=== PATIENT | female | born 1945 | race Caucasian/White ===

== ENCOUNTER 2021-07-07 12:24 | Observation (INO) | payer MEDICARE, OTHER, SELFPAY ==
[2021-07-07] VITALS (10 sets, daily range): BP systolic 107–149; BP diastolic 53–94; PULSE 64–91; RESP 16–22; TEMP 36.6–36.8; O2SAT 86–100; BMI 32.7
--- NOTE | 2021-07-07 12:47 | ED.GIBLEED ---
HPI - GI Bleed General Chief complaint: GI Bleed Stated complaint: gi bleed Time Seen by Provider: 07/07/21 12:36 Source: patient and old records reviewed Mode of arrival: EMS Limitations: no limitations History of Present Illness HPI Narrative: Patient is a 75-year-old female who presents to the ED via EMS with report of low hemoglobin. Per patient's records, patient was seen at [facility] on 06/18 due to 2 day history of weakness and diagnosed with left MCA CVA. She was started on aspirin, Plavix, and a statin at that time. On 06/21 her hemoglobin was 6.8 and she received 1 unit of packed red blood cells. Plavix was held at that time and later resumed. She was discharged to [facility] on 06/23 for PT OT and speech therapy. On 07/04, her hemoglobin was over 7. She did not receive any further blood transfusions and was started on a PPI. On 07/05, patient was noted to be heme occult positive. Aspirin Plavix were held yesterday due to hemoglobin remaining low. CBC at 0330 this morning at the rehab facility showed hemoglobin of 6.9 and she was referred here for further evaluation. Patient denies any melena or bright red rectal bleeding. She also denies any fatigue, abdominal pain, nausea, vomiting, urinary symptoms, fever, chills. Patient has some issues with confusion since CVA and is receiving speech therapy for dysarthria and expressive aphasia. A&O x2 currently in the ED bed. Related Data Allergies Allergy/AdvReac Type Severity Reaction Status Date / Time Bleach (Sodium Hypochlorite) Allergy Other Verified 06/23/21 14:53 cephalexin [From Keflex] Allergy Rash Verified 06/23/21 14:52 Review of Systems Review of Systems: CONSTITUTIONAL: Denies fatigue, fever, chills, or sweats. CARDIOVASCULAR: Denies chest pain or edema. RESPIRATORY: Denies cough or dyspnea. GASTROINTESTINAL: Reports occult rectal bleeding. Denies abdominal pain, nausea, vomiting, melena, bright red rectal bleeding, or diarrhea. GENITOURINARY: Denies dysuria or hematuria. MUSCULOSKELETAL: Denies back pain, joint pain, or myalgia. NEUROLOGIC: Denies headache, numbness All systems reviewed & are unremarkable except as noted in HPI and below PMFSH Past Medical History Medical History Anemia Cognitive deficits Coronary artery disease CVA (cerebral vascular accident) Diabetes mellitus GERD (gastroesophageal reflux disease) H/O renal cell cancer Hyperlipidemia Hypertension Obesity Peripheral vascular disease Right hemiplegia Surgical History Surgical History H/O aortic valve replacement Family History Family History Sibling Hypertension Other Family history of heart attack Social History Social History Social History: 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 Spoke with son who will be hiring caregivers to return patient to her home. Second hand tobacco smoke exposure: Yes Exam Narrative: GENERAL: Well appearing, well-nourished, non-toxic, in no acute distress. HEAD: Normocephalic, atraumatic. EYES: EOMI, conjunctivae clear bilaterally. THROAT: Pharynx clear, no exudate. MMs moist. NECK: Supple. No adenopathy, no masses. RESPIRATORY: Airway patent, respirations nonlabored. Clear to auscultation bilaterally, no rales, rhonchi, wheezing. CARDIOVASCULAR: Regular rate and rhythm without murmurs, rubs, or gallops. Peripheral pulses 2+ and equal bilaterally. ABDOMINAL: Soft, nontender, nondistended, no hepatosplenomegaly. Normoactive BS. RECTAL: Normal tone. Nonthrombosed external hemorrhoids noted. Stool without gross blood. Hemoccult positive. MUSCULOSKELETAL: Moves all extremities. Strength/ROM intact per current baseline without gross deformities or TTP. Decreased strength in RUE secondary to recent CVA. No e
[2021-07-07 13:06] LABS: Basophils Absolute Auto 0.1 K/mm3 (0.0-0.1); Basophils Percent Auto 1.2 % (0.2-1.2); Eosinophils Absolute Auto 0.3 K/mm3 (0-0.3); Eosinophils Percent Auto 2.6 % (0-4.4); Hematocrit 27.1 % (37.0-47.0); Hemoglobin 7.9 g/dL (12.0-15.0); Immature Granulocyte Absolute 0.03 K/mm3 (0.00-0.031); Immature Granulocyte Percent A 0.3 % (0-0.5); Lymphocytes Absolute Auto 2.15 K/mm3 (0.9-3.2); Lymphocytes Percent Auto 21.8 % (18.3-44.2); Mean Corpuscular HGB Conc 29.2 g/dl (32-36); Mean Corpuscular Hemoglobin 25.3 pg (26-34); Mean Corpuscular Volume 86.9 fl (80-100); Mean Platelet Volume 9.2 fl (7.4-10.4); Monocytes Absolute Auto 0.6 K/mm3 (0.1-0.6); Monocytes Percent Auto 6.5 % (2.6-8.5); Neutrophils Absolute Auto 6.6 K/mm3 (1.3-6.7); Neutrophils Percent Auto 67.6 % (45.5-73.1); Platelet Count Result 515 k/mm3 (150-375); Red Blood Count 3.12 M/mm3 (4.2-5.4); Red Cell Distribution Width 22.5 % (11.5-14.5); White Blood Count 9.8 K/mm3 (4.5-10.0)
[2021-07-07 13:14] LABS: INR 1.1; Prothrombin Time 13.7 Seconds (11.1-14.7)
[2021-07-07 13:15] LABS: Alanine Aminotransferase 16 U/L (4-35); Albumin Level 3.6 g/dL (3.5-5.1); Alkaline Phosphatase 78 U/L (38-126); Anion Gap 7 mmol/L (8-16); Aspartate Amino Transferase 19 U/L (14-36); Bilirubin,Total 0.5 mg/dL (0.2-1.3); Blood Urea Nitrogen 21 mg/dL (7-17); Calcium 8.6 mg/dL (8.4-10.2); Carbon Dioxide 21 mmol/L (22-30); Chloride 111 mmol/L (98-107); Estimated CRCL calculation 53 ml/min; Estimated Glomerular Filt Rate > 60; Glucose 111 mg/dL (65-110); Potassium 4.3 mmol/L (3.4-5.0); Sodium 139 mmol/L (137-145)
[2021-07-07 13:25] LABS: Hypochromasia 2+ (NORMAL)
[2021-07-07 13:26] LABS: Anisocytosis 2+ (NORMAL); Poikilocytosis 2+ (NORMAL)
[2021-07-07 13:27] LABS: Acanthocytes 1+ (NORMAL); Ovalocytes 1+ (NORMAL)
[2021-07-07] MEDS: SODIUM CHLORIDE 0.9% IV 250 ML 30 ML IV CONT (13:30)
[2021-07-07 14:10] LABS: Partial Thromboplastin Time 25.3 SECONDS (22.3-36.8)
--- NOTE | 2021-07-07 14:11 | PC.NURSE ---
Dr Dennis at bedside to aubrey pt
--- NOTE | 2021-07-07 14:20 | WPDGICN ---
Assessment and Plan Assessment and plan (1) Anemia: Code(s): D64.9 - Anemia, unspecified Status: Acute Assessment and Plan: She has not beenanemic before to her knowledge. Her last colonoscopy was in [place], several years ago. (2) Blood in stool: Code(s): K92.1 - Melena Status: Acute Assessment and Plan: hemoccult was positive, but she has not seen blood in her stool or had black stools. Colonoscopy will be done in AM. (3) CVA (cerebral vascular accident): Code(s): I63.9 - Cerebral infarction, unspecified Status: Acute Assessment and Plan: She had CVA last month, and had [facility] [place], from where she came today. GI Consult Note Consult date/time: 07/07/21 14:20 HPI: Mary Lou Aguero is a 75 year old female comes in the emergency room transferred from the rehabilitation center because blood was drawn this morning revealing her hemoglobin was 6.9. There has been no active bleeding. Apparently she has had a low hemoglobin for the past few weeks. She was hospitalized with a stroke in mid May at [facility]. There she was given a blood transfusion for a hemoglobin of 6.8. A few days ago hemoglobin was 6.6 then 7.5 then 6.6 again on July 05. No blood was given. Today hemoglobin is 6.9 and she was transferred to the emergency room. The emergency room physicians were given the information that GI is aware our Gastroenterology Department here has no knowledge of her until this fall call but apparently [facility] may have been notified. The patient herself tells me that she had a colonoscopy by Dr. Slade a couple of years ago and was normal. But she does not at believe that she has ever been anemic in the past, she has no knowledge of gastrointestinal bleeding now. A stool Hemoccult however was found to be positive. She denies abdominal pain nausea vomiting. She states that for some reason day. Feeding her after yesterday morning at the rehab unit Review of Systems Review of Systems: All systems reviewed & are unremarkable except as noted in HPI and below PMFSH Past Medical History Medical History Anemia Cognitive deficits Coronary artery disease CVA (cerebral vascular accident) Diabetes mellitus GERD (gastroesophageal reflux disease) H/O renal cell cancer Hyperlipidemia Hypertension Obesity Peripheral vascular disease Right hemiplegia Surgical History Surgical History H/O aortic valve replacement Family History Family History Sibling Hypertension Other Family history of heart attack Social History Social History Social History: 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 Spoke with son who will be hiring caregivers to return patient to her home. Smoking status: Never smoker Second hand tobacco smoke exposure: Yes Alcohol intake: former Substance use: never Spiritual care concerns: No Meds Home Medications and Allergies Home Medications Medication Instructions Recorded Confirmed Type aspirin [Adult Aspirin EC Low 81 mg PO DAILY 07/07/21 07/07/21 History Strength] atorvastatin [Lipitor] 40 mg PO HS 07/07/21 07/07/21 History buspirone 10 mg PO BID 07/07/21 07/07/21 History clopidogrel 75 mg PO DAILY 07/07/21 07/07/21 History docusate sodium 100 mg PO BID 07/07/21 07/07/21 History famotidine 20 mg PO BID 07/07/21 07/07/21 History furosemide 20 mg PO DAILY 07/07/21 07/07/21 History gabapentin 300 mg PO DAILY 07/07/21 07/07/21 History insulin glargine 8 unit SUBCUT QAM 07/07/21 07/07/21 History melatonin 6 mg PO HS PRN 07/07/21 07/07/21 History methimazole 5 mg PO DAILY 07/07/21 07/07/21 History metoprolol tartrate 25 mg PO DAILY 07/07/2107/07
[2021-07-07 14:29] LABS: Lipase 207 U/L (23-300)
[2021-07-07 14:29] LABS: Add Urine Microscopic? NO; Appearance Urine Clear (Clear); Bilirubin Urine Negative (Negative); Blood Urine Negative (Negative); Color Urine Yellow (Yellow); Glucose Urine UA Negative (Negative); Ketones Urine Negative (Negative); Leukocyte Esterase Ur Negative LEU/UL (Negative); Nitrate Urine Negative (Negative); Protein Urine Negative (Negative); Specific Grav Ur 1.018 (1.001-1.035); Urobilinogen Urine Negative mg/dL (<2.0)
[2021-07-07 15:30] LABS: Hematocrit 25.5 % (37.0-47.0); Hemoglobin 7.4 g/dL (12.0-15.0)
--- NOTE | 2021-07-07 18:00 | ADMGEN ---
This patient, Mary Lou Aguero, was admitted to Medical Room 347-. Patient/family oriented to hospital policies and general routines including ID bracelet, bed and alarms, visiting hours, pain management, procedures, bathroom and other care routines, personal items, smoking policy, room service/diet, and visiting hours. Information on how to activate the Rapid Response Team has been discussed. Patient/Family are encouraged to report perceived risks to care and to ask questions if they do not understand what they are told or what they should do.
[2021-07-07] MEDS: BISACODYL 5 MG TABLET EC 10 MG PO ×2 (18:37→22:53)
[2021-07-07 18:49] LABS: Hematocrit 27.2 % (37.0-47.0); Hemoglobin 8.1 g/dL (12.0-15.0)
[2021-07-07] MEDS: polyethylene glycoL 3350 238 GM BOTTLE PO (18:59)
--- NOTE | 2021-07-07 19:26 | PM.IMHP ---
H&P: HPI History of Present Illness Date/Time: Patient was placed observation status for expected length of stay less than 23 hours for management, will plan to re-evaluate tomorrow for improvement. 07/07/21 19:26 Chief Complaint: Abnormal laboratories Narrative: Ms. Aguero is a 75-year-old female who presented to the emergency room after being sent by rehab facility for a low hemoglobin and hematocrit. Per the rehab records patient's hemoglobin and hematocrit have been trending down and she did receive 1 unit of packed red blood cells on 07/05/2021. And then patient had her hemoglobin hematocrit rechecked this morning and her hemoglobin was at 6.9. Patient was sent to the emergency room laboratories were redrawn. Patient states that she has been at rehab after having a stroke at [facility]. Patient states that her only deficit is right upper extremity weakness. Patient states that she does have a ?bad knee? to the right lower extremity that will give out on her, but she does not have any weakness to this right lower extremity. Patient states that she has bowel movements approximately 3 times weekly and she has not noticed any dark tarry stools or bright red blood. Upon evaluation emergency room patient's hemoglobin and hematocrit have actually gone up from a when she was at the rehab facility. Patient denies any chest pain, shortness a breath, lightheadedness, dizziness, syncopal, or near syncopal episodes. Patient has a known history of a left MCA CVA that was diagnosed at [facility] on 06/18/2021. Patient was placed on aspirin, Plavix, and statin at that time. Patient was sent to rehab on 06/23/2021. Patient does have a known history of coronary artery disease status post stent placement, bovine aortic valve replacement, anemia, CVA, renal cell carcinoma, hypertension, and diabetes mellitus. Review of Systems Review of Systems: A 12 point review of systems was completed patient all pertinent positive and negative per HPI the remainder are unremarkable. [facility] Past Medical History Medical History (Updated 07/07/21 @ 19:38 by Joi Tran APRN) Anemia Cognitive deficits Coronary artery disease CVA (cerebral vascular accident) Diabetes mellitus GERD (gastroesophageal reflux disease) H/O renal cell cancer Hyperlipidemia Hypertension Hyperthyroidism Obesity Peripheral vascular disease Right hemiplegia Surgical History Surgical History (Updated 07/07/21 @ 19:36 by Joi Tran APRN) H/O aortic valve replacement History of appendectomy History of cataract removal with insertion of prosthetic lens Right eye History of cholecystectomy History of coronary artery stent placement Family History Family History Sibling Hypertension Other Family history of heart attack Social History Social History Social History: 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 Spoke with son who will be hiring caregivers to return patient to her home. Smoking status: Never smoker Second hand tobacco smoke exposure: Yes Alcohol intake: former Substance use: never Spiritual care concerns: No Meds Home Medications and Allergies Home Medications Medication Instructions Recorded Confirmed Type aspirin [Adult Aspirin EC Low 81 mg PO DAILY 07/07/21 07/07/21 History Strength] atorvastatin [Lipitor] 40 mg PO HS 07/07/21 07/07/21 History buspirone 10 mg PO BID 07/07/21 07/07/21 History clopidogrel 75 mg PO DAILY 07/07/21 07/07/21 History docusate sodium 100 mg PO BID 07/07/21 07/07/21 History famotidine 20 mg PO BID 07/07/21 07/07/21 History furosemide 20 mg PO DAILY 07/07/21 07/07/21 History gabapentin 300 mg PO DAILY 07/07/21 07/07/21 History insulin glargine 8 unit SUBCUT QAM 07/07/21 07/07/21 History melatonin 6 mg PO HS PRN 07/07/21 07/07/21 History methimazole 5 mg PO [place]
[2021-07-07 20:13] LABS: Glucose Point of Care 181 mg/dl (65-105)
[2021-07-07] MEDS: PANTOPRAZOLE 40 MG TABLET PO (20:58)
[2021-07-07] MEDS: FAMOTIDINE 20 MG TABLET PO (20:58)
[2021-07-07] MEDS: busPIRone HCL 10 MG TABLET PO (20:58)
[2021-07-07] MEDS: ATORVASTATIN 40 MG TABLET PO (20:58)
[2021-07-07] MEDS: DOCUSATE SODIUM 100 MG CAPSULE PO (20:59)
[2021-07-07 22:48] LABS: Glucose Point of Care 159 mg/dl (65-105)
[2021-07-08] MEDS: BISACODYL 5 MG TABLET EC 10 MG PO (02:48)
[2021-07-08 06:18] LABS: Basophils Absolute Auto 0.1 K/mm3 (0.0-0.1); Eosinophils Absolute Auto 0.2 K/mm3 (0-0.3); Eosinophils Percent Auto 2.4 % (0-4.4); Hematocrit 26.1 % (37.0-47.0); Hemoglobin 7.6 g/dL (12.0-15.0); Immature Granulocyte Absolute 0.03 K/mm3 (0.00-0.031); Immature Granulocyte Percent A 0.3 % (0-0.5); Lymphocytes Absolute Auto 1.58 K/mm3 (0.9-3.2); Lymphocytes Percent Auto 16.3 % (18.3-44.2); Mean Corpuscular HGB Conc 29.1 g/dl (32-36); Mean Corpuscular Hemoglobin 25.2 pg (26-34); Mean Corpuscular Volume 86.7 fl (80-100); Mean Platelet Volume 9.2 fl (7.4-10.4); Monocytes Absolute Auto 0.8 K/mm3 (0.1-0.6); Platelet Count Result 509 k/mm3 (150-375); Red Blood Count 3.01 M/mm3 (4.2-5.4); Red Cell Distribution Width 22.3 % (11.5-14.5); White Blood Count 9.7 K/mm3 (4.5-10.0)
[2021-07-08 06:27] LABS: Anion Gap 7 mmol/L (8-16); Blood Urea Nitrogen 15 mg/dL (7-17); Calcium 8.7 mg/dL (8.4-10.2); Carbon Dioxide 21 mmol/L (22-30); Chloride 112 mmol/L (98-107); Estimated CRCL calculation 60 ml/min; Estimated Glomerular Filt Rate > 60; Glucose 112 mg/dL (65-110); Potassium 3.7 mmol/L (3.4-5.0); Sodium 140 mmol/L (137-145)
[2021-07-08 07:56] LABS: Glucose Point of Care 130 mg/dl (65-105)
[2021-07-08 08:54] VITALS: PULSE 90
[2021-07-08] MEDS: GABAPENTIN 300 MG CAPSULE PO (08:54)
[2021-07-08] MEDS: busPIRone HCL 10 MG TABLET PO ×2 (08:54→21:24)
[2021-07-08] MEDS: PANTOPRAZOLE 40 MG TABLET PO ×2 (08:54→21:24)
[2021-07-08] MEDS: METOPROLOL TARTRATE 25 MG TABLET PO (08:54)
[2021-07-08] MEDS: methiMAzole 5 MG TAB PO (08:54)
[2021-07-08] MEDS: DOCUSATE SODIUM 100 MG CAPSULE PO ×2 (08:54→21:24)
[2021-07-08] MEDS: FAMOTIDINE 20 MG TABLET PO ×2 (08:54→21:24)
[2021-07-08] MEDS: INSULIN GLARGINE (*BKC) 100 UNITS/ML 8 UNITS SUB-Q (08:55)
--- NOTE | 2021-07-08 09:03 | PCOTNOTE ---
Attempted to see for OT evaluation this AM. Patient with MD and nursing at this time. Will continue to attempt.
[2021-07-08] MEDS: ASPIRIN 81 MG ENTERIC TABLET PO (09:44)
[2021-07-08] MEDS: FUROSEMIDE 20 MG TABLET PO (09:44)
[2021-07-08 11:55] LABS: Glucose Point of Care 123 mg/dl (65-105)
[2021-07-08 12:37] VITALS: BP 132/58; PULSE 68; RESP 18; TEMP 36.4; O2SAT 100
[2021-07-08] MEDS: LACTATED RINGERS 1,000 ML 150 ML IV CONT (12:41)
[2021-07-08 12:46] LABS: Glucose Point of Care 123 mg/dl (65-105)
--- NOTE | 2021-07-08 12:56 | WPDANESEPPF ---
Anes - Initial Pre Proc Eval Procedure: Operation Date: 07/08/21 14:00 Proposed Procedures p Esophagogastroduodenoscopy & Colonoscopy - Timothy Dennis MD Date/Time: 07/08/21 12:56 Surgeon: Anish Lipscomb MD Pre Op Diagnosis: GI bleeding Patient Data Age: 75 Gender: F Height: 1.6 m Weight: 83.8 kg Last Vital Signs Temp 97.6 F 07/08/21 12:37 Pulse 68 07/08/21 12:37 Resp 18 07/08/21 12:37 BP 132/58 L 07/08/21 12:37 Pulse Ox 100 07/08/21 12:37 Allergies Allergy/AdvReac Type Severity Reaction Status Date / Time Bleach (Sodium Hypochlorite) Allergy Other Verified 07/08/21 12:34 cephalexin [From Keflex] Allergy Rash Verified 07/08/21 12:34 Home Medications Medication Instructions Recorded Confirmed Type aspirin [Adult Aspirin EC Low 81 mg PO DAILY 07/07/21 07/07/21 History Strength] atorvastatin [Lipitor] 40 mg PO HS 07/07/21 07/07/21 History buspirone 10 mg PO BID 07/07/21 07/07/21 History clopidogrel 75 mg PO DAILY 07/07/21 07/07/21 History docusate sodium 100 mg PO BID 07/07/21 07/07/21 History famotidine 20 mg PO BID 07/07/21 07/07/21 History furosemide 20 mg PO DAILY 07/07/21 07/07/21 History gabapentin 300 mg PO DAILY 07/07/21 07/07/21 History insulin glargine 8 unit SUBCUT QAM 07/07/21 07/07/21 History melatonin 6 mg PO HS PRN 07/07/21 07/07/21 History methimazole 5 mg PO DAILY 07/07/21 07/07/21 History metoprolol tartrate 25 mg PO DAILY 07/07/21 07/07/21 History pantoprazole 40 mg PO BID 07/07/21 07/07/21 History Laboratory Tests 07/07/21 07/07/21 07/07/21 12:58 12:58 12:58 WBC 9.8 K/mm3 K/mm3 (4.5-10.0) RBC 3.12 M/mm3 L M/mm3 (4.2-5.4) Hgb 7.9 g/dL L g/dL (12.0-15.0) Hct 27.1 % L % (37.0-47.0) MCV 86.9 fl fl (80-100) MCH 25.3 pg L pg (26-34) MCHC 29.2 g/dl L g/dl (32-36) RDW 22.5 % H % (11.5-14.5) Plt Count 515 k/mm3 H k/mm3 (150-375) MPV 9.2 fl fl (7.4-10.4) Immature Gran % (Auto) 0.3 % % (0-0.5) Neut % (Auto) 67.6 % % (45.5-73.1) Lymph % (Auto) 21.8 % % (18.3-44.2) [place] % (Auto) 6.5 % % (2.6-8.5) Eos % (Auto) 2.6 % % (0-4.4) Baso % (Auto) 1.2 % % (0.2-1.2) Lymph # (Auto) 2.15 K/mm3 K/mm3 (0.9-3.2) [place] # (Auto) 0.6 K/mm3 K/mm3 (0.1-0.6) Eos # (Auto) 0.3 K/mm3 K/mm3 (0-0.3) Baso # (Auto) 0.1 K/mm3 K/mm3 (0.0-0.1) Abs Immat Gran (auto) 0.03 K/mm3 K/mm3 (0.00-0.031) Absolute Neuts (auto) 6.6 K/mm3 K/mm3 (1.3-6.7) Absolute Nucleated RBC 0.0 K/mm3 K/mm3 (0.0-0.012) Nucleated RBC % 0.0 % % (0.0-0.2) Platelet Estimate Slightly increased (Adequate) Hypochromasia 2+ (NORMAL) Poikilocytosis 2+ (NORMAL) Anisocytosis 2+ (NORMAL) Ovalocytes 1+ (NORMAL) Acanthocytes (Spur) 1+ (NORMAL) PT 13.7 Seconds Seconds (11.1-14.7) INR 1.1 APTT Sodium 139 mmol/L mmol/L (137-145) Potassium 4.3 mmol/L mmol/L (3.4-5.0) Chloride 111 mmol/L H mmol/L (98-107) Carbon Dioxide 21 mmol/L L mmol/L (22-30) Anion Gap 7 mmol/L L mmol/L (8-16) BUN 21 mg/dL H mg/dL (7-17) Creatinine 0.80 mg/dL mg/dL (0.7-1.0) Estim Creat Clear Calc 53 ml/min ml/min Estimated GFR > 60 (59 - ) Glucose 111 mg/dL H mg/dL (65-110) POC Capillary Glucose Calcium 8.6 mg/dL mg/dL (8.4-10.2) Total Bilirubin 0.5 mg/dL mg/dL (0.2-1.3) AST 19 U/L U/L (14-36) ALT 16 U/L U/L (4-35) Alkaline Phosphatase 78 U/L U/L (38-126) Total Protein 7.0 g/dL g/dL (6.3-8.2) Albumin 3.6 g/dL g/dL (3.5-5.1) Lipase Urine Color
--- NOTE | 2021-07-08 13:19 | SUR.OPER ---
EGD ENDED AT 1316, COLONOSCOPY BEGAN AT 1321.
[2021-07-08 13:36] VITALS: BP 83/49; PULSE 64; RESP 16; O2SAT 100
[2021-07-08 13:46] VITALS: BP 94/57; PULSE 60; RESP 15; O2SAT 100
[2021-07-08 13:56] VITALS: BP 119/65; PULSE 56; RESP 15; O2SAT 100
--- NOTE | 2021-07-08 13:58 | PM.IMPN ---
Progress Note: A&P Assessment and Plan (1) GI (gastrointestinal bleed): Qualifiers: GI bleed type/associated pathology: unspecified gastrointestinal hemorrhage type Qualified Code(s): K92.2 - Gastrointestinal hemorrhage, unspecified Code(s): K92.2 - Gastrointestinal hemorrhage, unspecified Status: Acute Assessment and Plan: H&H dropped needing transfusion recurrent . GI has been consulted and going for EGD and colonoscopy today. Post stroke her hemoglobin dropped and Plavix was briefly placed on hold and required transfusion. Recurrently current anemic again in rehab facility needing transfusion. (2) History of ischemic cerebrovascular accident (CVA) with residual deficit: Code(s): I69.30 - Unspecified sequelae of cerebral infarction Status: Acute Assessment and Plan: recently in [place] in May 2021. MRI was nondiagnostic with motion artifact however multifocal bilateral cerebral diffusion hyperintensity suspicious for recent infarction noted. Echo with EF 60-65% with no evidence of shunt thrombus or vegetation. Silas done showed mild mitral valve regurgitation mild tricuspid regurgitation. On was on aspirin Plavix and statin. Aspirin andPlavix on hold due to GI bleed (3) Diabetes mellitus: Code(s): E11.9 - Type 2 diabetes mellitus without complications Status: Acute Assessment and Plan: blood glucose monitoring before meals and at bedtime with sliding scale insulin available (4) Hyperthyroidism: Code(s): E05.90 - Thyrotoxicosis, unspecified without thyrotoxic crisis or storm Status: Acute (5) Right hemiplegia: Code(s): G81.91 - Hemiplegia, unspecified affecting right dominant side Status: Acute (6) Peripheral vascular disease: Code(s): I73.9 - Peripheral vascular disease, unspecified Status: Acute (7) Anemia: Qualifiers: Anemia type: unspecified type Qualified Code(s): D64.9 - Anemia, unspecified Code(s): D64.9 - Anemia, unspecified Status: Acute Assessment and Plan: monitor blood counts (8) Hyperlipidemia: Code(s): E78.5 - Hyperlipidemia, unspecified Status: Acute Assessment and Plan: home medication (9) Hypertension: Code(s): I10 - Essential (primary) hypertension Status: Acute Assessment and Plan: Home medication (10) H/O aortic valve replacement: Code(s): Z95.2 - Presence of prosthetic heart valve Status: Acute Assessment and Plan: call valve (11) Coronary artery disease: Code(s): I25.10 - Atherosclerotic heart disease of [place] coronary artery without angina pectoris Status: Acute (12) H/O renal cell cancer: Code(s): Z85.528 - Personal history of other malignant neoplasm of kidney Status: Acute Assessment and Plan: status post partial nephrectomy Subjective Date/time seen: 07/08/21 13:58 Interval history: HPI:Ms. Aguero is a 75-year-old female who presented to the emergency room after being sent by rehab facility for a low hemoglobin and hematocrit. Per the rehab records patient's hemoglobin and hematocrit have been trending down and she did receive 1 unit of packed red blood cells on 07/05/2021. And then patient had her hemoglobin hematocrit rechecked this morning and her hemoglobin was at 6.9. Patient was sent to the emergency room laboratories were redrawn. Patient states that she has been at rehab after having a stroke at [facility]. Patient states that her only deficit is right upper extremity weakness. Patient states that she does have a ?bad knee? to the right lower extremity that will give out on her, but she does not have any weakness to this right lower extremity. Patient states that she has bowel movements approximately 3 times weekly and she has not noticed any dark tarry stools or bright red blood. Upon evaluation emergency room patient's h
--- NOTE | 2021-07-08 14:54 | PCOTNOTE ---
Attempted to see patient for OT evaluation this afternoon. Patient refusing any/all activity at this time due to being too tired and wanting to sleep. Educated patient on the benefits of therapy and she continued to decline. Will continue to attempt.
[2021-07-08 16:41] LABS: Glucose Point of Care 185 mg/dl (65-105)
[2021-07-08 20:22] LABS: Glucose Point of Care 132 mg/dl (65-105)
[2021-07-08] MEDS: ATORVASTATIN 40 MG TABLET PO (21:24)
[2021-07-09 07:47] VITALS: BP 127/57; PULSE 64; RESP 16; TEMP 36.6; O2SAT 99
[2021-07-09 08:10] VITALS: PULSE 64
[2021-07-09] MEDS: FAMOTIDINE 20 MG TABLET PO (08:10)
[2021-07-09] MEDS: ASPIRIN 81 MG ENTERIC TABLET PO (08:10)
[2021-07-09] MEDS: DOCUSATE SODIUM 100 MG CAPSULE PO (08:10)
[2021-07-09] MEDS: METOPROLOL TARTRATE 25 MG TABLET PO (08:10)
[2021-07-09] MEDS: PANTOPRAZOLE 40 MG TABLET PO (08:10)
[2021-07-09] MEDS: FUROSEMIDE 20 MG TABLET PO (08:10)
[2021-07-09] MEDS: GABAPENTIN 300 MG CAPSULE PO (08:10)
[2021-07-09] MEDS: busPIRone HCL 10 MG TABLET PO (08:10)
[2021-07-09] MEDS: methiMAzole 5 MG TAB PO (08:10)
[2021-07-09 08:12] LABS: Basophils Absolute Auto 0.1 K/mm3 (0.0-0.1); Eosinophils Absolute Auto 0.3 K/mm3 (0-0.3); Eosinophils Percent Auto 2.9 % (0-4.4); Hematocrit 26.3 % (37.0-47.0); Hemoglobin 7.9 g/dL (12.0-15.0); Immature Granulocyte Absolute 0.03 K/mm3 (0.00-0.031); Immature Granulocyte Percent A 0.3 % (0-0.5); Lymphocytes Absolute Auto 1.66 K/mm3 (0.9-3.2); Lymphocytes Percent Auto 18.5 % (18.3-44.2); Mean Corpuscular Hemoglobin 25.1 pg (26-34); Mean Corpuscular Volume 83.5 fl (80-100); Mean Platelet Volume 9.2 fl (7.4-10.4); Monocytes Absolute Auto 0.6 K/mm3 (0.1-0.6); Monocytes Percent Auto 6.8 % (2.6-8.5); Neutrophils Absolute Auto 6.3 K/mm3 (1.3-6.7); Neutrophils Percent Auto 70.5 % (45.5-73.1); Platelet Count Result 510 k/mm3 (150-375); Red Blood Count 3.15 M/mm3 (4.2-5.4); Red Cell Distribution Width 22.2 % (11.5-14.5)
[2021-07-09] MEDS: INSULIN GLARGINE (*BKC) 100 UNITS/ML 8 UNITS SUB-Q (08:13)
[2021-07-09 08:17] LABS: Glucose Point of Care 135 mg/dl (65-105)
[2021-07-09 08:43] LABS: Anion Gap 5 mmol/L (8-16); Blood Urea Nitrogen 15 mg/dL (7-17); Calcium 8.6 mg/dL (8.4-10.2); Carbon Dioxide 21 mmol/L (22-30); Chloride 115 mmol/L (98-107); Estimated CRCL calculation 48 ml/min; Estimated Glomerular Filt Rate > 60; Glucose 131 mg/dL (65-110); Potassium 3.5 mmol/L (3.4-5.0); Sodium 141 mmol/L (137-145)
--- NOTE | 2021-07-09 10:06 | PM.DS ---
DS: Admitting Diagnosis Discharge Date 07/09/2021 Admitting Diagnosis Anemia DS: Discharge Diagnosis Discharge Diagnosis (1) GI (gastrointestinal bleed): Qualifiers: GI bleed type/associated pathology: unspecified gastrointestinal hemorrhage type Qualified Code(s): K92.2 - Gastrointestinal hemorrhage, unspecified Code(s): K92.2 - Gastrointestinal hemorrhage, unspecified Status: Acute Assessment and Plan: H&H dropped needing transfusion recurrent . GI has been consulted and underwent EGD and colonoscopy. EGD showed nonerosive gastritis in GE junction colonoscopy revealed multiple linear ulcers in descending colon suggestive of ischemic colitis. Biopsies were taken. She was taken off of Plavix during the hospital stay and her H&H was monitored which remained stable. She did not require any transfusion during the hospital stay. She recently had her transfusion done at the rehab facility. Post stroke her hemoglobin dropped and Plavix was briefly placed on hold and required transfusion. This was at [facility] Recurrently current anemic again in rehab facility needing transfusion. Will need to hold her Plavix until these ulcers heal. Restarted Plavix will be assessed as an outpatient basis with follow-up with GI (2) History of ischemic cerebrovascular accident (CVA) with residual deficit: Code(s): I69.30 - Unspecified sequelae of cerebral infarction Status: Acute Assessment and Plan: recently in [place] in May 2021. MRI was nondiagnostic with motion artifact however multifocal bilateral cerebral diffusion hyperintensity suspicious for recent infarction noted. Echo with EF 60-65% with no evidence of shunt thrombus or vegetation. Silas done showed mild mitral valve regurgitation mild tricuspid regurgitation. On was on aspirin Plavix and statin. Plavix on hold due to GI bleed Continued on aspirin and H&H remained stable (3) Diabetes mellitus: Code(s): E11.9 - Type 2 diabetes mellitus without complications Status: Acute Assessment and Plan: blood glucose monitoring before meals and at bedtime with sliding scale insulin available (4) Hyperthyroidism: Code(s): E05.90 - Thyrotoxicosis, unspecified without thyrotoxic crisis or storm Status: Acute (5) Right hemiplegia: Code(s): G81.91 - Hemiplegia, unspecified affecting right dominant side Status: Acute Assessment and Plan: Continue rehabilitation at [facility] (6) Peripheral vascular disease: Code(s): I73.9 - Peripheral vascular disease, unspecified Status: Acute (7) Anemia: Qualifiers: Anemia type: unspecified type Qualified Code(s): D64.9 - Anemia, unspecified Code(s): D64.9 - Anemia, unspecified Status: Acute Assessment and Plan: monitor blood counts H&H remained stable during the hospital stay (8) Hyperlipidemia: Code(s): E78.5 - Hyperlipidemia, unspecified Status: Acute Assessment and Plan: home medication (9) Hypertension: Code(s): I10 - Essential (primary) hypertension Status: Acute Assessment and Plan: Home medication (10) H/O aortic valve replacement: Code(s): Z95.2 - Presence of prosthetic heart valve Status: Acute Assessment and Plan: Had a cow valve (11) Coronary artery disease: Code(s): I25.10 - Atherosclerotic heart disease of [place] coronary artery without angina pectoris Status: Acute (12) H/O renal cell cancer: Code(s): Z85.528 - Personal history of other malignant neoplasm of kidney Status: Acute Assessment and Plan: status post partial nephrectomy DS: Summary Hospital Course Hospital Course: See above Time Spent with Patient Time attestation: Total time spent providing and/or coordinating discharge services: 45 minute Exam Narrative: Constitutional: Patient is well-nourish
[2021-07-09 10:16] LABS: EDCOVIDSCREEN Negative (Negative)
== END 2021-07-09 12:44 ==
LOC: ANHED 14:33 → ANH3MED 15:29
PROVIDERS: Internal Medicine Gastroenterology; Nurse Practitioner Adult Health; Physician Assistant; Admitting Provider Internal Medicine; Emergency Provider Emergency Medicine; PCP Physician Assistant; Visit Provider Internal Medicine
PROC: 0DJ08ZZ Inspection of Upper Intestinal Tract, Via Natural or Artificial Opening Endoscopic (ICD-10-PCS; CPT 43235; principal; 2021-07-08 14:00)
DX: K92.2 Gastrointestinal hemorrhage, unspecified (principal); D50.0 Iron deficiency anemia secondary to blood loss (chronic); K51.90 Ulcerative colitis, unspecified, without complications; K63.5 Polyp of colon; K21.9 Gastro-esophageal reflux disease without esophagitis; I10 Essential (primary) hypertension; I69.951 Hemiplegia and hemiparesis following unspecified cerebrovascular disease affecting right dominant side; I25.10 Atherosclerotic heart disease of native coronary artery without angina pectoris; I08.1 Rheumatic disorders of both mitral and tricuspid valves; I73.9 Peripheral vascular disease, unspecified; E11.51 Type 2 diabetes mellitus with diabetic peripheral angiopathy without gangrene; E78.5 Hyperlipidemia, unspecified; E05.90 Thyrotoxicosis, unspecified without thyrotoxic crisis or storm; Z20.822 Contact with and (suspected) exposure to COVID-19; Z95.2 Presence of prosthetic heart valve; Z85.528 Personal history of other malignant neoplasm of kidney
CPT/HCPCS: 45380; 43235; 36415; 80048; 80053; 81003; 82948; 83690; 85014; 85018; 85025; 85610; 85730; 86850; 86900; 86901; 87426; 88305; 92507; 92523; 96360; 97110; 97116; 97161; 97166; 99285; A9270; C9803; G0378; J1815; J2001; J2704; J7050; J7120

== ENCOUNTER 2021-07-11 19:26 | Inpatient (IN) | payer MEDICARE, OTHER, SELFPAY ==
--- NOTE | ~2021-07-11 | XR_ITS ---
EXAMINATION: XR knee RT 3V DATE: 07/13/2021 13:49 INDICATION: Right knee pain. TECHNIQUE: 3 views of right knee were obtained. COMPARISON: None. FINDINGS: Bone alignment is normal. No fracture. There is severe osteoarthritis of lateral compartmen t and mild osteoarthritis of medial and patellofemoral compartments. There is a large knee joint effu moses. IMPRESSION: 1. Severe right knee osteoarthritis. 2. Large knee joint effusion. Reviewed, dictated and finalized at location [facility].
--- NOTE | ~2021-07-11 | CT_ITS ---
EXAMINATION: CT abdomen pelvis w con DATE: 07/11/2021 21:54 INDICATION: Abdominal pain, sepsis. Diarrhea, fever. History of renal cell cancer, diabetes mellitus, gastroesophageal reflux. Status post appendectomy an d cholecystectomy. TECHNIQUE: Computed tomography (CT) of the abdomen and pelvis was performed with 100 CC Omnipaque 350 intravenous contrast. Automated exposure control and iterative reconstruction technique were employe d. Exam dose: 1116.92 mGy-cm total exam DLP. COMPARISON: None. FINDINGS: There is an irregular up to 1.5 cm spiculated soft tissue mass of the middle lobe, suspicio us for lung cancer. Calcified right hilar nodes and calcified right lower lobe pulmonary granuloma, consistent with old p ulmonary granulomatous disease. There are calcified splenic granulomas as well. Status post sternotomy. Probable aortic valve replacement. No hepatic, splenic, pancreatic, adrenal space-occupying mass lesion. There are occasional small zan l cysts, more numerous on the left. Small nonobstructing lower pole left renal calculus. No ureteral calculus or hydroureteronephrosis. There is extensive abdominal aortic and iliac and femoral artery calcification. No abdominal aortic a neurysm. No intraperitoneal or retroperitoneal or pelvic mass lesion or adenopathy or ascites. There is soft tissue prominence in the anal area; recommend clinical correlation. There is diffuse th ickening of the wall of the colon and some air-fluid levels of the colon. No bowel obstruction or intraperitoneal free air. Diffuse idiopathic skeletal hyperostosis of the thoracic spine. Grade 1 anterolisthesis at L4-5 due to prominent degenerative change at the apophyseal joints. IMPRESSION: Up to 1.5 cm irregular spiculated mass density of the middle lobe, suspicious for lung c ancer Diffuse thickening of the colon wall, suggesting colitis which may be infectious or inflammatory Soft tissue prominence in the anal area; recommend clinical correlation to exclude carcinoma Status post appendectomy Status post cholecystectomy Reviewed, dictated and finalized at [facility]. Reviewed, dictated and finalized at location A. IMPRESSION: Up to 1.5 cm irregular spiculated mass density of the middle lobe, suspicious for lung cancer Diffuse thickening of the colon wall, suggesting colitis which may be infectiou s or inflammatory Soft tissue prominence in the anal area; recommend clinical correlation to excl ude carcinoma Status post appendectomy Status post cholecystectomy
--- NOTE | 2021-07-11 19:30 | ECG_ITS ---
Measurements Intervals [place] Rate: 114 P: 59 MN: 130 QRS: 44 QRSD: 102 T: 77 QT: 274 QTc: 378 Interpretive Statements SINUS TACHYCARDIA NONSPECIFIC ST & T-WAVE ABNORMALITY ABNORMAL RHYTHM ECG NO PREVIOUS ECG AVAILABLE FOR COMPARISON Electronically Signed On 07-12-2021 12:04:50 CDT by Elizabeth Guerra M.D.
[2021-07-11 19:49] VITALS: BP 149/58; PULSE 118; RESP 20; TEMP 39.2; O2SAT 100
[2021-07-11 19:54] VITALS: RESP 20
[2021-07-11 19:57] LABS: Basophils Absolute Auto 0.1 K/mm3 (0.0-0.1); Basophils Percent Auto 0.5 % (0.2-1.2); Eosinophils Percent Auto 0.3 % (0-4.4); Hematocrit 25.1 % (37.0-47.0); Hemoglobin 7.6 g/dL (12.0-15.0); Immature Granulocyte Absolute 0.09 K/mm3 (0.00-0.031); Immature Granulocyte Percent A 0.6 % (0-0.5); Lymphocytes Absolute Auto 1.17 K/mm3 (0.9-3.2); Lymphocytes Percent Auto 7.7 % (18.3-44.2); Mean Corpuscular HGB Conc 30.3 g/dl (32-36); Mean Corpuscular Hemoglobin 24.6 pg (26-34); Mean Corpuscular Volume 81.2 fl (80-100); Mean Platelet Volume 9.1 fl (7.4-10.4); Monocytes Absolute Auto 1.1 K/mm3 (0.1-0.6); Monocytes Percent Auto 7.5 % (2.6-8.5); Neutrophils Absolute Auto 12.7 K/mm3 (1.3-6.7); Neutrophils Percent Auto 83.4 % (45.5-73.1); Platelet Count Result 492 k/mm3 (150-375); Red Blood Count 3.09 M/mm3 (4.2-5.4); Red Cell Distribution Width 21.5 % (11.5-14.5); White Blood Count 15.2 K/mm3 (4.5-10.0)
[2021-07-11 19:59] LABS: Glucose Point of Care 177 mg/dl (65-105)
[2021-07-11 20:09] LABS: INR 1.1; Prothrombin Time 13.4 Seconds (11.1-14.7)
[2021-07-11 20:10] LABS: Lactic Acid Reflex 1.4 mmol/L (0.7-2.1); Magnesium 1.8 mg/dL (1.6-2.3); Partial Thromboplastin Time 30.3 SECONDS (22.3-36.8)
[2021-07-11 20:13] LABS: Alanine Aminotransferase 14 U/L (4-35); Albumin Level 3.6 g/dL (3.5-5.1); Alkaline Phosphatase 84 U/L (38-126); Anion Gap 8 mmol/L (8-16); Aspartate Amino Transferase 20 U/L (14-36); Bilirubin,Total 0.6 mg/dL (0.2-1.3); Blood Urea Nitrogen 18 mg/dL (7-17); Calcium 8.7 mg/dL (8.4-10.2); Carbon Dioxide 19 mmol/L (22-30); Chloride 110 mmol/L (98-107); Estimated CRCL calculation 42 ml/min; Estimated Glomerular Filt Rate 54; Glucose 187 mg/dL (65-110); Potassium 3.3 mmol/L (3.4-5.0); Sodium 137 mmol/L (137-145)
--- NOTE | 2021-07-11 20:22 | ED.FEVER ---
HPI - Fever General Chief Complaint: Fever <Alla Dewitt PA-C - Last Filed: 07/12/21 04:09> Stated Complaint: WEAKNESS, FEVER, ABN LABS <Alla Dewitt PA-C - Last Filed: 07/12/21 04:09> Time Seen by Provider: 07/11/21 19:58 <Alla Dewitt PA-C - Last Filed: 07/12/21 04:09> Source: patient and old records reviewed <JONATHAN Doyle Last Filed: 07/12/21 04:09> Mode of arrival: EMS <JONATHAN Doyle Last Filed: 07/12/21 04:09> Limitations: no limitations <JONATHAN Doyle Last Filed: 07/12/21 04:09> History of Present Illness HPI Narrative: Patient is a 75-year-old female who presents the ED via EMS with complaints of fever and tachycardia. Patient has history of recent CVA, for which she has been [facility]. She was seen here on 07/07 for a low hemoglobin and admitted at that time. GI performed EGD and colonoscopy which showed nonerosive gastritis in GE junction and multiple linear ulcers in descending colon suggestive of ischemic colitis. Biopsies were taken showing sessile serrated polyp and nonspecific acute colitis with benign acute ulcer. She was noted to have low hemoglobin throughout hospital stay, but did not require any further blood transfusions. She did have a transfusion at the rehabilitation center prior to hospitalization. Patient's Plavix has been held intermittently due to anemia. Patient was discharged on 07/09 back to [facility] and sen to the ED again today due to report of hemoglobin of 6.7. Hemoglobin here 7.6. Patient was also reported to be tachycardic, febrile, and weak. Patient reports having mild R lower back pain, but denies any other symptoms currently in the ED bed, including dysuria, hematuria, abdominal pain, nausea, vomiting, chest pain, SOB. She denies noticing any further rectal bleeding or melena. <Alla Dewitt PA-C - Last Filed: 07/12/21 04:09> Related Data Home Medications: Home Medications Medication Instructions Recorded Confirmed aspirin 81 mg PO DAILY 07/07/21 07/12/21 atorvastatin [Lipitor] 40 mg PO HS 07/07/21 07/12/21 buspirone 10 mg PO BID 07/07/21 07/12/21 docusate sodium 100 mg PO BID 07/07/21 07/12/21 famotidine 20 mg PO BID 07/07/21 07/12/21 furosemide 20 mg PO DAILY 07/07/21 07/12/21 gabapentin 300 mg PO DAILY 07/07/21 07/12/21 insulin glargine 8 unit SUBCUT QAM 07/07/21 07/12/21 melatonin 6 mg PO HS PRN 07/07/21 07/12/21 methimazole 5 mg PO DAILY 07/07/21 07/12/21 metoprolol tartrate 25 mg PO DAILY 07/07/21 07/12/21 pantoprazole 40 mg PO BID 07/07/21 07/12/21 <Alla Dewitt PA-C - Last Filed: 07/12/21 04:09> Allergies/Adverse Reactions: Allergies Allergy/AdvReac Type Severity Reaction Status Date / Time Bleach (Sodium Hypochlorite) Allergy Other Verified 07/08/21 12:34 cephalexin [From Keflex] Allergy Rash Verified 07/08/21 12:34 <Alla Dewitt PA-C - Last Filed: 07/12/21 04:09> Review of Systems Review of Systems: CONSTITUTIONAL: Reports fever. Denies chills, or sweats. ENT: Denies rhinorrhea, congestion. CARDIOVASCULAR: Reports tachycardia. Denies chest pain. RESPIRATORY: Denies cough. GASTROINTESTINAL: Denies abdominal pain, nausea, vomiting, diarrhea, rectal bleeding, melena. GENITOURINARY: Denies dysuria or hematuria. MUSCULOSKELETAL: Reports R lower back pain. Denies joint pain, or myalgia. NEUROLOGIC: Reports weakness. Denies headache, numbness. <Alla Dewitt PA-C - Last Filed: 07/12/21 04:09> All systems reviewed & are unremarkable except as noted in HPI and below <Alla Dewitt PA-C - Last Filed: 07/12/21 04:09> PMFSH Past Medical History Medical History: Medical History Anemia Cognitive deficits Coronary artery disease CVA (cerebral vascular accident) Diabetes mellitus GERD (gastroesophageal reflux disease) H/O renal cell cancer Hyperlipi
[2021-07-11] MEDS: SODIUM CHLORIDE 0.9% IV 1,000 ML 500 ML (20:33)
[2021-07-11 21:05] LABS: Add Urine Microscopic? YES; Appearance Urine Cloudy (Clear); Bacteria Urine Trace /hpf; Bilirubin Urine Negative (Negative); Blood Urine 1+ (Negative); Color Urine Yellow (Yellow); Glucose Urine UA Negative (Negative); Ketones Urine Negative (Negative); Leukocyte Esterase Ur Negative LEU/UL (Negative); Mucus Urine Few /lpf; Nitrate Urine Positive (Negative); Protein Urine Negative (Negative); RBC Urine 0-2 /hpf (0-2); Specific Grav Ur 1.016 (1.001-1.035); Squamous Epithelial Cell Urine Rare /hpf (Few); Urobilinogen Urine Negative mg/dL (<2.0)
[2021-07-11 22:00] VITALS: BP 113/38; PULSE 93; RESP 20; TEMP 37.7; O2SAT 98
[2021-07-11 23:17] LABS: Toxigenic C. Diff NEGATIVE (NEGATIVE)
[2021-07-11 23:30] VITALS: BP 125/55; PULSE 90; RESP 18; O2SAT 97
[2021-07-11] MEDS: SODIUM CHLORIDE 0.9% IV 1,000 ML 125 ML IV CONT (23:48)
[2021-07-11] MEDS: metroNIDAZOLE 500 MG/ISO 100ML 500 MG/100 ML BAG 100 MG IVPB (23:49)
[2021-07-11] MEDS: POTASSIUM CHLORIDE 20 MEQ TABLET 40 MEQ PO (23:49)
[2021-07-12] VITALS (20 sets, daily range): BP systolic 90–132; BP diastolic 39–49; PULSE 58–105; RESP 16–22; TEMP 36.8–37.1; O2SAT 97–100; BMI 31.4
--- NOTE | 2021-07-12 01:11 | PM.IMHP ---
H&P: HPI History of Present Illness Date/Time: 07/12/21 02:15 Chief Complaint: Fever and low hemoglobin Narrative: 75-year-old female with past medical history of hyperthyroidism, hypertension, CVA and anemia who presented to the ER with fever and complaints of low hemoglobin. The patient was hospitalized at [facility] 06/18/2021 for left MCA CVA and placed on aspirin Plavix and statin. She was discharged to rehab on 06/23/2021. She was admitted to our hospital 07/07/2021 through to 07/09/2021 due to anemia however her repeat hemoglobin a G arrived to our facility was actually higher in trending upward without transfusion. She had received transfusion at acute rehab. She had an EGD and colonoscopy during that hospital stay which demonstrated nonerosive reflux esophagitis and colonic ulcers. The colonic ulcers appear linear in were concerning for possible ischemic bowel and ulcer pathology was consistent with benign ulcer with nonspecific colitis. Patient did not receive any antibiotics during her last hospitalization. The patient evidently developed diarrhea 2 days ago. She spiked a fever to 100.6 at acute rehab. Her hemoglobin at acute rehab was 6.7 but again her repeat hemoglobin here was 7.6 which was around her baseline. She has not been on Plavix since her last admission. The patient herself is a poor historian. She was only alert oriented to person and the fact that she was in the hospital. She thought that she was at [facility]. She could not name the month and thought the year was 2022. She denied having any dysuria or changes in urinary frequency. She reports having diarrhea ever since she was discharged from the hospital previously. She denies any abdominal pain she had been reporting some right lower back pain. She had not had any reported hematochezia or melena. She had no hematuria UA. She does report some difficulty with word finding since her stroke. She reported on prior hospitalization that her only deficit was right upper extremity weakness. Patient has had dysarthria and expressive aphasia since arrival to the rehab facility. 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 Review of Systems Review of Systems: I did attempt a 12 point review of systems but review of systems was limited the patient was only alert oriented x2. [facility] Past Medical History Medical History (Updated 07/12/21 @ 06:43 by Nivia Thakur, DO) Anemia Cognitive deficits Coronary artery disease CVA (cerebral vascular accident) Diabetes mellitus GERD (gastroesophageal reflux disease) H/O renal cell cancer Hyperlipidemia Hypertension Hyperthyroidism Obesity Peripheral vascular disease Renal cell carcinoma Right hemiplegia Surgical History Surgical History (Updated 07/12/21 @ 06:43 by Nivia Thakur DO) H/O aortic valve replacement History of appendectomy History of cataract removal with insertion of prosthetic lens Right eye History of cholecystectomy History of coronary artery stent placement History of right nephrectomy Family History Family History Sibling Hypertension Other Family history of heart attack Social History Social History (Updated 07/12/21 @ 06:45 by Nivia Thakur DO) Social History: Prior to her CVA the patient was independent in activities of daily living it was the primary caregiver for her . Her son will be hiring caregivers for them when she returns home. Smoking packs per day: 1 Smoking cigarettes per day: 20.0 Years smoked: 50 Smoking pack-years: 50.00 Smoking status: Former smoker Second hand tobacco smoke exposure: Yes Alcohol intake: former Substance use: never Substance use type: does not use Spiritual care concerns: No Meds Home Medications and Allergies Home Medications Medication Instructions Recorded Confirmed Type aspirin 81
[2021-07-12] MEDS: CIPROFLOXACIN 400 MG/D5W 200ML 200 ML 200 MG IVPB ×2 (01:15→08:10)
--- NOTE | 2021-07-12 01:25 | ADMGEN ---
This patient, Mary Lou Aguero, was admitted to IMU Room 232-01 on 07/12/2021 at 0045. Patient/family oriented to hospital policies and general routines including ID bracelet, bed and alarms, visiting hours, pain management, procedures, bathroom and other care routines, personal items, smoking policy, room service/diet, and visiting hours. Information on how to activate the Rapid Response Team has been discussed. Patient/Family are encouraged to report perceived risks to care and to ask questions if they do not understand what they are told or what they should do.
[2021-07-12] MEDS: metroNIDAZOLE 500 MG/ISO 100ML 500 MG/100 ML BAG 100 MG IVPB ×4 (06:47→23:54)
[2021-07-12 07:29] LABS: Basophils Absolute Auto 0.1 K/mm3 (0.0-0.1); Basophils Percent Auto 0.5 % (0.2-1.2); Eosinophils Absolute Auto 0.1 K/mm3 (0-0.3); Eosinophils Percent Auto 0.7 % (0-4.4); Immature Granulocyte Absolute 0.06 K/mm3 (0.00-0.031); Immature Granulocyte Percent A 0.5 % (0-0.5); Lymphocytes Absolute Auto 1.29 K/mm3 (0.9-3.2); Lymphocytes Percent Auto 10.3 % (18.3-44.2); Mean Corpuscular HGB Conc 26.7 g/dl (32-36); Mean Corpuscular Hemoglobin 24.5 pg (26-34); Mean Platelet Volume 9.4 fl (7.4-10.4); Monocytes Absolute Auto 1.2 K/mm3 (0.1-0.6); Monocytes Percent Auto 9.3 % (2.6-8.5); Neutrophils Absolute Auto 9.9 K/mm3 (1.3-6.7); Neutrophils Percent Auto 78.7 % (45.5-73.1); Platelet Count Result 386 k/mm3 (150-375); Red Blood Count 2.61 M/mm3 (4.2-5.4); Red Cell Distribution Width 21.2 % (11.5-14.5); White Blood Count 12.5 K/mm3 (4.5-10.0)
[2021-07-12 07:40] LABS: Anion Gap 7 mmol/L (8-16); Blood Urea Nitrogen 12 mg/dL (7-17); Calcium 7.8 mg/dL (8.4-10.2); Carbon Dioxide 14 mmol/L (22-30); Chloride 116 mmol/L (98-107); Estimated CRCL calculation 52 ml/min; Estimated Glomerular Filt Rate > 60; Glucose 116 mg/dL (65-110); Potassium 3.5 mmol/L (3.4-5.0); Sodium 137 mmol/L (137-145)
[2021-07-12] MEDS: SODIUM CHLORIDE 0.9% IV 1,000 ML 125 ML IV CONT ×2 (08:10→19:16)
[2021-07-12 08:22] LABS: Hemoglobin 6.4 g/dL (12.0-15.0)
[2021-07-12 08:25] LABS: Platelet Estimate Increased (Adequate)
[2021-07-12 08:28] LABS: Burr Cells 1+ (NORMAL); Ovalocytes 1+ (NORMAL)
[2021-07-12] MEDS: METOPROLOL TARTRATE 25 MG TABLET PO ×2 (08:29→20:06)
[2021-07-12] MEDS: GABAPENTIN 300 MG CAPSULE PO (08:29)
[2021-07-12] MEDS: methiMAzole 5 MG TAB PO (08:29)
[2021-07-12 08:30] LABS: Glucose Point of Care 142 mg/dl (65-105)
[2021-07-12] MEDS: busPIRone HCL 10 MG TABLET PO ×2 (08:30→16:58)
[2021-07-12] MEDS: PANTOPRAZOLE 40 MG TABLET PO ×2 (08:30→16:59)
[2021-07-12] MEDS: FAMOTIDINE 20 MG TABLET PO ×2 (08:30→16:58)
[2021-07-12] MEDS: ASPIRIN 81 MG ENTERIC TABLET PO (08:30)
[2021-07-12] MEDS: INSULIN GLARGINE (*BKC) 100 UNITS/ML 8 UNITS SUB-Q (08:42)
[2021-07-12] MEDS: SODIUM CHLORIDE 0.9% IV 250 ML 30 ML IV CONT (10:45)
[2021-07-12] MEDS: TUBING, BLOOD PLUM PUMP TUBING 1 EACH XX ×2 (10:48→15:20)
[2021-07-12 12:26] LABS: Glucose Point of Care 115 mg/dl (65-105)
--- NOTE | 2021-07-12 12:38 | WPDGICN ---
Assessment and Plan Assessment and plan (1) Anemia: Qualifiers: Anemia type: unspecified type Qualified Code(s): D64.9 - Anemia, unspecified Code(s): D64.9 - Anemia, unspecified Status: Acute Assessment and Plan: We did not see any evidence of gastrointestinal bleeding last week but she did have ulcerations in the colon that were suggestive of healing ischemic colitis. I told her that we will need to repeat colonoscopy. Will schedule that to be done tomorrow morning. I discussed the prep with her again. (2) Colitis: Code(s): K52.9 - Noninfective gastroenteritis and colitis, unspecified Status: Acute Assessment and Plan: Biopsies of her colon last week did show evidence of acute ulcer and may have represented late stages of ischemic colitis CT scan here shows: Diffuse thickening of the colon wall, suggesting colitis which may be infectious or inflammatory Soft tissue prominence in the anal area; recommend clinical correlation to exclude carcinoma the radiologist also reported a spiculated mass, suggestive of malignancy, in the lung but did not indicate which lung (3) Sepsis: Qualifiers: Sepsis acute organ dysfunction status: without acute organ dysfunction Sepsis type: sepsis due to unspecified organism Qualified Code(s): A41.9 - Sepsis, unspecified organism Code(s): A41.9 - Sepsis, unspecified organism Status: Acute Assessment and Plan: she has been started on antibiotics for possible urinary tract infection (4) CVA (cerebral vascular accident): Code(s): I63.9 - Cerebral infarction, unspecified Status: Acute Assessment and Plan: her cerebrovascular accident was about 1 month ago. She was started on Plavix for that and since then has been at the rehab site on [facility]. GI Consult Note Consult date/time: 07/12/21 12:38 HPI: Mary Lou Aguero is a 75 year old female who was admitted to our hospital 07/07/2021 through to 07/09/2021 due to anemia however her repeat hemoglobin was trending upward without transfusion. She had received transfusion at acute rehab. She had an EGD and colonoscopy during that hospital stay which demonstrated nonerosive reflux esophagitis and colonic ulcers. The colonic ulcers appear linear in were concerning for possible ischemic bowel and ulcer pathology was consistent with benign ulcer with nonspecific colitis. Patient did not receive any antibiotics during her last hospitalization. The patient evidently developed diarrhea 2 days ago. She spiked a fever to 100.6 at acute rehab. Her hemoglobin at acute rehab was 6.7 but again her repeat hemoglobin here was 7.6 which was around her baseline. She has not been on Plavix since her last admission. The patient herself is a poor historian. She was only alert oriented to person and the fact that she was in the hospital. She thought that she was at [facility]. She could not name the month and thought the year was 2022. She denied having any dysuria or changes in urinary frequency. She reports having diarrhea ever since she was discharged from the hospital previously. She denies any abdominal pain she had been reporting some right lower back pain. She had not had any reported hematochezia or melena. I received a call yesterday from the rehab center asking about what was going to do about her blood loss. They had found her hemoglobin had dropped. They had not however seen any sign of bleeding nor has she had black stools. Never last, today her hemoglobin is again lower, 6.4. This staff has seen no bloody stools. Some stool was seen around her anus but it was brown. Patient tells me that she has still had loose stools. She joked that it was still due to the laxative that I gave her a week ago for her colonoscopy. Review of Systems Review of Systems: All systems reviewed & are unremarkable except as noted in HPI and below PMFSH
[2021-07-12 16:20] LABS: Glucose Point of Care 115 mg/dl (65-105)
--- NOTE | 2021-07-12 16:46 | PM.IMPN ---
Progress Note: A&P Assessment and Plan (1) Sepsis: Qualifiers: Sepsis acute organ dysfunction status: without acute organ dysfunction Sepsis type: sepsis due to unspecified organism Qualified Code(s): A41.9 - Sepsis, unspecified organism Code(s): A41.9 - Sepsis, unspecified organism Status: Acute (2) Colitis: Code(s): K52.9 - Noninfective gastroenteritis and colitis, unspecified Status: Acute (3) Pyuria: Code(s): R82.81 - Pyuria Status: Acute (4) Hypokalemia: Code(s): E87.6 - Hypokalemia Status: Acute Additional Plan Sepsis due to colitis verses possible UTI. Patient has pyuria with nitrates with only trace bacteria. Blood cultures have been ordered. The urine culture did not reflex head was ordered separately but it looks like nobody has actually process assessment in the lab. I have called labs ask them if they actually have a specimen to send for culture or if we need to collect another UA. Patient has been placed on empiric antibiotic therapy with Cipro and Flagyl. The patient C diff PCR has already returned as negative. The patient's colitis could be ischemic versus infectious. Stool cultures are also pending. Will hold the patient's home Lasix and give gentle IV fluid hydration. The patient had some mild hypokalemia received 40 mEq potassium chloride in the ER. Will repeat CBC and BMP with a.m. labs. The patient has chronic anemia but her hemoglobin is stable. Again repeat CBC has been ordered. The patient has type 2 diabetes mellitus currently her glucoses are stable and within target range. Will resume home Lantus. Will add sliding scale insulin with Accu-Cheks a.c. HS and hypoglycemia protocol. Patient has been admitted as observation status. 07/12/2021: Interval history: This morning patient hemoglobin dropped to 6.4, patient denies any abdominal pain nausea or vomiting or any obvious bleeding, spoke with nursing staff did not see significant blood on diaper, will consult GI for further evaluation recommendation will continue to monitor H&H and further recommendation to follow. Subjective Date/time seen: 07/12/21 16:46 Sepsis due to colitis verses possible UTI. Patient has pyuria with nitrates with only trace bacteria. Blood cultures have been ordered. The urine culture did not reflex head was ordered separately but it looks like nobody has actually process assessment in the lab. I have called labs ask them if they actually have a specimen to send for culture or if we need to collect another UA. Patient has been placed on empiric antibiotic therapy with Cipro and Flagyl. The patient C diff PCR has already returned as negative. The patient's colitis could be ischemic versus infectious. Stool cultures are also pending. Will hold the patient's home Lasix and give gentle IV fluid hydration. The patient had some mild hypokalemia received 40 mEq potassium chloride in the ER. Will repeat CBC and BMP with a.m. labs. The patient has chronic anemia but her hemoglobin is stable. Again repeat CBC has been ordered. The patient has type 2 diabetes mellitus currently her glucoses are stable and within target range. Will resume home Lantus. Will add sliding scale insulin with Accu-Cheks a.c. HS and hypoglycemia protocol. 07/12/2021: Interval history: This morning patient hemoglobin dropped to 6.4, patient denies any abdominal pain nausea or vomiting or any obvious bleeding, spoke with nursing staff did not see significant blood on diaper, will consult GI for further evaluation recommendation will continue to monitor H&H and further recommendation to follow. Review of Systems Review of Systems: All systems reviewed & are unremarkable except as noted in HPI and below Exam Narrative: elderly frail Patient is comfortable, NAD HEENT: eyes are clear and none icteric LUNGS: normal respiratory effort ABD: distended Lower extremities: no edema SKIN: nonj
[2021-07-12] MEDS: polyethylene glycoL 3350 238 GM BOTTLE PO (16:57)
[2021-07-12] MEDS: ATORVASTATIN 40 MG TABLET PO (20:06)
[2021-07-12 20:38] LABS: Glucose Point of Care 180 mg/dl (65-105)
[2021-07-13] VITALS (20 sets, daily range): BP systolic 106–135; BP diastolic 44–69; PULSE 25–86; RESP 16–20; TEMP 36.1–36.8; O2SAT 95–100
[2021-07-13] MEDS: MAGNESIUM CITRATE 300 ML BTL 180 ML PO (04:19)
[2021-07-13 05:08] LABS: Hematocrit 29.4 % (37.0-47.0); Hemoglobin 8.9 g/dL (12.0-15.0); Mean Corpuscular HGB Conc 30.3 g/dl (32-36); Mean Corpuscular Hemoglobin 26.1 pg (26-34); Mean Corpuscular Volume 86.2 fl (80-100); Mean Platelet Volume 9.2 fl (7.4-10.4); Platelet Count Result 418 k/mm3 (150-375); Red Blood Count 3.41 M/mm3 (4.2-5.4); Red Cell Distribution Width 19.3 % (11.5-14.5)
[2021-07-13 05:17] LABS: Anion Gap 2 mmol/L (8-16); Blood Urea Nitrogen 10 mg/dL (7-17); Carbon Dioxide 19 mmol/L (22-30); Chloride 117 mmol/L (98-107); Estimated CRCL calculation 47 ml/min; Estimated Glomerular Filt Rate > 60; Glucose 109 mg/dL (65-110); Magnesium 1.9 mg/dL (1.6-2.3); Potassium 3.4 mmol/L (3.4-5.0); Sodium 138 mmol/L (137-145)
[2021-07-13] MEDS: metroNIDAZOLE 500 MG/ISO 100ML 500 MG/100 ML BAG 100 MG IVPB ×4 (06:19→23:41)
[2021-07-13 08:50] LABS: Glucose Point of Care 125 mg/dl (65-105)
[2021-07-13] MEDS: methiMAzole 5 MG TAB PO (08:56)
[2021-07-13] MEDS: FAMOTIDINE 20 MG TABLET PO ×2 (08:56→17:13)
[2021-07-13] MEDS: METOPROLOL TARTRATE 25 MG TABLET PO ×2 (08:56→20:35)
[2021-07-13] MEDS: busPIRone HCL 10 MG TABLET PO ×2 (08:56→17:13)
[2021-07-13] MEDS: SODIUM CHLORIDE 0.9% IV 1,000 ML 125 ML IV CONT (08:57)
[2021-07-13] MEDS: PANTOPRAZOLE 40 MG TABLET PO ×2 (08:57→17:13)
[2021-07-13] MEDS: GABAPENTIN 300 MG CAPSULE PO (08:57)
[2021-07-13] MEDS: INSULIN GLARGINE (*BKC) 100 UNITS/ML 8 UNITS SUB-Q (09:01)
--- NOTE | 2021-07-13 10:14 | SUR.PREOP ---
DR FOX STATED PT DID NOT NEED ABX FOR AORTIC VALVE REPLACEMENT
[2021-07-13 10:51] LABS: Glucose Point of Care 121 mg/dl (65-105)
[2021-07-13] MEDS: LACTATED RINGERS 1,000 ML 150 ML IV CONT (10:51)
--- NOTE | 2021-07-13 10:57 | WPDANESEFPP ---
Anes - Eval Final PreProcedure Day of Procedure 07/13/21 10:57 Patient weight: obese Heart: regular rate and rhythm Lungs: clear to auscultation Airway: Mallampati scale class II and other (edentulous) Neurological: alert and oriented Last oral intake: >/= 8 hours ASA classification: IV Emergent: no Anesthetic plan: proceed Results Review: All pre-operative results and documents have been reviewed as part of the pre-operative evaluation. Informed Consent: The patient's anesthetic plan and its attendant risks and benefits were discussed with the patient/family/POA. Questions were solicited and answers provided to the satisfaction of the patient/family/POA.
[2021-07-13] MEDS: SIMETHICONE ORAL SUSPENSION 20 MG/0.3 ML 30 ML BOTTLE 0.6 ML PO (11:35)
[2021-07-13 12:08] LABS: Glucose Point of Care 101 mg/dl (65-105)
--- NOTE | 2021-07-13 12:57 | PDONCCN ---
HPI - Date of Consult Date/Time: 07/13/21 12:57 Requesting Physician: Nivia Thakur DO Primary Care Provider: Prosper Baron, PA - Consult Narrative Reason for consult: Iron deficiency anemia and lung mass Narrative: Mary Lou Aguero is a 75 year old female with history of smoking less than half pack per day for more 30 years duration quit 1 year ago along with history of hyper thyroidism and hypertension came into the hospital and found to have low hemoglobin. She was hospitalized at [facility] in May 2021 for left MCA stroke and placed on aspirin and Plavix. She was then discharged to the rehab. She denies any gross hematuria and hematochezia. He has been complaining of tiredness and fatigue. EGD and colonoscopy done during this hospital stay showed nonerosive reflux esophagitis and clonic ulcer. Chronic ulcer were concerning for possible ischemic bowel and colitis. Patient just came back from colonoscopy today that showed rectal erosions and colitis. CT abdomen and pelvis from July 11 showed 1.5 cm mass in the right middle lobe concerning for lung cancer. There was calcified right hilar lymphadenopathy. There was soft tissue prominence in the anal area. She denies any other complaint. Review of Systems - Review of Systems All systems reviewed & are unremarkable except as noted in [facility] and [facility] Medical History: Medical History (Last Reviewed 07/12/21 @ 12:41 by Timothy Dennis MD) Anemia Cognitive deficits Coronary artery disease CVA (cerebral vascular accident) Diabetes mellitus GERD (gastroesophageal reflux disease) H/O renal cell cancer Hyperlipidemia Hypertension Hyperthyroidism Obesity Peripheral vascular disease Renal cell carcinoma Right hemiplegia Surgical History: Surgical History (Last Reviewed 07/12/21 @ 12:41 by Timothy Dennis MD) H/O aortic valve replacement History of appendectomy History of cataract removal with insertion of prosthetic lens Right eye History of cholecystectomy History of coronary artery stent placement History of right nephrectomy Family History: Family History (Last Reviewed 07/12/21 @ 12:41 by Timothy Dennis MD) Sibling Hypertension Other Family history of heart attack - Social History Social History: Social History (Last Reviewed 07/12/21 @ 12:41 by Timothy Dennis MD) Alcohol Use: Alcohol intake: former Substance Use: Substance use: never Substance use type: does not use Others: Spiritual care concerns: No Smoking Status: Smoking status: Former smoker Second hand tobacco smoke exposure: Yes Approximate Smoking End Date: February 2021 Smoking Pack-years: Smoking packs per day: 1 Smoking cigarettes per day: 20.0 Years smoked: 50 Smoking pack-years: 50.00 Meds Home Medications Medication Instructions Recorded Confirmed Type aspirin 81 mg PO DAILY 07/07/21 07/12/21 History atorvastatin [Lipitor] 40 mg PO HS 07/07/21 07/12/21 History buspirone 10 mg PO BID 07/07/21 07/12/21 History docusate sodium 100 mg PO BID 07/07/21 07/12/21 History famotidine 20 mg PO BID 07/07/21 07/12/21 History furosemide 20 mg PO DAILY 07/07/21 07/12/21 History gabapentin 300 mg PO DAILY 07/07/21 07/12/21 History insulin glargine 8 unit SUBCUT QAM 07/07/21 07/12/21 History melatonin 6 mg PO HS PRN 07/07/21 07/12/21 History methimazole 5 mg PO DAILY 07/07/21 07/12/21 History metoprolol tartrate 25 mg PO DAILY 07/07/21 07/12/21 History pantoprazole 40 mg PO BID 07/07/21 07/12/21 History Allergies Allergy/AdvReac Type Severity Reaction Status Date / Time Bleach (Sodium Hypochlorite) Allergy Other Verified 07/13/21 10:51 cephalexin [From Keflex] Allergy Rash Verified 07/13/21 10:51 Results - Labs CBC & Chem 7: 07/13/21 04:57 07/13/21 04:57 Labs: Short CBC 07/13/21 Range/Units 04:57 WBC 11.0 H (4.5-10.0) K/mm3 Hgb 8.9 L (12.0-15.
[2021-07-13] MEDS: ASPIRIN 81 MG ENTERIC TABLET PO (13:33)
[2021-07-13 13:41] LABS: Lactate Dehydrogenase 671 U/L (313-618)
--- NOTE | 2021-07-13 14:26 | PCOTNOTE ---
Attempted to see pt. for evaluation. Orthopedic surgeon in room, per nurse, pt. is going to have knee joint aspiration done this afternoon. Will evaluate pt. when they become appropriate
[2021-07-13 14:57] LABS: Folic Acid 6.1 ng/mL (2.76->20)
--- NOTE | 2021-07-13 15:06 | PM.IMPN ---
Progress Note: A&P Assessment and Plan (1) Sepsis: Qualifiers: Sepsis acute organ dysfunction status: without acute organ dysfunction Sepsis type: sepsis due to unspecified organism Qualified Code(s): A41.9 - Sepsis, unspecified organism Code(s): A41.9 - Sepsis, unspecified organism Status: Acute (2) Colitis: Code(s): K52.9 - Noninfective gastroenteritis and colitis, unspecified Status: Acute (3) Pyuria: Code(s): R82.81 - Pyuria Status: Acute (4) Hypokalemia: Code(s): E87.6 - Hypokalemia Status: Acute Additional Plan Sepsis due to colitis verses possible UTI. Patient has pyuria with nitrates with only trace bacteria. Blood cultures have been ordered. The urine culture did not reflex head was ordered separately but it looks like nobody has actually process assessment in the lab. I have called labs ask them if they actually have a specimen to send for culture or if we need to collect another UA. Patient has been placed on empiric antibiotic therapy with Cipro and Flagyl. The patient C diff PCR has already returned as negative. The patient's colitis could be ischemic versus infectious. Stool cultures are also pending. Will hold the patient's home Lasix and give gentle IV fluid hydration. The patient had some mild hypokalemia received 40 mEq potassium chloride in the ER. Will repeat CBC and BMP with a.m. labs. The patient has chronic anemia but her hemoglobin is stable. Again repeat CBC has been ordered. The patient has type 2 diabetes mellitus currently her glucoses are stable and within target range. Will resume home Lantus. Will add sliding scale insulin with Accu-Cheks a.c. HS and hypoglycemia protocol. Patient has been admitted as observation status. 07/12/2021: Interval history: This morning patient hemoglobin dropped to 6.4, patient denies any abdominal pain nausea or vomiting or any obvious bleeding, spoke with nursing staff did not see significant blood on diaper, will consult GI for further evaluation recommendation will continue to monitor H&H and further recommendation to follow. 07/13/2021: Interval history: on 07/12 patient hemoglobin dropped to 6.4, patient denies any abdominal pain nausea or vomiting or any obvious bleeding, spoke with nursing staff did not see significant blood on diaper, patient was seen by GI and had colonoscopy today spoke with GI, there was no source of bleeding suspect hematology issue for the anemia, will consult warehouse traffic supervisor will continue to monitor H&H and further recommendation to follow. Subjective Date/time seen: 07/13/21 15:06 07/12/2021: Interval history: This morning patient hemoglobin dropped to 6.4, patient denies any abdominal pain nausea or vomiting or any obvious bleeding, spoke with nursing staff did not see significant blood on diaper, will consult GI for further evaluation recommendation will continue to monitor H&H and further recommendation to follow. 07/13/2021: Interval history: on 07/12 patient hemoglobin dropped to 6.4, patient denies any abdominal pain nausea or vomiting or any obvious bleeding, spoke with nursing staff did not see significant blood on diaper, patient was seen by GI and had colonoscopy today spoke with GI, there was no source of bleeding suspect hematology issue for the anemia, will consult warehouse traffic supervisor will continue to monitor H&H and further recommendation to follow. Review of Systems Review of Systems: All systems reviewed & are unremarkable except as noted in HPI and below Exam Narrative: elderly frail Patient is comfortable, NAD HEENT: eyes are clear and none icteric LUNGS: normal respiratory effort ABD: distended Lower extremities: no edema SKIN: nonjaundiced Neuro: grossly intact. Objective Data Vital Signs Vital Signs: Vital Signs - 24 hr 07/12/21 15:20 07/12/21 16:00 07/12/21 18:00 Temperature 98.3 F 98.3 F Pulse Rate 82 82 85 Respiratory Rate 16 16 B
[2021-07-13] MEDS: IRON SUCROSE COMPLEX 500 MG in SODIUM CHLORIDE 0.9% IV 250 ML 78.57 MG IVPB (15:07)
--- NOTE | 2021-07-13 15:24 | PC.NURSE ---
1045-pt down to GI lab via cart with GI staff. 1230-pt back 1440-Ortho DrFreddie at bedside. injected local to rt lateral knee and then aspirated 15ml of serous and 7 ml of pink fluid. Pt tolerated well. Cortisone injection was given.
--- NOTE | 2021-07-13 15:46 | PM.CNOR ---
Assessment and Plan Assessment and plan (1) Right knee DJD: Qualifiers: Osteoarthritis type: primary Qualified Code(s): M17.11 - Unilateral primary osteoarthritis, right knee Code(s): M17.11 - Unilateral primary osteoarthritis, right knee Status: Acute Assessment and Plan: ROCIO IS HERE FOR SEVERE LEFT KNEE PAIN. SHE HAS SEVERE DJD AND A LARGE EFFUSION. SHE HAS NO EVIDENCE OF SEPTIC JOINT. HISTORY, EXAM AND RADIOGRAPHS REVIEWED WITH THE PATIENT. REFERRING PHYSICIAN RECORDS AND IMAGES REVIEWED. CONDITION, NATURE, ETIOLOGY AND COURSE OF NATURAL HISTORY REVIEWED. CONSERVATIVE AND OPERATIVE TREATMENT OPTIONS REVIEWED WELL THE RISKS AND BENEFITS OF EACH. RECOMMEND ASPIRATION AND INJECTION AND F/U NEEDED. THE RISKS OF INJECTION WERE REVIEWED INCLUDING BUT NOT LIMITED TO SKIN COLOR CHANGES, ATROPHY OF THE SOFT TISSUE, TENDON OR SOFT TISSUE RUPTURE, JOINT DEGENERATION, HYPER INFLAMMATORY RESPONSE, ALLERGIC REACTION, CONTINUED PAIN OR DYSFUNCTION. SPECIFIC RISKS OF THE PROCEDURE INCLUDING DEEP INFECTION OR SOFT TISSUE RUPTURE OR RECURRENCE OF SYMPTOMS REVIEWED. NO GUARANTEES WERE OFFERED. THE PATIENT UNDERSTANDS THE NEED FOR POSSIBLE FURTHER TREATMENT. ASPIRATION REVEALED STRAW COLORED JOINT FLUID CONSISTENT WITH DJD. INJECTION WAS PREFORMED WITH DEPO MEDROL 40 MG 2 CC AND MARCAINE 0.5 %. THE PATIENT TOLERATED THE PROCEDURE WELL History of Present Illness HPI Consult date: 07/13/21 Consult reason: joint pain Chief complaint: Sepsis/colitis/pyuria/hypokalemia Narrative: ROCIO IS HERE FOR ANEMIA AND SHE ALSO HAS BEEN EXPERIENCING MODERATE TO SEVERE RIGHT KNEE PAIN FROM ADVANCED OSTEOARTHRITIS. SHE HAS HAD LEFT KNEE REPLACEMENT IN THE PAST WITH GOOD RESULT. SHE DENIES ANY TRAUMA. SHE DEINIES ANY HJIP OR MARY PAIN. Review of Systems Review of Systems: All systems reviewed & are unremarkable except as noted in HPI and below PMFSH Past Medical History Medical History Anemia Cognitive deficits Coronary artery disease CVA (cerebral vascular accident) Diabetes mellitus GERD (gastroesophageal reflux disease) H/O renal cell cancer Hyperlipidemia Hypertension Hyperthyroidism Obesity Peripheral vascular disease Renal cell carcinoma Right hemiplegia Surgical History Surgical History H/O aortic valve replacement History of appendectomy History of cataract removal with insertion of prosthetic lens Right eye History of cholecystectomy History of coronary artery stent placement History of right nephrectomy Family History Family History Sibling Hypertension Other Family history of heart attack Social History Social History Social History: Prior to her CVA the patient was independent in activities of daily living it was the primary caregiver for her . Her son will be hiring caregivers for them when she returns home. Smoking packs per day: 1 Smoking cigarettes per day: 20.0 Years smoked: 50 Smoking pack-years: 50.00 Smoking status: Former smoker Second hand tobacco smoke exposure: Yes Alcohol intake: former Substance use: never Substance use type: does not use Spiritual care concerns: No Meds Home Medications and Allergies Home Medications Medication Instructions Recorded Confirmed Type aspirin 81 mg PO DAILY 07/07/21 07/12/21 History atorvastatin [Lipitor] 40 mg PO HS 07/07/21 07/12/21 History buspirone 10 mg PO BID 07/07/21 07/12/21 History docusate sodium 100 mg PO BID 07/07/21 07/12/21 History famotidine 20 mg PO BID 07/07/21 07/12/21 History furosemide 20 mg PO DAILY 07/07/21 07/12/21 History gabapentin 300 mg PO DAILY 07/07/21 07/12/21 History insulin glargine 8 unit SUBCUT QAM 07/07/21 07/12/21 History melatonin 6 mg PO HS PRN
[2021-07-13 16:00] LABS: Glucose Point of Care 119 mg/dl (65-105)
[2021-07-13] MEDS: HYDROcodone/acetaminophen (*CRX) 5-325 MG TABLET 1 TAB PO (17:21)
--- NOTE | 2021-07-13 17:45 | PC.NURSE ---
This patient, Mary Lou Aguero, was received from IMU on 07/13/21 at 1745. Patient/family oriented to unit policies and routines. Report received from TONY Gomes.
--- NOTE | 2021-07-13 17:57 | PC.NURSE ---
1740-pt transferred to 259 via bed. pt belongings with pt, including cell phone, and night monitor phone.
[2021-07-13] MEDS: SODIUM CHLORIDE 0.9% IV 1,000 ML 75 ML IV CONT (18:40)
[2021-07-13] MEDS: ATORVASTATIN 40 MG TABLET PO (20:36)
[2021-07-13 22:13] LABS: Glucose Point of Care 203 mg/dl (65-105)
[2021-07-14 01:54] VITALS: BP 154/63; PULSE 80; RESP 18; TEMP 36.6; O2SAT 100
--- NOTE | 2021-07-14 05:13 | PC.NURSE ---
PT HAS HAD INCREASING AGITATION AND CONFUSION THROUGHOUT THE NIGHT. PT PULLED OUT IV AND RIPPED TUBING APART. ATTEMPTED TO PLACE A NEW IV AND PT REFUSED TO LET ME TOUCH HER. I EXPLAINED TO PT SHE NEEDED THE IV TO RECEIVE HER MEDICATIONS AND SHE TOLD ME SHE DID NOT CARE.
[2021-07-14 05:58] VITALS: BP 148/61; PULSE 65; RESP 16; TEMP 36.7; O2SAT 97
[2021-07-14 07:04] LABS: Mean Corpuscular Hemoglobin 26.1 pg (26-34); Mean Corpuscular Volume 84.1 fl (80-100); Mean Platelet Volume 9.3 fl (7.4-10.4); Platelet Count Result 443 k/mm3 (150-375); Red Blood Count 3.45 M/mm3 (4.2-5.4); Red Cell Distribution Width 19.5 % (11.5-14.5); White Blood Count 8.6 K/mm3 (4.5-10.0)
[2021-07-14 07:18] LABS: Anion Gap 10 mmol/L (8-16); Blood Urea Nitrogen 11 mg/dL (7-17); Calcium 7.9 mg/dL (8.4-10.2); Carbon Dioxide 14 mmol/L (22-30); Chloride 118 mmol/L (98-107); Estimated CRCL calculation 60 ml/min; Estimated Glomerular Filt Rate > 60; Glucose 179 mg/dL (65-110); Magnesium 2.1 mg/dL (1.6-2.3); Potassium 3.3 mmol/L (3.4-5.0); Sodium 142 mmol/L (137-145)
[2021-07-14 07:29] LABS: Glucose Point of Care 169 mg/dl (65-105)
[2021-07-14 08:52] VITALS: PULSE 63
[2021-07-14] MEDS: FAMOTIDINE 20 MG TABLET PO ×2 (08:52→16:44)
[2021-07-14] MEDS: POTASSIUM CHLORIDE 20 MEQ TABLET 40 MEQ PO (08:52)
[2021-07-14] MEDS: ASPIRIN 81 MG ENTERIC TABLET PO (08:52)
[2021-07-14] MEDS: PANTOPRAZOLE 40 MG TABLET PO ×2 (08:52→16:45)
[2021-07-14] MEDS: METOPROLOL TARTRATE 25 MG TABLET PO (08:52)
[2021-07-14] MEDS: GABAPENTIN 300 MG CAPSULE PO (08:53)
[2021-07-14] MEDS: methiMAzole 5 MG TAB PO (08:53)
[2021-07-14] MEDS: busPIRone HCL 10 MG TABLET PO ×2 (08:53→16:43)
[2021-07-14] MEDS: INSULIN GLARGINE (*BKC) 100 UNITS/ML 8 UNITS SUB-Q (08:56)
[2021-07-14 08:59] VITALS: PULSE 63; RESP 16; O2SAT 97
[2021-07-14 10:00] VITALS: BP 138/56; PULSE 63; RESP 16; TEMP 36.6; O2SAT 99
--- NOTE | 2021-07-14 10:26 | PM.PNORT ---
Progress Note: A&P Assessment and Plan (1) Right knee DJD: Qualifiers: Osteoarthritis type: primary Qualified Code(s): M17.11 - Unilateral primary osteoarthritis, right knee Code(s): M17.11 - Unilateral primary osteoarthritis, right knee Status: Acute Assessment and Plan: 1 day s/p aspiration/injection of right knee. Right knee DJD reviewed with patient. All questions answered. Marked improvement in pain/symptoms today. No erythema or signs of joint infection. Patient working with PT/OT. Continue PT/OT as tolerated. WBAT. Walker for pressure offloading if preferred. Follow up as an outpatient if return of knee pain. Thank you for allowing us to assist in this patient's care. Time Spent With Patient Time with patient: less than 15 minutes Subjective Subjective Date/Time Seen: 07/14/21 10:26 Interval history: 1 day s/p aspiration/injection of right knee. Patient reports marked improvement in pain. Ambulating with PT with significant improvement. No new concerns regarding knee. Review of Systems Review of Systems: All systems reviewed & are unremarkable except as noted in HPI and below (HPI ) Exam Const: General: comfortable and no acute distress Resp: Effort & Inspection: normal respiratory effort Skin: General skin exam: normal color Neuro: Cognition (Neuro): normal cognition Extrem: Right lower extremity: knee Details: swelling (mild joint effusion, no erythema ) and normal ROM (significant improvement, underlying DJD- no pain with PROM ); no tenderness, no abrasions, no ecchymosis and no unusual warmth, lower leg Details: normal to inspection; no tenderness and no localized swelling, ankle Details: normal to inspection, no edema and normal ROM; no tenderness and no swelling and foot Details: normal capillary refill, normal to inspection and toes with normal ROM Objective Data Vital Signs Vital Signs: Vital Signs - 24 hr 07/13/21 10:56 07/13/21 11:49 07/13/21 11:59 Temperature 36.1 C L Pulse Rate 65 64 66 Respiratory Rate 18 18 18 Blood Pressure 135/56 L 111/56 L 121/69 Pulse Oximetry 99 100 100 07/13/21 12:00 07/13/21 12:09 07/13/21 14:00 Temperature 36.8 C Pulse Rate 64 67 64 Respiratory Rate 20 18 Blood Pressure 127/48 L 125/66 Pulse Oximetry 96 100 07/13/21 15:56 07/13/21 16:00 07/13/21 18:25 Temperature 36.6 C 36.8 C Pulse Rate 85 65 60 Respiratory Rate 16 16 16 Blood Pressure 121/44 L 110/44 L Pulse Oximetry 97 95 98 07/13/21 20:00 07/13/21 20:35 07/13/21 20:51 Temperature 36.4 C Pulse Rate 61 61 61 Respiratory Rate 17 17 Blood Pressure 131/56 L Pulse Oximetry 100 100 07/14/21 01:54 07/14/21 05:58 07/14/21 08:52 Temperature 36.6 C 36.7 C Pulse Rate 80 65 63 Respiratory Rate 18 16 Blood Pressure 154/63 H 148/61 H Pulse Oximetry 100 97 07/14/21 08:59 07/14/21 10:00 Temperature 36.6 C Pulse Rate 63 63 Respiratory Rate 16 16 Blood Pressure 138/56 L Pulse Oximetry 97 99 Intake/Output Intake/Output: Intake & Output 07/11/21 07/12/21 07/13/21 07/14/21 23:59 23:59 23:59 23:59 Intake Total 1100 4360 4155 1220 Output Total 300 2 3 Balance 800 4358 4152 1220 Meds/Results Medications: Active Medications Generic Name Dose Route Start Last Admin Trade Name Freq PRN Reason Stop Dose Admin Hydrocodone Bitart/Acetaminophen 1 tab 07/13/21 17:17 07/13/21 17:21 Hydrocodone/Acetaminophen (*Crx) 5-325 Mg Tablet PO 1 tab Q4H PRN Administration Pain Rated 4-6 Aspirin 81 mg 07/12/21 09:00 07/14/21 08:52 Aspirin 81 Mg Enteric Tablet PO 81 mg DAILY MEGAN Administration Atorvastatin Calcium 40 mg 07/12/21 21:00 07/13/21 20:36 Atorvastatin 40 Mg Tablet PO 40 mg HS MEGAN Administration Buspirone HCl 10 mg 07/12/21 09:00 07/14/21 08:53 Buspirone Hcl 10 Mg Tablet PO 10 mg BID MEGAN Administration Dextrose 12.5 gm 07/12/21 07:11 Dextrose 50% 25 Gm/50 Ml Syringe IV PUSH
--- NOTE | 2021-07-14 10:33 | WPDANESPN ---
Anes - Prog Note Post-Op Date/Time: 07/14/21 10:33 Cardiovascular status: normal Respiratory status: normal Airway patency: baseline Mental status: baseline Post-Op hydration status: normal Vital Signs: Last Vital Signs Temp 36.6 C 07/14/21 10:00 Pulse 63 07/14/21 10:00 Resp 16 07/14/21 10:00 BP 138/56 L 07/14/21 10:00 Pulse Ox 99 07/14/21 10:00 Pain Score (VAS): 2 I/O: Intake & Output 07/13/21 07/14/21 07/14/21 23:59 07:59 15:59 Intake Total 1575 1100 120 Balance 1575 1100 120 Laboratory Tests 07/14/21 06:48 07/14/21 06:48 07/13/21 07/13/21 07/13/21 10:47 12:05 13:07 WBC RBC Hgb Hct MCV MCH MCHC RDW Plt Count MPV Haptoglobin Sodium Potassium Chloride Carbon Dioxide Anion Gap BUN Creatinine Estim Creat Clear Calc Estimated GFR Glucose POC Capillary Glucose 121 H 101 Calcium Magnesium Lactate Dehydrogenase 671 H Vitamin B12 Folate 07/13/21 07/13/21 07/13/21 13:07 13:07 15:45 WBC RBC Hgb Hct MCV MCH MCHC RDW Plt Count MPV Haptoglobin Pending Sodium Potassium Chloride Carbon Dioxide Anion Gap BUN Creatinine Estim Creat Clear Calc Estimated GFR Glucose POC Capillary Glucose 119 H Calcium Magnesium Lactate Dehydrogenase Vitamin B12 412.0 Folate 6.1 07/13/21 07/14/21 07/14/21 20:34 06:48 06:48 WBC 8.6 RBC 3.45 L Hgb 9.0 L Hct 29.0 L MCV 84.1 MCH 26.1 MCHC 31.0 L RDW 19.5 H Plt Count 443 H MPV 9.3 Haptoglobin Sodium 142 Potassium 3.3 L Chloride 118 H Carbon Dioxide 14 L Anion Gap 10 BUN 11 Creatinine 0.70 Estim Creat Clear Calc 60 Estimated GFR > 60 Glucose 179 H POC Capillary Glucose 203 H Calcium 7.9 L Magnesium 2.1 Lactate Dehydrogenase Vitamin B12 Folate 07/14/21 07:23 WBC RBC Hgb Hct MCV MCH MCHC RDW Plt Count MPV Haptoglobin Sodium Potassium Chloride Carbon Dioxide Anion Gap BUN Creatinine Estim Creat Clear Calc Estimated GFR Glucose POC Capillary Glucose 169 H Calcium Magnesium Lactate Dehydrogenase Vitamin B12 Folate Microbiology 07/11/21 20:46 Urine Catheterized Urine Culture - Final Coag neg Staph, not saprophyti 07/11/21 22:22 Stool Escherichia coli Shiga Toxins - Final 07/11/21 22:22 Stool Campylobacter Antigen Assay - Final Post-procedural complaints: none Patient Feedback: Patient satisfied with anesthetic care.
[2021-07-14] MEDS: metroNIDAZOLE 500 MG/ISO 100ML 500 MG/100 ML BAG 100 MG IVPB (11:04)
[2021-07-14 11:17] LABS: Glucose Point of Care 160 mg/dl (65-105)
--- NOTE | 2021-07-14 12:47 | PC.NURSE ---
On 07/14/21, the student, [Gabe Lainez], provided care and completed [facility] documentation on this patient. I have reviewed the student's documentation and agree with the findings.
--- NOTE | 2021-07-14 13:33 | PM.IMPN ---
Progress Note: A&P Assessment and Plan (1) Sepsis: Qualifiers: Sepsis acute organ dysfunction status: without acute organ dysfunction Sepsis type: sepsis due to unspecified organism Qualified Code(s): A41.9 - Sepsis, unspecified organism Code(s): A41.9 - Sepsis, unspecified organism Status: Acute (2) Colitis: Code(s): K52.9 - Noninfective gastroenteritis and colitis, unspecified Status: Acute (3) Pyuria: Code(s): R82.81 - Pyuria Status: Acute (4) Hypokalemia: Code(s): E87.6 - Hypokalemia Status: Acute Additional Plan Sepsis due to colitis verses possible UTI. Patient has pyuria with nitrates with only trace bacteria. Blood cultures have been ordered. The urine culture did not reflex head was ordered separately but it looks like nobody has actually process assessment in the lab. I have called labs ask them if they actually have a specimen to send for culture or if we need to collect another UA. Patient has been placed on empiric antibiotic therapy with Cipro and Flagyl. The patient C diff PCR has already returned as negative. The patient's colitis could be ischemic versus infectious. Stool cultures are also pending. Will hold the patient's home Lasix and give gentle IV fluid hydration. The patient had some mild hypokalemia received 40 mEq potassium chloride in the ER. Will repeat CBC and BMP with a.m. labs. The patient has chronic anemia but her hemoglobin is stable. Again repeat CBC has been ordered. The patient has type 2 diabetes mellitus currently her glucoses are stable and within target range. Will resume home Lantus. Will add sliding scale insulin with Accu-Cheks a.c. HS and hypoglycemia protocol. Patient has been admitted as observation status. 07/12/2021: Interval history: This morning patient hemoglobin dropped to 6.4, patient denies any abdominal pain nausea or vomiting or any obvious bleeding, spoke with nursing staff did not see significant blood on diaper, will consult GI for further evaluation recommendation will continue to monitor H&H and further recommendation to follow. 07/13/2021: Interval history: on 07/12 patient hemoglobin dropped to 6.4, patient denies any abdominal pain nausea or vomiting or any obvious bleeding, spoke with nursing staff did not see significant blood on diaper, patient was seen by GI and had colonoscopy today spoke with GI, there was no source of bleeding suspect hematology issue for the anemia, will consult musical therapist will continue to monitor H&H and further recommendation to follow. 07/14/2021: Interval history: on 07/12 patient hemoglobin dropped to 6.4, patient denies any abdominal pain nausea or vomiting or any obvious bleeding, spoke with nursing staff did not see significant blood on diaper, patient was seen by GI and had colonoscopy on 07/13 spoke with GI, there was no source of bleeding suspect hematology issue for the anemia, patient was seen musical therapist suspect patient has iron-deficiency anemia and patient was given IV iron, today her hemoglobin is stable patient sitting in the chair has no complaint, son is present in the room give all the updates, patient may possibly be discharged to [place] [facility] waiting for approval, will continue to monitor H&H and further recommendation to follow. Subjective Date/time seen: 07/14/21 13:33 07/12/2021: Interval history: This morning patient hemoglobin dropped to 6.4, patient denies any abdominal pain nausea or vomiting or any obvious bleeding, spoke with nursing staff did not see significant blood on diaper, will consult GI for further evaluation recommendation will continue to monitor H&H and further recommendation to follow. 07/13/2021: Interval history: on 07/12 patient hemoglobin dropped to 6.4, patient denies any abdominal pain nausea or vomiting or any obvious bleeding, spoke with nursing staff did not see significant blood on diaper, patient was seen by GI and had col
[2021-07-14 14:00] VITALS: BP 121/56; PULSE 66; RESP 19; TEMP 36.1; O2SAT 100
--- NOTE | 2021-07-14 15:44 | PM.DS ---
DS: Admitting Diagnosis Discharge Date 07/14/2021 Admitting Diagnosis Anemia DS: Discharge Diagnosis Discharge Diagnosis (1) Sepsis: Qualifiers: Sepsis acute organ dysfunction status: without acute organ dysfunction Sepsis type: sepsis due to unspecified organism Qualified Code(s): A41.9 - Sepsis, unspecified organism Code(s): A41.9 - Sepsis, unspecified organism Status: Acute (2) Colitis: Code(s): K52.9 - Noninfective gastroenteritis and colitis, unspecified Status: Acute (3) Pyuria: Code(s): R82.81 - Pyuria Status: Acute (4) Hypokalemia: Code(s): E87.6 - Hypokalemia Status: Acute DS: Summary Hospital Course Reason for hospitalization: Chief Complaint: Fever and low hemoglobin Narrative: 75-year-old female with past medical history of hyperthyroidism, hypertension, CVA and anemia who presented to the ER with fever and complaints of low hemoglobin. The patient was hospitalized at [facility] 06/18/2021 for left MCA CVA and placed on aspirin Plavix and statin. She was discharged to rehab on 06/23/2021. She was admitted to our hospital 07/07/2021 through to 07/09/2021 due to anemia however her repeat hemoglobin a G arrived to our facility was actually higher in trending upward without transfusion. She had received transfusion at acute rehab. She had an EGD and colonoscopy during that hospital stay which demonstrated nonerosive reflux esophagitis and colonic ulcers. The colonic ulcers appear linear in were concerning for possible ischemic bowel and ulcer pathology was consistent with benign ulcer with nonspecific colitis. Patient did not receive any antibiotics during her last hospitalization. The patient evidently developed diarrhea 2 days ago. She spiked a fever to 100.6 at acute rehab. Her hemoglobin at acute rehab was 6.7 but again her repeat hemoglobin here was 7.6 which was around her baseline. She has not been on Plavix since her last admission. The patient herself is a poor historian. She was only alert oriented to person and the fact that she was in the hospital. She thought that she was at [facility]. She could not name the month and thought the year was 2022. She denied having any dysuria or changes in urinary frequency. She reports having diarrhea ever since she was discharged from the hospital previously. She denies any abdominal pain she had been reporting some right lower back pain. She had not had any reported hematochezia or melena. She had no hematuria UA. She does report some difficulty with word finding since her stroke. She reported on prior hospitalization that her only deficit was right upper extremity weakness. Patient has had dysarthria and expressive aphasia since arrival to the rehab facility. 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 Hospital Course: Sepsis due to colitis verses possible UTI. Patient has pyuria with nitrates with only trace bacteria. Blood cultures have been ordered. The urine culture did not reflex head was ordered separately but it looks like nobody has actually process assessment in the lab. I have called labs ask them if they actually have a specimen to send for culture or if we need to collect another UA. Patient has been placed on empiric antibiotic therapy with Cipro and Flagyl. The patient C diff PCR has already returned as negative. The patient's colitis could be ischemic versus infectious. Stool cultures are also pending. Will hold the patient's home Lasix and give gentle IV fluid hydration. The patient had some mild hypokalemia received 40 mEq potassium chloride in the ER. Will repeat CBC and BMP with a.m. labs. The patient has chronic anemia but her hemoglobin is stable. Again repeat CBC has been ordered. The patient has type 2 diabetes mellitus currently her glucoses are stable and within target range. Will resume home Lantus. Will add sliding scale in
[2021-07-14 16:21] LABS: EDCOVIDSCREEN Negative (Negative)
[2021-07-14 16:26] LABS: Glucose Point of Care 182 mg/dl (65-105)
[2021-07-17 12:43] LABS: Haptoglobin 310 mg/dL (43-212)
== END 2021-07-14 18:00 | DRG 872 ==
LOC: ANHED 23:10 → ANHIMU 23:16 → ANH2MED 07-14 15:44 → ANHIMU 07-15 10:29
PROVIDERS: Internal Medicine Gastroenterology; Internal Medicine Hematology & Oncology; Physician Assistant; Admitting Provider Internal Medicine; Emergency Provider Emergency Medicine; PCP Physician Assistant; Visit Provider Family Medicine
PROC: 0DJD8ZZ Inspection of Lower Intestinal Tract, Via Natural or Artificial Opening Endoscopic (ICD-10-PCS; CPT 45378; principal; 2021-07-13 11:30)
DX: A41.9 Sepsis, unspecified organism (principal); I69.351 Hemiplegia and hemiparesis following cerebral infarction affecting right dominant side; K62.6 Ulcer of anus and rectum; I69.322 Dysarthria following cerebral infarction; I69.320 Aphasia following cerebral infarction; K52.9 Noninfective gastroenteritis and colitis, unspecified; R82.81 Pyuria; M17.11 Unilateral primary osteoarthritis, right knee; M25.461 Effusion, right knee; E87.6 Hypokalemia; D50.9 Iron deficiency anemia, unspecified; Z20.822 Contact with and (suspected) exposure to COVID-19; E03.9 Hypothyroidism, unspecified; I10 Essential (primary) hypertension; K21.00 Gastro-esophageal reflux disease with esophagitis, without bleeding; M54.50 Low back pain, unspecified; I25.10 Atherosclerotic heart disease of native coronary artery without angina pectoris; E78.5 Hyperlipidemia, unspecified; E66.9 Obesity, unspecified; E11.51 Type 2 diabetes mellitus with diabetic peripheral angiopathy without gangrene; K21.9 Gastro-esophageal reflux disease without esophagitis; R91.8 Other nonspecific abnormal finding of lung field; Z85.528 Personal history of other malignant neoplasm of kidney; Z79.4 Long term (current) use of insulin; Z68.32 Body mass index [BMI] 32.0-32.9, adult; Z79.82 Long term (current) use of aspirin; Z79.84 Long term (current) use of oral hypoglycemic drugs; Z95.2 Presence of prosthetic heart valve; Z90.49 Acquired absence of other specified parts of digestive tract; Z98.41 Cataract extraction status, right eye; Z96.1 Presence of intraocular lens; Z95.5 Presence of coronary angioplasty implant and graft; Z90.5 Acquired absence of kidney; Z96.652 Presence of left artificial knee joint; Z87.891 Personal history of nicotine dependence
CPT/HCPCS: 36415; 36430; 51701; 73562; 74177; 80048; 80053; 81001; 82607; 82746; 82948; 83010; 83605; 83615; 83735; 85025; 85027; 85610; 85730; 86850; 86900; 86901; 86920; 87040; 87045; 87086; 87147; 87181; 87186; 87426; 87427; 87493; 88305; 92507; 93005; 96361; 96365; 96366; 96367; 96376; 97110; 97116; 97162; 97165; 97166; 99285; A9270; C9803; G0378; J0131; J0744; J1756; J1815; J2704; J7030; J7050; J7120; P9016; Q9967

== ENCOUNTER 2021-12-10 11:30 | Outpatient (CLI) | payer MEDICARE, SELFPAY ==
[2021-12-10 12:02] LABS: Basophils Absolute Auto 0.12 K/mm3 (0.00-0.10); Basophils Percent Auto 1.2 % (0.0-1.0); Eosinophils Absolute Auto 0.35 K/mm3 (0.02-0.50); Eosinophils Percent Auto 3.4 % (1.0-6.0); Hematocrit 26.9 % (35.0-42.0); Hemoglobin 8.1 g/dL (11.7-13.8); Immature Granulocyte Absolute 0.08 K/mm3 (0.00-0.00); Immature Granulocyte Percent A 0.8 % (0.0-0.0); Immature Platelet Fraction Pct 0.9 % (1.0-7.0); Lymphocytes Absolute Auto 2.19 K/mm3 (1.10-4.50); Lymphocytes Percent Auto 21.2 % (18.0-42.0); Mean Corpuscular HGB Conc 30.1 g/dL (32.0-36.0); Mean Corpuscular Hemoglobin 25.6 pg (27.0-31.0); Mean Corpuscular Volume 84.9 fL (78.0-102.0); Mean Platelet Volume 9.3 fl (9.2-11.8); Monocytes Absolute Auto 0.79 K/mm3 (0.10-0.90); Monocytes Percent Auto 7.6 % (2.0-11.0); Neutrophils Absolute Auto 6.8 K/mm3 (1.7-7.2); Neutrophils Percent Auto 65.8 % (50.0-70.0); Platelet Count Result 539 K/mm3 (150-420); Red Blood Count 3.17 M/mm3 (4.20-5.40); Red Cell Distribution Width 20.9 % (11.6-14.4); White Blood Count 10.4 K/mm3 (4.8-10.8)
== END 2021-12-10 11:31 | disposition home or self-care (01) ==
LOC: CHSLAB 11:32
PROVIDERS: PCP Physician Assistant; Visit Provider Physician Assistant
DX: R53.83 Other fatigue (principal)
CPT/HCPCS: 36415; 85025; 85055

== ENCOUNTER 2021-12-11 14:39 | Outpatient (NON) | payer MEDICARE, SELFPAY ==
[2021-12-11 15:31] LABS: Appearance Urine Clear (Clear); Bilirubin Urine Negative (Negative); Color Urine Light Yellow (Yellow); Glucose Urine UA Negative (Negative); Ketones Urine Negative (Negative); Leukocyte Esterase Ur 3+ LEU/UL (Negative); Nitrate Urine Positive (Negative); Protein Urine Negative (Negative); Specific Grav Ur 1.015 (1.010-1.020); Urobilinogen Urine 0.2 mg/dL (0.2-1.0)
[2021-12-11 15:55] LABS: Add Urine Microscopic? YES; Blood Urine Trace-Intact (Negative); RBC Urine 0-2 /hpf (0-2)
[2021-12-11 15:56] LABS: Bacteria Urine 4+ /hpf; WBC Clumps Urine Present /hpf; WBC Urine 31-50 /hpf (0-3)
== END 2021-12-11 14:40 | disposition home or self-care (01) ==
LOC: CHSLAB 14:41
PROVIDERS: PCP Physician Assistant; Visit Provider Physician Assistant
DX: R53.83 Other fatigue (principal)
CPT/HCPCS: 81001; 87086

== ENCOUNTER 2023-10-19 22:53 | Emergency (ER) | payer MEDICARE, SELFPAY ==
--- NOTE | ~2023-10-19 | XR_ITS ---
XR ankle RT min 3V DATE: 10/20/2023 01:20 INDICATION: Pain after falling TECHNIQUE: 4 views of right ankle COMPARISON: None FINDINGS: Mild plantar and posterior calcaneal enthesopathy. Osteopenia. No fracture or dislocation of the ankle destruction of the ankle mortise is detected. IMPRESSION: No fracture or dislocation Reviewed, dictated and finalized at location A. IMPRESSION: No fracture or dislocation
--- NOTE | ~2023-10-19 | XR_ITS ---
XR hip RT 2V w AP pelvis Ordering provider: Everton Watson MD History: . pain status post fall . Comparison: None. FINDINGS: BONES: No acute fracture or dislocation. Longitudinal sclerotic areas projected over the right head and neck on defined nature most likely vas cular. HIP JOINT SPACES: Bilateral hip osteoarthritic changes. SACROILIAC JOINT SPACES/LUMBAR SPINE: The sacroiliac joint spaces are normal. Mild degenerative perkins es of the visualized lower lumbar spine. PUBIC SYMPHYSIS: Pubic symphysitis. SOFT TISSUES: Normal. IMPRESSION: No acute osseous abnormality pelvis and right hip. Reviewed, dictated and finalized at location A.
--- NOTE | ~2023-10-19 | XR_ITS ---
XR knee RT 3V Ordering provider: Everton Watson MD History: . pain status post fall . Comparison: July 13, 2021 FINDINGS: BONES: No acute fracture or dislocation. JOINT SPACES: Narrowing of the medial and lateral compartment. SOFT TISSUES: Vascular calcifications. IMPRESSION: Severe osteoarthritic changes. Reviewed, dictated and finalized at location A.
[2023-10-19 22:46] VITALS: BP 151/66; PULSE 71; RESP 16; TEMP 36.4; O2SAT 99
[2023-10-19 23:00] VITALS: BP 169/60; PULSE 74; RESP 18; O2SAT 99
[2023-10-19 23:45] VITALS: BP 126/53; PULSE 70; RESP 16; O2SAT 96
--- NOTE | 2023-10-20 01:09 | ED.GENADULT ---
HPI - General Adult General Chief complaint: Fall Stated complaint: fall Time Seen by Provider: 10/19/23 23:19 History of Present Illness HPI narrative: Patient 78-year-old female who presents emergency department with chief complaint of ground level fall. The patient normally alert oriented x2 and fell at the nursing facility and had pain in her right hip and right knee. The patient had initially difficulty bearing weight the patient reports no head injury the facility reports no head injury and denies loss of consciousness. Related Data Allergies Allergy/AdvReac Type Severity Reaction Status Date / Time Bleach (Sodium Hypochlorite) Allergy Other Verified 07/13/21 10:51 cephalexin [From Keflex] Allergy Rash Verified 07/13/21 10:51 Review of Systems Review of Systems: A 10 system review of systems was completed on the patient and is negative except for what is stated in the HPI. Nursing and ancillary documentation was reviewed. [facility] Past Medical History Medical History Anemia Cognitive deficits Coronary artery disease CVA (cerebral vascular accident) Diabetes mellitus GERD (gastroesophageal reflux disease) H/O renal cell cancer Hyperlipidemia Hypertension Hyperthyroidism Obesity Peripheral vascular disease Renal cell carcinoma Right hemiplegia Surgical History Surgical History H/O aortic valve replacement History of appendectomy History of cataract removal with insertion of prosthetic lens Right eye History of cholecystectomy History of coronary artery stent placement History of right nephrectomy Family History Family History Sibling Hypertension Other Family history of heart attack Social History Social History Social History: Prior to her CVA the patient was independent in activities of daily living it was the primary caregiver for her . Her son will be hiring caregivers for them when she returns home. Smoking packs per day: 1 Smoking cigarettes per day: 20.0 Years smoked: 50 Smoking pack-years: 50.00 Smoking status: Former smoker Second hand tobacco smoke exposure: Yes Alcohol intake: former Substance use: never Substance use type: does not use Spiritual care concerns: No Exam Narrative: GENERAL: Well-appearing, well-nourished, and in no acute distress. HEAD: Normocephalic, atraumatic. EYES: PERRLA and EOMI. ENT: Nares clear, no rhinorrhea or epistaxis. Mucous membranes moist. NECK: Supple. CHEST: Clear to auscultation. No respiratory distress. HEART: Regular rate and rhythm. No murmur heard. Normal peripheral pulses. ABDOMEN: Soft, nontender, nondistended, normal active bowel sounds. EXTREMITIES: Normal range of motion tenderness to palpation in the right hip and right knee. No edema. SKIN: Warm, dry, no rash. NEURO: No focal deficits. Alert and oriented x3. PSYCH: Normal mood and affect. Course Vital Signs Vital signs: Vital Signs Temperature 36.4 C 10/19/23 22:46 Pulse Rate 71 10/19/23 22:46 Respiratory Rate 16 10/19/23 22:46 Blood Pressure 151/66 H 10/19/23 22:46 Pulse Oximetry 99 10/19/23 22:46 Oxygen Delivery Room Air 10/19/23 22:46 Temperature 36.4 C 10/19/23 22:46 Pulse Rate 70 10/19/23 23:45 Respiratory Rate 16 10/19/23 23:45 Blood Pressure 126/53 L 10/19/23 23:45 Pulse Oximetry 96 10/19/23 23:45 Oxygen Delivery Room Air 10/19/23 22:46 Medical Decision Making [facility] Narrative Medical decision making narrative: Differential diagnosis includes fracture, contusion Patient is currently alert shows no signs of head trauma and had no reported head injury at the fall Plain film x-rays were obtained of the right hip and right knee Pl
[2023-10-20 01:16] VITALS: BP 117/42; PULSE 66; RESP 13; O2SAT 96
== END 2023-10-20 02:40 ==
PROVIDERS: Emergency Provider Emergency Medicine; PCP Physician Assistant
DX: S70.01XA Contusion of right hip, initial encounter (principal); S80.01XA Contusion of right knee, initial encounter; I25.10 Atherosclerotic heart disease of native coronary artery without angina pectoris; I10 Essential (primary) hypertension; I73.9 Peripheral vascular disease, unspecified; I69.951 Hemiplegia and hemiparesis following unspecified cerebrovascular disease affecting right dominant side; E11.9 Type 2 diabetes mellitus without complications; E78.5 Hyperlipidemia, unspecified; K21.9 Gastro-esophageal reflux disease without esophagitis; Z95.5 Presence of coronary angioplasty implant and graft; Z95.2 Presence of prosthetic heart valve; Z96.1 Presence of intraocular lens; Z98.41 Cataract extraction status, right eye; Z85.528 Personal history of other malignant neoplasm of kidney; Z87.891 Personal history of nicotine dependence; Z90.49 Acquired absence of other specified parts of digestive tract; Z90.5 Acquired absence of kidney; Z79.82 Long term (current) use of aspirin; Z79.899 Other long term (current) drug therapy; M17.11 Unilateral primary osteoarthritis, right knee; W18.30XA Fall on same level, unspecified, initial encounter
CPT/HCPCS: 73502; 73562; 73610; 99284

== ENCOUNTER 2024-09-23 02:31 | Inpatient (IN) | payer MEDICARE, SELFPAY ==
[2024-09-23] VITALS (26 sets, daily range): BP systolic 130–158; BP diastolic 56–81; PULSE 62–94; RESP 18–24; TEMP 36.4; O2SAT 90–96
--- NOTE | ~2024-09-23 | CT_ITS ---
Noncontrast CT scan of the cervical spine Technique: Multiple contiguous axial [address] images of the cervical spine were obtained and rec onstructed in 2D sagittal and coronal planes on the acquisition scanner. Dose reduction technique was used on this scan by utilizing automated exposure control, adjustment of the mA and/or kV according to patient size. The dose-length product (DLP) was 437.82 mGy-cm. Clinical History: Pain Findings: No fractures or dislocations. There are mild degenerative disc changes in the cervical spi ne. There are extensive facet arthropathy the cervical spine. Probable mild left neural foraminal david rowing at C2-C3. There is right neural foraminal narrowing at C3-C4 and probable minimal left neural foraminal narrowing as well. There is mild bilateral neural foraminal narrowing at C4-C5. There is mi ld right neural foraminal narrowing at C5-C6. There is mild left neural foraminal narrowing at C6-C7. No prevertebral soft tissue swelling. Impression: No fracture or subluxation of the cervical spine. Degenerative spondylosis, as above. Reviewed, dictated and finalized at location . Impression: No fracture or subluxation of the cervical spine. Degenerative spondylosis, as above.
--- NOTE | ~2024-09-23 | XR_ITS ---
EXAMINATION: XR surgery orthopedic DATE: 09/24/2024 15:43 INDICATION: Intraoperative evaluation during right hip hemiarthroplasty TECHNIQUE: Frontal view of the right hip was obtained. COMPARISON: None. FINDINGS: Intraoperative image during placement of a bipolar type right hip hemiarthroplasty demonstrates resec tion of the previously fractured right femoral head and neck. There is been placement of a femoral br oach is in expected position with the proximal tip projecting concentric with the right acetabulum. P ortions of the pelvis are obscured by a bolster. No fractures in the visualized bones. IMPRESSION: 1. Expected appearance during placement of a bipolar type right hip hemiarthroplasty. See procedure n ote for further detail. Reviewed, dictated and finalized at location A. IMPRESSION: 1. Expected appearance during placement of a bipolar type right hip hemiarthrop lasty. See procedure note for further detail.
--- NOTE | ~2024-09-23 | XR_ITS ---
Portable chest x-ray Comparison: 01/31/2018 Clinical History: Confusion, status post fall Findings: There is central congestive changes. No pleural effusion or other consolidation. Cardiome diastinal silhouette is stable. Bones and soft tissues are unremarkable. Impression: Prominent central pulmonary venous congestive changes. Stable cardiomegaly. Reviewed, dictated and finalized at [facility]. Impression: Prominent central pulmonary venous congestive changes. Stable cardiomegaly.
--- NOTE | ~2024-09-23 | XR_ITS ---
Right Shoulder Technique: AP and axillary views were obtained. Clinical History: Pain Findings: No fracture or dislocation is seen. Osseous alignment is anatomic. The glenohumeral and acr omioclavicular joint spaces are preserved. Soft tissues are unremarkable. Impression: Unremarkable right shoulder radiographs. Reviewed, dictated and finalized at [facility]. Impression: Unremarkable right shoulder radiographs.
--- NOTE | ~2024-09-23 | XR_ITS ---
SINGLE AP VIEW PELVIS Ordering provider: Ludin Charles MD History: . POST OP XTL ATTN RIGHT HIP . Comparison: September 18, 2024 FINDINGS: BONES: Right hip arthroplasty. IMPRESSION: Right hip arthroplasty. No definite fractures seen.. Reviewed, dictated and finalized at location A.
--- NOTE | ~2024-09-23 | CT_ITS ---
CT head without contrast Indication: Status post fall, confusion Technique: Serial scans were obtained through the brain without the administration of contrast. Dose reduction technique was used on this scan by utilizing automated exposure control and iterative recon struction technique. The dose-length product (DLP) was 681.00 mGy-cm. Findings: There is no evidence of intracranial hemorrhage, mass lesion, or acute infarct. Chronic enc ephalomalacia noted in the right cerebellar hemisphere. Additional probable chronic infarcts in the b ilateral parietal lobes and left frontal lobe. The ventricles and subarachnoid spaces are dilated, co nsistent with moderate atrophy. Low attenuation regions are seen within the periventricular white ma tter bilaterally, likely representing changes from chronic microvascular ischemic disease. There is n o evidence of edema, mass effect or midline shift. The visualized paranasal sinuses and mastoid air cells are clear. Impression: No intracranial hemorrhage, mass, or acute infarct. 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 Atrophy and chronic white matter changes, as above. Reviewed, dictated and finalized at location M. Impression: No intracranial hemorrhage, mass, or acute infarct. 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 Atrophy and chronic white matter changes, as above.
--- NOTE | ~2024-09-23 | CT_ITS ---
Noncontrast CT scan of the right hip CLINICAL HISTORY: Possible fracture TECHNIQUE: Axial noncontrast imaging of the right hip was performed. Sagittal and coronal reformatted images were constructed. Dose reduction technique was used on this scan by utilizing automated expos ure control and iterative reconstruction technique. The dose-length product (DLP) was 529.85 mGy-cm. Findings: There is an acute transverse fracture through the subcapital portion of the right femoral n yandel with mild angulation at the fracture site but no significant displacement otherwise. There is min imal degenerative change at the superior aspect of the right hip joint. No significant joint effusion clearly evident. Visualized musculature about the right hip appears unremarkable. No hematoma or other mass or fluid c ollection seen. Prominent stool noted at the rectum. IMPRESSION: Acute subcapital fracture of the right femoral neck, as detailed above. Reviewed, dictated and finalized at [facility].
--- NOTE | ~2024-09-23 | XR_ITS ---
AP view of the pelvis and AP and lateral views of the right hip Clinical history: Pain Findings: Suspected transverse fracture the right femoral neck present, somewhat poorly delineated. B ilateral hip and SI joint spaces are preserved. Soft tissues are unremarkable. Impression: Suspected transverse fracture the right femoral neck. Consider cross-sectional imaging for further ev aluation. Reviewed, dictated and finalized at location . Impression: Suspected transverse fracture the right femoral neck. Consider cross-sectional imaging for further evaluation.
--- NOTE | 2024-09-23 03:13 | ED_ITS ---
HPI - Fall General Chief Complaint: Fall Stated Complaint: GLF; RLE & RUE PAIN Time Seen by Provider: 09/23/24 02:41 Source: patient and RN notes reviewed Mode of arrival: EMS History of Present Illness HPI Narrative: Patient presents after a ground level fall. Resides at a facility. Had initailly been complaining of thigh pain then pain radiating to hip per EMS. Unable to straighten leg but reportedly neurovascularly intact so kept in position of comfort. Reported RLE and RUE pain to RN. Denied hitting head. Not on anticoagulation. Unknown LOC. Endorsed nausea. History lung cancer. Unclear baseline status / degree of confusion today relative to baseline. Patient denies any pain on my exam, maybe shoulder pain when pressed. No abdominal pain, chest pain, or shortness of breath. Related Data Home Medications ?Medication ?Instructions ?Recorded ?Confirmed ?Last Taken ?Type acetaminophen 325 mg capsule 650 mg PO Q6H PRN fever or pain 09/23/24 09/23/24 Unknown History atorvastatin 40 mg tablet 40 mg PO QHS 09/23/24 09/23/24 Unknown History carvedilol 6.25 mg tablet 6.25 mg PO BID 09/23/24 09/23/24 Unknown History ferrous sulfate 325 mg (65 mg 325 mg PO BID 09/23/24 09/23/24 Unknown History iron) tablet (Feosol) gabapentin 100 mg capsule 200 mg PO DAILY 09/23/24 09/23/24 Unknown History insulin lispro 100 unit/mL 1 sliding scale dose subcut AC 09/23/24 09/23/24 Unknown History subcutaneous solution isosorbide mononitrate 30 mg 30 mg PO DAILY 09/23/24 09/23/24 Unknown History tablet,extended release 24 hr lidocaine 4 % topical patch 1 patch topical Q12H PRN pain 09/23/24 09/23/24 Unknown History metformin 1,000 mg tablet 1,000 mg PO DAILY 09/23/24 09/23/24 Unknown History metformin 500 mg tablet 500 mg PO DAILY 09/23/24 09/23/24 Unknown History nitroglycerin 0.4 mg sublingual 0.4 mg sublingual Q5M PRN chest 09/23/24 09/23/24 Unknown History tablet pain ondansetron 4 mg disintegrating 4 mg PO Q6H PRN nausea and vomiting 09/23/24 09/23/24 Unknown History tablet polyethylene glycol 3350 17 gram 17 g PO Q12H PRN constipation 09/23/24 09/23/24 Unknown History oral powder packet (Miralax) sertraline 25 mg tablet 25 mg PO Q24H 09/23/24 09/23/24 Unknown History tramadol 50 mg tablet 50 mg PO Q8H PRN pain 09/23/24 09/23/24 Unknown History Allergies Allergy/AdvReac Type Severity Reaction Status Date / Time nicergoline Allergy Mild Unknown Verified 09/23/24 02:58 Bleach (Sodium Hypochlorite) Allergy Other Verified 09/23/24 02:58 cephalexin (From Keflex) Allergy Rash Verified 09/23/24 02:58 [facility] Past Medical History Medical History Other specified abnormal findings of blood chemistry Other malaise Cognitive communication deficit Pain in right arm Essential (primary) hypertension Nicotine dependence, unspecified, uncomplicated Renal cell carcinoma Hyperthyroidism Cognitive deficits Right hemiplegia CVA (cerebral vascular accident) H/O renal cell cancer Peripheral vascular disease Diabetes mellitus Anemia GERD (gastroesophageal reflux disease) Obesity Hyperlipidemia Hypertension Coronary artery disease Surgical History Surgical History History of right nephrectomy History of cataract removal with insertion of prosthetic lens Right eye History of cholecystectomy History of appendectomy History of coronary artery stent placement H/O aortic valve replacement Family History Family History Sibling Hypertension Other Family history of heart attack Social History Social History Social History: Prior to her CVA the patient was independent in activities of daily living it was the primary caregiver for her . Her son will be hiring caregivers for them when she returns home. Code Status: POLST signed 03/15/23 : No CPR (DNAR) Smoking packs per day: 1 Smoking cigarettes per day: 20.0 Years smoked: 50 Smoking pack-years: 50.00 Smoking status: Former smoker Second hand tobacco smoke exposure: Yes Alcohol intake: never Substance use: never Substance use type: does not use Do You Feel Safe in your Home?: Yes Lack of Transportation: No Lack of Food: Never True Current Housing: I Have Housing Concerned About Future Housing: No Difficulty Paying Gas/Electric Bills: No Difficulty Paying for Meds: No Currently Unemployed: No Education: Don't Know Difficulty w/ Childcare or Family Care: No Additional living arrangements comments: [facility] Spiritual care concerns: No Exam 2 Narrative: GENERAL: Well-appearing, well-nourished, and in no acute distress. HEAD: Normocephalic, atraumatic. EYES: Non injected, non icteric ENT: Nares clear, no rhinorrhea or epistaxis. Gross auditory acuity intact. NECK: Supple. No meningismus. CHEST: Speaking in full sentences. No respiratory distress. HEART: Regular rate and rhythm. . ABDOMEN: Soft, nondistended. No rigidity or guarding. Not peritoneal PELVIS: Stable to compression. No tenderness on compression EXTREMITIES: Right leg shortened and externally rotated. Right shoulder girdle palpated and without obvious deformity or tenderness to palpation. SKIN: Warm, dry, no rash. NEURO: No focal deficits. Alert . Answering questions but not a good health historian. Following commands. PSYCH: Normal mood and affect. Course Vital Signs Vital signs: Vital Signs Temperature 97.5 F L 09/23/24 02:27 Pulse Rate 62 09/23/24 02:27 Respiratory Rate 20 09/23/24 02:27 Blood Pressure 135/59 L 09/23/24 02:27 Pulse Oximetry 96 09/23/24 02:27 Oxygen Delivery Room Air 09/23/24 02:27 Temperature 97.6 F 09/25/24 05:46 Pulse Rate 72 09/25/24 05:46 Respiratory Rate 18 09/25/24 05:46 Blood Pressure 128/51 L 09/25/24 05:46 Pulse Oximetry 100 09/25/24 05:46 Oxygen Delivery Nasal Cannula 09/24/24 20:00 Oxygen Flow Rate 3 09/24/24 20:00 MDM - Fall MDM Narrative Medical decision making narrative: Patient presents after a ground level fall. In the emergency department she is afebrile with acceptable vital signs. Not on anticoagulation per nursing documentation. It was initially reported that patient might be confused but RN to RN report noted patient A&O x2 at baseline (versus written as baseline to self on POLST). She has a leukocytosis and a normocytic anemia, the latter is stable from previous. UDS positive for opiates. Pseudo hypocalcemia as it corrects to normal given her albumin level. She has a hyperglycemia without anion gap or acidosis. BNP only mildly elevated, not to a degree to suggest acute heart failure based on the reference range of the assay for patient's age. Hip Xray inconclusive; remains high suspicion for fracture based on physical exam with RLE short and externally rotated so proceed with CT. This shows fracture. Catheter urinary ordered. Patient reassessed at bedside. Contines to not endorse any pain. Patient had initially been ordered Tylenol but morphine ordered in case she does have pain soon. She thanks me for informing her about broken bone. Discussed with orthopedic surgeon . recommends admission to hospitalist. Discussed with Dr Mcginnis for admission. Differential Diagnosis Differential diagnosis: Likely dislocation of shoulder region, compression fracture, concussion with loss of consciousness, concussion without loss of consciousness and other (strong concern hip/femur fracture; considered intracranial hemorrhage, infection ) Lab Data Attestation: I reviewed the patient's lab results. 09/25/24 05:44 09/25/24 05:44 Labs: Lab Results 09/23/24 09/23/24 09/23/24 Range/Units 03:50 03:51 03:51 WBC 12.9 H (4.5-10.0) K/mm3 RBC 3.57 L (4.2-5.4) M/mm3 Hgb 9.2 L (12.0-15.0) g/dL Hct 31.7 L (37.0-47.0) % MCV 88.8 (80-100) fl MCH 25.8 L (26-34) pg MCHC 29.0 L (32-36) g/dl RDW 15.2 H (11.5-14.5) % Plt Count 374 (150-375) k/mm3 MPV 10.4 (7.4-10.4) fl Immature Gran % (Auto) 1.3 H (0-0.5) % Neut % (Auto) 72.7 (45.5-73.1) % Lymph % (Auto) 17.7 L (18.3-44.2) % Christian % (Auto) 5.7 (2.6-8.5) % Eos % (Auto) 1.8 (0-4.4) % Baso % (Auto) 0.8 (0.2-1.2) % Lymph # (Auto) 2.29 (0.9-3.2) K/mm3 Christian # (Auto) 0.7 H (0.1-0.6) K/mm3 Eos # (Auto) 0.2 (0-0.3) K/mm3 Baso # (Auto) 0.1 (0.0-0.1) K/mm3 Abs Immat Gran (auto) 0.17 H (0.00-0.031) K/mm3 Absolute Neuts (auto) 9.4 H (1.3-6.7) K/mm3 Absolute Nucleated RBC 0.000 (0.0-0.012) K/mm3 Band Neutrophils % Not Reportable Nucleated RBC % 0.0 (0.0-0.2) % Platelet Estimate Adequate (Adequate) Hypochromasia 1+ Schistocytes None seen PT 13.9 (11.1-14.7) Seconds INR 1.0 APTT 27.8 (22.3-36.8) Seconds Sodium 141 (137-145) mmol/L Potassium 3.8 (3.4-5.0) mmol/L Chloride 106 (98-107) mmol/L Carbon Dioxide 23 (22-30) mmol/L Anion Gap 12 (4-12) mmol/L BUN 17 (7-17) mg/dL Creatinine 0.87 (0.7-1.0) mg/dL Estim Creat Clear Calc 51 ml/min Estimated GFR > 60 (59 - ) Glucose 172 H (65-110) mg/dL Hemoglobin A1c 7.5 H (<5.7) % Calcium 8.2 L (8.4-10.2) mg/dL Total Bilirubin 0.2 (0.2-1.3) mg/dL AST 24 (14-36) U/L ALT 22 (6-35) U/L Alkaline Phosphatase 92 (38-126) U/L NT-Pro-B Natriuret Pep 375 H Cancelled (19.9-100) pg/mL Total Protein 7.0 (6.3-8.2) g/dL Albumin 3.7 (3.5-5.1) g/dL Urine Color (Yellow) Urine Appearance (Clear) Urine pH (5.0-9.0) Ur Specific Gardner (1.001-1.035) Urine Protein (Negative) mg/dL Urine Glucose (UA) (Negative) mg/dL Urine Ketones (Negative) mg/dL Ur Blood (Man) (Negative) Urine Nitrate (Negative) Urine Bilirubin (Negative) Urine Urobilinogen (<2.0) mg/dL Add Ur Microanalysis Leukocyte Esterase Rfl (Negative) JONA/UL Urine RBC (0-2) /hpf Urine WBC (0-3) /hpf Ur Squamous Epith Cells (Few) /hpf Urine Bacteria /hpf Urine Casts Urine Opiates Screen (Negative) Urine Methadone Screen (Negative) Ur Barbiturates Screen (Negative) Ur Phencyclidine Scrn (Negative) Ur Amphetamine Screen (Negative) U Benzodiazepines Scrn (Negative) Urine Cocaine Screen (Negative) U Cannabinoids Screen (Negative) Influenza A (RT-PCR) Negative (Negative) Influenza B (RT-PCR) Negative (Negative) RSV (RT-PCR) Negative (Negative) SARS-CoV-2 RNA (RT-PCR) Negative (Negative) 09/23/24 Range/Units 04:14 WBC (4.5-10.0) K/mm3 RBC (4.2-5.4) M/mm3 Hgb (12.0-15.0) g/dL Hct (37.0-47.0) % MCV (80-100) fl MCH (26-34) pg MCHC (32-36) g/dl RDW (11.5-14.5) % Plt Count (150-375) k/mm3 MPV (7.4-10.4) fl Immature Gran % (Auto) (0-0.5) % Neut % (Auto) (45.5-73.1) % Lymph % (Auto) (18.3-44.2) % Christian % (Auto) (2.6-8.5) % Eos % (Auto) (0-4.4) % Baso % (Auto) (0.2-1.2) % Lymph # (Auto) (0.9-3.2) K/mm3 Christian # (Auto) (0.1-0.6) K/mm3 Eos # (Auto) (0-0.3) K/mm3 Baso # (Auto) (0.0-0.1) K/mm3 Abs Immat Gran (auto) (0.00-0.031) K/mm3 Absolute Neuts (auto) (1.3-6.7) K/mm3 Absolute Nucleated RBC (0.0-0.012) K/mm3 Band Neutrophils % Nucleated RBC % (0.0-0.2) % Platelet Estimate (Adequate) Hypochromasia Schistocytes PT (11.1-14.7) Seconds INR APTT (22.3-36.8) Seconds Sodium (137-145) mmol/L Potassium (3.4-5.0) mmol/L Chloride (98-107) mmol/L Carbon Dioxide (22-30) mmol/L Anion Gap (4-12) mmol/L BUN (7-17) mg/dL Creatinine (0.7-1.0) mg/dL Estim Creat Clear Calc ml/min Estimated GFR (59 - ) Glucose (65-110) mg/dL Hemoglobin A1c (<5.7) % Calcium (8.4-10.2) mg/dL Total Bilirubin (0.2-1.3) mg/dL AST (14-36) U/L ALT (6-35) U/L Alkaline Phosphatase (38-126) U/L NT-Pro-B Natriuret Pep (19.9-100) pg/mL Total Protein (6.3-8.2) g/dL Albumin (3.5-5.1) g/dL Urine Color Yellow (Yellow) Urine Appearance Clear (Clear) Urine pH 6.5 (5.0-9.0) Ur Specific Gardner 1.017 (1.001-1.035) Urine Protein Negative (Negative) mg/dL Urine Glucose (UA) Negative (Negative) mg/dL Urine Ketones Negative (Negative) mg/dL Ur Blood (Man) Negative (Negative) Urine Nitrate Negative (Negative) Urine Bilirubin Negative (Negative) Urine Urobilinogen 1.0 (<2.0) mg/dL Add Ur Microanalysis Reviewed Leukocyte Esterase Rfl 2+ H (Negative) JONA/UL Urine RBC 0-2 (0-2) /hpf Urine WBC 0-5 (0-3) /hpf Ur Squamous Epith Cells None seen (Few) /hpf Urine Bacteria None seen /hpf Urine Casts 0-2 Urine Opiates Screen Positive A (Negative) Urine Methadone Screen Negative (Negative) Ur Barbiturates Screen Negative (Negative) Ur Phencyclidine Scrn Negative (Negative) Ur Amphetamine Screen Negative (Negative) U Benzodiazepines Scrn Negative (Negative) Urine Cocaine Screen Negative (Negative) U Cannabinoids Screen Negative (Negative) Influenza A (RT-PCR) (Negative) Influenza B (RT-PCR) (Negative) RSV (RT-PCR) (Negative) SARS-CoV-2 RNA (RT-PCR) (Negative) Imaging Data Attestation: I personally reviewed and interpreted this imaging study as follows: My impression: Stool burden on my independent interpretation of hip - appears asymmetric/rotated with possible fracture seen femoral neck Radiologist's impression: CT Brain Sta tRad: No acute hemorrhage, hydrocephalus, or herniation. Multifocal chronic infarcts. Impression: Prominent central pulmonary venous congestive changes. Stable cardiomegaly. Impression: Suspected transverse fracture the right femoral neck. Consider cross-sectional imaging for further evaluation. Impression: No intracranial hemorrhage, mass, or acute infarct. 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 Atrophy and chronic white matter changes, as above. Impression: No fracture or subluxation of the cervical spine. Degenerative spondylosis, as above. Impression: Unremarkable right shoulder radiographs. IMPRESSION: Acute subcapital fracture of the right femoral neck, as detailed above. ECG Data EKG #1: Attestation: I personally reviewed and interpreted this ECG as follows: ECG completion date: 09/23/24 ECG completion time: 04:26 Interpretation: Normal sinus rhythm at a rate of 73 beats per minute. MT interval 195. QRS 104. QT/QTC 419/445. Good R-wave progression across the precordial leads. No T-wave inversion. Discharge Plan Discharge Clinical Impression: Fall, Leukocytosis, Normocytic anemia, Cardiomegaly, Spondylosis of cervical spine Subcapital fracture of femur Qualifiers: Encounter type: initial encounter Fracture type: closed Laterality: right Q ualified Code(s): S72.011A - Unspecified intracapsular fracture of right femur, initial encounter for closed fracture Patient Disposition: Still a Patient Condition: Stable
--- NOTE | 2024-09-23 03:16 | ECG_ITS ---
Test Date: 2024-09-23 04:26:50 Measurements Intervals [place] Rate: 73 P: 42 IA: 195 QRS: -1 QRSD: 104 T: 49 QT: 419 QTc: 463 Interpretive Statements SINUS RHYTHM NONSPECIFIC ST AND T WAVE ABNORMALITY POSSIBLE INFERIOR MYOCARDIAL INFARCTION , PROBABLY OLD [30 ms Q WAVE IN II/aVF] No previous ECG available for comparison Electronically Signed On 09-23-2024 14:05:08 CDT by Preston Pal M.D.
--- OUTSIDE RECORDS SUMMARY | 2024-09-23 03:49 | XMS_ITS | Encounter Summary ---
Author Organization [facility] Healthcare Address [facility] [place] [address] Care Team Providers Care Communications Designer Name Role Phone Rafael Gardner DO Unavailable [phone] Eleno Valdes MD Unavailable [phone] Rosita Slade MD Unavailable [phone] Koko Adams MD Unavailable [phone] Prosper Baron Primary Care Provider [phone] Jolene Mcfarland LPN Unavailable [phone] Elier Rubio MD Unavailable [phone] Juan M Martin MD Unavailable Craig Goel MD Unavailable [phone] Encounter Details Date Type Department Care Team (Late st Contact Info) Description 09/19/2019 Telephone [facility] [address] [place] [address] Samantha Beck, Social History Tobacco Use Types Packs/Day Years Used Date Smoking Tobacco: Former Cigarettes Q uit: 07/2018 Smokeless Tobacco: Never Comments:reduced from 2 pack /day to 5 cigarettes/day Alcohol Use Standard Drinks/Week Comments No 0 (1 standard drink = 0.6 oz pur e alcohol) Comments No Sex and Gender Information Value Date Recorded Sex Assigned at Not on file Legal Sex Female 11:55 PM [employer] Gender Identity Not on file Sexual Orientation Not on file documented as of this encounter Plan of Treatment Not on file documented as of this encounter Visit Diagnoses Not on filedocumented in this encounter Additional Health Concerns Infection Onset Date Last Indicated Resolved Time COVID: Suspected 11/11/2021 11/11/2021 11/11/2021 10:48 PM CDT MRSA Comment:Nares - 07/19/2023 07/19/2023 07/19/2023 01/15/2024 3:0 6 AM CDT documented as of this encounter Care Teams Communications Designer Relationship Specialty Start Date End Date Prosper Baron PA [address] [place] [address] PCP - General 05/06/19 Rafael Gardner DO Cardiovascular Disease 01/11/18 Eleno Valdes MD Consulting Physician Cardiology 02/04/18 Rosita Slade MD Consulting Physician Gastroenterology 02/28/18 Koko Adams MD [address] [place] [address] [address] BRADLEY [address] [place] [id number] Pulmonary Disease 02/28/18 Jolene Mcfarland, CIVIL ATTORNEY [address] [place] [address] [address] [place] [address] [facility] [employer] [employer] 06/24/21 07/26/21 [place] [id number] [address] [facility] [address] [place] [address] Consulting Physician Internal Medicine 07/06/23 [place] [id number] [address] [facility] [address] [place] [address] Consulting Physician Gastroenterology 07/10/23 Craig Goel MD 2 [facility] [address] [address] Consulting Physician Cardiology 07/24/23 documented as of this encounter
--- OUTSIDE RECORDS SUMMARY | 2024-09-23 03:49 | XMS_ITS | Encounter Summary ---
Author Organization [facility] Address [address] [place] [address] Phone Care Team Providers Care Window Maker Name Role Phone Mich Barragan MD Primary Care Provider [phone] Rafael Gardner DO Unavailable [phone] Eleno Valdes MD Unavailable [phone] Rosita Slade MD Unavailable [phone] Koko Adams MD Unavailable [phone] Prosper Baron Primary Care Provider [phone] Jolene Mcfarland LPN Unavailable [phone] Elier Rubio MD Unavailable [phone] Juan M Martin MD Unavailable Craig Goel MD Unavailable [phone] Encounter Details Date Type Department Care Team (Late st Contact Info) Description 07/26/2017 Orders Only [facility] Provider, MD Cynthia [facility] [place] [address] Social History Tobacco Use Types Packs/Day Years Used Date Smoking Tobacco: Some Days Smokeless Tobacco: Never Alcohol Use Standard Drinks/Week Comments No 0 (1 standard drink = 0.6 oz pur e alcohol) Comments Unknown Sex and Gender Information Value Date Recorded Sex Assigned at Not on file Legal Sex Female 11:55 PM [employer] Gender Identity Not on file Sexual Orientation Not on file documented as of this encounter Plan of Treatment Not on file documented as of this encounter Procedures Procedure Name Priority Date/Time Associated Diagnosis Comments DISCHARGE LABORATORY CUMULATIVE REPORT 07/26/2017 12:00 AM CDT documented in this encounter Results * DISCHARGE LABORATORY CUMULATIVE REPORT (07/26/2017 12:00 AM CDT) Narrative 07/26/2017 12:00 AM CDT Ordered by an unspecified provider. us Historical Provider LAB BLOOD ORDERABLES Candelaria l Result documented in this encounter Visit Diagnoses Not on filedocumented in this encounter Additional Health Concerns Infection Onset Date Last Indicated Resolved Time COVID: Suspected 11/11/2021 11/11/2021 11/11/2021 10:48 PM CDT MRSA Comment:Nares - 07/19/2023 07/19/2023 07/19/2023 01/15/2024 3:0 6 AM CDT documented as of this encounter Care Teams Window Maker Relationship Specialty Start Date End Date Mich Barragan MD PCP - General 06/12/16 05/05/19 Prosper Baron PA [address] [place] [address] PCP - General 05/06/19 Rafael Gardner DO Cardiovascular Disease 01/11/18 Eleno Valdes MD Consulting Physician Cardiology 02/04/18 Rosita Slade MD Consulting Physician Gastroenterology 02/28/18 Koko Adams MD [address] [place] [address] [place] [address] Pulmonary Disease 02/28/18 Jolene Mcfarland, HEBERT [address] [place] [address] [address] [place] [address] [employer] Hogshead Stripper 06/24/21 07/26/21 [place] [id number] [facility] [address] [place] [address] Consulting Physician Internal Medicine 07/06/23 [place] [address] [facility] [address] [place] [address] Consulting Physician Gastroenterology 07/10/23 Craig Goel MD [address] [place] [address] [address] [place] [address] Consulting Physician Cardiology 07/24/23 documented as of this encounter
--- OUTSIDE RECORDS SUMMARY | 2024-09-23 03:50 | XMS_ITS | Referral Summary ---
Author Organization [facility] Address [address] [place] [address] Care Team Providers Care Manager Of Compensation Name Role Phone Rafael Gardner DO Unavailable [phone] Eleno Valdes MD Unavailable [phone] Rosita Slade MD Unavailable [phone] Koko Adams MD Unavailable [phone] Prosper Baron Primary Care Provider [phone] Elier Rubio MD Unavailable [phone] Juan M Martin MD Unavailable Craig Goel MD Unavailable [phone] Encounters Date Type Department Care Team Description 08/15/2024 10:30 AM CDT Office Visit [facility] [address] [place] [phone] Sharee Lora PA Primary osteoarthritis of right knee (Primary Dx) from Last 3 Months Allergies Active Allergy Reactions Criticality Noted Date Comments Cephalexin Rash Medium Reaction: Rash, Nicergoline Other (See comments) Low 07/06/2023 Cold sweats Medications nitroglycerin (NITROSTAT) 0.[address] 1 tablet (0.4 mg total) under the tongue every 5 (five) minutes as needed for chest pain 1 Active gabapentin (NEURONTIN) 100 mg capsuleIndications :Neuropathic Pain Take 2 capsules (200 mg total) by mouth nightly 3 Active atorvastatin (LIPITOR) 40 mg tablet Take 1 tablet (40 mg total) by mouth daily Active lidocaine (ASPERCREME) 4 % adhesive patch,medicated Place 1 patch on the skin daily Active acetaminophen (TYLENOL) 325 mg tabletIndications: Fever,Pain Take 2 tablets (650 mg total) by mouth every 6 (six) hours as needed for pain or headaches 4 Active ondansetron ODT (ZOFRAN-ODT) 4 mg disintegrating tabletIndications: Nausea and Vomiting Take 1 tablet (4 mg total) by mouth every 6 (six) hours as needed for nausea or vomiting 20 tablet [address] (PROTONIX) 40 mg EC tablet Take 1 tablet (40 mg total) by mouth 2 (two) times a day 60 tablet 4 Active carvediloL (COREG) 6.25 mg tablet Take 1 tablet (6.25 mg total) by mouth 2 (two) times a day with meals 60 tablet 4 Active sertraline (ZOLOFT) 25 mg tablet Take 1 tablet (25 mg total) by mouth daily 4 Active ferrous sulfate 325 mg (65 mg of elemental iron) tabletIndications: Iron Deficiency Anemia Take 1 tablet (325 mg total) by mouth 2 (two) times a day Active traMADoL (ULTRAM) 50 mg tablet Take 1 tablet (50 mg total) by mouth every 8 (eight) hours as needed for pain Active Active Problems Problem Noted Date Diagnosed Date Fever 05/07/2024 History of GI bleed 11/05/2023 GI bleed 07/19/2023 Acute upper GI bleed 07/06/2023 History of renal cell carcinoma 07/06/2023 History of stroke w/expressive aphasia 4 Bandemia 07/06/2023 Arm pain, anterior, right 03/14/2023 Abnormal urinalysis 03/12/2023 Thyroid nodule 03/12/2023 Physical deconditioning 03/11/2023 Cerebrovascular accident (CVA), unspecified mech anism 03/09/2023 S/P AVR 09/05/2022 Assessment & Plan (09/05/2022 1:37 PM CDT): Patient is status post AVR with most recent TTE not demonstrating the aortic valve, but her peak velocity is 1.8 m/sec. She has not followed up with her hydrography teacher in a long time. Outpatient cardiology referral for follow-up Right arm weakness 09/03/2022 Parietal lobe infarction 09/03/2022 Assessment & Plan (09/05/2022 1:29 PM CDT): 77F with significant vasculopathy (smoking hx, past CVA, previous [place] with stenting, PVD, HTN) presented with expressive aphasia that resolved spontaneously within the span of hours. Insignificant trops. Not hypoglycemic. Hgb A1c 6.3. Cholesterol WNL. CT head and CTA head and neck demonstrated only chronic findings (ischemic and atherosclerotic changed). This makes TIA the most likely diagnosis. Also consider stroke, functional neurological disorder, and migraine with aura, confusion secondary to infection. Will defer carotid US as pt had CTA neck demonstrating patent carotids. MRI (09/04): Acute infarct left parietal lobe. TTE (09/04): Mild concentric left ventricular hypertrophy. Left ventricular systolic function at the lower limit of normal. EF 50-55 %. No right to left shunt. Moderate mitral annular calcification. Mild mitral valve regurgitation. Mild tricuspid regurgitation. - neurology consulted and recommended discontinuing aspirin - plavix, statin Mild left ventricular hypertrophy 09/03/2022 Assessment & Plan (09/03/2022 1:54 PM CDT): TTE in 2020: Mild concentric left ventricular hypertrophy. Mild enlargement of left ventricle cavity. Left ventricular systolic function at the lower limit of normal. Impaired diastolic relaxation Grade I. Ejection fraction is visually estimated at 50 %. No aortic regurgitation. Normal appearing aortic valve bioprosthesis, mean gradient 12 mmHg and Peak velocity 1.8 m/sec. Abnormal TSH 09/03/2022 Assessment & Plan (09/05/2022 1:29 PM CDT): TSH 0.02 T4 2.06 Pt experiencing weight loss and fatigue US Thyroid (09/04): Predominantly solid right thyroid nodule measuring up to 3.1 cm, which is amenable for ultrasound-guided fine needle aspiration as clinically indicated. Heterogeneous thyroid gland with increased color Doppler flow, which is concerning for nonspecific thyroiditis. Mixed cystic and solid left thyroid nodule measuring up to 1.3 cm, which does not require follow-up imaging per TI-RADS criteria. - thyroid biopsy ordered 09/05 Moderate malnutrition 11/13/2021 Fecal impaction in rectum 11/11/2021 Cerebrovascular accident (CVA) 06/18/2021 Hyponatremia 06/18/2021 EB (acute kidney injury) 06/18/2021 Elevated troponin 06/18/2021 Dyslipidemia 02/01/2021 Status post total left knee replacement 11/17/19 21 Angiodysplasia of small intestine 11/11/2020 Urinary retention 01/09/2020 Hyperthyroidism 05/30/2019 Assessment & Plan (10/28/2021 10:54 AM CDT): This is a chronic condition which is not at goal. TSH-11.52.. Labs repeated. Goal is for TSH to be between 0.3 to 4.2 mclUnits/ml Continue Methimazole 5 mg po daily. Repeat annual thyroid ultrasound- ordered Assessment & Plan (02/01/2021 12:33 PM CDT): This is a chronic condition which is improving, at goal. TSH-1.76. Goal is for TSH to be between 0.3 to 4.2 mclUnits/ml Continue Methimazole 10 mg po daily. Repeat annual thyroid ultrasound- ordered Assessment & Plan (10/25/2020 2:40 PM CDT): This is a chronic condition which is improving, at goal. TSH-1.76. Goal is for TSH to be between 0.3 to 4.2 mclUnits/ml Continue Methimazole 10 mg po daily for 5 days/week. No medication on Sunday or Sunday. . Repeat annual thyroid ultrasound- ordered by has not completed. Assessment & Plan (06/28/2020 10:48 AM TYPING TEACHER): This is a chronic condition which is improving, at goal. TSH-0.98. Reports weight loss. Goal is for TSH to be between 0.3 to 4.2 mclUnits/ml Continue Methimazole 10 mg po daily. Repeat TSH and T4 Assessment & Plan (04/12/2020 11:01 AM TYPING TEACHER): This is a chronic condition which is improving, at goal. TSH-0.98 Goal is for TSH to be between 0.3 to 4.2 mclUnits/ml Continue Methimazole 10 mg po daily. Repeat labs in 3 months. Assessment & Plan (01/06/2020 11:09 AM CDT): This is a chronic condition which is improving, but not at goal. Reviewed labs. Continue Methimazole 10 mg po daily. Obtain TSH, free T4 today I will call you results of your labs Encouraged to contact GI for constipation issues. Assessment & Plan (11/27/2019 4:42 PM CDT): hyperthyroidism on 01/12/17 with TSH 0.02 with normal free T4 of 1.5 but high free T3 of 11.22. She had low TSH of 0.09 since September 2016. Patient had MNG on thyroid Ultrasound in 2010 with dominant nodule on the right lobe 3 cm. Thyroid scan also in 2010, showed low uptake 12% with heterogeneous activity without hot or cold defects. Thyroid Ultrasound done in January/2017 did not show significant change in nodules. No thyroid scan done . This may represent toxic multi-nodular goiter, or Graves' disease on top of nodular goiter. TSH was lower 0.06 in April 2017 and stared on methimazole. Patient is clinically euthyroid last TSH of 0.03 Free T4 - 1.12 In April, Plan: Continue to take 5 mg - one tab- of methimazole /day Check LFT, TSH And Free T4 Adjustments will be made depending on results. We will monitor thyroid nodules . Schedule thyroid Chronic idiopathic constipation 05/06/2019 Assessment & Plan (05/24/2020 8:22 AM TYPING TEACHER): Patient having issues with constipation again. To prevent impaction patient was advised to start using Dulcolax suppository every night, mineral oil 1 tbsp full daily, continue with stool softener and use enemas as needed. Follow-up in 4-6 weeks per Assessment & Plan (02/05/2020 9:31 AM CDT): Patient is doing well with her current regimen of using Dulcolax tablets and MiraLax powder as herniating every other day. She will continue the same. Assessment & Plan (01/09/2020 1:03 PM CDT): Patient has no bowel for 6 weeks. Her regimen is not working well. We will readjust after leaf of the impaction in the hospital. Assessment & Plan (12/22/2019 12:05 PM CDT): Pt was previously doing well on Linzess 145mcg daily. She was unable to continue this medication due to cost. She says she has not had a BM in about 1 month. She said that over a week ago, she had some N/V one day. She says she vomited about 6 times the Sunday before last but none since then. She says she is passing gas. Will start on Amitiza 16mcg twice daily. She was given samples for this medication. Assessment & Plan (06/06/2019 12:08 PM TYPING TEACHER): Pt says BM's are doing much better on Linzess. She has tried multiple OTC regimens in the past without relief. She says Linzess is only thing helping. Having anywhere from 1-3 BM's daily and are normal. Pt says this was very expensive through her insurance. Will give samples today. Assessment & Plan (05/06/2019 1:21 PM TYPING TEACHER): Per patient, she has not had a BM in about 1 month. She says she has had to manually remove stool. She is still passing gas and no vomiting. Pt says she has this issue chronically. She has tried OTC Miralax and other OTC laxatives. She is unable to get suppositories in and to stay in. Will get obstructive series ordered for fabian. Will start on Linzess 145mcg. Pt says she has been on this previously but was too expensive. This was last prescribed about 2 years ago. Will give her some samples to use for and re-prescribe to see if insurance will cover at this point. Pt was told that if she takes a couple of doses of Linzess and still not having BM, to contact our office right away. She verbalized understanding. 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 Will repeat blood counts and iron levels today and replace as needed. 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 No sign of active bleeding at this time. 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 No sign of active bleeding at this time. Assessment & Plan (02/26/2018 6:58 AM CDT): Admitted to the ICU Telemetry monitoring Transfuse 2 units of PRBC Check H&H 1 hr after transfusion Trend H&H every 6 hr, transfuse as needed Acute respiratory failure with hypoxia and hyper capnia 02/01/2018 Assessment & Plan (02/01/2018 3:41 AM CDT): Exact etiology unclear. A CT scan from outside hospital shows diffuse ground- glass infiltrates primarily in the perihilar region with prominent pulmonary edema fevers however cannot rule infectious etiology. Patient also had small bilateral pleural effusions. Patient is currently on BiPAP with improvement of her respiratory status. Will continue to monitor ABG. Patient received 1 dose of IV Lasix 40 and is will be started on empiric antibiotics of Levaquin for possible pneumonia. Will continue to monitor. Chest pain 02/01/2018 Assessment & Plan (02/01/2018 3:36 AM CDT): Suspected ACS. Patient has elevated troponins. Will continue to trend. EKG shows more prominent ST depressions in V4 to V6 which appears similar to the EKG on 01/10/2018 however patient appears tachycardic on most recent with heart rate of 145. Patient is on a heparin drip at this time. Will consult Cardiology. Will keep patient NPO until Cardiology sees her. Leukocytosis 02/01/2018 Assessment & Plan (02/01/2018 3:42 AM CDT): Possible pneumonia. Was 17 at outside hospital. Patient is on empiric antibiotics for possible pneumonia. Could be stress related. Will continue to monitor. Lactic acidosis 02/01/2018 Assessment & Plan (02/01/2018 3:31 AM CDT): Likely secondary to hypoxic respiratory failure and possible pneumonia. Will continue to monitor. Lumbar radiculopathy 11/22/2017 Vertigo 11/22/2017 Candidiasis of skin 11/22/2017 Iron deficiency anemia 08/14/2017 Assessment & Plan (05/06/2019 1:20 PM TYPING TEACHER): Pt was supposed to have 3 more iron infusions after small bowel enteroscopy; however, infusion center was unable to get a hold of her. We will recheck her CBC and iron levels today and will setup infusion if needed based on results. She has previously been on oral iron supplements but caused her constipation to be worse so this was stopped. Anemia, iron deficiency 05/30/2017 Assessment & Plan (01/09/2020 1:04 PM CDT): Patient has recent blood transfusion. Will repeat blood count and iron level this week and replace intravenously as needed.. Assessment & Plan (12/22/2019 12:07 PM CDT): Last hgb done last month was 7.9 and iron levels low. Will get CBC and iron profile to see where her levels are currently are. Pt will likely need iron infusions. Will f/u on CBC and iron profile and further plans from there. Assessment & Plan (06/06/2019 12:09 PM TYPING TEACHER): Pt's last hgb 9.8 on 05/06. She was ordered to have 3 more iron infusions. She has completed 2 and next one is on 06/17. Will f/u about a month after last iron infusion and recheck levels at next appointment. 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 Continue monitoring. Ultrasound IMPRESSION from 09/14/2019: Multinodular thyroid gland. The dominant nodule in the mid right thyroid lobe has increased in size in the interval and now measures 3.9 cm in diameter. Ultrasound-guided biopsy of this nodule is recommended. IMPRESSION of needle biopsy 09/2019: 1. Right thyroid lobe nodule biopsy under ultrasound guidance. The specimens were sent to pathology. Cytology- show abnormal cells. Veracyte for Afirma thyroid molecular analysis - negative Repeat thyroid ultrasound for re-evaluation has been reordered several times but not obtained. Assessment & Plan (02/01/2021 12:32 PM CDT): This is a chronic condition which is stable. Continue monitoring. Repeat ultrasound in June 2020 Ultrasound IMPRESSION from 09/14/2019: Multinodular thyroid gland. The dominant nodule in the mid right thyroid lobe has increased in size in the interval and now measures 3.9 cm in diameter. Ultrasound-guided biopsy of this nodule is recommended. IMPRESSION of needle biopsy 09/2019: 1. Right thyroid lobe nodule biopsy under ultrasound guidance. The specimens were sent to pathology. Cytology- show abnormal cells. Veracyte for Afirma thyroid molecular analysis - negative Repeat thyroid ultrasound for re-evaluation. re-ordered in 10/18- however she lost the paper. Reordered. Scheduled for 02/28/21 at [facility] at 0815 Assessment & Plan (10/25/2020 11:46 AM CDT): This is a chronic condition which is stable. Continue monitoring. Repeat ultrasound in June 2020 Ultrasound IMPRESSION from 09/14/2019: Multinodular thyroid gland. The dominant nodule in the mid right thyroid lobe has increased in size in the interval and now measures 3.9 cm in diameter. Ultrasound-guided biopsy of this nodule is recommended. IMPRESSION of needle biopsy 09/2019: 1. Right thyroid lobe nodule biopsy under ultrasound guidance. The specimens were sent to pathology. Cytology- show abnormal cells. Veracyte for Afirma thyroid molecular analysis - negative Repeat thyroid ultrasound for re-evaluation. Has not scheduled repeat thyroid ultrasound Assessment & Plan (07/23/2020 11:49 AM CDT): This is a chronic condition which is stable. Continue monitoring. Repeat ultrasound in June 2020 Ultrasound IMPRESSION from 09/14/2019: Multinodular thyroid gland. The dominant nodule in the mid right thyroid lobe has increased in size in the interval and now measures 3.9 cm in diameter. Ultrasound-guided biopsy of this nodule is recommended. IMPRESSION of needle biopsy 09/2019: 1. Right thyroid lobe nodule biopsy under ultrasound guidance. The specimens were sent to pathology. Cytology- show abnormal cells. Veracyte for Afirma thyroid molecular analysis - negative Repeat thyroid ultrasound for re-evaluation. Has not scheduled repeat thyroid ultrasound or obtained TSH labs. Encouraged to get these scheduled/done. Assessment & Plan (06/28/2020 10:50 AM TYPING TEACHER): This is a chronic condition which is stable. Continue monitoring. Repeat ultrasound in June 2020 Ultrasound IMPRESSION from 09/14/2019: Multinodular thyroid gland. The dominant nodule in the mid right thyroid lobe has increased in size in the interval and now measures 3.9 cm in diameter. Ultrasound-guided biopsy of this nodule is recommended. IMPRESSION of needle biopsy 09/2019: 1. Right thyroid lobe nodule biopsy under ultrasound guidance. The specimens were sent to pathology. Cytology- show abnormal cells. Veracyte for Afirma thyroid molecular analysis - negative Repeat thyroid ultrasound for re-evaluation Assessment & Plan (04/12/2020 10:59 AM TYPING TEACHER): This is a chronic condition which is stable. Continue monitoring. Repeat ultrasound in June 2020 Ultrasound IMPRESSION from 09/14/2019: Multinodular thyroid gland. The dominant nodule in the mid right thyroid lobe has increased in size in the interval and now measures 3.9 cm in diameter. Ultrasound-guided biopsy of this nodule is recommended. IMPRESSION of needle biopsy 09/2019: 1. Right thyroid lobe nodule biopsy under ultrasound guidance. The specimens were sent to pathology. Cytology- show abnormal cells. Veracyte for Afirma thyroid molecular analysis - negative Assessment & Plan (11/27/2019 4:49 PM CDT): This is a chronic condition which is stable. Continue monitoring. Ultrasound IMPRESSION from 09/14/2019: Multinodular thyroid gland. The dominant nodule in the mid right thyroid lobe has increased in size in the interval and now measures 3.9 cm in diameter. Ultrasound-guided biopsy of this nodule is recommended. IMPRESSION of needle biopsy 09/2019: 1. Right thyroid lobe nodule biopsy under ultrasound guidance. The specimens were sent to pathology. Cytology- show abnormal cells. Veracyte for Afirma thyroid molecular analysis - negative PVD (peripheral vascular disease) 01/23/2017 Spinal stenosis of lumbar region 01/23/2017 Overview (01/23/2017): Overview: Lumbosacral Peripheral vascular disease 01/23/2017 Knee osteoarthritis 01/12/2017 Sacroiliac joint dysfunction of both sides 01/12 Disorder of sacroiliac joint 01/12/2017 Osteoarthritis of knee 01/12/2017 Acute on chronic blood loss anemia 07/26/2016 Assessment & Plan (02/05/2020 9:32 AM CDT): We will repeat CBC and iron levels today. Will give iron infusions if still low. She received iron infusions in November of 2019. 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 Most recently underwent cauterization of the lesions and clipping by Dr. Slade. Stool Hemoccult is positive although patient is currently on iron supplementation. She denies any red blood per rectum or black tarry stools. Will continue on pantoprazole Patient is completing the 2nd unit of packed red blood cells. Clear liquid diet Dr. Slade consulted Will keep her NPO after midnight Plan to take the patient to the EGD in a.m. Assessment & Plan (02/01/2018 4:04 AM CDT): Patient has a history of normocytic anemia and was evaluated by GI at last admission. It is attributed to chronic blood loss due to the AVMs. She had a transfusion of 1 unit at last admission. Patient is on heparin drip and will have to monitor patient's hemoglobin. Anemia 07/26/2016 Overview (10/20/2021): Added automatically from request for surgery [id number] Assessment & Plan (02/21/2019 2:53 PM CDT): Last hgb done by PCP showed hgb of 6.7. Will get stat CBC today along with iron, ferritin, and vitamin B 12. She also has a history of angiodysplastic lesion in stomach. Will schedule EGD to re-evaluate for bleeding from these lesions. Will follow up after blood work is back and testing completed. No overt sign of GI bleed at this time. Pt encouraged to eat square meals so she can get more iron in her diet. Pt had colonoscopy last year which did not show evidence of bleeding. This does not need to be repeated at this time. Knee pain 07/30/2015 Overview (08/04/2016): Knee pain Current smoker 07/30/2015 Overview (08/04/2016): Current smoker Assessment & Plan (09/03/2022 1:52 PM CDT): >100 pack year smoking hx. Smokes a pack a week now. Encouraged to cease. Assessment & Plan (02/26/2018 6:51 AM CDT): Discussed and advised smoking cessation Assessment & Plan (02/01/2018 3:32 AM CDT): Patient has a history of tobacco use up to 1 pack per day but currently 6 cigarettes per day since age 6. Cellulitis 12/14/2014 Overview (08/04/2016): Cellulitis Atherosclerosis of [place] co ronary artery of [place] heart without angina pectoris 04/23/2014 Overview (11/22/2017): CAD - Coronary artery disease Type 2 diabetes mellitus wit hout complication, without long-term current use of insulin 04/23/2014 Overview (08/04/2016): Diabetes mellitus Assessment & Plan (10/28/2021 10:52 AM CDT): This is a chronic condition which is controlled, stable and at goal. Labs personally reviewed. A1c - 6.9% with hx of anemia. Latest Reference Range & Units 06/23/21 05:32 Hgb 11.9 - 15.5 g/dL 7.6 (L) Hct 35.6 - 45.5 % 27.0 (L) Abnormally- low H&H may alter the A1c results. Goal is less than 8% without hypoglycemia. Encouraged to monitor her blood sugar for episodes when she feels poorly. Medication- stop Levemir. Monitor blood sugar 2 times a day. Call blood sugar results on Sunday/Sunday for insulin adjustments based on results. Obtain dilated eye exam by the end of the year. Done 12/26/2019 Monofilament foot exam completed, loss of protective senses. Treated with Gabapentin Urine microalbumin/creatinine ratio - Abnormal Kidney function- BUN-18, creat-0.72, Egfr-87. Normal kidney function. BP today- 88/40 , stop lisinopril. Not at goal of < 140/90. LDL 28at goal of less than 70. Continue atorvastatin 40 mg daily history of macrovascular disease - CVA, [place]. Assessment & Plan (02/01/2021 12:31 PM CDT): This is a chronic condition which is controlled, stable and at goal. Labs personally reviewed. A1c - 7.7 with hx of anemia. (H&H- 7.8/26.3)- anemia may alter the A1c results. Goal is less than 8% without hypoglycemia. Encouraged to monitor her blood sugar for episodes when she feels poorly. Medication- Continue Metformin 500 mg twice daily and Levemir 16 units daily. Monitor blood sugar 2 times a day. Call blood sugar results on Sunday/Sunday for insulin adjustments based on results. Obtain dilated eye exam by the end of the year. Done 12/26/2019 Monofilament foot exam completed, loss of protective senses. Treated with Gabapentin Urine microalbumin/creatinine ratio - Abnormal currently Lisinopril 20mg/HCTZ 20mg once daily Kidney function- (08/18) BUN-14, creat-0.75, Egfr-77. Normal kidney function. BP today- 138/86 , currently on Lisinopril 20mg/HCtz 25 mg daily, Lopressor 25 mg daily. At goal of < 140/90. LDL -81 (07/18), at goal of less than 70. Continue atorvastatin 40 mg daily history of macrovascular disease - [place] Assessment & Plan (10/25/2020 11:41 AM CDT): This is a chronic condition which is controlled, stable and at goal. Labs personally reviewed. A1c - 7.3 with hx of anemia. (H&H- 10.7/34.6- 08/18)- anemia may alter the A1c results. Goal is less than 8% without hypoglycemia. Encouraged to monitor her blood sugar for episodes when she feels poorly. Medication- Continue Metformin 500 mg twice daily and Levemir 16 units daily. Monitor blood sugar 2 times a day. Call blood sugar results on Sunday/Sunday for insulin adjustments based on results. Obtain dilated eye exam by the end of the year. Done 12/26/2019 Monofilament foot exam completed, loss of protective senses. Treated with Gabapentin Urine microalbumin/creatinine ratio - Abnormal currently Lisinopril 20mg/HCTZ 20mg once daily Kidney function- (08/18) BUN-14, creat-0.75, Egfr-77. Normal kidney function. BP today- 138/86 , currently on Lisinopril 20mg/HCtz 25 mg daily, Lopressor 25 mg daily. At goal of < 140/90. LDL -81 (07/18), at goal of less than 70. Continue atorvastatin 40 mg daily history of macrovascular disease [place] Assessment & Plan (07/23/2020 11:46 AM CDT): This is a chronic condition which is controlled, stable and at goal. Labs personally reviewed. A1c 06/28/2020- 7.3 with hx of anemia. (H&H- 10.)- anemia may alter the A1c results. Goal is less than 8% without hypoglycemia. Encouraged not to take her husbands insulin. Encouraged to monitor her blood sugar for episodes when she feels poorly. Medication- Continue Metformin 500 mg twice daily, decrease Levemir 16 units daily. Monitor blood sugar 2 times a day. Call blood sugar results on Sunday/Sunday for insulin adjustments based on results. Obtain dilated eye exam by the end of the year. Done 12/26/2019 Monofilament foot exam completed, loss of protective senses. Treated with Gabapentin Urine microalbumin/creatinine ratio - Abnormal currently Lisinopril 20mg/HCTZ 20mg once daily Kidney function - BUN-25, creat-1.0, Egfr-55. Normal kidney function. BP today- 120/76 , currently on Lisinopril 20mg/HCtz 25 mg daily, Lopressor 25 mg daily. At goal of < 140/90. LDL -69, at goal of less than 70. Continue atorvastatin 40 mg daily history of macrovascular disease [place] [employer] Melinda professional continuous glucose monitor applied from 06/28/2020 to 07/12/2020 This device was placed for monitor and treatment of blood sugar. Average blood sugar- 120 Variability- 22.5 % ( goal < 36%) Data Analysis Very High >250 mg/dl- 0 % High 181-250 mg/dl 2 % Target 70-180 mg/dl 95 % Low 54-69 mg/dl 1 % Very Low <50 mg/dl 2 % Interpretation of data- 2 nights of noctural hypoglycemia. Levemir decreased to 16 units daily. Encouraged to check blood sugar when feeling weak. Assessment & Plan (06/28/2020 10:46 AM TYPING TEACHER): This is a chronic condition which is controlled, stable and at goal. Labs personally reviewed. A1c today- 7.3 with hx of anemia. (H&H- 10.)- anemia may alter the A1c results. Goal is less than 8% without hypoglycemia. Encouraged not to take her husbands insulin. Encouraged to monitor her blood sugar for episodes when she feels poorly. Medication- Continue Metformin 500 mg twice daily, Levemir 22 units daily. Monitor blood sugar 2 times a day. Call blood sugar results on Sunday/Sunday for insulin adjustments based on results. Place Professional CGM for monitoring of blood sugar Obtain dilated eye exam by the end of the year. Done 12/26/2019 Monofilament foot exam completed, loss of protective senses. Treated with Gabapentin Urine microalbumin/creatinine ratio - Abnormal currently Lisinopril 20mg/HCTZ 20mg once daily Kidney function - BUN-25, creat-1.0, Egfr-55. Normal kidney function. BP today- 116/62 , currently on Lisinopril 20mg/HCtz 25 mg daily, Lopressor 25 mg daily. At goal of < 140/90. LDL -69, at goal of less than 70. Continue atorvastatin 40 mg daily history of macrovascular disease [place] Assessment & Plan (04/12/2020 10:53 AM TYPING TEACHER): This is a chronic condition which is controlled, stable and at goal. Labs personally reviewed. A1c today- 6.3 with hx of anemia. (H&H- 7.8/)- anemia may alter the A1c results. Goal is less than 7-8% without hypoglycemia. Medication- Continue Metformin Start Levemir 22 units daily. Changed to avoid burning at insertion site. Monitor blood sugar 2 times a day. Call blood sugar results on Sunday/Sunday for insulin adjustments based on results. Obtain dilated eye exam by the end of the year. Done 12/26/2019 Monofilament foot exam completed, loss of protective senses. Treated with Gabapentin Urine microalbumin/creatinine ratio - Abnormal currently Lisinopril 20mg/HCTZ 20mg once daily Kidney function - BUN-9, creat-0.64, Egfr-87. Normal kidney function. BP today- 118/62 , currently on Lisinopril 20mg/HCtz 25 mg daily, Lopressor 25 mg daily. At goal of < 140/90. LDL -69, at goal of less than 70. Continue atorvastatin 40 mg daily history of macrovascular disease [place] Assessment & Plan (11/27/2019 5:04 PM CDT): This is a chronic condition which is uncontrolled with hyperglycemia and worsening Labs reviewed. A1c today- 8.4, with hx of anemia. H&H 9 Medication- Continue Metformin Start Lantus 15 units daily Monitor blood sugar 2 times a day. Call blood sugar results on Sunday/Sunday for insulin adjustments based on results. Obtain dilated eye exam by the end of the year Monofilament foot exam completed, protective senses intact, loss of protective senses. Treated with Gabapentin Urine microalbumin/creatinine ratio - Abnormal currently Lisinopril 20mg/HCTZ 20mg once daily Kidney function - labs ordered BP today- 120/60 , currently on Lisinopril 20mg/HCtz 20 mg daily, Lopressor 25 mg daily LDL needed and lipid panel ordered. history of macrovascular disease [place] Assessment & Plan (02/26/2018 6:54 AM CDT): Hold metformin Will start on low insulin sliding scale corrective dose Assessment & Plan (02/01/2018 3:32 AM CDT): Patient is not on insulin at home and only on oral hypoglycemics. Will place patient on low-dose sliding scale and continue to monitor. Coronary artery disease invo lving quinault coronary artery of quinault heart without angina pectoris 04/23/2014 Primary hypertension 04/23/2014 NSTEMI (non-ST elevated myocardial infarction) Status post cardiac catheterization Assessment & Plan (02/26/2018 6:57 AM CDT): Hold aspirin and Pletal Patient with recent cardiac catheterization with stent placement., will continue on Plavix Pre-operative respiratory examination Acute on chronic anemia Severe aortic stenosis Right middle lobe pulmonary nodule Episode of change in speech Expressive aphasia Resolved Problems Problem Noted Date Diagnosed Date Resolved Date Hypotension 10/28/2021 09/03/2022 Mild malnutrition 06/21/2021 09/05/2022 Acute chest pain 08/20/2020 09/03/2022 Impaction of colon 01/09/2020 0 Fecal impaction 01/09/2020 02/05/2020 Assessment & Plan (01/09/2020 1:03 PM CDT): Patient have severe impaction. Will send the patient to the emergency room for admission and disimpaction in the hospital. Abdominal pain 01/08/2020 09/03/2022 Overview (01/09/2020): Added automatically from request for surgery [id number] Constipation 01/08/2020 01/09/2020 Overview (01/09/2020): Added automatically from request for surgery [id number] BMI 34.0-34.9,adult 12/22/2019 09/04/19 23 Class 1 obesity due to exces s calories with serious comorbidity and body mass index (BMI) of 34.0 to 34.9 in adult 12/22/2019 09/03/2022 Hyperglycemia 08/12/2018 10/25/2020 Hypercholesterolemia 04/23/2014 023 Overview (08/04/2016): Elevated cholesterol HTN (hypertension) 04/23/2014 4 Overview (08/04/2016): Hypertension Assessment & Plan (09/05/2022 1:32 PM CDT): Pt hypertensive on admission. Permissive HTN after stroke. BP on 09/05 133/49 - Follow with PCP Assessment & Plan (02/26/2018 6:54 AM CDT): Continue with cardiac pertinent home medications Diabetes mellitus 04/23/2014 10/28/2021 Immunizations Immunization Administration Dates Next Due Influenza, Trivalent, High D ose, Split, Preservative Free, Intramuscular 02/28/2018 Social History Tobacco Use Types Packs/Day Years Used Date Smoking Tobacco: Every Day Cigarettes 0.1 71 Smokeless Tobacco: Never Tobacco Cessation:Ready to Q uit: No; Counseling Given: Not Answered Comments:reduced from 2 pack/day to 5 cigarettes/day Alcohol Use Standard Drinks/Week Comments No 0 (1 standard drink = 0.6 oz pur e alcohol) [facility] Utilities Answer Date Recorded In the past 12 months has e [employer], gas, oil, or water [employer] threatened to shut off services in your home? No 07/19/2023 Social Connection and Isolat ion Panel [NHANES] Answer Date Recorded In a typical week, how many times do you talk on the phone with family, friends, or neighbors? More than three times a week 07/19/2023 How often do you get togethe r with friends or relatives? More than three times a week 07/19/2023 How often do you attend chur ch or religion services? Never 07/19/2023 Do you belong to any clubs o r organizations such as episcopalian groups, unions, fraternal or athletic groups, or school groups? No 07/19/2023 How often do you attend meet ings of the clubs or organizations you belong to? Never 07/19/2023 Are you , , di vorced, , never , or living with a partner? 07/19/2023 AUDIT-C Answer Date Recorded Frequency of Alcohol Consumption Not on file 11/29/2023 Average Number of Drinks Not on file 024 Q3: How often do you have si x or more drinks on one occasion? Patient unable to answer 11/29/2023 Overall Financial Resource Strain (CARDIA) Answe r Date Recorded How hard is it for you to pa y for the very basics like food, housing, medical care, and heating? Not hard at all 07/19/2023 Hunger Vital Sign Answer Date Recorded Within the past 12 months, y ou worried that your food would run out before you got the money to buy more. Never true 07/19/19 24 Within the past 12 months, t he food you bought just didn't last and you didn't have money to get more. Never true 07/19/2023 PRAPARE - Transportation Answer Date Re corded In the past 12 months, has l ack of transportation kept you from medical appointments or from getting medications? No 06/29 In the past 12 months, has l ack of transportation kept you from meetings, work, or from getting things needed for daily living? No 07/19/2023 Housing Stability Vital Sign Answer Cristofer e Recorded In the last 12 months, was t here a time when you were not able to pay the mortgage or rent on time? No 07/19/2023 In the last 12 months, how many places have you lived? 2 07/19/2023 In the last 12 months, was t here a time when you did not have a steady place to sleep or slept in a long-term (including now)? No 07/19/2023 Personal Safety Answer Date Recorded Have you ever been in or are you currently in a harmful physical or emotional relationship or is someone making you feel afraid or unsafe? Denies 11/29/2023 Comments No Sex and Gender Information Value Date Recorded Sex Assigned at Not on file Legal Sex Female 11:55 PM TYPING TEACHER Gender Identity Not on file Sexual Orientation Not on file Last Filed Vital Signs Vital Sign Reading Time Taken Comments Blood Pressure 134/56 11/29/2023 10:20 AM CDT Pulse 60 11/29/2023 10:20 AM CDT Temperature 36.8 C (98.3 F) 11/29/2023 8:09 AM CDT Respiratory Rate 19 11/29/2023 10:20 AM CDT Oxygen Saturation 100% 11/29/2023 10:20 AM CDT Inhaled Oxygen Concentration - - Weight 88.6 kg (195 lb 5.2 oz) 11/29/2023 8:09 A M CDT Height 160 cm (5' 3) 11/29/2023 8:09 AM CDT Body Mass Index 34.6 11/29/2023 8:09 AM CDT Plan of Treatment Not on file Medical Devices Implanted Type Area Dispute Resolution Analyst Device Identifier Shelf Expiration Date Model / Serial / Lot [employer] [id number] Inspiris Resilia Leaflet Sewing Ring 23mm Valve Aortic Bovine - [id number] - [id number] Implanted:Qty: 1 on 08/12/2018 by Navin Eastman MD at [facility] Prosthetic Valve N/A: Heart [employer] 03/28/2020 [id number] / [id number] / Description:Aortic valve Partial Metal Left: Knee [employer] Maya [id number] Synergy 3mm 12mm 144cm Radiopaque 1 Access Port Inflation Lumen - [id number] Implanted:Qty: 1 on 02/01/2018 by Eleno Valdes MD at [facility] [employer] Maya 09/17/2019 [id number] / / [id number] [employer] Maya [id number] Synergy Monorail 4mm 2.7-2.1fr 28mm 144cm Radiopaque 1 Access - [id number] Implanted:Qty: 1 on 02/01/2018 by Eleno Valdes MD at [facility] [employer] 04/18/2018 [id number] / / [id number] Procedures Procedure Name Priority Date/Time Associated Diagnosis Comments SC ARTHROCENTESIS ASPIR&/INJ MAJOR JT/BURSA W/O US Routine 08/15/2024 10:30 AM CDT Primary osteoarthritis of right knee DEXA AXIAL SKELETON BONE DENSITY 1 OR MORE SITES Schedule Routine, Read Routine (OP Routine) 12/27/2023 10:28 AM CDT Encounter for screening for osteoporosis EGFR Routine 07/25/2023 5:01 AM CDT COLONOSCOPY 07/23/2023 7:40 AM CDT HEMOGLOBIN A1C Routine 03/09/2023 1:11 AM TYPING TEACHER LIPID PANEL Routine 03/09/2023 12:15 AM TYPING TEACHER ALBUMIN CREATININE RATIO, URINE Routine 07/27/2020 10:10 AM CDT Type 2 diabetes mellitus with hyperglycemia, with long-term current use of insulin (HCC) DIABETIC EYE EXAM Routine 12/26/2019 from Last 3 Months or Most Recently Relevant to Health Maintenance Results * SC ARTHROCENTESIS ASPIR&/INJ MAJOR JT/BURSA W/O US (08/15/2024 10:30 AM CDT) Narrative Sharee Lora PA - 08/15/2024 10:30 AM CDT Sharee Lora PA 08/15/2024 11:14 AM Large Joint (Hip, Knee, Shoulder) Injection: R knee Performed by: Sharee Lora PA Authorized by: Sharee Lora PA Large Joint Injection/Aspiration: Consent Given by: Patient Site marked: the procedure site was marked Timeout: prior to procedure the correct patient, procedure, and site was verified Verbal consent obtained: Yes Supporting Documentation: Indications: Pain Procedure Details: Location: Knee Site: R knee Prep: patient was prepped using a clean technique Needle Size: 22 G Approach: Anterolateral Medications: 40 mg triamcinolone 40 mg/mL; 1 mL lidocaine 10 mg/mL (1 %) Patient tolerance: Patient tolerated the procedure well with no immediate complications Sharee ALLEN IN CLINIC/BEDSIDE ORDERAB LES Final Result * Dexa Axial Skeleton Bone Density 1 or 2 Site (12/27/2023 10:28 AM CDT) Anatomical Region Laterality Modality Body N/A Mammography 12/27/2023 6:30 PM CDT Narrative 12/27/2023 6:31 PM CDT EXAM DESCRIPTION: DEXA AXIAL SKELETON BONE DENSITY 1 OR MORE SITES REASON FOR STUDY: 78 y/o year old F with given history of: z13.820 Postmenopausal Dispute Resolution Analyst/Model: E Ink A (S/N [id number]) CLINICAL INFORMATION: Current height: 63 inches Maximum height: 64 inches Weight: 195 pounds Risk factors: Postmenopausal COMPARISON: None available FINDINGS: AP LUMBAR SPINE L1-L4: Total BMD is 0.898 g/cm2 T-score is -1.4 LEFT HIP: Total BMD is 0.700 g/cm2 T-score is -2.0 Femoral neck BMD is 0.654 g/cm2 T-score is -1.8 FRAX: 10 year risk for a major osteoporotic fracture is 13 %, 10 year risk for a hip fracture is 3.2 % IMPRESSION: Low Bone Mass. REFERENCE: Bone mineral density: T-Score: Normal (T-score above or = -1.0) Low bone mass (T-score between -1.0 and -2.5) replaces the previously used term osteopenia Osteoporosis (T-score = or below -2.5) Z-Score: Within the expected range for age (Z-score above -2.0) Below the expected range for age (Z-score is -2.0 or below) Please see below follow up recommendations. Medical evaluation for secondary causes of low bone mineral density may be appropriate. FRAX is a World Health Organization validated fracture risk assessment tool that calculates a person's 10 year probability of a major osteoporosis related fracture and hip fracture. According to the National Osteoporosis Foundation guidelines, postmenopausal women and men age 50 or older with low bone mass and a 10 year probability of a major osteoporosis related fracture = or greater than 20% or a 10 year probability of a hip fracture = or greater than 3% should be considered for pharmacological treatment for the prevention of osteoporosis. For further information, including treatment recommendations, please refer to the 2019 ISCD Official Positions (http://www.iscd.org) and the NOF's Clinician's Guide to Prevention and Treatment of Osteoporosis (http://www.nof.org/professionals/clinical-guidelines) THIS IS AN ELECTRONICALLY VERIFIED FINAL REPORT 12/27/2023 6:31 PM - Electronically signed by Manuel Lopez M.D. MF: NICO Report ID: [id number] Reading Location: [address] Note Manuel Lopez MD - 12/27/2023 EXAM DESCRIPTION: DEXA AXIAL SKELETON BONE DENSITY 1 OR MORE SITES REASON FOR STUDY: 78 y/o year old F with given history of: z13.820 Postmenopausal Dispute Resolution Analyst/Model: E Ink A (S/N [id number]) CLINICAL INFORMATION: Current height: 63 inches Maximum height: 64 inches Weight: 195 pounds Risk factors: Postmenopausal COMPARISON: None available FINDINGS: AP LUMBAR SPINE L1-L4: Total BMD is 0.898 g/cm2 T-score is -1.4 LEFT HIP: Total BMD is 0.700 g/cm2 T-score is -2.0 Femoral neck BMD is 0.654 g/cm2 T-score is -1.8 FRAX: 10 year risk for a major osteoporotic fracture is 13 %, 10 year risk for ahip fracture is 3.2 % IMPRESSION: Low Bone Mass. REFERENCE: Bone mineral density: T-Score: Normal (T-score above or = -1.0) Low bone mass (T-score between -1.0 and -2.5) replaces thepreviously used term osteopenia Osteoporosis (T-score = or below -2.5) Z-Score: Within the expected range for age (Z-score above -2.0) Below the expected range for age (Z-score is -2.0 or below) Please see below follow up recommendations. Medical evaluation forsecondary causes of low bone mineral density may be appropriate. FRAX is a World Health Organization validated fracture risk assessmenttool that calculates a person's 10 year probability of a major osteoporosisrelated fracture and hip fracture. According to the National OsteoporosisFoundation guidelines, postmenopausal women and men age 50 or older with low bonemass and a 10 year probability of a major osteoporosis related fracture = or greater than 20% or a 10 year probability of a hip fracture = or greaterthan 3% should be considered for pharmacological treatment for the preventionof osteoporosis. For further information, including treatment recommendations, please referto the 2019 ISCD Official Positions (http://www.iscd.org) and the NOF's Clinician's Guide to Prevention and Treatment of Osteoporosis (http://www.nof.org/professionals/clinical-guidelines) THIS IS AN ELECTRONICALLY VERIFIED FINAL REPORT 12/27/2023 6:31 PM - Electronically signed by Manuel Lopez M.D. MF: NICO Report ID: [id number] Reading Location: [place] [address] [address] Jackie DO IMG DXA PROCEDURES Final R esult * eGFR (07/25/2023 5:01 AM CDT) eGFR 65 mL/min/1. 73 m2 Comment: Interpretive Data Reference Interval Normal >/= 90 mL/min/1.73m2 Mildly decreased* 60 - 89 mL/min/1.73m2 Mildly to moderately decreased 45 - 59 mL/min/1.73m2 Moderately to severely decreased 30 - 44 mL/min/1.73m2 Severely decreased 15 - 29 mL/min/1.73m2 Kidney Failure < 15 mL/min/1.73m2 *Relative to young adult level Estimated glomerular filtration rate is determined by the 2020 CKD-EPI equation recommended by the National Kidney Foundation (A Unifying Approach to GFR Estimation: Recommendations of the NKF-ASK Task Force on Reassessing the Inclusion of Race in Diagnosing Kidney Disease, JASN 2020). The CKD-EPI equation should not be used for patients with unstable renal function and has not been validated in children and those over 70. Current interpretive data was last reviewed 2021. Blood 07/25/2023 5:01 AM CDT 07/25/2023 5:15 AM CDT us Arturo Stone MD LAB BLOOD ORDERABLES F inal Result [place] [id number] [facility] Department of Laboratories [place] [id number] * Colonoscopy (07/23/2023 7:40 AM CDT) Anatomical Region Laterality Modality Other Narrative Procedure Note Juan M Martin MD - 07/23/2023 7:40 AM CDT [facility] Endoscopy Lab Patient Name: Mary Lou Rodgers Procedure Date: 07/23/2023 7:40 AM Date of : 1945 Admit Type: Inpatient Age: 77 Gender: Female Note Status: Finalized Attending MD: Juan M Martin M.D. 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 Medicines: Monitored Anesthesia Care Complications: No immediate complications. Estimated Blood Loss: Estimated blood loss: none. Procedure: Pre-Anesthesia Assessment: - Airway Examination: normal oropharyngeal airwayand neck mobility. - Respiratory Examination: clear to auscultation. - ASA Grade Assessment: III - A patient with severe systemic disease. - After reviewing the risks and benefits, thepatient was deemed in satisfactory condition to undergo the procedure. - The risks and benefits of the procedure and the sedation options and risks were discussed with the patient. All questions were answered and informed consent was obtained. After I obtained informed consent, the scope was passed under direct vision. Throughout theprocedure, the patient's blood pressure, pulse, and oxygen saturations were monitored continuously. The scopewas passed under direct vision. The Colonoscope was introduced through the anus and advanced to the the cecum, identified by the appendiceal orifice, ileocecal valve and palpation. The colonoscopy was performed with ease. The patient tolerated the procedure well. The quality of the bowelpreparation was fair. The quality of the bowel preparation was good. The quality of the bowel preparation was evaluated using the BBPS (Henderson Bowel Preparation Scale) with scores of: Right Colon = 2 (minoramount of residual staining, small fragments of stooland/or opaque liquid, but mucosa seen well), TransverseColon = 3 (entire mucosa seen well with no residual staining, small fragments of stool or opaqueliquid) and Left Colon = 2 (minor amount of residualstaining, small fragments of stool and/or opaque liquid, but mucosa seen well). The total BBPS score equals 7.The quality of the bowel preparation was good. Thebowel preparation used was bisacodyl tablets via splitdose instruction. Bowel prep was administered using asplit dose. Findings: The perianal and digital rectal examinations were normal. Internal hemorrhoids were found during retroflexion. The hemorrhoids were moderate. Two sessile polyps were found in the sigmoid colon. The polyps were 3to 4 mm in size. These polyps were removed with a cold biopsy forceps. Resection and retrieval were complete. Estimated blood loss: none. A few small angioectasias with stigmata of recent bleeding were foundin the cecum. Coagulation for hemostasis using argon plasma wassuccessful. Estimated blood loss: none. Impression: - Preparation of the colon was fair. - Internal hemorrhoids. - Two 3 to 4 mm polyps in the sigmoid colon,removed with a cold biopsy forceps. Resected andretrieved. - A few recently bleeding colonic angioectasias. Treated with argon plasma coagulation (APC). Recommendation: - [facility] - Await pathology results. - Repeat colonoscopy is not recommended. 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 All rights reserved. The codes documented in this report are preliminary and upon bottom crane operator reviewmay be revised to meet current compliance requirements. Electronically signed by Juan M Martin MD Juan M Martin M.D. 07/23/2023 8:46:43 AM Number of Addenda: 0 Note Initiated On: 07/23/2023 7:40 AM us Juan M Martin MD ENDOSCOPY PROCEDURES Final Resul t * (ABNORMAL) Hemoglobin A1c (03/09/2023 1:11 AM TYPING TEACHER) Hgb A1C 6.2(H) 4.0 - 5.6 % [facility] ([place]) Estimated Average Glucose 131 mg/dL [facility] ([place]) Comment: The ADA recommends reporting an estimated Average Glucose (eAG) with all Hemoglobin A1c results using the equation derived from a study of 507 normal and diabetic adults. Minority populations were underrepresented and children were not included. (Diabetes Care 31:0505-8132, 2008). The eAG is not equivalent to a fasting glucose. Blood 03/09/2023 1:11 AM TYPING TEACHER 03/09/2023 2:18 AM TYPING TEACHER us Jermain Jones MD LAB BLOOD ORDERABLES Final Res ult [facility] ([place]) [facility] Department [place] [address] * (ABNORMAL) Lipid panel (03/09/2023 12:15 AM TYPING TEACHER) Cholesterol 185 30 - 199 mg/dL [facility] ([place]) Comment: Interpretive Data Ages < or = 19 years Acceptable: <170 mg/dL Borderline high: 170-199 mg/dL High: >or= 200 mg/dL Ages > or = 20 years Desirable: <200 mg/dL Borderline high: 200-239 mg/dL High: >or= 240 mg/dL Literature References: 1. Expert Panel on Integrated Guidelines for Cardiovascular Health and Risk Reduction in Children and Adolescents. Pediatrics 2011;128:S213 2. NCEP Expert Panel. Circulation 2004;110:227 Current Interpretive Data was last revised on 2017. Triglycerides 133 <=149 mg/dL [facility] ([place]) Comment: Interpretive Data Ages < or = 9 years Acceptable: <75 mg/dL Borderline high: 75-99 mg/dL High: >or= 100 mg/dL Ages 10 to 20 years Acceptable: <90 mg/dL Borderline high: 90-129 mg/dL High: >or= 130 mg/dL Ages > or = 20 years Desirable: <150 mg/dL Borderline high: 150-199 mg/dL High: 200-499 mg/dL Very high: >or= 499 mg/dL Literature References: 1. Expert Panel on Integrated Guidelines for Cardiovascular Health and Risk Reduction in Children and Adolescents. Pediatrics 2011;128:S213 2. NCEP Expert Panel. Circulation 2004;110:227 Current Interpretive Data was last revised on 2017. HDL 34(L) >=40 mg/dL [facility] ([place]) Comment: Interpretive Data Ages < or = 19 years Acceptable: >45 mg/dL Borderline low: 40-45 mg/dL Low: <40 mg/dL Ages > or = 20 years Desirable: >or= 60 mg/dL Low: <40 mg/dL Literature References: 1. Expert Panel on Integrated Guidelines for Cardiovascular Health and Risk Reduction in Children and Adolescents. Pediatrics 2011;128:S213 2. NCEP Expert Panel. Circulation 2004;110:227 Current Interpretive Data was last revised on 2017. LDL, calculated 124 <=129 mg/dL [facility] ([place]) Comment: Interpretive Data Ages < or = 19 years Acceptable: <110 mg/dL Borderline high: 110-129 mg/dL High: >or= 130 mg/dL Ages > or = 20 years Optimal: <100 mg/dL Near optimal: 100-129 mg/dL Borderline high: 130-159 mg/dL High: >160 mg/dL Literature References: 1. Expert Panel on Integrated Guidelines for Cardiovascular Health and Risk Reduction in Children and Adolescents. Pediatrics 2011;128:S213 2. NCEP Expert Panel. Circulation 2004;110:227 Current Interpretive Data was last revised on 2017. Non-HDL Cholesterol 151 mg/dL [facility] ([place]) Comment: Interpretive Data Ages < or = 19 years Acceptable: <120 mg/dL Borderline high: 120-144 mg/dL High: >145 mg/dL Ages > or = 20 years When triglycerides are >200 mg/dL, Non-HDL cholesterol is a secondary target of therapy with treatment goals that are 30 mg/dL greater than the LDL cholesterol target. Literature References: 1. Expert Panel on Integrated Guidelines for Cardiovascular Health and Risk Reduction in Children and Adolescents. Pediatrics 2011;128:S213 2. NCEP Expert Panel. Circulation 2004;110:227 Current Interpretive Data was last revised on 2017. Chol/HDL ratio 5 [facility] ([place]) Blood 03/09/2023 12:1 5 AM TYPING TEACHER 03/09/2023 4:30 AM TYPING TEACHER us Jermain Jones MD LAB BLOOD ORDERABLES Final Res ult [facility] ([place]) [address] [facility] Department [place] [address] * Albumin Creatinine Ratio, Urine (07/27/2020 10:10 AM CDT) Albumin Ur <12.0 mg/L [facility] ([place]) Comment: Interpretive Data No reference range established. Current interpretive data was last revised 2018. Testing performed by: [facility], [address] [place] [address]., [id number] Creatinine Ur 193.3 mg/dL [facility] ([place]) Comment: Interpretive Data No reference range established. Current interpretive data was last revised 2018. Testing performed by: [facility], [address] [place] [address]., [id number] Albumin Creatinine Ratio, Ur <6 1 - 29 mg/g [facility] ([place]) Comment:Testing performed by : [facility], [address] [place] [address]., [id number] Urine 07/27/2020 10:1 0 AM CDT 07/27/2020 2:37 PM CDT Marline Cheng NP LAB URINE ORDERABLES Final Resu lt [facility] ([place]) [address] [facility] Department [place] [address] * Diabetic Eye Exam (12/26/2019) Historical Provider HEALTH MAINTENANCE Edited Result - Final from Last 3 Months or Most Recently Relevant to Health Maintenance Insurance MEDICARE MEDICARE [facility] MEDICARE MEDICARE Advance Directives For more information, please contact: [phone] * LIMITED - No CPR (Latest Code Status on File) Date Activated Date Inactivated Comments 07/19/2023 3:11 AM 07/25/2023 11:53 PM * Full Code Date Activated Date Inactivated Comments 07/06/2023 2:01 PM 07/10/2023 7:11 PM * Full Code Date Activated Date Inactivated Comments 03/09/2023 1:29 AM 03/16/2023 5:29 AM * Full Code Date Activated Date Inactivated Comments 09/03/2022 11:11 AM 09/05/2022 10:13 PM * Full Code Date Activated Date Inactivated Comments 11/11/2021 11:51 PM 11/14/2021 8:41 PM Care Teams Manager Of Compensation Relationship Specialty Start Date End Date Prosper Baron PA [address] [place] [address] PCP - General 05/06/19 Rafael Gardner DO Cardiovascular Disease 01/11/18 Eleno Valdes MD Consulting Physician Cardiology 02/04/18 Rosita Slade MD Consulting Physician Gastroenterology 02/28/18 Koko Adams MD [address] [facility] [address] [place] [address] Pulmonary Disease 02/28/18 [place] [id number] [address] [facility] [address] [place] [address] Consulting Physician Internal Medicine 07/06/23 [place] [id number] [address] [facility] [address] [place] [address] Consulting Physician Gastroenterology 07/10/23 Craig Goel MD [address] [place] [address] [address] [facility] [place] [address] Consulting Physician Cardiology 07/24/23
--- OUTSIDE RECORDS SUMMARY | 2024-09-23 03:50 | XMS_ITS | Clinical Summary ---
Author Organization [facility] Address [address] [place] [address] Care Team Providers Care Aircraft Maintenance Engineer Name Role Phone Rafael Gardner DO Unavailable [phone] Eleno Valdes MD Unavailable [phone] Rosita Slade MD Unavailable [phone] Koko Adams MD Unavailable [phone] Prosper Baron Primary Care Provider [phone] Elier Rubio MD Unavailable [phone] Juan M Martin MD Unavailable Craig Goel MD Unavailable [phone] Allergies Active Allergy Reactions Criticality Noted Date [...] She has not followed up with her extension associate in a long time. 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 Assessment & Plan (06/28/2020 10:48 AM WAREHOUSE MAN): This is a chronic condition which is improving, at goal. TSH-0.98. Reports weight loss. Goal is for TSH to be between 0.3 to 4.2 mclUnits/ml Continue Methimazole 10 mg po daily. Repeat TSH and T4 Assessment & Plan (04/12/2020 11:01 AM WAREHOUSE MAN): This is a chronic condition which is [...] 05/06/2019 Assessment & Plan (05/24/2020 8:22 AM WAREHOUSE MAN): Patient having issues with constipation again. To [...] medication. Assessment & Plan (06/06/2019 12:08 PM WAREHOUSE MAN): Pt says BM's are doing much better on Linzess. She has tried multiple OTC regimens in the past without relief. She says Linzess is only thing helping. Having anywhere from 1-3 BM's daily and are normal. Pt says this was very expensive through her insurance. Will give samples today. Assessment & Plan (05/06/2019 1:21 PM WAREHOUSE MAN): Per patient, she has not had a [...] (06/18/2018): Added automatically from request for surgery [id number] Gastrointestinal hemorrhage 02/25/2018 Overview (02/26/2018): Added automatically from request for surgery [id number] Assessment & Plan (05/24/2020 8:21 AM WAREHOUSE MAN): Patient has chronic GI blood loss from [...] 08/14/2017 Assessment & Plan (05/06/2019 1:20 PM WAREHOUSE MAN): Pt was supposed to have 3 more [...] there. Assessment & Plan (06/06/2019 12:09 PM WAREHOUSE MAN): Pt's last hgb 9.8 on 05/06. She [...] scheduled/done. 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 Most recently underwent cauterization of the lesions [...] (10/20/2021): Added automatically from request for surgery [id number] Assessment & Plan (02/21/2019 2:53 PM CDT): [...] Cellulitis 12/14/2014 Overview (08/04/2016): Cellulitis Atherosclerosis of [place] co ronary artery of [place] heart without angina pectoris 04/23/2014 Overview (11/22/2017): [...] daily history of macrovascular disease - CVA, ME. Assessment & Plan (02/01/2021 12:31 PM CDT): [...] daily history of macrovascular disease - CVA, ME. Assessment & Plan (10/25/2020 11:41 AM CDT): [...] daily history of macrovascular disease - CVA, ME. Assessment & Plan (07/23/2020 11:46 AM CDT): This is a chronic condition which is controlled, stable and at goal. Labs personally reviewed. A1c 06/28/2020- 7.3 with hx of anemia. (H&H- 10.4/34)- anemia may alter the A1c results. Goal [...] daily history of macrovascular disease - CVA, ME. [employer] professional continuous glucose monitor applied from 06/28/2020 [...] weak. Assessment & Plan (06/28/2020 10:46 AM WAREHOUSE MAN): This is a chronic condition which is controlled, stable and at goal. Labs personally reviewed. A1c today- 7.3 with hx of anemia. (H&H- 10.4/34)- anemia may alter the A1c results. Goal [...] daily history of macrovascular disease - CVA, ME. Assessment & Plan (04/12/2020 10:53 AM WAREHOUSE MAN): This is a chronic condition which is controlled, stable and at goal. Labs personally reviewed. A1c today- 6.3 with hx of anemia. (H&H- 7.8)- anemia may alter the A1c results. Goal [...] daily history of macrovascular disease - CVA, ME. Assessment & Plan (11/27/2019 5:04 PM CDT): This is a chronic condition which is uncontrolled with hyperglycemia and worsening Labs reviewed. A1c today- 8.4, with hx of anemia. H&H Medication- Continue Metformin Start Lantus 15 units [...] ordered. history of macrovascular disease - CVA, ME. Assessment & Plan (02/26/2018 6:54 AM CDT): Hold metformin Will start on low insulin sliding scale corrective dose Assessment & Plan (02/01/2018 3:32 AM CDT): Patient is not on insulin at home and only on oral hypoglycemics. Will place patient on low-dose sliding scale and continue to monitor. Coronary artery disease invo lving [place] coronary artery of [place] heart without angina pectoris 04/23/2014 Primary hypertension [...] (01/09/2020): Added automatically from request for surgery [id number] Constipation 01/08/2020 01/09/2020 Overview (01/09/2020): Added automatically from request for surgery [id number] BMI 34.0-34.9,adult 12/22/2019 09/04/19 23 Class 1 [...] pertinent home medications Diabetes mellitus 04/23/2014 10/28/2021 Encounters Date Type Department Care Team Description 08/15/2024 10:30 AM CDT Office Visit [facility] [address] [place] [phone] Sharee Lora PA Primary osteoarthritis of right knee (Primary Dx) from Last 3 Months Immunizations Immunization Administration Dates Next Due Influenza, Trivalent, High D ose, Split, Preservative Free, Intramuscular 02/28/2018 Surgical History Surgery Date Site/Laterality Comments CHOLECYSTECTOMY Cholecystectomy HYSTERECTOMY TUBAL LIGATION LAPAROSCOPIC INGUINAL HERNIA REPAIR CARDIAC CATHETERIZATION PARTIAL NEPHRECTOMY Right SKIN CANCER EXCISION SECTION X 2 JOINT REPLACEMENT Left knee CARDIAC STENT PLACEMENT 04/30/2017 - 04/29/2018 COLONOSCOPY POLYPECTOMY UPPER GASTROINTESTINAL ENDOSCOPY AORTIC VALVE REPLACEMENT 07/29/2018 - 08/27/2018 cow valve Medical History Medical History Date Comments Heart murmur Hemorrhoids Obesity Arthritis Hypertension Anxiety High cholesterol GERD (gastroesophageal reflux disease) Anemia Aortic stenosis Myocardial infarction (HCC) Coronary artery disease Peripheral vascular disease CHF (congestive heart failure) (HCC) Constipation Renal cancer, right (HCC) Type 2 diabetes mellitus (HCC) Hypothyroidism History of transfusion 01/2018 Skin cancer of face Chronic back pain Colon polyp Hyperglycemia 08/12/2018 Stroke (HCC) Family History Medical History Relation Name Comments Heart attack Brother 1 Myocardial infa rction; Hypertension Brother 2 Hypertension; Alcohol abuse Mother Other Other No family histo ry of breast cancer; Relation Name Status Comments Brother 1 Brother 2 Father Mother Other Social History Tobacco Use Types Packs/Day Years Used Date Smoking Tobacco: Every Day Cigarettes 0.1 71 Smokeless Tobacco: Never Tobacco Cessation:Ready to Q uit: No; Counseling Given: Not Answered Comments:reduced from 2 pack/day to 5 cigarettes/day Alcohol Use Standard Drinks/Week Comments No 0 (1 standard drink = 0.6 oz pur e alcohol) [facility] Utilities Answer Date Recorded In the past 12 months has e [employer], gas, oil, or water company threatened to shut off services in your [...] often do you attend chur ch or church services? Never 07/19/2023 Do you belong to any clubs o r organizations such as baptism groups, unions, fraternal or athletic groups, or [...] place to sleep or slept in a retirement (including now)? No 07/19/2023 Personal Safety Answer Date Recorded Have you ever been in or are you currently in a harmful physical or emotional relationship or is someone making you feel afraid or unsafe? Denies 11/29/2023 Comments No Sex and Gender Information Value Date Recorded Sex Assigned at Not on file Legal Sex Female 11:55 PM WAREHOUSE MAN Gender Identity Not on file Sexual Orientation Not on file Obstetrics History Last Filed Vital Signs Vital Sign Reading [...] 11/29/2023 8:09 AM CDT Plan of Treatment Health Maintenance Due Date Last Done Comments DTaP/Tdap/Td Vaccine (1 - Tdap) [birth year]10/1956 Hepatitis B Screening 1962 Zoster Vaccine (1 of 2) 08/10/1963 Well Visit 65+ 2009 Depression Screening 03/26/2018 03/26/2017, 01/24/20 17 Pneumococcal vaccine 65+ (2 of 2 - PPSV23) 05/01/2019 03/06/2019 Foot Exam 01/05/2021 01/06/2020, 11/27/2019 Albumin Creatinine Ratio, Urine 07/27/2021 Dilated Eye Exam 12/25/2021 12/26/2019 Hemoglobin A1C 09/07/2023 03/09/2023, 05/0 10/2022, 10/28/2021, Additional history exists eGFR 07/24/2024 07/25/2023, 2 09/2023, 07/23/2023, Additional history exists Fall Risk Assessment 11/28/2024 11/29/2023, 06/21/2020, 05/31/2020, Additional history exists Influenza Vaccine (Season Ended) 2024 03/06/20 19, 02/28/2018 Lipid Panel 07/22/2025 07/22/2024, 03/0 10/2023, 03/29/2023, Additional history exists Osteoporosis Screening-Bone Density Scan 12/26/2025 12/27/2023 Colon Cancer Screening-CT Colonography Discontinued 07/23/2023, 01/09/2020, 02/27/2018, Additional history exists Colon Cancer Screening-Colonoscopy Discontinued 07/23/2023, 02/27/2018, 06/28/2015, Additional history exists Colon Cancer Screening-DNA Stool Discontinued 07/23/2023, 01/09/2020, 02/27/2018, Additional history exists Colon Cancer Screening-FIT Discontinued 07/22, 01/09/2020, 02/27/2018, Additional history exists Colon Cancer Screening-FOBT Discontinued 06/29, 01/09/2020, 02/27/2018, Additional history exists Colon Cancer Screening-Sigmoidoscopy Discontinued 07/23/2023, 01/09/2020, 02/27/2018, Additional history exists Colorectal Cancer Screening Discontinued Medical Devices Implanted Type Area Statistical Methods Teacher Device Identifier Shelf Expiration Date Model / Serial / Lot [employer] [id number] Inspiris Resilia Leaflet Sewing Ring 23mm Valve Aortic Bovine - [id number] - [id number] Implanted:Qty: 1 on 08/12/2018 by Navin Eastman MD at [facility] Prosthetic Valve N/A: Heart [employer] 03/28/2020 [id number] / [id number] / Description:Aortic valve Partial Metal Left: Knee [employer] [id number] Synergy 3mm 12mm 144cm Radiopaque 1 Access Port Inflation Lumen - [id number] Implanted:Qty: 1 on 02/01/2018 by Eleno Valdes MD at [facility] [employer] 09/17/2019 [id number] / / [id number] [employer] [id number] Synergy Monorail 4mm 2.7-2.1fr 28mm 144cm Radiopaque 1 Access - [id number] Implanted:Qty: 1 on 02/01/2018 by Eleno Valdes MD at [facility] [employer] 04/18/2018 [id number] / / [id number] Procedures Procedure Name Priority Date/Time Associated Diagnosis Comments [place] ARTHROCENTESIS ASPIR&/INJ MAJOR JT/BURSA W/O US Routine 08/15/2024 10:30 AM CDT Primary osteoarthritis of right knee DEXA AXIAL SKELETON BONE DENSITY 1 OR MORE SITES Schedule Routine, Read Routine (OP Routine) 12/27/2023 10:28 AM CDT Encounter for screening for osteoporosis EGFR Routine 07/25/2023 5:01 AM CDT COLONOSCOPY 07/23/2023 7:40 AM CDT HEMOGLOBIN A1C Routine 03/09/2023 1:11 AM WAREHOUSE MAN LIPID PANEL Routine 03/09/2023 12:15 AM WAREHOUSE MAN ALBUMIN CREATININE RATIO, URINE Routine 07/27/2020 10:10 AM CDT Type 2 diabetes mellitus with hyperglycemia, with long-term current use of insulin (HCC) DIABETIC EYE EXAM Routine 12/26/2019 from Last 3 Months or Most Recently Relevant to Health Maintenance Results * W[place] ARTHROCENTESIS ASPIR&/INJ MAJOR JT/BURSA W/O US (08/15/2024 [...] F with given history of: z13.820 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 MF: NICO Report ID: [id number] Reading Location: [place] [address] Rafael Mejia DO IMG DXA PROCEDURES Final R esult [...] MD LAB BLOOD ORDERABLES F inal Result [facility] [address] [facility] Department [place] [address] * Colonoscopy (07/23/2023 7:40 AM CDT) Anatomical Region Laterality Modality Other Narrative Procedure Note Juan M Martin MD - 07/23/2023 7:40 AM CDT - [facility] Endoscopy Lab Patient Name: Mary Lou Rodgers Procedure Date: 07/23/2023 7:40 AM Date of : 1945 Admit Type: Inpatient Age: 77 Gender: Female Note Status: Finalized Attending MD: Juan M Martin M.D. 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 Medicines: Monitored [...] bowel preparation was evaluated using the BBPS ([place] Bowel Preparation Scale) with scores of: Right [...] not recommended. 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 All rights reserved. The codes documented in this report are preliminary and upon shipping associate reviewmay be revised to meet current compliance requirements. Electronically signed by Juan M Martin MD Juan M Martin M.D. 07/23/2023 8:46:43 AM Number of Addenda: 0 Note Initiated On: 07/23/2023 7:40 AM Juan M Martin MD ENDOSCOPY PROCEDURES Final Resul t * (ABNORMAL) Hemoglobin A1c (03/09/2023 1:11 AM WAREHOUSE MAN) Hgb A1C 6.2(H) 4.0 - 5.6 % [facility] ([place]) Estimated Average Glucose 131 mg/dL [facility] ([place]) Comment: The ADA recommends reporting an estimated Average Glucose (eAG) with all Hemoglobin A1c results using the equation derived from a study of 507 normal and diabetic adults. Minority populations were underrepresented and children were not included. (Diabetes Care 31:5144-8431, 2008). The eAG is not equivalent to a fasting glucose. Blood 03/09/2023 1:1 1 AM WAREHOUSE MAN 03/09/2023 2:18 AM WAREHOUSE MAN us Jermain Jones MD LAB BLOOD ORDERABLES Final Res ult [facility]SHINE SORIA ([place]) 1 [facility] Department [place] [address] * (ABNORMAL) Lipid panel (03/09/2023 12:15 AM WAREHOUSE MAN) Cholesterol 185 30 - 199 mg/dL SUNSHINE [...] on 2017. HDL 34(L) >=40 mg/dL [facility]heta ([place]) Comment: Interpretive Data Ages < or [...] last revised on 2017. Chol/HDL ratio 5 [facility] ([place]) Blood 03/09/2023 12:1 5 AM WAREHOUSE MAN 03/09/2023 4:30 AM WAREHOUSE MAN us Jermain Jones MD LAB BLOOD ORDERABLES Final Res ult Performing Organization Address City/[facility]/ZIP Co de Phone Number [facility] [address] [facility] [place] [address] * Albumin Creatinine Ratio, Urine (07/27/2020 10:10 AM CDT) Albumin Ur <12.0 mg/L [place] [facility] ([place]) Comment: Interpretive Data No reference range established. Current interpretive data was last revised 2018. Testing performed by: [facility], [address] [place] [address]., [id number] Creatinine Ur 193.3 mg/dL [facility] ([place]) Comment: Interpretive Data No reference range established. Current interpretive data was last revised 2018. Testing performed by: [facility], [address] [place] [address]., [address] Albumin Creatinine Ratio, Ur <6 1 - 29 mg/g [facility] ([place]) Comment:Testing performed by : [address] [address] Urine 07/27/2020 10:1 0 AM CDT 07/27/2020 2:37 PM CDT us Marline Cheng NP LAB URINE ORDERABLES Final Resu lt Performing Organization Address City/[facility]/ZIP Co de Phone Number [facility] ([place]) [address] [facility] [place] [address] * Diabetic Eye Exam (12/26/2019) us Historical Provider HEALTH MAINTENANCE Edited Result - Final from Last 3 Months or Most Recently Relevant to Health Maintenance Insurance MEDICARE MEDICARE [facility] MEDICARE MEDICARE Advance Directives For more information, please contact: [phone] * LIMITED - No CPR (Latest Code [...] 11:51 PM 11/14/2021 8:41 PM Care Teams Aircraft Maintenance Engineer Relationship Specialty Start Date End Date Prosper Baron PA [address] [place] [address] PCP - General 05/06/19 Rafael Gardner DO Cardiovascular Disease 01/11/18 Eleno Valdes MD Consulting Physician Cardiology 02/04/18 Rosita Slade MD Consulting Physician Gastroenterology 02/28/18 Koko Adams MD [address] [facility] [address] [place] [address] Pulmonary Disease 02/28/18 [place] [id number] [address] [facility] [address] [place] [address] Consulting Physician Internal Medicine 07/06/23 [place] [id number] [address] [facility] [address] [place] [address] Consulting Physician Gastroenterology 07/10/23 Craig Goel MD [address] [place] [address] [address] [place] [address] Consulting Physician Cardiology 07/24/23
--- OUTSIDE RECORDS SUMMARY | 2024-09-23 03:50 | XMS_ITS | Clinical Summary ---
Author Organization [facility] Address [address] [facility], [place] [address] Phone Care Team Providers Care Hydrogen Treater Name Role Phone Prosper Baron Primary Care Provider [phone] Allergies Active Allergy Reactions Criticality Noted Date Comments Cephalexin Rash 07/25/2016 Medications amLODIPine (NORVASC) 5 MG Tablet Take 5 mg by mouth daily. Reported on 08/03/2016 Active gabapentin (NEURONTIN) 300 MG Capsule Take 300 mg by mouth every evening. Reported on 08/03/2016 Active escitalopram (LEXAPRO) 10 MG Tablet Take 10 mg by mouth daily. Reported on 08/03/2016 0 08/01/19 17 Active Aspirin 81 MG Tablet Take 81 mg by mouth daily. Active Docusate Calcium (STOOL SOFTENER PO) Take by mouth. Ac tive isosorbide mononitrate (IMDUR) 30 MG TABLET SR 24 HR Take 30 mg by mouth daily. Active metFORMIN (GLUCOPHAGE) 500 MG Tablet Take 500 mg by mouth 2 times daily (with meals). Active ATORVASTATIN CALCIUM PO Take 40 mg by mouth every evening. Active metoprolol Succinate (TOPROL-XL) 50 MG TABLET SR 24 HR Take 50 mg by mouth 2 times daily. Active cilostazol (PLETAL) 100 MG Tablet Take 100 mg by mouth 2 times daily. Active omeprazole (PRILOSEC) 20 MG CAPSULE DELAYED RELEASE Take 20 mg by mouth daily. Active ferrous sulfate 325 (65 Fe) MG Tablet Take 325 mg by mouth 2 times daily (with meals). Active HYDROcodone-ibu profen (VICOPROFEN) 7.5-200 MG Tablet 0 10/25/19 17 Active ondansetron (ZOFRAN-ODT) 4 MG TABLET DISPERSIBLE 0 11/16/19 17 Active Cyanocobalamin (B-12 PO) Take by mouth. Activ e Cholecalciferol (VITAMIN D3 PO) Take by mouth. Active VITAMIN E PO Take by mouth. Ac tive nitroGLYCERIN (NITROSTAT) 0.4 MG SL Tablet nitroglycerin tablet, sublingual 0.4 mg; place 1 tablet under tongue, for chest pain as directed as needed; 25; 1; -Feb-2014; Active 03/03/20 14 Active linaclotide (LINZESS) 145 MCG Capsule 01/17/20 17 Active lisinopril (PRINIVIL, ZESTRIL) 20 MG Tablet take 1 tablet by oral route every day 04/17/20 14 Active methylPREDNISol one (MEDROL DOSPACK) 4 MG Tablet Therapy Pack Take 1 Tab by mouth See Admin Instructions. 6 p.o day one, 5 p.o. Day two, 4 p.o. Day three, 3 p.o. Day 4, 2 p.o. Day 5, 1 p.o. Day 6 21 Tab 02/11/20 19 Active Additional Information Patient not taking.Reported on 09/11/2024 cyclobenzaprine (FLEXERIL) 10 MG Tablet Take 1 Tab by mouth nightly as needed for Muscle spasms. 30 Tab 08/12/19 20 Active Additional Information Patient not taking.Reported on 09/11/2024 traMADol (ULTRAM) 50 MG Tablet Take 1 Tab by mouth every 8 hours as needed for Severe pain. 30 Tab 11/14/19 20 Active clopidogrel (PLAVIX) 75 MG Tablet clopidogrel 75 mg tablet Take 1 PO QD 08/06/19 20 Active ALPRAZolam (XANAX) 0.5 MG Tablet TAKE 1 TABLET BY MOUTH THREE TIMES DAILY NEEDED 11/13/19 20 Active insulin glargine (LANTUS SOLOSTAR) 100 UNIT/ML Solution Pen-injector 15 Units by Subcutaneous route. 11/27/19 20 Active pantoprazole (PROTONIX) 20 MG Tablet Delayed Response Take 20 mg by mouth daily. Active famotidine (PEPCID) 20 MG Tablet Take 20 mg by mouth 2 times daily. Active insulin detemir (Levemir) 100 UNIT/ML Solution by Subcutaneous route nightly. Active losartan (COZAAR) 100 MG Tablet Take 100 mg by mouth daily. Active Beclomethasone Diprop HFA (Qvar RediHaler) 80 MCG/ACT AEROSOL, BREATH ACTIVATED take by inhalation. Active carvedilol (COREG) 6.25 MG Tablet 6.25 mg. Active Lidocaine 4 % Patch 1 Patch by Transdermal route. Active Lantus 100 UNIT/ML Solution INJECT 25 UNIT(S) SUBCUTANEOUSLY DAILY 07/03/19 25 Active gabapentin (NEURONTIN) 100 MG Capsule TAKE TWO CAPSULES BY MOUTH ONCE DAILY FOR CEREBRAL INFARCTION Active atorvastatin (LIPITOR) 40 MG Tablet 40 mg. Active sertraline (ZOLOFT) 25 MG Tablet GIVE 1 TABLET BY MOUTH ONE TIME A DAY FOR SADNESS/DEPRESSION Active polyethylene glycol (GLYCOLAX, MIRALAX) 17 g Pack Take 17 g by mouth. Active ondansetron (ZOFRAN) 4 MG Tablet Take 4 mg by mouth. Active insulin lispro (HumaLOG) 100 UNIT/ML Solution INJECT SQ TID PER SS: 71-140=0U; 141-180=2U; 181-220=4U; 221-260=6U; 261-300=8U; 301-350==10U; 351-400=12U; >401=14U AND CALL Active acetaminophen (TYLENOL) 325 MG Tablet Take 650 mg by mouth. 07/10/19 24 Active Active Problems Problem Noted Date Diagnosed Date Knee osteoarthritis 01/12/2017 Sacroiliac joint dysfunction of both sides 01/12 Anemia 07/26/2016 Contusion of left lung 07/25/2016 Acute respiratory failure with hypoxemia 017 Tachycardia 07/25/2016 Community acquired pneumonia 07/25/2016 Sepsis (<HCC>) 07/25/2016 Decreased appetite 07/25/2016 Angina pectoris Overview (03/31/2015): atypical Nicotine dependence PVD (peripheral vascular disease) Spinal stenosis of lumbar region Overview (03/31/2015): Lumbosacral Resolved Problems Problem Noted Date Diagnosed Date Resolved Date Renal mass, right 07/25/2016 07/08/2018 Encounters Date Type Department Care Team Description 09/11/2024 11:30 AM CDT Office Visit [facility] [address] [address] [phone] Gabriella Ace, ROOFER VINYL COATING, EMBEDDED SOFTWARE DEVELOPER Abnormal finding of blood chemistry, unspecified (Primary Dx); Lung nodule 09/11/2024 Travel 08/21/2024 12:15 PM CDT Lab [facility] [address] [place] [phone] Nurse, [facility] 08/21/2024 11:30 AM CDT Office Visit [facility] [id number] [place] [phone] Darrel Mak MD Nicotine dependence with nicotine-induced disorder, unspecified nicotine product type (Primary Dx); Abnormal finding of blood chemistry, unspecified; Lung nodule 08/21/2024 Travel from Last 3 Months Family History Medical History Relation Name Comments Kidney Stones Brother No Known Problems Father No Known Problems Mother Relation Name Status Comments Brother Father Mother Social History Tobacco Use Types Packs/Day Years Used Date Smoking Tobacco: Former Cigarettes Smokeless Tobacco: Never Alcohol Use Standard Drinks/Week Comments No 0 (1 standard drink = 0.6 oz pur e alcohol) Sexually Active Control Partners Comments Yes Male Comments No Sex and Gender Information Value Date Recorded Sex Assigned at Not on file Legal Sex Female 8:01 PM CDT Gender Identity Not on file Sexual Orientation Not on file Last Filed Vital Signs Vital Sign Reading Time Taken Comments Blood Pressure 122/70 09/11/2024 11:11 AM CDT Pulse 73 09/11/2024 11:11 AM CDT Temperature 36.7 C (98 F) 09/11/2024 11:11 AM CDT Respiratory Rate 16 09/11/2024 11:1 1 AM CDT Oxygen Saturation 97% 09/11/2024 11: 11 AM CDT Inhaled Oxygen Concentration - - Weight 91.5 kg (201 lb 12.8 oz) 025 11:20 AM CDT Height 162.6 cm (5' 4) 09/11/2024 11:1 1 AM CDT Body Mass Index 34.64 08/21/2024 11:20 AM CDT Plan of Treatment Upcoming Encounters Date Type Department Care Team (Late st Contact Info) Description 09/26/2024 10:00 AM CDT Ancillary Procedure [facility] [address] [place] [address] 10/02/2024 11:45 AM CDT Office Visit [facility] [address] [address] [phone] Darrel Mak MD [address] [place] [address] Health Maintenance Due Date Last Done Comments TdaP Immunization 1945 Zoster Immunization (1 of 2) 1994 Respiratory Syncytial Virus (RSV) Immunization (Adult) (1 - 1-dose 75+ series) 08/10/2019 Pneumococcal Immunization (50+ years) (2 of 2 - PPSV23) 03/06/2020 03/06/2019 SARS-COV-2 Immunization ( - season) 2023 05/05/2021, 06/23/2020, 06/02/2020 Influenza Immunization (Season Ended) 2024 02/23/2021, 02/03/2020, 03/06/2019, Additional history exists DEXA Bone Density 12/26/2025 12/27/2023 Pneumococcal Immunization Combined Discontinued 03/06/2019 Colonoscopy High Risk Discontinued 07/23/2023 Colonoscopy Discontinued 07/23/2023 Colorectal Cancer Screening Discontinued Hepatitis C Virus (HCV) Screening Completed 09/20/2023 Cologuard Discontinued Hepatitis B Immunization Aged Out No longer eligible based on patient's age to complete this topic Human Papillomavirus (HPV) Immunization Aged Out No longer eligible based on patient's age to complete this topic Immunochemical Fecal Occult Blood Discontinued Meningococcal Immunization (ACWY) Aged Out No longer eligible based on patient's age to complete this topic Rotavirus Immunization Aged Out No lo nger eligible based on patient's age to complete this topic Procedures Procedure Name Priority Date/Time Associated Diagnosis Comments IMMUNOGLOBULIN IGA, IGG & IGM QUANT Routine 08/21/2024 3:42 PM CDT HAPTOGLOBIN Routine 08/21/2024 3:42 PM CDT FOLIC ACID (FOLATE) Routine 08/21/2024 3 :42 PM CDT FERRITIN Routine 08/21/2024 3:42 PM CDT VITAMIN B12 Routine 08/21/2024 3:42 PM CDT SERUM FREE LIGHT CHAINS, [place] Routine 08/21/2024 3:42 PM CDT CBC WITH AUTO DIFF [place] Routine 08/21/2024 3:42 PM CDT CMP (COMPREHENSIVE METABOLIC PANEL) Routine 08/21/2024 3:42 PM CDT Nicotine dependence with nicotine-induced disorder, unspecified nicotine product type LACTATE DEHYDROGENASE (LD) Routine 08/21/2024 3:42 PM CDT Nicotine dependence with nicotine-induced disorder, unspecified nicotine product type ELECTROPHORESIS W/ TOTAL PROTEIN SERUM Routine 08/21/2024 3:42 PM CDT Nicotine dependence with nicotine-induced disorder, unspecified nicotine product type IMMUNOFIXATION, SERUM [place] Routine 08/21/2024 3:42 PM CDT Nicotine dependence with nicotine-induced disorder, unspecified nicotine product type IRON W/ IRON BINDING CAPACITY OH Routine 08/21/2024 3:42 PM CDT Nicotine dependence with nicotine-induced disorder, unspecified nicotine product type RETICULOCYTE COUNT (RETIC) Routine 08/21/2024 3:42 PM CDT Nicotine dependence with nicotine-induced disorder, unspecified nicotine product type ERYTHROCYTE SEDIMENTATION RATE (ESR) Routine 08/21/2024 3:42 PM CDT Nicotine dependence with nicotine-induced disorder, unspecified nicotine product type from Last 3 Months Results * (ABNORMAL) SERUM FREE LIGHT CHAINS, [place] (08/21/2024 3:42 PM CDT) FREE KAPPA LT CHAINS 79.8(H) 2.9 - 20.7 mg/L [facility] FREE LAMBDA LT CHAINS 48.1(H) 4.2 - 27.6 mg/L CANCER PLAYGROUND SUPERVISOR [facility] KAPPA/LAMBDA RATIO 1.66 0.22 - 1.74 CANCER PLAYGROUND SUPERVISOR [facility] 08/21/2024 3:42 PM CDT Darrel Mak MD LAB SEND OUTS Final Resul t Performing Organization Address [facility] de Phone Number CANCER PLAYGROUND SUPERVISOR [facility] [address] [place] [address], [place] [phone] * (ABNORMAL) IRON W/ IRON BINDING CAPACITY [place] (08/21/2024 3:42 PM CDT) IRON 249(H) 50 - 212 ug/dL [facility] PLAYGROUND SUPERVISOR [facility] UIBC 76(L) 155 - 355 ug/dL [facility] SUPER[facility] TIBC 325 261 - 478 ug/dl [facility] PLAYGROUND SUPERVIS[facility] % Saturation 77(H) 20 - 50 % [facility] SUPER[facility] 08/21/2024 3:42 PM CDT Narrative [facility] PLAY[facility] SUPERVIS[facility] - 08/22/2024 10:14 AM CDT Release to patient->Immediate us Darrel Mak MD LAB SEND OUTS Final Resul t Performing Organization Address City/[facility]/ZIP Co de Phone Number CANCER PLAYGROUND SUPERVISOR [facility] [place] [address], [place] [phone] * IMMUNOFIXATION, SERUM [place] (08/21/2024 3:42 PM CDT) IMMUNOFIXATION RESULT, SERUM Comment: [facility] PLAYGROUND SUPERVISOR [facility] Comment: Presence of monoclonal protein is unclear at this time. Suggest repeat in 3 to 6 months if clinically indicated. 08/21/2024 3:42 PM CDT Narrative [facility] PLAYGROUND SUPERVISOR [facility] - 08/25/2024 3:08 PM CDT Testing performed at: [] [facility], [address] [place] [address], [place], [address], , Lunchroom Food Service Supervisor: Jovanni Carlos, PhD Release to patient->Immediate us Darrel Mak MD LAB SEND OUTS Final Resul t [facility] PLAYGROUND SUPERVISOR [facility] [place] [address], [place] [phone] * (ABNORMAL) CBC WITH AUTO DIFF [place] (08/21/2024 3:42 PM CDT) WBC 10.7(H) 4.0 - 10.0 10*3/uL [facility] PLAY[facility] SUPER[facility] HGB 9.0(L) 11.2 - 15.7 g/dL [facility] PLAY[facility] SUPER[facility] HCT 31.0(L) 34.1 - 44.9 % [facility] PLAYGROUND SUPERVISOR [facility] PLT 410(H) 163 - 369 10*3/uL [facility] SUPERVIS[facility] MPV 9.7 9.4 - 12.4 fL [facility] SUPER[facility] RBC 3.36(L) 3.93 - 5.22 10*6/uL [facility] PLAYGROUND SUPERVISOR [facility] MCV 92 79 - 95 fL [facility] PLAYGROUND SUPERVIS[facility] MCH 26.8 25.6 - 32.2 pg [facility] PLAYGROUND SUPERVIS[facility] MCHC 29.0(L) 32.2 - 36.5 g/dL [facility] PLAYGROUND SUPERVIS[facility] RDW 17.2(H) 11.6 - 14.4 % [facility] SUPERVIS[facility] Neutrophils % 70.7(H) 36.0 - 66.0 % [facility] PLAY[facility] SUPER[facility] Lymphocytes % 18.1(L) 19.0 - 40.0 % [facility]GROUND SUPER[facility] Monocytes % 6.6 4.1 - 12.1 % [facility] SUPER[facility] Eosinophils % 3.1 0.0 - 3.5 % [facility] PLAYGROUND SUPER[facility] Basophils % 0.7 0.0 - 1.0 % [facility] PLAYGROUND SUPERVISOR [facility] Absolute Neutrophils 7.6(H) 1.4 - 6.6 10*3/uL [facility] PLAYGROUND SUPERVISOR [facility] Absolute Lymphocytes 1.9 0.8 - 4.0 10*3/uL [facility] PLAYGROUND SUPERVISOR [facility] Absolute Monocytes 0.7 0.2 - 1.2 10*3/uL [facility] PLAYGROUND SUPERVISOR [facility] Absolute Eosinophils 0.3 0.0 - 0.4 10*3/uL [facility] PLAYGROUND SUPERVISOR [facility] Absolute Basophils 0.1 0.0 - 0.1 10*3/uL [facility] PLAYGROUND SUPERVISOR [facility] 08/21/2024 3:42 PM CDT us Darrel Mak MD LAB SEND OUTS Final Resul t Performing Organization Address [facility] Co de Phone Number CANCER PLAYGROUND SUPERVISOR [facility] [place] [address], * VITAMIN B12 (08/21/2024 3:42 PM CDT) Vitamin B12 332 180 - 914 pg/mL [facility] 08/21/2024 3:42 PM CDT us Darrel Mak MD CHEMISTRY ORDERABLES Final Result Performing Organization Address [facility] de Phone Number [facility] [place] [address], * (ABNORMAL) ERYTHROCYTE SEDIMENTATION RATE (ESR) (08/21/2024 3:42 PM CDT) Erythrocyte Sedimentation Rate 50(H) 0 - 30 mm/hr [facility] Blood 08/21/2024 3:42 PM CDT Narrative [facility] PLAYGROUND SUPERVISOR [facility] - 08/21/2024 4:58 PM CDT Release to patient->Immediate us Darrel Mak MD HEMATOLOGY ORDERABLES Final Result Performing Organization Address [facility] Co de Phone Number [facility] PLAYGROUND SUPERVISOR [facility] [place] [address] [place] [address], [place] [phone] * (ABNORMAL) RETICULOCYTE COUNT (RETIC) (08/21/2024 3:42 PM CDT) Pathologist [facility] Reticulocyte count 4.01(H) 0.50 - 1.70 % [facility] PLAYGROUND SUPER[facility] RET-He 27.80(L) 28.20 - 36.60 pg [facility]PER[facility] Comment: RET-He is a direct assessment of incorporation of iron into erythrocyte hemoglobin. It provides an indirect measure of the iron available for new erythropoiesis over past 2-4 days. Blood 08/21/2024 3:42 PM CDT [facility] - 08/21/2024 4:33 PM CDT Release to patient->Immediate us Darrel Mak MD HEMATOLOGY ORDERABLES Final Result Performing Organization Address [facility] Co de Phone Number [facility] Cancer [facility] [address] [place] [address], [place] [phone] * LACTATE DEHYDROGENASE (LD) (08/21/2024 3:42 PM CDT) Pathologist [facility] LDH 201 140 - 271 U/L [facility] Blood 08/21/2024 3:42 PM CDT [facility] - 08/22/2024 10:14 AM CDT Release to patient->Immediate us Darrel Mak MD CHEMISTRY ORDERABLES Final Result Performing Organization Address [facility] Co de Phone Number [facility] [address] [place] [address], [place] [phone] * IMMUNOGLOBULIN IGA, IGG & IGM QUANT (08/21/2024 3:42 PM CDT) IGG 1,264 635 - 1,741 mg/dL [facility] IGA 237 66 - 433 mg/dL [facility] IGM 94 45 - 281 mg/dL [facility] 08/21/2024 3:42 PM CDT us Darrel Mak MD CHEMISTRY ORDERABLES Final Result [facility]PER[facility] [address] [place] [address], * (ABNORMAL) HAPTOGLOBIN (08/21/2024 3:42 PM CDT) HAPTO 241(H) 44 - 215 mg/dL [facility] 08/21/2024 3:42 PM CDT us Darrel Mak MD CHEMISTRY ORDERABLES Final Result Performing Organization Address [facility]/ZIP Co de Phone Number [facility] PLAYGROUND SUPERVISOR [facility] [place] [address] [place] [address], [place] [phone] * FOLIC ACID (FOLATE) (08/21/2024 3:42 PM CDT) Folate 16.31 >=5.90 ng/mL [facility]PER[facility] 08/21/2024 3:42 PM CDT us Darrel Mak MD CHEMISTRY ORDERABLES Final Result Performing Organization Address City/[facility]/ZIP Co de Phone Number [facility] PLAY[facility] SUPER[facility] [address] [place] [address], [place] [phone] * FERRITIN (08/21/2024 3:42 PM CDT) Ferritin 18 11 - 307 ng/mL [facility] SUPER[facility] 08/21/2024 3:42 PM CDT Darrel Mak MD CHEMISTRY ORDERABLES Final Result [facility] [address] [place] [address], [place] [phone] * ELECTROPHORESIS W/ TOTAL PROTEIN SERUM (08/21/2024 3:42 PM CDT) PROTEIN, TOTAL, SERUM 6.3 6.0 - 8.5 G/DL [facility] PLAY[facility] SUPER[facility] ALBUMIN 3.0 2.9 - 4.4 G/DL [facility] [id number] 0.3 0.0 - 0.4 G/DL [facility] [id number] 0.8 0.4 - 1.0 G/DL [facility] BETA GLOBULIN 1.0 0.7 - 1.3 G/DL [facility] GAMMA GLOBULIN 1.3 0.4 - 1.8 G/DL [facility]PER[facility] M-SPIKE NOT OBSERVED NOT OBSERVED G/DL [facility] SUPER[facility] GLOBULIN, TOTAL 3.3 2.2 - 3.9 G/DL [facility] A/G RATIO 0.9 0.7 - 1.[address] [facility] PLEASE NOTE: COMMENT [facility] PLAYGROUND SUPERVISOR [facility] Comment: PROTEIN ELECTROPHORESIS SCAN WILL FOLLOW VIA COMPUTER, MAIL, OR SURGICAL ELASTIC KNITTER DELIVERY. PDF . [facility] Blood 08/21/2024 3:42 PM CDT Narrative [facility] PLAYGROUND SUPER[facility]OR [facility] - 08/22/2024 8:18 PM CDT TESTING PERFORMED AT: [] [address], [place], [address], PHONE: [phone], WASTE COLLECTION DRIVER: JOVANNI CARLOS, PHD Release to patient->Immediate Darrel Mak MD CHEMISTRY ORDERABLES Final Result Performing Organization Address City/[facility]/ZIP Co de Phone Number [facility] PLAY[facility] SUPER[facility] [place] [address], * (ABNORMAL) CMP (COMPREHENSIVE METABOLIC PANEL) (08/21/2024 3:42 PM CDT) Glucose 230(H) 70 - 105 mg/dL [facility] Blood Urea Nitrogen 19 7 - 25 mg/dL [facility] Creatinine 1.0 0.6 - 1.2 mg/dL [facility] Sodium 140 136 - 145 mEq/L [facility] Potassium 4.2 3.5 - 5.1 mEq/L [facility] Chloride 102 98 - 107 mEq/L [facility] Bicarbonate 26 21 - 31 mEq/L [facility] Total Bilirubin 0.3 0.3 - 1.0 mg/dL [facility] Alk. Phosphatase 85 34 - 104 U/L [facility] Aspartate Aminotransferase 9(L) 13 - 39 U/L [facility] Alanine Aminotransferase 10 7 - 52 U/L [facility] Total Protein 6.4 6.4 - 8.9 g/dL [facility] Albumin 3.6 3.5 - 5.7 g/dL [facility] Calcium 8.7 8.6 - 10.3 mg/dL [facility] Anion Gap 16.2(H) 7.0 - 15.0 mEq/L [facility] Globulin 2.8 2.0 - 3.5 g/dL [facility] EGFR 57(L) >60 ml/min/1. 73m2 [facility] Comment: This eGFR is calculated using 2020 CKD-EPI Creatinine equation without race modifier based on the NKF-ASN task force recommendations Equation: iKEP=583*min(SCr/k,1)a*max(SCr/k,1)-1.200*0.9938Age*1.012 (if female), where SCr is serum creatinine, k is 0.7 for females and 0.9 for males, and a is -0.241 for females and -0.302 for males Blood 08/21/2024 3:42 PM CDT Narrative [facility]PER[facility] - 08/22/2024 10:14 AM CDT Release to patient->Immediate IS THE PATIENT REQUIRED TO BE FASTING FOR 8 HOURS?->No Darrel Mak MD CHEMISTRY ORDERABLES Final Result [facility] SUPER[facility] [place] [address], from Last 3 Months Insurance MEDICARE MEDICAID [place] MEDICARE [place]ICAID [place] Advance Directives Documents on File Type Date Recorded Patient Board Runner Expl anation POLST/[place] DNR 08/12/2024 11:10 AM * Full Code (Latest Code Status on File) Date Activated Date Inactivated Comments 08/29/2016 4:54 PM 09/01/2016 2:01 PM CPR-Full Treat ment: FULL ARREST: Attempt Resuscitation/CPR wit intubation and mechanical ventilation. PRE-ARREST: Use entire range of life support measures to stabilize the patient. * Full Code Date Activated Date Inactivated Comments 07/25/2016 10:43 PM 07/28/2016 2:44 PM CPR-Full Tr eatment: FULL ARREST: Attempt Resuscitation/CPR wit intubation and mechanical ventilation. PRE-ARREST: Use entire range of life support measures to stabilize the patient. Care Teams Hydrogen Treater Relationship Specialty Start Date End Date Prosper Baron, PAC [address] [place] [address] PCP - General Physician Civil Estimator 04/21/15
[2024-09-23 03:58] LABS: Basophils Absolute Auto 0.1 K/mm3 (0.0-0.1); Basophils Percent Auto 0.8 % (0.2-1.2); Eosinophils Absolute Auto 0.2 K/mm3 (0-0.3); Eosinophils Percent Auto 1.8 % (0-4.4); Hematocrit 31.7 % (37.0-47.0); Hemoglobin 9.2 g/dL (12.0-15.0); Immature Granulocyte Absolute 0.17 K/mm3 (0.00-0.031); Immature Granulocyte Percent A 1.3 % (0-0.5); Lymphocytes Absolute Auto 2.29 K/mm3 (0.9-3.2); Lymphocytes Percent Auto 17.7 % (18.3-44.2); Mean Corpuscular Hemoglobin 25.8 pg (26-34); Mean Corpuscular Volume 88.8 fl (80-100); Mean Platelet Volume 10.4 fl (7.4-10.4); Monocytes Absolute Auto 0.7 K/mm3 (0.1-0.6); Monocytes Percent Auto 5.7 % (2.6-8.5); Neutrophils Absolute Auto 9.4 K/mm3 (1.3-6.7); Neutrophils Percent Auto 72.7 % (45.5-73.1); Platelet Count Result 374 k/mm3 (150-375); Red Blood Count 3.57 M/mm3 (4.2-5.4); Red Cell Distribution Width 15.2 % (11.5-14.5); White Blood Count 12.9 K/mm3 (4.5-10.0)
[2024-09-23 04:09] LABS: Prothrombin Time 13.9 Seconds (11.1-14.7)
[2024-09-23 04:10] LABS: Partial Thromboplastin Time 27.8 Seconds (22.3-36.8)
[2024-09-23 04:11] LABS: Alanine Aminotransferase 22 U/L (6-35); Albumin Level 3.7 g/dL (3.5-5.1); Alkaline Phosphatase 92 U/L (38-126); Anion Gap 12 mmol/L (4-12); Aspartate Amino Transferase 24 U/L (14-36); Bilirubin,Total 0.2 mg/dL (0.2-1.3); Blood Urea Nitrogen 17 mg/dL (7-17); Calcium 8.2 mg/dL (8.4-10.2); Carbon Dioxide 23 mmol/L (22-30); Chloride 106 mmol/L (98-107); Estimated CRCL calculation 51 ml/min; Estimated Glomerular Filt Rate > 60; Glucose 172 mg/dL (65-110); Potassium 3.8 mmol/L (3.4-5.0); Sodium 141 mmol/L (137-145)
[2024-09-23 04:20] LABS: NT Pro B Type Natriuretic Pept 375 pg/mL (19.9-100)
[2024-09-23] MEDS: ONDANSETRON INJ 4 MG/2 ML VIAL IV PUSH (04:20)
[2024-09-23] MEDS: ACETAMINOPHEN 500 MG TABLET 1000 MG PO (04:20)
[2024-09-23 04:25] LABS: Hypochromasia 1+; Platelet Estimate Adequate (Adequate); Schistocytes None Seen
[2024-09-23 04:36] LABS: Influenza A QL RT-PCR Negative (Negative); Influenza B QL RT-PCR Negative (Negative); RSV RNA, RT-PCR Negative (Negative); SARS-CoV-2 RNA PCR Negative (Negative)
[2024-09-23 04:40] LABS: Add Urine Microscopic? YES; Amphetamine Screen Urine Negative (Negative); Appearance Urine Clear (Clear); Bacteria Urine None Seen /hpf; Barbiturate Screen Urine Negative (Negative); Benzodiazepines Screen Urine Negative (Negative); Bilirubin Urine Negative (Negative); Blood Urine Negative (Negative); Cannabinoid Screen Urine Negative (Negative); Cocaine Screen Urine Negative (Negative); Color Urine Yellow (Yellow); Glucose Urine UA Negative (Negative); Ketones Urine Negative (Negative); Leukocyte Esterase Ur 2+ LEU/UL (Negative); Methadone Screen Urine Negative (Negative); Need Manual Microscopic Reviewed; Nitrate Urine Negative (Negative); Non Pathogenic Casts 0-2; Opiate Screen Urine Positive (Negative); Phencyclidine Screen Urine Negative (Negative); Protein Urine Negative (Negative); RBC Urine 0-2 /hpf (0-2); Specific Grav Ur 1.017 (1.001-1.035); Squamous Epithelial Cell Urine None Seen /hpf (Few); WBC Urine 0-5 /hpf (0-3); pH Urine 6.5 (5.0-9.0)
--- NOTE | 2024-09-23 05:39 | PC.NURSE ---
This RN spoke to Marie from [facility] and gave update on pt.
--- NOTE | 2024-09-23 07:56 | PC.NURSE ---
RN brought in Morphine to bedside. Patient states she is not having any pain at this time. Martínez catheter placed, patient still not complaining of pain. Will return morphine. Will monitor patient for pain.
--- NOTE | 2024-09-23 09:00 | ADMGEN ---
This patient, Mary Lou Aguero, was admitted to 2 Medical Room 261-01. Patient/family oriented to hospital policies and general routines including ID bracelet, bed and alarms, visiting hours, pain management, procedures, bathroom and other care routines, personal items, smoking policy, room service/diet, and visiting hours. Information on how to activate the Rapid Response Team has been discussed. Patient/Family are encouraged to report perceived risks to care and to ask questions if they do not understand what they are told or what they should do.
--- OUTSIDE RECORDS SUMMARY | 2024-09-23 09:05 | XMS_ITS | Encounter Summary ---
Author Organization [facility] Address [address] [place] [address] Phone Care Team Providers Care Assistant Professor Of Education Name Role Phone Mich Barragan MD Primary Care Provider [phone] Rafael Gardner DO Unavailable [phone] Eleno Valdes MD Unavailable [phone] Rosita Slade MD Unavailable [phone] Koko Adams MD Unavailable [phone] Prosper Baron Primary Care Provider Jolene Mcfarland LPN Unavailable [phone] Elier Rubio MD Unavailable [phone] Juan M Martin MD Unavailable Craig Goel MD Unavailable [phone] Encounter Details Date Type Department Care Team (Late st Contact Info) Description 07/26/2017 Orders Only [facility] Provider, MD Cynthia [facility] [place] [address] Social History Tobacco Use Types Packs/Day Years Used Date Smoking Tobacco: Some Days Smokeless Tobacco: Never Alcohol Use Standard Drinks/Week Comments No 0 (1 standard drink = 0.6 oz pur e alcohol) Comments Unknown Sex and Gender Information Value Date Recorded Sex Assigned at Not on file Legal Sex Female 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 Gender Identity Not on file Sexual Orientation [...] documented as of this encounter Care Teams Assistant Professor Of Education Relationship Specialty Start Date End Date Mich Barragan MD PCP - General 06/12/16 05/05/19 Prosper Baron PA [address] [place] [address] PCP - General 05/06/19 Rafael Gardner DO Cardiovascular Disease 01/11/18 Eleno Valdes MD Consulting Physician Cardiology 02/04/18 Rosita Slade MD Consulting Physician Gastroenterology 02/28/18 Koko Adams MD [address] [place] [address] [place] [address] Pulmonary Disease 02/28/18 Jolene Mcfarland, HEBERT [address] [place] [address] [address] [place] [address] ACO Care Vice President Quality 06/24/21 07/26/21 [place] [address] [address] [facility] [address] [place] [address] Consulting Physician Internal Medicine 07/06/23 [place] [address] [address] [facility] [address] [place] [address] Consulting Physician Gastroenterology 07/10/23 Craig Goel MD [address] [place] [address] [address] [place] [address] Consulting Physician Cardiology 07/24/23 documented as of this encounter
--- OUTSIDE RECORDS SUMMARY | 2024-09-23 09:05 | XMS_ITS | Encounter Summary ---
Author Organization [facility] Healthcare Address [facility] [place] [address] Care Team Providers Care Director Of Brand Marketing Name Role Phone Rafael Gardner DO Unavailable [phone] Eleno Valdes MD Unavailable [phone] Rosita Slade MD Unavailable [phone] Koko Adams MD Unavailable [phone] Prosper Baron Primary Care Provider [phone] Jolene Mcfarland LPN Unavailable [phone] Elier Rubio MD Unavailable [phone] Juan M Martin MD Unavailable Craig Goel MD Unavailable [phone] Encounter Details Date Type Department Care Team (Late st Contact Info) Description 09/19/2019 Telephone [facility] [address] [place] [address] Samantha Beck, Social History Tobacco Use Types [...] on file 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 Gender Identity Not on file Sexual Orientation [...] documented as of this encounter Care Teams Director Of Brand Marketing Relationship Specialty Start Date End Date Prosper Baron PA [address] [place] [address] PCP - General 05/06/19 Rafael Gardner DO Cardiovascular Disease 01/11/18 Eleno Valdes MD Consulting Physician Cardiology 02/04/18 Rosita Slade MD Consulting Physician Gastroenterology 02/28/18 Koko Adams MD [address] [place] [address] [address] [place] [address] Pulmonary Disease 02/28/18 Jolene Mcfarland, COOK PRESSURE [address] [place] [address] [address] [place] [address] ACO Care Braided Band Assembler 06/24/21 07/26/21 [place] [address] [address] [facility] [address] [place] [address] Consulting Physician Internal Medicine 07/06/23 [place] [address] [address] [facility] [address] [place] [address] Consulting Physician Gastroenterology 07/10/23 Craig Goel MD 2 [facility] [address] [address] Consulting Physician Cardiology 07/24/23 documented as of this encounter
--- OUTSIDE RECORDS SUMMARY | 2024-09-23 09:06 | XMS_ITS | Clinical Summary ---
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 Assessment & Plan (06/28/2020 10:48 AM VENEER TAPER): This is a chronic condition which is improving, at goal. TSH-0.98. Reports weight loss. Goal is for TSH to be between 0.3 to 4.2 mclUnits/ml Continue Methimazole 10 mg po daily. Repeat TSH and T4 Assessment & Plan (04/12/2020 11:01 AM VENEER TAPER): This is a chronic condition which is [...] 05/06/2019 Assessment & Plan (05/24/2020 8:22 AM VENEER TAPER): Patient having issues with constipation again. To [...] medication. Assessment & Plan (06/06/2019 12:08 PM VENEER TAPER): Pt says BM's are doing much better on Linzess. She has tried multiple OTC regimens in the past without relief. She says Linzess is only thing helping. Having anywhere from 1-3 BM's daily and are normal. Pt says this was very expensive through her insurance. Will give samples today. Assessment & Plan (05/06/2019 1:21 PM VENEER TAPER): Per patient, she has not had a [...] (06/18/2018): Added automatically from request for surgery [id number] Gastrointestinal hemorrhage 02/25/2018 Overview (02/26/2018): Added automatically from request for surgery [id number] Assessment & Plan (05/24/2020 8:21 AM VENEER TAPER): Patient has chronic GI blood loss from [...] 08/14/2017 Assessment & Plan (05/06/2019 1:20 PM VENEER TAPER): Pt was supposed to have 3 more [...] there. Assessment & Plan (06/06/2019 12:09 PM VENEER TAPER): Pt's last hgb 9.8 on 05/06. She [...] the paper. Reordered. Scheduled for 02/28/21 at [facility] at 0815 Assessment & Plan (10/25/2020 11:46 [...] scheduled/done. 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 Most recently underwent cauterization of the lesions [...] (10/20/2021): Added automatically from request for surgery [id number] Assessment & Plan (02/21/2019 2:53 PM CDT): [...] Cellulitis 12/14/2014 Overview (08/04/2016): Cellulitis Atherosclerosis of [place] co ronary artery of [place] heart without angina pectoris 04/23/2014 Overview (11/22/2017): [...] daily history of macrovascular disease - CVA, CO. Assessment & Plan (02/01/2021 12:31 PM CDT): [...] daily history of macrovascular disease - CVA, CO. Assessment & Plan (10/25/2020 11:41 AM CDT): [...] daily history of macrovascular disease - CVA, CO. Assessment & Plan (07/23/2020 11:46 AM CDT): [...] daily history of macrovascular disease - CVA, CO. ReDent Novae professional continuous glucose monitor applied from 06/28/2020 [...] weak. Assessment & Plan (06/28/2020 10:46 AM VENEER TAPER): This is a chronic condition which is [...] daily history of macrovascular disease - CVA, CO. Assessment & Plan (04/12/2020 10:53 AM VENEER TAPER): This is a chronic condition which is [...] daily history of macrovascular disease - CVA, CO. Assessment & Plan (11/27/2019 5:04 PM CDT): [...] ordered. history of macrovascular disease - CVA, CO. Assessment & Plan (02/26/2018 6:54 AM CDT): Hold metformin Will start on low insulin sliding scale corrective dose Assessment & Plan (02/01/2018 3:32 AM CDT): Patient is not on insulin at home and only on oral hypoglycemics. Will place patient on low-dose sliding scale and continue to monitor. Coronary artery disease invo lving [place] coronary artery of [place] heart without angina pectoris 04/23/2014 Primary hypertension [...] (01/09/2020): Added automatically from request for surgery [id number] Constipation 01/08/2020 01/09/2020 Overview (01/09/2020): Added automatically from request for surgery [id number] BMI 34.0-34.9,adult 12/22/2019 09/04/19 23 Class 1 [...] Description 08/15/2024 10:30 AM CDT Office Visit [facility] Orthopedics and Sports Medicine [address] [place] [address] Sharee Lora PA Primary osteoarthritis of [...] drink = 0.6 oz pur e alcohol) [facility] Utilities Answer Date Recorded In the past 12 months has e [employer], gas, oil, or water company threatened to [...] often do you attend chur ch or roman catholic services? Never 07/19/2023 Do you belong to any clubs o r organizations such as presybeterian groups, unions, fraternal or athletic groups, or [...] place to sleep or slept in a fdc (including now)? No 07/19/2023 Personal Safety Answer Date Recorded Have you ever been in or are you currently in a harmful physical or emotional relationship or is someone making you feel afraid or unsafe? Denies 11/29/2023 Comments No Sex and Gender Information Value Date Recorded Sex Assigned at Not on file Legal Sex Female 11:55 PM VENEER TAPER Gender Identity Not on file Sexual Orientation [...] Screening Discontinued Medical Devices Implanted Type Area Bill Checker Device Identifier Shelf Expiration Date Model / Serial / Lot [id number] Inspiris Resilia Leaflet Sewing Ring 23mm Valve Aortic Bovine - [id number] - [id number] Implanted:Qty: 1 on 08/12/2018 by Navin Eastman MD at [facility] Prosthetic Valve N/A: Heart [employer] 03/28/2020 [id number] / [id number] / Description:Aortic valve Partial Metal Left: Knee [employer] [id number] Synergy 3mm 12mm 144cm Radiopaque 1 Access Port Inflation Lumen - [id number] Implanted:Qty: 1 on 02/01/2018 by Eleno Valdes MD at [facility] [employer] 09/17/2019 [id number] / / [id number] [employer] [id number] Synergy Monorail 4mm 2.7-2.1fr 28mm 144cm Radiopaque 1 Access - [id number] Implanted:Qty: 1 on 02/01/2018 by Eleno Valdes MD at [facility] [employer] 04/18/2018 [id number] / / [id number] Procedures Procedure Name Priority Date/Time Associated Diagnosis Comments [place] ARTHROCENTESIS ASPIR&/INJ MAJOR JT/BURSA W/O US Routine 08/15/2024 10:30 AM CDT Primary osteoarthritis of right knee DEXA AXIAL SKELETON BONE DENSITY 1 OR MORE SITES Schedule Routine, Read Routine (OP Routine) 12/27/2023 10:28 AM CDT Encounter for screening for osteoporosis EGFR Routine 07/25/2023 5:01 AM CDT COLONOSCOPY 07/23/2023 7:40 AM CDT HEMOGLOBIN A1C Routine 03/09/2023 1:11 AM VENEER TAPER LIPID PANEL Routine 03/09/2023 12:15 AM VENEER TAPER ALBUMIN CREATININE RATIO, URINE Routine 07/27/2020 10:10 AM CDT Type 2 diabetes mellitus with hyperglycemia, with long-term current use of insulin (HCC) DIABETIC EYE EXAM Routine 12/26/2019 from Last 3 Months or Most Recently Relevant to Health Maintenance Results * [place] ARTHROCENTESIS ASPIR&/INJ MAJOR JT/BURSA W/O US (08/15/2024 [...] F with given history of: z13.820 Postmenopausal Bill Checker/Model: [employer] A (S/N [id number]) CLINICAL INFORMATION: Current height: 63 inches Maximum [...] Manuel Lopez M.D. MF: NICO Report ID: [id number] Reading Location: [id number] [facility] Note Manuel Lopez MD - 12/27/2023 EXAM DESCRIPTION: DEXA AXIAL SKELETON BONE DENSITY 1 OR MORE SITES REASON FOR STUDY: 78 y/o year old F with given history of: z13.820 Postmenopausal Bill Checker/Model: [employer]ack[employer] A (S/N [id number]) CLINICAL INFORMATION: Current height: 63 inches Maximum [...] Manuel Lopez M.D. MF: NICO Report ID: [id number] Reading Location: [place] [address] Rafael Mejia DO IMG DXA PROCEDURES Final [...] MD LAB BLOOD ORDERABLES F inal Result [facility] [address] [facility] Department [place] [address] * Colonoscopy (07/23/2023 7:40 AM CDT) Anatomical Region Laterality Modality Other Narrative Procedure Note Juan M Martin MD - 07/23/2023 7:40 AM CDT - [facility] Endoscopy Lab Patient Name: Mary Lou Rodgers Procedure Date: 07/23/2023 7:40 AM Date of : 1945 Admit Type: Inpatient Age: 77 Gender: Female Note Status: Finalized Attending MD: Juan M Martin M.D. 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 Medicines: Monitored [...] bowel preparation was evaluated using the BBPS ([place] Bowel Preparation Scale) with scores of: Right [...] not recommended. 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 All rights reserved. The codes documented in this report are preliminary and upon medical billing coder reviewmay be revised to meet current compliance requirements. Electronically signed by Juan M Martin MD Juan M Martin M.D. 07/23/2023 8:46:43 AM Number of Addenda: 0 Note Initiated On: 07/23/2023 7:40 AM Juan M Martin MD ENDOSCOPY PROCEDURES Final Resul t * (ABNORMAL) Hemoglobin A1c (03/09/2023 1:11 AM VENEER TAPER) Hgb A1C 6.2(H) 4.0 - 5.6 % [facility] ([place]) Estimated Average Glucose 131 mg/dL [facility] ([place]) Comment: The ADA recommends reporting an estimated Average Glucose (eAG) with all Hemoglobin A1c results using the equation derived from a study of 507 normal and diabetic adults. Minority populations were underrepresented and children were not included. (Diabetes Care 31:6365-4366, 2008). The eAG is not equivalent to a fasting glucose. Blood 03/09/2023 1:1 1 AM VENEER TAPER 03/09/2023 2:18 AM VENEER TAPER us Jermain Jones MD LAB BLOOD ORDERABLES Final Res ult [facility] ([place]) 1 [facility] Department [place] [address] * (ABNORMAL) Lipid panel (03/09/2023 12:15 AM VENEER TAPER) Cholesterol 185 30 - 199 mg/dL [facility] [...] 2017. LDL, calculated 124 <=129 mg/dL [facility] ([place]) Comment: Interpretive Data Ages < or [...] [facility] ([place]) Blood 03/09/2023 12:1 5 AM VENEER TAPER 03/09/2023 4:30 AM VENEER TAPER us Jermain Jones MD LAB BLOOD ORDERABLES Final Res ult Performing Organization Address City/[facility]/ZIP Co de Phone Number [facility] ([place]) 1 [facility] [place] [address] * Albumin Creatinine Ratio, Urine (07/27/2020 10:10 AM CDT) Albumin Ur <12.0 mg/L [facility] AM H ([place]) Comment: Interpretive Data No reference range established. Current interpretive data was last revised 2018. Testing performed by: [facility], [address] [place] [address]., [address] Creatinine Ur 193.3 mg/dL [facility] ([place]) Comment: Interpretive Data No reference range established. Current interpretive data was last revised 2018. Testing performed by: [facility], [address] [place] [address]., [address] Albumin Creatinine Ratio, Ur <6 1 - 29 mg/g [facility] ([place]) Comment:Testing performed by : [address] [address] Urine 07/27/2020 10:1 0 AM CDT 07/27/2020 2:37 PM CDT us Marline Cheng NP LAB URINE ORDERABLES Final Resu lt Performing Organization Address City/[facility]/ZIP Co de Phone Number [facility] ([place]) 1 [facility] [place] [address] * Diabetic Eye Exam (12/26/2019) us Historical Provider HEALTH MAINTENANCE Edited Result - Final from Last 3 Months or Most Recently Relevant to Health Maintenance Insurance MEDICARE [facility] Address: [id number] [place] [phone] MEDICARE [facility] MEDICARE MEDICARE Advance Directives For more information, please contact: [phone] * LIMITED - No CPR (Latest Code [...] 11:51 PM 11/14/2021 8:41 PM Care Teams Sign Builder Supervisor Relationship Specialty Start Date End Date Prosper Baron PA [address] [place] [address] PCP - General 05/06/19 Rafael Gardner DO Cardiovascular Disease 01/11/18 Eleno Valdes MD Consulting Physician Cardiology 02/04/18 Rosita Slade MD Consulting Physician Gastroenterology 02/28/18 Koko Adams MD [address] [facility] [address] [place] [address] Pulmonary Disease 02/28/18 [place] [address] [address] [facility] [address] [place] [address] Consulting Physician Internal Medicine 07/06/23 [place] [address] [address] [facility] [address] [place] [address] Consulting Physician Gastroenterology 07/10/23 Craig Goel MD [address] [place] [address] [address] [place] [address] Consulting Physician Cardiology 07/24/23
--- OUTSIDE RECORDS SUMMARY | 2024-09-23 09:06 | XMS_ITS | Referral Summary ---
Author Organization [facility] Address [address] [place] [address] Care Team Providers Care Record Label Intern Name Role Phone Rafael Gardner DO Unavailable [phone] Eleno Valdes MD Unavailable [phone] Rosita Slade MD Unavailable [phone] Koko Adams MD Unavailable [phone] Prosper Baron Primary Care Provider [phone] Elier Rubio MD Unavailable [phone] Juan M Martin MD Unavailable Craig Goel MD Unavailable [phone] Encounters Date Type Department Care Team Description 08/15/2024 10:30 AM CDT Office Visit [facility] Orthopedics and Sports Medicine [address] [facility] [address] [place] [phone] Sharee Lora PA Primary osteoarthritis of right [...] She has not followed up with her tube blower in a long time. 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 Assessment & Plan (06/28/2020 10:48 AM DEDICATED DRIVER): This is a chronic condition which is improving, at goal. TSH-0.98. Reports weight loss. Goal is for TSH to be between 0.3 to 4.2 mclUnits/ml Continue Methimazole 10 mg po daily. Repeat TSH and T4 Assessment & Plan (04/12/2020 11:01 AM DEDICATED DRIVER): This is a chronic condition which is [...] 05/06/2019 Assessment & Plan (05/24/2020 8:22 AM DEDICATED DRIVER): Patient having issues with constipation again. To [...] medication. Assessment & Plan (06/06/2019 12:08 PM DEDICATED DRIVER): Pt says BM's are doing much better on Linzess. She has tried multiple OTC regimens in the past without relief. She says Linzess is only thing helping. Having anywhere from 1-3 BM's daily and are normal. Pt says this was very expensive through her insurance. Will give samples today. Assessment & Plan (05/06/2019 1:21 PM DEDICATED DRIVER): Per patient, she has not had a [...] (06/18/2018): Added automatically from request for surgery [id number] Gastrointestinal hemorrhage 02/25/2018 Overview (02/26/2018): Added automatically from request for surgery [id number] Assessment & Plan (05/24/2020 8:21 AM DEDICATED DRIVER): Patient has chronic GI blood loss from [...] 08/14/2017 Assessment & Plan (05/06/2019 1:20 PM DEDICATED DRIVER): Pt was supposed to have 3 more [...] there. Assessment & Plan (06/06/2019 12:09 PM DEDICATED DRIVER): Pt's last hgb 9.8 on 05/06. She [...] the paper. Reordered. Scheduled for 02/28/21 at [facility] at 0815 Assessment & Plan (10/25/2020 11:46 [...] scheduled/done. 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 Most recently underwent cauterization [...] (10/20/2021): Added automatically from request for surgery [id number] Assessment & Plan (02/21/2019 2:53 PM CDT): [...] Cellulitis 12/14/2014 Overview (08/04/2016): Cellulitis Atherosclerosis of [place] co ronary artery of [place] heart without angina pectoris 04/23/2014 Overview (11/22/2017): [...] daily history of macrovascular disease - CVA, [place]. Assessment & Plan (02/01/2021 12:31 PM CDT): [...] daily history of macrovascular disease - CVA, [place]. Assessment & Plan (10/25/2020 11:41 AM CDT): [...] daily history of macrovascular disease - CVA, [place]. Assessment & Plan (07/23/2020 11:46 AM CDT): [...] daily history of macrovascular disease - CVA, [place]. [employer] Melinda professional continuous glucose monitor applied from [...] weak. Assessment & Plan (06/28/2020 10:46 AM DEDICATED DRIVER): This is a chronic condition which is [...] daily history of macrovascular disease - CVA, [place]. Assessment & Plan (04/12/2020 10:53 AM DEDICATED DRIVER): This is a chronic condition which is [...] daily history of macrovascular disease - CVA, [place]. Assessment & Plan (11/27/2019 5:04 PM CDT): [...] ordered. history of macrovascular disease - CVA, [place]. Assessment & Plan (02/26/2018 6:54 AM CDT): Hold metformin Will start on low insulin sliding scale corrective dose Assessment & Plan (02/01/2018 3:32 AM CDT): Patient is not on insulin at home and only on oral hypoglycemics. Will place patient on low-dose sliding scale and continue to monitor. Coronary artery disease invo lving [place] coronary artery of [place] heart without angina pectoris 04/23/2014 Primary hypertension [...] (01/09/2020): Added automatically from request for surgery [id number] Constipation 01/08/2020 01/09/2020 Overview (01/09/2020): Added automatically from request for surgery [id number] BMI 34.0-34.9,adult 12/22/2019 09/04/19 23 Class 1 [...] drink = 0.6 oz pur e alcohol) [facility] Utilities Answer Date Recorded In the past 12 months has e [employer], gas, oil, or water [employer] threatened to shut off services in your [...] often do you attend chur ch or protestant services? Never 07/19/2023 Do you belong to any clubs o r organizations such as confucianist groups, unions, fraternal or athletic groups, or [...] place to sleep or slept in a assisted (including now)? No 07/19/2023 Personal Safety Answer Date Recorded Have you ever been in or are you currently in a harmful physical or emotional relationship or is someone making you feel afraid or unsafe? Denies 11/29/2023 Comments No Sex and Gender Information Value Date Recorded Sex Assigned at Not on file Legal Sex Female 11:55 PM DEDICATED DRIVER Gender Identity Not on file Sexual Orientation [...] on file Medical Devices Implanted Type Area Pillowcase Sewer Device Identifier Shelf Expiration Date Model / Serial / Lot [employer] [id number] Inspiris Resilia Leaflet Sewing Ring 23mm Valve Aortic Bovine - [id number] - [id number] Implanted:Qty: 1 on 08/12/2018 by Navin Eastman MD at [facility] Prosthetic Valve N/A: Heart [employer] 03/28/2020 [id number] / [id number] / Description:Aortic valve Partial Metal Left: Knee [employer] Maya [id number] Synergy 3mm 12mm 144cm Radiopaque 1 Access Port Inflation Lumen - [id number] Implanted:Qty: 1 on 02/01/2018 by Eleno Valdes MD at [facility] Project [employer] Maya 09/17/2019 [id number] / / [id number] [employer] Maya [id number] Synergy Monorail 4mm 2.7-2.1fr 28mm 144cm Radiopaque 1 Access - [id number] Implanted:Qty: 1 on 02/01/2018 by Eleno Valdes MD at [facility] [employer] 04/18/2018 [id number] / / [id number] Procedures Procedure Name Priority Date/Time Associated Diagnosis Comments MT ARTHROCENTESIS ASPIR&/INJ MAJOR JT/BURSA W/O US Routine 08/15/2024 10:30 AM CDT Primary osteoarthritis of right knee DEXA AXIAL SKELETON BONE DENSITY 1 OR MORE SITES Schedule Routine, Read Routine (OP Routine) 12/27/2023 10:28 AM CDT Encounter for screening for osteoporosis EGFR Routine 07/25/2023 5:01 AM CDT COLONOSCOPY 07/23/2023 7:40 AM CDT HEMOGLOBIN A1C Routine 03/09/2023 1:11 AM DEDICATED DRIVER LIPID PANEL Routine 03/09/2023 12:15 AM DEDICATED DRIVER ALBUMIN CREATININE RATIO, URINE Routine 07/27/2020 10:10 AM CDT Type 2 diabetes mellitus with hyperglycemia, with long-term current use of insulin (HCC) DIABETIC EYE EXAM Routine 12/26/2019 from Last 3 Months or Most Recently Relevant to Health Maintenance Results * MT ARTHROCENTESIS ASPIR&/INJ MAJOR JT/BURSA W/O US (08/15/2024 [...] F with given history of: z13.820 Postmenopausal Pillowcase Sewer/Model: iBid2Save A (S/N [id number]) CLINICAL INFORMATION: Current height: 63 inches Maximum [...] Manuel Lopez M.D. MF: NICO Report ID: [id number] Reading Location: [address] Note Manuel Lopez MD - 12/27/2023 EXAM DESCRIPTION: DEXA AXIAL SKELETON BONE DENSITY 1 OR MORE SITES REASON FOR STUDY: 78 y/o year old F with given history of: z13.820 Postmenopausal Pillowcase Sewer/Model: iBid2Save A (S/N [id number]) CLINICAL INFORMATION: Current height: 63 inches Maximum [...] Manuel Lopez M.D. MF: NICO Report ID: [id number] Reading Location: [place] [address] [place] Jackie DO IMG DXA PROCEDURES [...] LAB BLOOD ORDERABLES F inal Result [facility] [address] [facility] Department of Laboratories [place] [id number] * Colonoscopy (07/23/2023 7:40 AM CDT) Anatomical Region Laterality Modality Other Narrative Procedure Note Juan M Martin MD - 07/23/2023 7:40 AM CDT [facility] Endoscopy Lab Patient Name: Mary Lou Rodgers Procedure Date: 07/23/2023 7:40 AM Date of : 1945 Admit Type: Inpatient Age: 77 Gender: Female Note Status: Finalized Attending MD: Juan M Martin M.D. 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 Medicines: Monitored [...] bowel preparation was evaluated using the BBPS ([place] Bowel Preparation Scale) with scores of: Right [...] not recommended. 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 All rights reserved. The codes documented in this report are preliminary and upon professor of economics reviewmay be revised to meet current compliance requirements. Electronically signed by Juan M Martin MD Juan M Martin M.D. 07/23/2023 8:46:43 AM Number of Addenda: 0 Note Initiated On: 07/23/2023 7:40 AM us Juan M Martin MD ENDOSCOPY PROCEDURES Final Resul t * (ABNORMAL) Hemoglobin A1c (03/09/2023 1:11 AM DEDICATED DRIVER) Hgb A1C 6.2(H) 4.0 - 5.6 % [facility] ([place]) Estimated Average Glucose 131 mg/dL [facility] [place] ([place]) Comment: The ADA recommends reporting an estimated Average Glucose (eAG) with all Hemoglobin A1c results using the equation derived from a study of 507 normal and diabetic adults. Minority populations were underrepresented and children were not included. (Diabetes Care 31:7191-1809, 2008). The eAG is not equivalent to a fasting glucose. Blood 03/09/2023 1:11 AM DEDICATED DRIVER 03/09/2023 2:18 AM DEDICATED DRIVER us Jermain Jones MD LAB BLOOD ORDERABLES Final Res ult [facility] [place] ([place]) [address] [facility] Department [place] [address] * (ABNORMAL) Lipid panel (03/09/2023 12:15 AM DEDICATED DRIVER) Cholesterol 185 30 - 199 mg/dL [facility] [...] [place]IA ([place]) Blood 03/09/2023 12:1 5 AM DEDICATED DRIVER 03/09/2023 4:30 AM DEDICATED DRIVER us Jermain Jones MD LAB BLOOD ORDERABLES Final Res ult [facility] [place] ([place]) [address] [facility] Department [place] [address] * Albumin Creatinine Ratio, Urine (07/27/2020 10:10 AM CDT) Albumin Ur <12.0 mg/L [facility] ([place]) Comment: Interpretive Data No reference range established. Current interpretive data was last revised 2018. Testing performed by: [facility], [address] [place] [address]., [id number] Creatinine Ur 193.3 mg/dL [facility] ([place]) Comment: Interpretive Data No reference range established. Current interpretive data was last revised 2018. Testing performed by: [facility], [address] [place] [address]., [address] Albumin Creatinine Ratio, Ur <6 1 - 29 mg/g [facility] ([place]) Comment:Testing performed by : [facility], [address] [place] [address]., [address] Urine 07/27/2020 10:1 0 AM CDT 07/27/2020 2:37 PM CDT Marline Cheng NP LAB URINE ORDERABLES Final Resu lt [facility] ([place]) [address] [facility] Department [place] [address] * Diabetic Eye Exam (12/26/2019) Historical Provider HEALTH MAINTENANCE Edited Result - Final from Last 3 Months or Most Recently Relevant to Health Maintenance Insurance MEDICARE MEDICARE [facility] MEDICARE MEDICARE Advance Directives For more information, please contact: [phone] * LIMITED - No CPR (Latest Code [...] 11:51 PM 11/14/2021 8:41 PM Care Teams Record Label Intern Relationship Specialty Start Date End Date Prosper Baron PA [address] [place] [address] PCP - General 05/06/19 Rafael Gardner DO Cardiovascular Disease 01/11/18 Eleno Valdes MD Consulting Physician Cardiology 02/04/18 Rosita Slade MD Consulting Physician Gastroenterology 02/28/18 Koko Adams MD [address] [facility] [address] [place] [address] Pulmonary Disease 02/28/18 [place] [address] [address] [facility] [address] [place] [address] Consulting Physician Internal Medicine 07/06/23 [place] [address] [address] [facility] [address] [place] [address] Consulting Physician Gastroenterology 07/10/23 Craig Goel MD [address] [place] [address] [address] [facility] [place] [address] Consulting Physician Cardiology 07/24/23
--- OUTSIDE RECORDS SUMMARY | 2024-09-23 09:06 | XMS_ITS | Clinical Summary ---
Author Organization [facility] Address [address] [facility], [place] [address] Phone Care Team Providers Care It Integration Architect Name Role Phone Prosper Baron Primary Care Provider [phone] Allergies Active Allergy Reactions Criticality Noted Date [...] AM CDT Office Visit [facility] [address] [address] [phone] Gabriella Ace, SHEEP SORTER, LAWN MAINTENANCE WORKER Abnormal finding of blood chemistry, unspecified (Primary Dx); Lung nodule 09/11/2024 Travel 08/21/2024 12:15 PM CDT Lab [facility] [id number] [place] [phone] Nurse, [facility] 08/21/2024 11:30 AM CDT Office Visit [facility] [id number] [place] [address] [phone] Darrel Mak MD Nicotine dependence with nicotine-induced [...] AM CDT Ancillary Procedure [facility] [address] [place] [address] 10/02/2024 11:45 AM CDT Office Visit [facility] [place] [address] [phone] Darrel Mak MD [address] [place] [address] Health Maintenance Due Date Last [...] CHAINS 79.8(H) 2.9 - 20.7 mg/L [facility] FREE LAMBDA LT CHAINS 48.1(H) 4.2 - 27.6 mg/L CANCER SHAKE TABLE OPERATOR [facility] KAPPA/LAMBDA RATIO 1.66 0.22 - 1.74 CANCER SHAKE TABLE OPERATOR [facility] 08/21/2024 3:42 PM CDT Darrel Mak MD LAB SEND OUTS Final Resul t Performing Organization Address [facility] de Phone Number CANCER SHAKE TABLE OPERATOR [facility] [address] [place] [address], [place] [phone] * (ABNORMAL) IRON W/ IRON BINDING CAPACITY [place] (08/21/2024 3:42 PM CDT) IRON 249(H) 50 - 212 ug/dL CANCER SHAKE TABLE OPERATOR [facility] UIBC 76(L) 155 - 355 ug/dL CANCER SHAKE TABLE OPERATOR [facility] TIBC 325 261 - 478 ug/dl CANCER SHAKE TABLE OPERATOR [facility] % Saturation 77(H) 20 - 50 % CANCER SHAKE TABLE OPERATOR [facility] 08/21/2024 3:42 PM CDT Narrative CANCER SHAKE TABLE OPERATOR [facility] - 08/22/2024 10:14 AM CDT Release to patient->Immediate us Darrel Mak MD LAB SEND OUTS Final Resul t Performing Organization Address City/[facility]/ZIP Co de Phone Number CANCER SHAKE TABLE OPERATOR [facility] [place] [address], [place] [phone] * IMMUNOFIXATION, SERUM [place] (08/21/2024 3:42 PM CDT) IMMUNOFIXATION RESULT, SERUM Comment: CANCER SHAKE TABLE OPERATOR [facility] Comment: Presence of monoclonal protein is unclear at this time. Suggest repeat in 3 to 6 months if clinically indicated. 08/21/2024 3:42 PM CDT Narrative CANCER SHAKE TABLE OPERATOR [facility] - 08/25/2024 3:08 PM CDT Testing performed at: [] [facility], [address] [place] [address], [place], [address], , Exercise Manager: Jovanni Carlos, PhD Release to patient->Immediate us Darrel Mak MD LAB SEND OUTS Final Resul t CANCER SHAKE TABLE OPERATOR [facility] [place] [address], [place] [phone] * (ABNORMAL) CBC WITH AUTO DIFF [place] (08/21/2024 3:42 PM CDT) WBC 10.7(H) 4.0 - 10.0 10*3/uL CANCER SHAKE TABLE OPERATOR [facility] HGB 9.0(L) 11.2 - 15.7 g/dL CANCER SHAKE TABLE OPERATOR [facility] HCT 31.0(L) 34.1 - 44.9 % CANCER SHAKE TABLE OPERATOR [facility] PLT 410(H) 163 - 369 10*3/uL CANCER SHAKE TABLE OPERATOR [facility] MPV 9.7 9.4 - 12.4 fL CANCER SHAKE TABLE OPERATOR [facility] RBC 3.36(L) 3.93 - 5.22 10*6/uL CANCER SHAKE TABLE OPERATOR [facility] MCV 92 79 - 95 fL CANCER SHAKE TABLE OPERATOR [facility] MCH 26.8 25.6 - 32.2 pg CANCER SHAKE TABLE OPERATOR [facility] MCHC 29.0(L) 32.2 - 36.5 g/dL CANCER SHAKE TABLE OPERATOR [facility] RDW 17.2(H) 11.6 - 14.4 % CANCER SHAKE TABLE OPERATOR [facility] Neutrophils % 70.7(H) 36.0 - 66.0 % CANCER SHAKE TABLE OPERATOR [facility] Lymphocytes % 18.1(L) 19.0 - 40.0 % CANCER SHAKE TABLE OPERATOR [facility] Monocytes % 6.6 4.1 - 12.1 % CANCER SHAKE TABLE OPERATOR [facility] Eosinophils % 3.1 0.0 - 3.5 % CANCER SHAKE TABLE OPERATOR [facility] Basophils % 0.7 0.0 - 1.0 % CANCER SHAKE TABLE OPERATOR [facility] Absolute Neutrophils 7.6(H) 1.4 - 6.6 10*3/uL CANCER SHAKE TABLE OPERATOR [facility] Absolute Lymphocytes 1.9 0.8 - 4.0 10*3/uL CANCER SHAKE TABLE OPERATOR [facility] Absolute Monocytes 0.7 0.2 - 1.2 10*3/uL CANCER SHAKE TABLE OPERATOR [facility] Absolute Eosinophils 0.3 0.0 - 0.4 10*3/uL CANCER SHAKE TABLE OPERATOR [facility] Absolute Basophils 0.1 0.0 - 0.1 10*3/uL CANCER SHAKE TABLE OPERATOR [facility] 08/21/2024 3:42 PM CDT us Darrel Mak MD LAB SEND OUTS Final Resul t Performing Organization Address [facility] Co de Phone Number CANCER SHAKE TABLE OPERATOR [facility] [place] [address], * VITAMIN B12 (08/21/2024 3:42 PM CDT) Vitamin B12 332 180 - 914 pg/mL [facility] SHAKE TABLE OPERATORCHI [facility] 08/21/2024 3:42 PM CDT us Darrel Mak MD CHEMISTRY ORDERABLES Final Result Performing Organization Address [facility] de Phone Number CANCER SHAKE TABLE OPER[facility]CH[facility] [place] [address], * (ABNORMAL) ERYTHROCYTE SEDIMENTATION RATE (ESR) (08/21/2024 3:42 PM CDT) Erythrocyte Sedimentation Rate 50(H) 0 - 30 mm/hr [facility] SHAKE TABLE [facility] Blood 08/21/2024 3:42 PM CDT Narrative CANCER SHAKE TABLE OPERATOR [facility] - 08/21/2024 4:58 PM CDT Release to patient->Immediate us Darrel Mak MD HEMATOLOGY ORDERABLES Final Result Performing Organization Address [facility] Co de Phone Number CANCER SHAKE TABLE OPERATOR [facility] [place] [address] [place] [address], [place] [phone] * (ABNORMAL) RETICULOCYTE COUNT (RETIC) (08/21/2024 3:42 PM CDT) Pathologist [facility] Reticulocyte count 4.01(H) 0.50 - 1.70 % CANCER SHAKE TABLE OPERATOR [facility] RET-He 27.80(L) 28.20 - 36.60 pg CANCER SHAKE TABLE OPERATOR [facility] Comment: RET-He is a direct assessment of incorporation of iron into erythrocyte hemoglobin. It provides an indirect measure of the iron available for new erythropoiesis over past 2-4 days. Blood 08/21/2024 3:[address] [facility] CANCER SHAKE TABLE OPER[facility]CH[facility] - 08/21/2024 4:33 PM CDT Release to patient->Immediate us Darrel Mak MD HEMATOLOGY ORDERABLES Final Result Performing Organization Address [facility] Co de Phone Number CANCER SHAKE TABLE OPER[facility]CH[facility] Cancer Care [address] [address], [place] [phone] * LACTATE DEHYDROGENASE (LD) (08/21/2024 3:42 PM CDT) Pathologist [facility] LDH 201 140 - 271 U/L CANCER SHAKE TABLE [facility] Blood 08/21/2024 3:42 PM CDT [facility] SHAKE TABLE OPERATORCH[facility] - 08/22/2024 10:14 AM CDT Release to patient->Immediate us Darrel Mak MD CHEMISTRY ORDERABLES Final Result Performing Organization Address [facility] Co de Phone Number CANCER SHAKE TABLE OPER[facility]CH[facility] [address] [address], [place] [phone] * IMMUNOGLOBULIN IGA, IGG & IGM QUANT (08/21/2024 3:42 PM CDT) IGG 1,264 635 - 1,741 mg/dL CANCER SHAKE TABLE OPERATOR [facility] IGA 237 66 - 433 mg/dL CANCER SHAKE TABLE OPERATOR [facility] IGM 94 45 - 281 mg/dL CANCER SHAKE TABLE OPERATOR [facility] 08/21/2024 3:42 PM CDT us Darrel Mak MD CHEMISTRY ORDERABLES Final Result CANCER SHAKE TABLE OPERATOR [facility] [address] [place] [address], * (ABNORMAL) HAPTOGLOBIN (08/21/2024 3:42 PM CDT) HAPTO 241(H) 44 - 215 mg/dL CANCER SHAKE TABLE [facility] 08/21/2024 3:42 PM CDT us Darrel Mak MD CHEMISTRY ORDERABLES Final Result Performing Organization Address [facility]/ZIP Co de Phone Number CANCER SHAKE TABLE OPERATOR [facility] [place] [address] [place] [address], [place] [phone] * FOLIC ACID (FOLATE) (08/21/2024 3:42 PM CDT) Folate 16.31 >=5.90 ng/mL CANCER SHAKE TABLE OPERATOR [facility] 08/21/2024 3:42 PM CDT us Darrel Mak MD CHEMISTRY ORDERABLES Final Result Performing Organization Address City/[facility]/ZIP Co de Phone Number CANCER SHAKE TABLE OPERATOR [facility] [address] [address], [place] [phone] * FERRITIN (08/21/2024 3:42 PM CDT) Ferritin 18 11 - 307 ng/mL CANCER SHAKE TABLE OPERATOR [facility] 08/21/2024 3:42 PM CDT Darrel Mak MD CHEMISTRY ORDERABLES Final Result CANCER SHAKE TABLE OPERATOR [facility] [address] [place] [address], [place] [phone] * ELECTROPHORESIS W/ TOTAL PROTEIN SERUM (08/21/2024 3:42 PM CDT) PROTEIN, TOTAL, SERUM 6.3 6.0 - 8.5 G/DL CANCER SHAKE TABLE OPERATOR [facility] ALBUMIN 3.0 2.9 - 4.4 G/DL CANCER SHAKE TABLE [facility] [id number] 0.3 0.0 - 0.4 G/DL CANCER SHAKE TABLE OPERATORCH[facility] [id number] 0.8 0.4 - 1.0 G/DL CANCER SHAKE TABLE OPER[facility]CH[facility] BETA GLOBULIN 1.0 0.7 - 1.3 G/DL CANCER SHAKE TABLE OPERATORCH[facility] GAMMA GLOBULIN 1.3 0.4 - 1.8 G/DL CANCER SHAKE TABLE OPERATOR [facility] M-SPIKE NOT OBSERVED NOT OBSERVED G/DL CANCER SHAKE TABLE OPERATOR [facility] GLOBULIN, TOTAL 3.3 2.2 - 3.9 G/DL CANCER SHAKE TABLE OPER[facility]CH[facility] A/G RATIO 0.9 0.7 - 1.7 CAN[address]IO [address] SPECIALISTS [facility] PLEASE NOTE: COMMENT CANCER SHAKE TABLE OPERATOR [facility] Comment: PROTEIN ELECTROPHORESIS SCAN WILL FOLLOW VIA COMPUTER, MAIL, OR CLAIM INSPECTOR DELIVERY. PDF . [facility] Blood 08/21/2024 3:42 PM CDT Narrative CANCER SHAKE TABLE OPERATOR [facility] - 08/22/2024 8:18 PM CDT TESTING PERFORMED AT: [] [address], [place], [address], PHONE: [phone], OFFICE ANALYST: JOVANNI CARLOS, PHD Release to patient->Immediate Darrel Mak MD CHEMISTRY ORDERABLES Final Result Performing Organization Address City/[facility]/ZIP Co de Phone Number CANCER SHAKE TABLE OPERATOR [facility] [place] [address], * (ABNORMAL) CMP (COMPREHENSIVE METABOLIC PANEL) (08/21/2024 3:42 PM CDT) Glucose 230(H) 70 - 105 mg/dL [facility] SHAKE TABLE OPERATORCHI [facility] Blood Urea Nitrogen 19 7 - 25 mg/dL [facility] Creatinine 1.0 0.6 - 1.2 mg/dL [facility] Sodium 140 136 - 145 mEq/L [facility] Potassium 4.2 3.5 - 5.1 mEq/L [facility] Chloride 102 98 - 107 mEq/L [facility] Bicarbonate 26 21 - 31 mEq/L [facility] Total Bilirubin 0.3 0.3 - 1.0 mg/dL [facility] Alk. Phosphatase 85 34 - 104 U/L [facility] Aspartate Aminotransferase 9(L) 13 - 39 U/L [facility] Alanine Aminotransferase 10 7 - 52 U/L [facility] Total Protein 6.4 6.4 - 8.9 g/dL [facility] Albumin 3.6 3.5 - 5.7 g/dL [facility] Calcium 8.7 8.6 - 10.3 mg/dL [facility] Anion Gap 16.2(H) 7.0 - 15.0 mEq/L [facility] Globulin 2.8 2.0 - 3.5 g/dL [facility] EGFR 57(L) >60 ml/min/1. 73m2 [facility] Comment: This eGFR is calculated using 2020 CKD-EPI Creatinine equation without race modifier based on the NKF-ASN task force recommendations Equation: iAKX=076*min(SCr/k,1)a*max(SCr/k,1)-1.200*0.9938Age*1.012 (if female), where SCr is serum creatinine, k is 0.7 for females and 0.9 for males, and a is -0.241 for females and -0.302 for males Blood 08/21/2024 3:42 PM CDT Narrative CANCER SHAKE TABLE OPERATOR OF [facility] - 08/22/2024 10:14 AM CDT Release to patient->Immediate IS THE PATIENT REQUIRED TO BE FASTING FOR 8 HOURS?->No Darrel Mak MD CHEMISTRY ORDERABLES Final Result CANCER SHAKE TABLE OPERATOR OF [facility] [place] [address], from Last 3 Months Insurance MEDICARE MEDICAID [place] MEDICARE MEDICAID [place] Advance Directives Documents on File Type Date Recorded Patient Director Prison Expl anation POLST/POST/LA DNR 08/12/2024 11:10 AM * Full Code [...] measures to stabilize the patient. Care Teams It Integration Architect Relationship Specialty Start Date End Date Prosper Baron, PAC [address] [place] [address] PCP - General Physician Weight Yardage Checker 04/21/15
[2024-09-23] MEDS: MORPHINE SULFATE (*CRX) 4 MG/ML INJ IV PUSH ×2 (09:41→20:22)
--- NOTE | 2024-09-23 10:53 | PM.CNOR ---
Assessment and Plan Assessment and plan (1) Fracture of femoral neck, right: Code(s): S72.001A - Fracture of unspecified part of neck of right femur, initial encounter for closed fracture Status: Acute Assessment and Plan: Patient has a femoral neck fracture right. Fracture is mild displacement. I have discussed treatment options with him recommend bipolar endoprosthetic replacement. Discussed risks benefits limitations and alternatives. Will proceed per her request. History of Present Illness HPI Consult date: 09/23/24 Chief complaint: Subcapital Femur Fx Review of Systems Musculoskeletal: Musculoskeletal: Reports arthralgias and Reports stiffness Neurologic: Reports abnormal gait [facility] Past Medical History Medical History (Updated 09/23/24 @ 10:55 by Ludin Charles MD) Other specified abnormal findings of blood chemistry Other malaise Cognitive communication deficit Pain in right arm Essential (primary) hypertension Nicotine dependence, unspecified, uncomplicated Renal cell carcinoma Hyperthyroidism Cognitive deficits Right hemiplegia CVA (cerebral vascular accident) H/O renal cell cancer Peripheral vascular disease Diabetes mellitus Anemia GERD (gastroesophageal reflux disease) Obesity Hyperlipidemia Hypertension Coronary artery disease Surgical History Surgical History History of right nephrectomy History of cataract removal with insertion of prosthetic lens Right eye History of cholecystectomy History of appendectomy History of coronary artery stent placement H/O aortic valve replacement Family History Family History Sibling Hypertension Other Family history of heart attack Social History Social History Social History: Prior to her CVA the patient was independent in activities of daily living it was the primary caregiver for her . Her son will be hiring caregivers for them when she returns home. Code Status: POLST signed 03/15/23 : No CPR (DNAR) Smoking packs per day: 1 Smoking cigarettes per day: 20.0 Years smoked: 50 Smoking pack-years: 50.00 Smoking status: Former smoker Second hand tobacco smoke exposure: Yes Alcohol intake: former Substance use: never Substance use type: does not use Additional living arrangements comments: [facility] Spiritual care concerns: No Meds Home Medications and Allergies Home Medications ?Medication ?Instructions ?Recorded ?Confirmed ?Type pantoprazole 40 mg tablet,delayed 40 mg PO Q12HR #60 tabs 07/22/21 09/23/24 Rx release acetaminophen 325 mg capsule 650 mg PO Q6H PRN fever or pain 09/23/24 09/23/24 History atorvastatin 40 mg tablet 40 mg PO QHS 09/23/24 09/23/24 History carvedilol 6.25 mg tablet 6.25 mg PO BID 09/23/24 09/23/24 History ferrous sulfate 325 mg (65 mg 325 mg PO BID 09/23/24 09/23/24 History iron) tablet (Feosol) gabapentin 100 mg capsule 200 mg PO DAILY 09/23/24 09/23/24 History insulin lispro 100 unit/mL 1 sliding scale dose subcut AC 09/23/24 09/23/24 History subcutaneous solution isosorbide mononitrate 30 mg 30 mg PO DAILY 09/23/24 09/23/24 History tablet,extended release 24 hr lidocaine 4 % topical patch 1 patch topical Q12H PRN pain 09/23/24 09/23/24 History metformin 1,000 mg tablet 1,000 mg PO DAILY 09/23/24 09/23/24 History metformin 500 mg tablet 500 mg PO DAILY 09/23/24 09/23/24 History nitroglycerin 0.4 mg sublingual 0.4 mg sublingual Q5M PRN chest 09/23/24 09/23/24 History tablet pain ondansetron 4 mg disintegrating 4 mg PO Q6H PRN nausea and vomiting 09/23/24 09/23/24 History tablet polyethylene glycol 3350 17 gram 17 g PO Q12H PRN constipation 09/23/24 09/23/24 History oral powder packet (Miralax) sertraline 25 mg tablet 25 mg PO Q24H 09/23/24 09/23/24 History tramadol 50 mg tablet 50 mg PO Q8H PRN pain 09/23/24 09/23/24 History Allergies Allergy/AdvReac Type Severity Reaction Status Date / Time nicergoline Allergy Mild Unknown Verified 09/23/24 02:58 Bleach (Sodium Hypochlorite) Allergy Other Verified 09/23/24 02:58 cephalexin (From Keflex) Allergy Rash Verified 09/23/24 02:58 Vital Signs Vital Signs - 24 hr 09/23/24 02:27 09/23/24 02:38 09/23/24 02:47 Temperature 97.5 F L Pulse Rate 62 64 64 Respiratory Rate 20 24 H 23 H Blood Pressure 135/59 L 135/59 L 152/59 H Pulse Oximetry 96 96 Oxygen Delivery Room Air 09/23/24 03:02 09/23/24 03:54 09/23/24 04:26 Temperature Pulse Rate 67 77 74 Respiratory Rate 21 H 22 H 22 H Blood Pressure 145/56 H 144/60 H 158/64 H Pulse Oximetry 91 Oxygen Delivery 09/23/24 04:32 09/23/24 04:47 09/23/24 05:02 Temperature Pulse Rate 78 79 79 Respiratory Rate 22 H 21 H 20 Blood Pressure 139/59 L 130/63 136/63 Pulse Oximetry 91 90 90 Oxygen Delivery 09/23/24 05:17 09/23/24 05:32 09/23/24 05:47 Temperature Pulse Rate 82 79 83 Respiratory Rate 23 H 18 22 H Blood Pressure 139/64 137/60 134/62 Pulse Oximetry 91 91 91 Oxygen Delivery 09/23/24 06:02 09/23/24 06:32 09/23/24 07:14 Temperature Pulse Rate 82 89 85 Respiratory Rate 18 20 21 H Blood Pressure 138/63 139/65 149/67 H Pulse Oximetry 92 92 91 Oxygen Delivery 09/23/24 07:17 09/23/24 07:25 09/23/24 07:32 Temperature Pulse Rate 88 85 87 Respiratory Rate 21 H 20 20 Blood Pressure 144/66 H 144/66 H 149/81 H Pulse Oximetry 91 91 94 Oxygen Delivery 09/23/24 07:45 09/23/24 07:47 09/23/24 08:00 Temperature Pulse Rate 86 86 87 Respiratory Rate 22 H 22 H 22 H Blood Pressure 145/65 H Pulse Oximetry 91 90 90 Oxygen Delivery 09/23/24 08:02 09/23/24 09:31 Temperature Pulse Rate 87 Respiratory Rate 21 H 20 Blood Pressure 138/69 Pulse Oximetry 90 92 Oxygen Delivery Room Air Exam Narrative: Patient has pain with any manipulation of her right hip. She has pain tenderness palpation pain to manipulation. Neurologically she is intact. Results Labs 09/23/24 03:51 09/23/24 03:51 Labs: Abnormal lab results 09/23/24 09/23/24 Range/Units 03:51 04:14 WBC 12.9 H (4.5-10.0) K/mm3 RBC 3.57 L (4.2-5.4) M/mm3 Hgb 9.2 L (12.0-15.0) g/dL Hct 31.7 L (37.0-47.0) % MCH 25.8 L (26-34) pg MCHC 29.0 L (32-36) g/dl RDW 15.2 H (11.5-14.5) % Immature Gran % (Auto) 1.3 H (0-0.5) % Lymph % (Auto) 17.7 L (18.3-44.2) % [facility] # (Auto) 0.7 H (0.1-0.6) K/mm3 Abs Immat Gran (auto) 0.17 H (0.00-0.031) K/mm3 Absolute Neuts (auto) 9.4 H (1.3-6.7) K/mm3 Glucose 172 H (65-110) mg/dL Calcium 8.2 L (8.4-10.2) mg/dL NT-Pro-B Natriuret Pep 375 H (19.9-100) pg/mL Leukocyte Esterase Rfl 2+ H (Negative) JONA/UL Urine Opiates Screen Positive A (Negative) H & H 09/23/24 Range/Units 03:51 Hgb 9.2 L (12.0-15.0) g/dL Hct 31.7 L (37.0-47.0) % Coagulation 09/23/24 Range/Units 03:50 INR 1.0 All other labs normal.
--- NOTE | 2024-09-23 13:38 | P.HP_ITS ---
H&P: HPI History of Present Illness Date/Time: 09/23/24 13:38 Chief Complaint: Fall Narrative: Patient is an 79-year-old female with a past medical history of renal cell carcinoma, hyperthyroidism essential hypertension, CVA and anemia, presenting to the ER due to a fall. Patient is A&O times 1-2 at baseline. HPI difficult to ascertain given patient's underlying mentation status. Report from [facility] states ground level fall onto right side. Upon exam patient has what appears to be external rotation of the right hip with pain on palpation to lateral aspect of the right hip. Distal pulses intact. No pain at baseline or at rest, only pain with movement of the right hip. Imaging of the head and right shoulder negative for any acute findings. Orthopedics has been consulted and plans for surgical repair on 09/24. Patient is otherwise pleasant and has no complaints. NPO after midnight. In ED: BP 135/59, 96% RA, 64HR, 20 RR WBC 12.9, Hgb 9.2, Hct 31.7, CMP wnl Chest x-ray: Prominent central pulmonary venous congestive changes, stable cardiomegaly Hip and pelvis x-ray: Suspected transverse fracture of the right femoral neck Head CT: No intracranial hemorrhage, mass, or acute far. Multiple probable chronic infarcts Cervical spine: No fracture or subluxation of the cervical spine Right shoulder x-ray: Unremarkable right shoulder radiographs Hip CT: Acute subcapital fracture right femoral neck Review of Systems Review of Systems: All systems reviewed & are unremarkable except as noted in HPI and below PMFSH Past Medical History Medical History (Updated 09/23/24 @ 10:55 by Ludin Charles MD) Other specified abnormal findings of blood chemistry Other malaise Cognitive communication deficit Pain in right arm Essential (primary) hypertension Nicotine dependence, unspecified, uncomplicated Renal cell carcinoma Hyperthyroidism Cognitive deficits Right hemiplegia CVA (cerebral vascular accident) H/O renal cell cancer Peripheral vascular disease Diabetes mellitus Anemia GERD (gastroesophageal reflux disease) Obesity Hyperlipidemia Hypertension Coronary artery disease Surgical History Surgical History History of right nephrectomy History of cataract removal with insertion of prosthetic lens Right eye History of cholecystectomy History of appendectomy History of coronary artery stent placement H/O aortic valve replacement Family History Family History Sibling Hypertension Other Family history of heart attack Social History Social History Social History: Prior to her CVA the patient was independent in activities of daily living it was the primary caregiver for her . Her son will be hiring caregivers for them when she returns home. Code Status: POLST signed 03/15/23 : No CPR (DNAR) Smoking packs per day: 1 Smoking cigarettes per day: 20.0 Years smoked: 50 Smoking pack-years: 50.00 Smoking status: Former smoker Second hand tobacco smoke exposure: Yes Alcohol intake: never Substance use: never Substance use type: does not use Do You Feel Safe in your Home?: Yes Lack of Transportation: No Lack of Food: Never True Current Housing: I Have Housing Concerned About Future Housing: No Difficulty Paying Gas/Electric Bills: No Difficulty Paying for Meds: No Currently Unemployed: No Education: Don't Know Difficulty w/ Childcare or Family Care: No Additional living arrangements comments: [facility] Spiritual care concerns: No Meds Home Medications and Allergies Home Medications ?Medication ?Instructions ?Recorded ?Confirmed ?Type pantoprazole 40 mg tablet,delayed 40 mg PO Q12HR #60 tabs 07/22/21 09/23/24 Rx release acetaminophen 325 mg capsule 650 mg PO Q6H PRN fever or pain 09/23/24 09/23/24 History atorvastatin 40 mg tablet 40 mg PO QHS 09/23/24 09/23/24 History carvedilol 6.25 mg tablet 6.25 mg PO BID 09/23/24 09/23/24 History ferrous sulfate 325 mg (65 mg 325 mg PO BID 09/23/24 09/23/24 History iron) tablet (Feosol) gabapentin 100 mg capsule 200 mg PO DAILY 09/23/24 09/23/24 History insulin lispro 100 unit/mL 1 sliding scale dose subcut AC 09/23/24 09/23/24 History subcutaneous solution isosorbide mononitrate 30 mg 30 mg PO DAILY 09/23/24 09/23/24 History tablet,extended release 24 hr lidocaine 4 % topical patch 1 patch topical Q12H PRN pain 09/23/24 09/23/24 History metformin 1,000 mg tablet 1,000 mg PO DAILY 09/23/24 09/23/24 History metformin 500 mg tablet 500 mg PO DAILY 09/23/24 09/23/24 History nitroglycerin 0.4 mg sublingual 0.4 mg sublingual Q5M PRN chest 09/23/24 09/23/24 History tablet pain ondansetron 4 mg disintegrating 4 mg PO Q6H PRN nausea and vomiting 09/23/24 09/23/24 History tablet polyethylene glycol 3350 17 gram 17 g PO Q12H PRN constipation 09/23/24 09/23/24 History oral powder packet (Miralax) sertraline 25 mg tablet 25 mg PO Q24H 09/23/24 09/23/24 History tramadol 50 mg tablet 50 mg PO Q8H PRN pain 09/23/24 09/23/24 History Allergies Allergy/AdvReac Type Severity Reaction Status Date / Time nicergoline Allergy Mild Unknown Verified 09/23/24 02:58 Bleach (Sodium Hypochlorite) Allergy Other Verified 09/23/24 02:58 cephalexin (From Keflex) Allergy Rash Verified 09/23/24 02:58 Vital Signs Vital Signs - 24 hr 09/23/24 02:27 09/23/24 02:38 09/23/24 02:47 Temperature 97.5 F L Pulse Rate 62 64 64 Respiratory Rate 20 24 H 23 H Blood Pressure 135/59 L 135/59 L 152/59 H Pulse Oximetry 96 96 Oxygen Delivery Room Air 09/23/24 03:02 09/23/24 03:54 09/23/24 04:26 Temperature Pulse Rate 67 77 74 Respiratory Rate 21 H 22 H 22 H Blood Pressure 145/56 H 144/60 H 158/64 H Pulse Oximetry 91 Oxygen Delivery 09/23/24 04:32 09/23/24 04:47 09/23/24 05:02 Temperature Pulse Rate 78 79 79 Respiratory Rate 22 H 21 H 20 Blood Pressure 139/59 L 130/63 136/63 Pulse Oximetry 91 90 90 Oxygen Delivery 09/23/24 05:17 09/23/24 05:32 09/23/24 05:47 Temperature Pulse Rate 82 79 83 Respiratory Rate 23 H 18 22 H Blood Pressure 139/64 137/60 134/62 Pulse Oximetry 91 91 91 Oxygen Delivery 09/23/24 06:02 09/23/24 06:32 09/23/24 07:14 Temperature Pulse Rate 82 89 85 Respiratory Rate 18 20 21 H Blood Pressure 138/63 139/65 149/67 H Pulse Oximetry 92 92 91 Oxygen Delivery 09/23/24 07:17 09/23/24 07:25 09/23/24 07:32 Temperature Pulse Rate 88 85 87 Respiratory Rate 21 H 20 20 Blood Pressure 144/66 H 144/66 H 149/81 H Pulse Oximetry 91 91 94 Oxygen Delivery 09/23/24 07:45 09/23/24 07:47 09/23/24 08:00 Temperature Pulse Rate 86 86 87 Respiratory Rate 22 H 22 H 22 H Blood Pressure 145/65 H Pulse Oximetry 91 90 90 Oxygen Delivery 09/23/24 08:02 09/23/24 09:31 Temperature Pulse Rate 87 Respiratory Rate 21 H 20 Blood Pressure 138/69 Pulse Oximetry 90 92 Oxygen Delivery Room Air Exam Narrative: Gen - well appearing female in no acute respiratory distress who is nontoxic- appearing lying semi recumbent in bed HEENT - normocephalic. Atraumatic. Pupils equal round and reactive. Extraocular motions intact. Sclera clear and anicteric. Nares patent. Moist mucous membranes. No facial asymmetry. Neck - neck was supple. No dominant adenopathy, thyromegaly or masses. 2+ carotid upstrokes without bruits. Chest - lungs are clear to auscultation bilaterally. No wheezes or crackles. CV - heart was regular rate and rhythm. S1-S2. No murmurs gallops or rubs. Abd - abdomen soft. Nontender. Nondistended. Positive bowel sounds. Ext -pain with rotation or palpation of right hip. Neurovascularly intact. Right Shoulder nontender upon palpation. No pain with movement, range of motion appropriate. No clubbing, cyanosis or edema. 2+ DP pulses bilaterally. Neuro - patient is alert and oriented x2. Strength is 5/5 in both upper and lower extremities. Cranial nerves 2-12 are intact. Speech is clear. Psych - normal mood and affect. Patient is pleasant and cooperative. Skin - warm and dry. No rashes noted. H&P: Results Labs Labs: Short CBC 09/23/24 Range/Units 03:51 WBC 12.9 H (4.5-10.0) K/mm3 Hgb 9.2 L (12.0-15.0) g/dL Hct 31.7 L (37.0-47.0) % Plt Count 374 (150-375) k/mm3 BMP 09/23/24 03:51 Sodium 141 Potassium 3.8 Chloride 106 Carbon Dioxide 23 BUN 17 Creatinine 0.87 Glucose 172 H Calcium 8.2 L Liver Function 09/23/24 Range/Units 03:51 Total Bilirubin 0.2 (0.2-1.3) mg/dL AST 24 (14-36) U/L ALT 22 (6-35) U/L Alkaline Phosphatase 92 (38-126) U/L Albumin 3.7 (3.5-5.1) g/dL Urine 09/23/24 Range/Units 04:14 Urine Color Yellow (Yellow) Urine Appearance Clear (Clear) Urine pH 6.5 (5.0-9.0) Ur Specific Col[place] 1.017 (1.001-1.035) Urine Protein Negative (Negative) mg/dL Urine Glucose (UA) Negative (Negative) mg/dL Assessment and Plan Assessment and plan (1) Fracture of femoral neck, right: Code(s): S72.001A - Fracture of unspecified part of neck of right femur, initial encounter for closed fracture Status: Acute Assessment and Plan: Patient is an 79-year-old female coming from [facility] after a ground level fall. * Hip/pelvis x-ray: Suspected transverse fracture of the femoral neck * Cervical spine CT: No fracture or subluxation of cervical spine, degenerative spondylosis * Hip CT: Acute subcapital fracture of the right femoral neck * Orthopedics consulted * Tentatively scheduled for right bipolar hip replacement on 09/24 at 1:30 p.m. * Restart medications, NPO at midnight * IV Morphine for prn pain (2) Fall: Code(s): W19.XXXA - Unspecified fall, initial encounter Status: Acute Assessment and Plan: * See above * Head CT: * Multiple probable chronic infarcts * No intracranial hemorrhage, mass or acute infarct * Atrophy and chronic white matter changes * Shoulder x-ray * Unremarkable right shoulder radiograph (3) Diabetes mellitus: Code(s): E11.9 - Type 2 diabetes mellitus without complications Status: Acute Assessment and Plan: - hypoglycemia protocol - POC blood glucose ACHS - home medication - Metformin, hold - correct regimen ordered -SSI - A1C pending (4) Anemia: Qualifiers: Anemia type: unspecified type Qualified Code(s): D64.9 - Anemia, unspecified Code(s): D64.9 - Anemia, unspecified Status: Acute Assessment and Plan: - Hgb 9.2 - transfuse if <7 - trend H&H (5) Hypertension: Code(s): I10 - Essential (primary) hypertension Status: Acute Assessment and Plan: Patient's blood pressure was reviewed on 09/23 Blood pressure remains well controlled. Will continue current medications. 134/59 Quality VTE Prophylaxis VTE prophylaxis: mechanical ordered
[2024-09-23 16:39] LABS: Hemoglobin A1C 7.5 % (<5.7)
[2024-09-23 16:47] LABS: Glucose Point of Care 219 mg/dl (65-105)
[2024-09-23] MEDS: INSULIN ASPART (*BKC) 100 UNITS/ML SUB-Q (16:47)
[2024-09-23] MEDS: FERROUS SULFATE 325 MG TABLET DR BY MOUTH (16:47)
--- NOTE | 2024-09-23 18:35 | PC.NURSE ---
Zee at [facility] denies that patient wears glasses or hearing aides,
[2024-09-23] MEDS: ATORVASTATIN 40 MG TABLET PO (20:34)
[2024-09-23] MEDS: PANTOPRAZOLE 40 MG TABLET PO (20:34)
[2024-09-23] MEDS: carvediloL 6.25 MG TABLET PO (20:35)
[2024-09-23 21:33] LABS: Glucose Point of Care 157 mg/dl (65-105)
[2024-09-24] VITALS (16 sets, daily range): BP systolic 110–150; BP diastolic 53–76; PULSE 80–105; RESP 10–20; TEMP 36.3–37.2; O2SAT 89–100
[2024-09-24 06:10] LABS: Basophils Absolute Auto 0.1 K/mm3 (0.0-0.1); Basophils Percent Auto 0.7 % (0.2-1.2); Eosinophils Absolute Auto 0.2 K/mm3 (0-0.3); Eosinophils Percent Auto 1.7 % (0-4.4); Hematocrit 32.1 % (37.0-47.0); Hemoglobin 9.5 g/dL (12.0-15.0); Immature Granulocyte Percent A 0.8 % (0-0.5); Lymphocytes Absolute Auto 1.34 K/mm3 (0.9-3.2); Mean Corpuscular HGB Conc 29.6 g/dl (32-36); Mean Corpuscular Volume 87.9 fl (80-100); Mean Platelet Volume 9.7 fl (7.4-10.4); Monocytes Absolute Auto 0.9 K/mm3 (0.1-0.6); Monocytes Percent Auto 7.7 % (2.6-8.5); Neutrophils Absolute Auto 9.6 K/mm3 (1.3-6.7); Neutrophils Percent Auto 78.1 % (45.5-73.1); Platelet Count Result 320 k/mm3 (150-375); Red Blood Count 3.65 M/mm3 (4.2-5.4); Red Cell Distribution Width 15.1 % (11.5-14.5); White Blood Count 12.2 K/mm3 (4.5-10.0)
[2024-09-24 06:24] LABS: Alanine Aminotransferase 17 U/L (6-35); Albumin Level 3.7 g/dL (3.5-5.1); Alkaline Phosphatase 92 U/L (38-126); Anion Gap 9 mmol/L (4-12); Aspartate Amino Transferase 22 U/L (14-36); Bilirubin,Total 0.4 mg/dL (0.2-1.3); Blood Urea Nitrogen 15 mg/dL (7-17); Calcium 7.9 mg/dL (8.4-10.2); Carbon Dioxide 25 mmol/L (22-30); Chloride 104 mmol/L (98-107); Estimated CRCL calculation 55 ml/min; Estimated Glomerular Filt Rate > 60; Glucose 164 mg/dL (65-110); Potassium 3.6 mmol/L (3.4-5.0); Sodium 138 mmol/L (137-145)
[2024-09-24 06:57] LABS: Hypochromasia 1+; Platelet Estimate Adequate (Adequate); Schistocytes None Seen
[2024-09-24 08:22] LABS: Glucose Point of Care 170 mg/dl (65-105)
[2024-09-24] MEDS: ISOSORBIDE MONONITRATE 30 MG TAB.ER.24H PO (08:37)
[2024-09-24] MEDS: carvediloL 6.25 MG TABLET PO ×2 (08:38→22:09)
[2024-09-24] MEDS: MORPHINE SULFATE (*CRX) 4 MG/ML INJ IV PUSH (08:38)
[2024-09-24] MEDS: GABAPENTIN 100 MG CAPSULE 200 MG PO (08:38)
[2024-09-24] MEDS: SERTRALINE HCL 25 MG TABLET PO (08:38)
[2024-09-24 11:54] LABS: Glucose Point of Care 167 mg/dl (65-105)
--- NOTE | 2024-09-24 12:55 | PC.NURSE ---
To OR via bed. Family at bedside.
[2024-09-24] MEDS: TRANEXAMIC ACID 1,000MG/ISO100 1,000 MG/100 ML BAG 200 MG IVPB (13:15)
[2024-09-24] MEDS: VANCOMYCIN 1,500 MG/NS 500 ML BAG 250 MG IVPB (13:20)
[2024-09-24] MEDS: MORPHINE SULFATE (*CRX) 2 MG/ML INJ IV PUSH (13:30)
[2024-09-24] MEDS: LACTATED RINGERS 1,000 ML 30 ML IV CONT ×2 (13:30→16:15)
--- NOTE | 2024-09-24 13:48 | SUR.PREOP ---
HAIR REMOVAL DEFERRED DUE TO PAIN
--- NOTE | 2024-09-24 13:58 | WPDANESEPPF ---
Anes - Initial Pre Proc Eval Procedure: Operation Date: 09/24/24 13:30 Proposed Procedures p Right Bipolar Hip Replacement - Ludin Charles MD Date/Time: 09/24/24 13:58 Surgeon: Samreen Srinivasan APRN Pre Op Diagnosis: Subcapital Femur Fx Patient Data Age: 79 Gender: F Height: 1.63 m Weight: 93.4 kg Last Vital Signs Temp 98.9 F 09/24/24 13:10 Pulse 84 09/24/24 13:10 Resp 20 09/24/24 13:10 BP 110/59 L 09/24/24 13:10 Pulse Ox 97 09/24/24 13:20 O2 Del Method Nasal Cannula 09/24/24 13:20 O2 Flow Rate 2 09/24/24 13:20 Allergies Allergy/AdvReac Type Severity Reaction Status Date / Time nicergoline Allergy Mild Unknown Verified 09/23/24 02:58 Bleach (Sodium Hypochlorite) Allergy Other Verified 09/23/24 02:58 cephalexin (From Keflex) Allergy Rash Verified 09/23/24 02:58 Home Medications ?Medication ?Instructions ?Recorded ?Confirmed ?Type pantoprazole 40 mg tablet,delayed 40 mg PO Q12HR #60 tabs 07/22/21 09/23/24 Rx release acetaminophen 325 mg capsule 650 mg PO Q6H PRN fever or pain 09/23/24 09/23/24 History atorvastatin 40 mg tablet 40 mg PO QHS 09/23/24 09/23/24 History carvedilol 6.25 mg tablet 6.25 mg PO BID 09/23/24 09/23/24 History ferrous sulfate 325 mg (65 mg 325 mg PO BID 09/23/24 09/23/24 History iron) tablet (Feosol) gabapentin 100 mg capsule 200 mg PO DAILY 09/23/24 09/23/24 History insulin lispro 100 unit/mL 1 sliding scale dose subcut AC 09/23/24 09/23/24 History subcutaneous solution isosorbide mononitrate 30 mg 30 mg PO DAILY 09/23/24 09/23/24 History tablet,extended release 24 hr lidocaine 4 % topical patch 1 patch topical Q12H PRN pain 09/23/24 09/23/24 History metformin 1,000 mg tablet 1,000 mg PO DAILY 09/23/24 09/23/24 History metformin 500 mg tablet 500 mg PO DAILY 09/23/24 09/23/24 History nitroglycerin 0.4 mg sublingual 0.4 mg sublingual Q5M PRN chest 09/23/24 09/23/24 History tablet pain ondansetron 4 mg disintegrating 4 mg PO Q6H PRN nausea and vomiting 09/23/24 09/23/24 History tablet polyethylene glycol 3350 17 gram 17 g PO Q12H PRN constipation 09/23/24 09/23/24 History oral powder packet (Miralax) sertraline 25 mg tablet 25 mg PO Q24H 09/23/24 09/23/24 History tramadol 50 mg tablet 50 mg PO Q8H PRN pain 09/23/24 09/23/24 History Laboratory Tests 09/23/24 09/23/24 09/23/24 03:51 16:40 21:26 WBC RBC Hgb Hct MCV MCH MCHC RDW Plt Count MPV Immature Gran % (Auto) Neut % (Auto) Lymph % (Auto) Citrus % (Auto) Eos % (Auto) Baso % (Auto) Lymph # (Auto) [place] # (Auto) Eos # (Auto) Baso # (Auto) Abs Immat Gran (auto) Absolute Neuts (auto) Absolute Nucleated RBC Band Neutrophils % Nucleated RBC % Platelet Estimate Hypochromasia Schistocytes Sodium Potassium Chloride Carbon Dioxide Anion Gap BUN Creatinine Estim Creat Clear Calc Estimated GFR Glucose POC Capillary Glucose 219 H mg/dl 157 H mg/dl (65-105) (65-105) Hemoglobin A1c 7.5 H % (<5.7) Calcium Total Bilirubin AST ALT Alkaline Phosphatase Total Protein Albumin 09/24/24 09/24/24 09/24/24 05: 08:06 11:49 WBC 12.2 H K/mm3 (4.5-10.0) RBC 3.65 L M/mm3 (4.2-5.4) Hgb 9.5 L g/dL (12.0-15.0) Hct 32.1 L % (37.0-47.0) MCV 87.9 fl (80-100) MCH 26.0 pg (26-34) MCHC 29.6 L g/dl (32-36) RDW 15.1 H % (11.5-14.5) Plt Count 320 k/mm3 (150-375) MPV 9.7 fl (7.4-10.4) Immature Gran % (Auto) 0.8 H % (0-0.5) Neut % (Auto) 78.1 H % (45.5-73.1) Lymph % (Auto) 11.0 L % (18.3-44.2) Citrus % (Auto) 7.7 % (2.6-8.5) Eos % (Auto) 1.7 % (0-4.4) Baso % (Auto) 0.7 % (0.2-1.2) Lymph # (Auto) 1.34 K/mm3 (0.9-3.2) Citrus # (Auto) 0.9 H K/mm3 (0.1-0.6) Eos # (Auto) 0.2 K/mm3 (0-0.3) Baso # (Auto) 0.1 K/mm3 (0.0-0.1) Abs Immat Gran (auto) 0.10 H K/mm3 (0.00-0.031) Absolute Neuts (auto) 9.6 H K/mm3 (1.3-6.7) Absolute Nucleated RBC 0.000 K/mm3 (0.0-0.012) Band Neutrophils % Not Reportable Nucleated RBC % 0.0 % (0.0-0.2) Platelet Estimate Adequate (Adequate) Hypochromasia 1+ Schistocytes None seen Sodium 138 mmol/L (137-145) Potassium 3.6 mmol/L (3.4-5.0) Chloride 104 mmol/L (98-107) Carbon Dioxide 25 mmol/L (22-30) Anion Gap 9 mmol/L (4-12) BUN 15 mg/dL (7-17) Creatinine 0.79 mg/dL (0.7-1.0) Estim Creat Clear Calc 55 ml/min Estimated GFR > 60 (59 - ) Glucose 164 H mg/dL (65-110) POC Capillary Glucose 170 H mg/dl 167 H mg/dl (65-105) (65-105) Hemoglobin A1c Calcium 7.9 L mg/dL (8.4-10.2) Total Bilirubin 0.4 mg/dL (0.2-1.3) AST 22 U/L (14-36) ALT 17 U/L (6-35) Alkaline Phosphatase 92 U/L (38-126) Total Protein 7.0 g/dL (6.3-8.2) Albumin 3.7 g/dL (3.5-5.1) Patient hx anesthesia problems: none Family hx anesthesia problems: none Results Review: All pre-operative results and documents have been reviewed as part of the pre-operative evaluation. [facility]LY [facility] Past Medical History Medical History Other specified abnormal findings of blood chemistry Other malaise Cognitive communication deficit Pain in right arm Essential (primary) hypertension Nicotine dependence, unspecified, uncomplicated Renal cell carcinoma Hyperthyroidism Cognitive deficits Right hemiplegia CVA (cerebral vascular accident) H/O renal cell cancer Peripheral vascular disease Diabetes mellitus Anemia GERD (gastroesophageal reflux disease) Obesity Hyperlipidemia Hypertension Coronary artery disease Surgical History Surgical History History of right nephrectomy History of cataract removal with insertion of prosthetic lens Right eye History of cholecystectomy History of appendectomy History of coronary artery stent placement H/O aortic valve replacement Family History Family History Sibling Hypertension Other Family history of heart attack Social History Social History Social History: Prior to her CVA the patient was independent in activities of daily living it was the primary caregiver for her . Her son will be hiring caregivers for them when she returns home. Code Status: POLST signed 03/15/23 : No CPR (DNAR) Smoking packs per day: 1 Smoking cigarettes per day: 20.0 Years smoked: 50 Smoking pack-years: 50.00 Smoking status: Former smoker Second hand tobacco smoke exposure: Yes Alcohol intake: never Substance use: never Substance use type: does not use Do You Feel Safe in your Home?: Yes Lack of Transportation: No Lack of Food: Never True Current Housing: I Have Housing Concerned About Future Housing: No Difficulty Paying Gas/Electric Bills: No Difficulty Paying for Meds: No Currently Unemployed: No Education: Don't Know Difficulty w/ Childcare or Family Care: No Additional living arrangements comments: [facility] Spiritual care concerns: No Anes - Eval Final PreProcedure Day of Procedure 09/24/24 13:58 Patient weight: obese Lungs: normal air movement Airway: Mallampati scale class II Neurological: alert and oriented Last oral intake: >/= 8 hours ASA classification: IV Emergent: no Anesthetic plan: proceed Anesthesia type and monitoring: general and standard monitoring Results Review: All pre-operative results and documents have been reviewed as part of the pre-operative evaluation. Pt w many comorbid conditions, discussed w pt and her son. Mechanical fall now for ortho procedure. DNR form noted and I have discussed w son and selected goal specific # 3. Informed Consent: The patient's anesthetic plan and its attendant risks and benefits were discussed with the patient/family/POA. Questions were solicited and answers provided to the satisfaction of the patient/family/POA.
--- NOTE | 2024-09-24 14:35 | PM.IMPN ---
Progress Note: A&P Assessment and Plan (1) Fracture of femoral neck, right: Code(s): S72.001A - Fracture of unspecified part of neck of right femur, initial encounter for closed fracture Status: Acute Assessment and Plan: Patient is an 79-year-old female coming from [facility] after a ground level fall. Hip/pelvis x-ray: Suspected transverse fracture of the femoral neck Cervical spine CT: No fracture or subluxation of cervical spine, degenerative spondylosis Hip CT: Acute subcapital fracture of the right femoral neck Orthopedics consulted Tentatively scheduled for right bipolar hip replacement on 09/24 at 1:30 p.m. Restart medications, NPO for OR IV Morphine for prn pain (2) Fall: Code(s): W19.XXXA - Unspecified fall, initial encounter Status: Acute Assessment and Plan: See above 09/[address] Multiple probable chronic infarcts, No intracranial hemorrhage, mass or acute infarct, Atrophy and chronic white matter changes Shoulder x-ray Unremarkable right shoulder radiograph (3) Diabetes mellitus: Code(s): E11.9 - Type 2 diabetes mellitus without complications Status: Acute Assessment and Plan: Hypoglycemia protocol - POC blood glucose ACHS - home medication - Metformin, holding - continue SSI - A1C pending (4) Anemia: Qualifiers: Anemia type: unspecified type Qualified Code(s): D64.9 - Anemia, unspecified Code(s): D64.9 - Anemia, unspecified Status: Acute Assessment and Plan: - Hgb 9.2/32.1 - transfuse if <7 - trend H&H (5) Hypertension: Code(s): I10 - Essential (primary) hypertension Status: Acute Assessment and Plan: Blood pressure remains well controlled, 110/59 Will continue current medications, carvedilol 6.25 BID, isosorbide 30 daily, Time Spent With Patient Time: 52 minutes Subjective Date/time seen: 09/24/24 14:35 Interval history: Having hip pain. Otherwise no complaints at rest. Pleasantly confused. Planning OR today with orthopedic surgery. VS, on RA Review of Systems Review of Systems: All systems reviewed & are unremarkable except as noted in HPI and below Exam Narrative: Gen - well appearing female in no acute respiratory distress who is nontoxic-appearing lying semi recumbent in bed HEENT - normocephalic. Atraumatic. Pupils equal round and reactive. Extraocular motions intact. Sclera clear and anicteric. Nares patent. Moist mucous membranes. No facial asymmetry. Neck - neck was supple. No dominant adenopathy, thyromegaly or masses. 2+ carotid upstrokes without bruits. Chest - lungs are clear to auscultation bilaterally. No wheezes or crackles. CV - heart was regular rate and rhythm. S1-S2. No murmurs gallops or rubs. Abd - abdomen soft. Nontender. Nondistended. Positive bowel sounds. Ext -pain with rotation or palpation of right hip. Neurovascularly intact. Right Shoulder nontender upon palpation. No pain with movement, range of motion appropriate. No clubbing, cyanosis or edema. 2+ DP pulses bilaterally. Neuro - patient is alert and oriented x1, pleasantly confused. Strength is 5/5 in both upper and lower extremities. Cranial nerves 2-12 are intact. Speech is clear. Psych - normal mood and affect. Patient is pleasant and cooperative. Skin - warm and dry. No rashes noted. Objective Data Vital Signs Vital Signs: Vital Signs - 24 hr 09/23/24 20:25 09/23/24 20:35 09/23/24 22:00 Temperature 97.5 F L Pulse Rate 82 82 Respiratory Rate 18 Blood Pressure 154/78 H Pulse Oximetry 94 Oxygen Delivery Room Air Oxygen Flow Rate 09/24/24 06:00 09/24/24 08:38 09/24/24 08:38 Temperature 97.3 F L Pulse Rate 80 80 80 Respiratory Rate 18 18 Blood Pressure 150/53 H Pulse Oximetry 90 90 Oxygen Delivery Room Air Oxygen Flow Rate 09/24/24 13:10 09/24/24 13:20 Temperature 98.9 F Pulse Rate 84 Respiratory Rate 20 Blood Pressure 110/59 L Pulse Oximetry 89 L 97 Oxygen Delivery Room Air Nasal Cannula Oxygen Flow Rate 2 Intake/Output Intake/Output: Intake & Output 09/21/24 09/22/24 09/23/24 09/24/24 23:59 23:59 23:59 23:59 Intake Total 250 200 Output Total 475 700 Balance -225 -500 Meds/Results Medications: Active Medications Generic Name Dose Route Start Last Admin Trade Name Freq PRN Reason Stop Dose Admin Acetaminophen 650 mg 09/23/24 16:08 Acetaminophen 325 Mg Tablet PO Q6H PRN fever or mild pain Atorvastatin Calcium 40 mg 09/23/24 21:00 09/23/24 20:34 Atorvastatin 40 Mg Tablet PO 40 mg QHS MEGAN Administration Carvedilol 6.25 mg 09/23/24 21:00 09/24/24 08:38 Carvedilol 6.25 Mg Tablet PO 6.25 mg Q12HR MEGAN Administration Dextrose 12.5 gm 09/23/24 16:15 Dextrose 50% 25 Gm/50 Ml Syringe IV PUSH PRN PRN Hypoglycemia Protocol Fentanyl Citrate 25 mcg 09/23/24 13:09 Fentanyl Citrate Inj (*Crx) 100 Mcg/2 Ml Vial IV PUSH Q2M PRN Pain Ferrous Sulfate 325 mg 09/23/24 17:00 09/24/24 08:34 Ferrous Sulfate [address] BY MOUTH Not Given BID MEGAN Gabapentin 200 mg 09/24/24 09:00 09/24/24 08:38 Gabapentin 100 Mg Capsule PO 200 mg DAILY MEGAN Administration Glucagon 1 mg 09/23/24 16:15 Glucagon For Inj 1 Mg Vial IM PRN PRN Hypoglycemia Protocol Glucose 15 gm 09/23/24 16:15 Glucose Oral Gel 15 Gm Of Glucse In 37.5 Gm Tube PO PRN PRN Hypoglycemia Protocol Lactated Ringer's 1,000 mls @ 30 mls/hr 09/23/24 13:10 09/24/24 13:30 Lr - Lactated Ringers Iv IV CONT 30 mls/hr .Q24H MEGAN Administration Lactated Ringer's 1,000 mls @ 30 mls/hr 09/23/24 13:10 Lr - Lactated Ringers Iv IV CONT .Q24H MEGAN Dextrose 1,000 mls @ 100 mls/hr 09/23/24 16:15 Dextrose 5% 1,000 Ml IVPB PRN PRN Hypoglycemia Protocol Insulin Aspart 4 - 8 units 09/23/24 17:00 09/24/24 11:58 Insulin Aspart (*Bkc) 100 Units/Ml SUB-Q Not Given TIDWM MEGAN Protocol Insulin Aspart 2 - 4 units 09/23/24 21:00 09/23/24 21:28 Insulin Aspart (*Bkc) 100 Units/Ml SUB-Q Not Given HS [facility] Protocol Isosorbide Mononitrate 30 mg 09/24/24 09:00 09/24/24 08:37 Isosorbide Mononitrate 30 Mg Tab.Er.24h PO 30 mg DAILY MEGAN Administration Lidocaine 1 patch 09/23/24 16:26 Lidocaine 5% Patch TRANSDERM DAILY PRN pain Morphine Sulfate 4 mg 09/23/24 07:52 09/24/24 08:38 Morphine Sulfate (*Crx) 4 Mg/Ml Inj IV PUSH 4 mg Q2H PRN Administration Pain Rated 7-10 Nitroglycerin 0.4 mg 09/23/24 16:08 Nitroglycerin Sl 0.4 Mg Tablet SUBLINGUAL Q5MIN PRN chest pain Ondansetron HCl 4 mg 09/23/24 07:52 Ondansetron Inj 4 Mg/2 Ml Vial IV PUSH Q4H PRN Nausea Ondansetron HCl 4 mg 09/23/24 13:09 Ondansetron Inj 4 Mg/2 Ml Vial IV PUSH ONCE PRN Nausea Ondansetron HCl 4 mg 09/23/24 16:08 Ondansetron Hcl Odt 4 Mg Tablet PO Q6H PRN nausea and vomiting Oxycodone HCl 5 mg 09/23/24 13:09 Oxycodone Hcl (*Crx) 5 Mg Tab Ir PO ONCE PRN Pain Pantoprazole Sodium 40 mg 09/23/24 21:00 09/24/24 08:37 Pantoprazole 40 Mg Tablet PO Not Given Q12HR MEGAN Polyethylene Glycol 17 gm 09/23/24 16:08 Polyethylene Glycol 3350 17 Gm Powd.Pack PO Q12H PRN constipation Sertraline HCl 25 mg 09/24/24 09:00 09/24/24 08:38 Sertraline Hcl 25 Mg Tablet PO 25 mg Q24H MEGAN Administration Tramadol HCl 50 mg 09/23/24 16:08 Tramadol Hcl (*Crx) 50 Mg Tablet PO Q8H PRN moderate pain Radiology Results: ITS Impressions Chest X-Ray 09/23/24 05:59 Impression: Prominent central pulmonary venous congestive changes. Stable cardiomegaly. Hip/Pelvis X-Ray 09/23/24 05:59 Impression: Suspected transverse fracture the right femoral neck. Consider cross-sectional imaging for further evaluation. Head CT 09/23/24 06:00 Impression: No intracranial hemorrhage, mass, or acute infarct. 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 Atrophy and chronic white matter changes, as above. Cervical Spine CT 09/23/24 06:28 Impression: No fracture or subluxation of the cervical spine. Degenerative spondylosis, as above. Shoulder X-Ray 09/23/24 06:49 Impression: Unremarkable right shoulder radiographs. Hip CT 09/23/24 07:06 IMPRESSION: Acute subcapital fracture of the right femoral neck, as detailed above. Labs Labs: Laboratory Results - last 24 hr 09/23/24 09/23/24 09/23/24 03:51 16:40 21:26 WBC RBC Hgb Hct MCV MCH MCHC RDW Plt Count MPV Immature Gran % (Auto) Neut % (Auto) Lymph % (Auto) Marshall % (Auto) Eos % (Auto) Baso % (Auto) Lymph # (Auto) [place] # (Auto) Eos # (Auto) Baso # (Auto) Abs Immat Gran (auto) Absolute Neuts (auto) Absolute Nucleated RBC Band Neutrophils % Nucleated RBC % Platelet Estimate Hypochromasia Schistocytes Sodium Potassium Chloride Carbon Dioxide Anion Gap BUN Creatinine Estim Creat Clear Calc Estimated GFR Glucose POC Capillary Glucose 219 H 157 H Hemoglobin A1c 7.5 H Calcium Total Bilirubin AST ALT Alkaline Phosphatase Total Protein Albumin 09/24/24 09/24/24 09/24/24 05:27 08:06 11:49 WBC 12.2 H RBC 3.65 L Hgb 9.5 L Hct 32.1 L MCV 87.9 MCH 26.0 MCHC 29.6 L RDW 15.1 H Plt Count 320 MPV 9.7 Immature Gran % (Auto) 0.8 H Neut % (Auto) 78.1 H Lymph % (Auto) 11.0 L Marshall % (Auto) 7.7 Eos % (Auto) 1.7 Baso % (Auto) 0.7 Lymph # (Auto) 1.34 Marshall # (Auto) 0.9 H Eos # (Auto) 0.2 Baso # (Auto) 0.1 Abs Immat Gran (auto) 0.10 H Absolute Neuts (auto) 9.6 H Absolute Nucleated RBC 0.000 Band Neutrophils % Not Reportable Nucleated RBC % 0.0 Platelet Estimate Adequate Hypochromasia 1+ Schistocytes None seen Sodium 138 Potassium 3.6 Chloride 104 Carbon Dioxide 25 Anion Gap 9 BUN 15 Creatinine 0.79 Estim Creat Clear Calc 55 Estimated GFR > 60 Glucose 164 H POC Capillary Glucose 170 H 167 H Hemoglobin A1c Calcium 7.9 L Total Bilirubin 0.4 AST 22 ALT 17 Alkaline Phosphatase 92 Total Protein 7.0 Albumin 3.7 Quality VTE Prophylaxis VTE prophylaxis: mechanical ordered Hospitalist MIPS Advance Care Plan I have confirmed that the patient's Advanced Care Plan is present, code status is documented, or surrogate decision maker is listed in patient medical record.: Yes Medication Reconciliation I have utilized all available resources to obtain, update and review the patients current medications (includes all prescriptions, OTC, herbals, cannabis, and nutritional supplements).: Yes The patient is not eligible for med reconciliation; the patient is in a emergent medical situation where delaying treatment would jeopardize the patients health.: Yes
--- NOTE | 2024-09-24 15:31 | W.PM.PROC2 ---
Procedure Note - Detailed Date of Procedure 09/24/24 Pre-op Diagnosis Subcapital Femur Fx RIGHT Post-op Diagnosis Same Procedure Performed Bipolar replacement Surgeon Ludin Charles MD Anesthesia General Description of Procedure Patient brought to operating room #7. A general anesthetic was administered. She was placed with the right hip up. Longitudinal incision made over the hip. Dissection carried down to the fascia. A Walker type approach was used. And the femoral neck delivered into the wound. This was cut a fingerbreadth above the lesser trochanter. Head was removed with a acetabular knife and a corkscrew. Measuring 47 millimeters. If the femur is reamed and broached to accept a 4. +0 head was chosen along with a 47 millimeter bipolar. This gave excellent alignment fixation. The wounds irrigated. Hemostasis obtained. Closed with 5. Ethibond 2. Vicryl 2-0 Vicryl and art. Patient left the operating room satisfactory condition. Implants Theodora Estimated Blood Loss 500 Urine Output 150 [facility] Billing Surgery - Charge Forward: Surgery Billing ([id number] Bipolar)
[2024-09-24 17:02] LABS: Glucose Point of Care 189 mg/dl (65-105)
--- NOTE | 2024-09-24 17:25 | PC.NURSE ---
Return from OR via bed.
[2024-09-24] MEDS: SODIUM CHLORIDE 0.9% IV 1,000 ML 125 ML IV CONT (17:41)
[2024-09-24] MEDS: RIVAROXABAN 10 MG TABLET PO (17:41)
[2024-09-24] MEDS: FERROUS SULFATE 325 MG TABLET DR BY MOUTH (17:47)
[2024-09-24 20:19] LABS: Glucose Point of Care 198 mg/dl (65-105)
[2024-09-24] MEDS: ceFAZolin 2 GM/D5W 50 ML 2 GM/50 ML BAG IVPB (22:06)
[2024-09-24] MEDS: PANTOPRAZOLE 40 MG TABLET PO (22:08)
[2024-09-24] MEDS: ATORVASTATIN 40 MG TABLET PO (22:08)
[2024-09-25] VITALS (9 sets, daily range): BP systolic 127–144; BP diastolic 51–86; PULSE 72–117; RESP 16–20; TEMP 36–37.1; O2SAT 89–100; BMI 10.0
[2024-09-25] MEDS: SODIUM CHLORIDE 0.9% IV 1,000 ML 125 ML IV CONT (02:09)
[2024-09-25] MEDS: HYDROcodone/acetaminophen (*CRX) 5-325 MG TABLET 1 TAB PO ×3 (02:53→21:01)
[2024-09-25] MEDS: ceFAZolin 2 GM/D5W 50 ML 2 GM/50 ML BAG IVPB ×2 (05:19→13:14)
[2024-09-25 05:51] LABS: Basophils Absolute Auto 0.1 K/mm3 (0.0-0.1); Basophils Percent Auto 0.6 % (0.2-1.2); Eosinophils Absolute Auto 0.2 K/mm3 (0-0.3); Eosinophils Percent Auto 1.6 % (0-4.4); Hematocrit 29.2 % (37.0-47.0); Immature Granulocyte Absolute 0.07 K/mm3 (0.00-0.031); Immature Granulocyte Percent A 0.6 % (0-0.5); Lymphocytes Absolute Auto 1.41 K/mm3 (0.9-3.2); Lymphocytes Percent Auto 11.5 % (18.3-44.2); Mean Corpuscular HGB Conc 27.4 g/dl (32-36); Mean Corpuscular Hemoglobin 26.1 pg (26-34); Mean Corpuscular Volume 95.1 fl (80-100); Mean Platelet Volume 9.9 fl (7.4-10.4); Monocytes Absolute Auto 0.9 K/mm3 (0.1-0.6); Monocytes Percent Auto 7.6 % (2.6-8.5); Neutrophils Absolute Auto 9.6 K/mm3 (1.3-6.7); Neutrophils Percent Auto 78.1 % (45.5-73.1); Platelet Count Result 240 k/mm3 (150-375); Red Blood Count 3.07 M/mm3 (4.2-5.4); Red Cell Distribution Width 15.4 % (11.5-14.5); White Blood Count 12.3 K/mm3 (4.5-10.0)
[2024-09-25 06:01] LABS: Alanine Aminotransferase 19 U/L (6-35); Alkaline Phosphatase 58 U/L (38-126); Anion Gap 7 mmol/L (4-12); Aspartate Amino Transferase 39 U/L (14-36); Bilirubin,Total 0.4 mg/dL (0.2-1.3); Blood Urea Nitrogen 15 mg/dL (7-17); Calcium 7.1 mg/dL (8.4-10.2); Carbon Dioxide 20 mmol/L (22-30); Chloride 109 mmol/L (98-107); Estimated CRCL calculation 53 ml/min; Estimated Glomerular Filt Rate > 60; Glucose 196 mg/dL (65-110); Sodium 136 mmol/L (137-145)
[2024-09-25 06:50] LABS: Hypochromasia 1+; Platelet Estimate Adequate (Adequate); Schistocytes None Seen
[2024-09-25 06:51] LABS: Acanthocytes 1+; Anisocytosis 1+
--- NOTE | 2024-09-25 07:29 | PM.PNORT ---
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 She is ambulatory. She is quite confused. Prefer she not walk on it but she probably well. We will ambulate her today slowly. And try to return to the [facility] when she is medically cleared. Subjective Subjective Date/Time Seen: 09/25/24 07:29 Post Op day: 1 Principal diagnosis: Bipolar prosthesis for right hip fracture Review of Systems Review of Systems: All systems reviewed & are unremarkable except as noted in HPI and below Exam Narrative: Patient is confused. Her dressing is intact. She can wiggle her toes. Objective Data Vital Signs Vital Signs: Vital Signs - 24 hr 09/24/24 08:38 09/24/24 08:38 09/24/24 13:10 Temperature 98.9 F Pulse Rate 80 80 84 Respiratory Rate 18 20 Blood Pressure 110/59 L Pulse Oximetry 90 89 L Oxygen Delivery Room Air Room Air Oxygen Flow Rate 09/24/24 13:20 09/24/24 16:15 09/24/24 16:30 Temperature 98.8 F Pulse Rate 105 H 102 H Respiratory Rate 20 10 L Blood Pressure 148/61 H 128/76 Pulse Oximetry 97 100 100 Oxygen Delivery Nasal Cannula Simple Face Mask Simple Face Mask Oxygen Flow Rate 2 8 8 09/24/24 16:45 09/24/24 17:00 09/24/24 17:15 Temperature 97.4 F L Pulse Rate 99 92 92 Respiratory Rate 12 14 14 Blood Pressure 126/73 125/65 112/61 Pulse Oximetry 93 95 97 Oxygen Delivery Nasal Cannula Nasal Cannula Nasal Cannula Oxygen Flow Rate 3 3 3 09/24/24 17:25 09/24/24 17:30 09/24/24 17:40 Temperature 98.4 F 97.9 F Pulse Rate 91 94 Respiratory Rate 18 18 18 Blood Pressure 112/56 L 119/54 L Pulse Oximetry 97 95 97 Oxygen Delivery Nasal Cannula Oxygen Flow Rate 3 09/24/24 18:10 09/24/24 20:00 09/24/24 21:28 Temperature 98.2 F 97.9 F Pulse Rate 97 84 Respiratory Rate 18 18 Blood Pressure 113/55 L 128/54 L Pulse Oximetry 95 98 98 Oxygen Delivery Nasal Cannula Oxygen Flow Rate 3 09/24/24 22:09 09/25/24 00:00 09/25/24 05:46 Temperature 96.8 F L 97.6 F Pulse Rate 84 78 72 Respiratory Rate 16 18 Blood Pressure 127/58 L 128/51 L Pulse Oximetry 97 100 Oxygen Delivery Oxygen Flow Rate Intake/Output Intake/Output: Intake & Output 09/22/24 09/23/24 09/24/24 09/25/24 23:59 23:59 23:59 23:59 Intake Total 979 297 4441 Output Total 475 1050 300 Balance -225 -580 870 Meds/Results Medications: Active Medications Generic Name Dose Route Start Last Admin Trade Name Freq PRN Reason Stop Dose Admin Acetaminophen 650 mg 09/23/24 16:08 Acetaminophen 325 Mg Tablet PO Q6H PRN fever or mild pain Hydrocodone Bitart/Acetaminophen 1 tab 09/24/24 17:19 09/25/24 02:53 Hydrocodone/Acetaminophen (*Crx) 5-325 Mg Tablet PO 1 tab Q4H PRN Administration Pain Rated 4-6 Hydrocodone Bitart/Acetaminophen 1 tab 09/24/24 17:19 Hydrocodone/Acetaminophen (*Crx) 7.5-325 Mg Tablet PO Q4H PRN Pain Rated 7-10 Atorvastatin Calcium 40 mg 09/23/24 21:00 09/24/24 22:08 Atorvastatin 40 Mg Tablet PO 40 mg QHS MEGAN Administration Carvedilol 6.25 mg 09/23/24 21:00 09/24/24 22:09 Carvedilol 6.25 Mg Tablet PO 6.25 mg Q12HR MEGAN Administration Celecoxib 200 mg 09/25/24 08:00 Celecoxib 200 Mg Capsule PO DAILY@0800 MEGAN Dextrose 12.5 gm 09/23/24 16:15 Dextrose 50% 25 Gm/50 Ml Syringe IV PUSH PRN PRN Hypoglycemia Protocol Ferrous Sulfate 325 mg 09/23/24 17:00 09/24/24 17:47 Ferrous Sulfate [address] BY MOUTH 325 mg BID MEGAN Administration Gabapentin 200 mg 09/24/24 09:00 09/24/24 08:38 Gabapentin 100 Mg Capsule PO 200 mg DAILY MEGAN Administration Glucagon 1 mg 09/23/24 16:15 Glucagon For Inj 1 Mg Vial IM PRN PRN Hypoglycemia Protocol Glucose 15 gm 09/23/24 16:15 Glucose Oral Gel 15 Gm Of Glucse In 37.5 Gm Tube PO PRN PRN Hypoglycemia Protocol Hydromorphone HCl 1 mg 09/24/24 17:25 Hydromorphone Hcl Inj (*Crx) 2 Mg/Ml Vial IV PUSH Q2H PRN Breakthrough Pain Rated 7-10 or NPO Hydromorphone HCl 0.5 mg 09/24/24 17:25 Hydromorphone Hcl Inj (*Crx) 2 Mg/Ml Vial IV PUSH Q2H PRN Breakthrough Pain Rated 4-6 or NPO Hydroxyzine Pamoate 50 mg 09/24/24 17:19 Hydroxyzine Pamoate 25 Mg Capsule PO Q4H PRN Itching Dextrose 1,000 mls @ 100 mls/hr 09/23/24 16:15 Dextrose 5% 1,000 Ml IVPB PRN PRN Hypoglycemia Protocol Sodium Chloride 1,000 mls @ 125 mls/hr 09/24/24 17:19 09/25/24 02:09 Normal Saline Iv IV CONT 125 mls/hr .Q8H MEGAN Administration Ibuprofen 800 mg in 200 mls @ 400 mls/hr 09/24/24 17:19 Caldolor 800 Mg/200 Ml IVPB Q6H PRN Breakthrough Pain Rated 1-3 or NPO Cefazolin Sodium 2 gm in 50 mls @ 100 mls/hr 09/24/24 22:00 09/25/24 05:49 Ancef 2 Gm/D5w 50 Ml IVPB 09/25/24 14:29 Infused Q8H MEGAN Infusion Insulin Aspart 4 - 8 units 09/23/24 17:00 09/24/24 17:30 Insulin Aspart (*Bkc) 100 Units/Ml SUB-Q Not Given TIDWM [facility] Protocol Insulin Aspart 2 - 4 units 09/23/24 21:00 09/24/24 20:16 Insulin Aspart (*Bkc) 100 Units/Ml SUB-Q Not Given HS [facility] Protocol Isosorbide Mononitrate 30 mg 09/24/24 09:00 09/24/24 08:37 Isosorbide Mononitrate 30 Mg Tab.Er.24h PO 30 mg DAILY MEGAN Administration Lidocaine 1 patch 09/23/24 16:26 Lidocaine 5% Patch TRANSDERM DAILY PRN pain Morphine Sulfate 4 mg 09/23/24 07:52 09/24/24 08:38 Morphine Sulfate (*Crx) 4 Mg/Ml Inj IV PUSH 4 mg Q2H PRN Administration Pain Rated 7-10 Naloxone HCl 0.1 mg 09/24/24 17:19 Naloxone Hcl 0.4 Mg/Ml Vial IV PUSH Q2M PRN Opiate Reversal Nitroglycerin 0.4 mg 09/23/24 16:08 Nitroglycerin Sl 0.4 Mg Tablet SUBLINGUAL Q5MIN PRN chest pain Ondansetron HCl 4 mg 09/23/24 16:08 Ondansetron Hcl Odt 4 Mg Tablet PO Q6H PRN nausea and vomiting Ondansetron HCl 4 mg 09/24/24 17:19 Ondansetron Inj 4 Mg/2 Ml Vial IV PUSH Q4H PRN Nausea And Vomiting Pantoprazole Sodium 40 mg 09/23/24 21:00 09/24/24 22:08 Pantoprazole 40 Mg Tablet PO 40 mg Q12HR MEGAN Administration Polyethylene Glycol 17 gm 09/25/24 09:00 Polyethylene Glycol 3350 17 Gm Powd.Pack PO QAM [facility] Rivaroxaban 10 mg 09/24/24 17:19 09/24/24 17:41 Rivaroxaban 10 Mg Tablet PO 10 mg DAILY@17 MEGAN Administration Senna/Docusate Sodium 2 tab 09/24/24 17:19 09/24/24 17:31 Senna/Docusate Sodium Tablet PO Not Given BID [facility] Sertraline HCl 25 mg 09/24/24 09:00 09/24/24 08:38 Sertraline Hcl 25 Mg Tablet PO 25 mg Q24H MEGAN Administration Tramadol HCl 50 mg 09/24/24 17:19 Tramadol Hcl (*Crx) 50 Mg Tablet PO Q4H PRN Pain Rated 1-3 Radiology Results: ITS Impressions Chest X-Ray 09/23/24 05:59 Impression: Prominent central pulmonary venous congestive changes. Stable cardiomegaly. Hip/Pelvis X-Ray 09/23/24 05:59 Impression: Suspected transverse fracture the right femoral neck. Consider cross-sectional imaging for further evaluation. Head CT 09/23/24 06:00 Impression: No intracranial hemorrhage, mass, or acute infarct. 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 Atrophy and chronic white matter changes, as above. Cervical Spine CT 09/23/24 06:28 Impression: No fracture or subluxation of the cervical spine. Degenerative spondylosis, as above. Shoulder X-Ray 09/23/24 06:49 Impression: Unremarkable right shoulder radiographs. Hip CT 09/23/24 07:06 IMPRESSION: Acute subcapital fracture of the right femoral neck, as detailed above. Intraoperative X-Ray 09/24/24 15:56 IMPRESSION: 1. Expected appearance during placement of a bipolar type right hip hemiarthroplasty. See procedure note for further detail. Pelvis X-Ray 09/24/24 15:57 IMPRESSION: Right hip arthroplasty. No definite fractures seen.. Labs Labs: Laboratory Results - last 24 hr 09/24/24 09/24/24 09/24/24 08:06 11:49 17:00 WBC RBC Hgb Hct MCV MCH MCHC RDW Plt Count MPV Immature Gran % (Auto) Neut % (Auto) Lymph % (Auto) [place] % (Auto) Eos % (Auto) Baso % (Auto) Lymph # (Auto) [place] # (Auto) Eos # (Auto) Baso # (Auto) Abs Immat Gran (auto) Absolute Neuts (auto) Absolute Nucleated RBC Band Neutrophils % Nucleated RBC % Platelet Estimate Hypochromasia Anisocytosis Acanthocytes (Spur) Schistocytes Sodium Potassium Chloride Carbon Dioxide Anion Gap BUN Creatinine Estim Creat Clear Calc Estimated GFR Glucose POC Capillary Glucose 170 H 167 H 189 H Calcium Total Bilirubin AST ALT Alkaline Phosphatase Total Protein Albumin 09/24/24 09/25/24 20:15 05:44 WBC 12.3 H RBC 3.07 L Hgb 8.0 L Hct 29.2 L MCV 95.1 D MCH 26.1 MCHC 27.4 L RDW 15.4 H Plt Count 240 MPV 9.9 Immature Gran % (Auto) 0.6 H Neut % (Auto) 78.1 H Lymph % (Auto) 11.5 L [place] % (Auto) 7.6 Eos % (Auto) 1.6 Baso % (Auto) 0.6 Lymph # (Auto) 1.41 [place] # (Auto) 0.9 H Eos # (Auto) 0.2 Baso # (Auto) 0.1 Abs Immat Gran (auto) 0.07 H Absolute Neuts (auto) 9.6 H Absolute Nucleated RBC 0.000 Band Neutrophils % Not Reportable Nucleated RBC % 0.0 Platelet Estimate Adequate Hypochromasia 1+ Anisocytosis 1+ Acanthocytes (Spur) 1+ Schistocytes None seen Sodium 136 L Potassium 4.0 Chloride 109 H Carbon Dioxide 20 L Anion Gap 7 BUN 15 Creatinine 0.82 Estim Creat Clear Calc 53 Estimated GFR > 60 Glucose 196 H POC Capillary Glucose 198 H Calcium 7.1 L Total Bilirubin 0.4 AST 39 H ALT 19 Alkaline Phosphatase 58 Total Protein 6.0 L Albumin 3.0 L
[2024-09-25 07:54] LABS: Glucose Point of Care 181 mg/dl (65-105)
[2024-09-25] MEDS: GABAPENTIN 100 MG CAPSULE 200 MG PO (08:05)
[2024-09-25] MEDS: ISOSORBIDE MONONITRATE 30 MG TAB.ER.24H PO (08:05)
[2024-09-25] MEDS: PANTOPRAZOLE 40 MG TABLET PO ×2 (08:05→20:58)
[2024-09-25] MEDS: CELECOXIB 200 MG CAPSULE PO (08:05)
[2024-09-25] MEDS: SENNA/DOCUSATE SODIUM TABLET 2 TAB PO ×2 (08:05→16:33)
[2024-09-25] MEDS: FERROUS SULFATE 325 MG TABLET DR BY MOUTH ×2 (08:06→16:33)
[2024-09-25] MEDS: SERTRALINE HCL 25 MG TABLET PO (08:06)
[2024-09-25] MEDS: carvediloL 6.25 MG TABLET PO ×2 (08:06→20:58)
--- NOTE | 2024-09-25 10:04 | P.PNIM_ITS ---
Progress Note: A&P Assessment and Plan (1) Fracture of femoral neck, right: Code(s): S72.001A - Fracture of unspecified part of neck of right femur, initial encounter for closed fracture Status: Acute Assessment and Plan: Patient is an 79-year-old female coming from [facility] after a ground level fall. * Hip/pelvis x-ray: Suspected transverse fracture of the femoral neck * Cervical spine CT: No fracture or subluxation of cervical spine, degenerative spondylosis * Hip CT: Acute subcapital fracture of the right femoral neck * Orthopedics consulted s/p right bipolar hip replacement on 09/24 at 1:30 p.m. 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 chronic infarcts, No intracranial hemorrhage, mass or acute infarct, Atrophy and chronic white matter changes * Shoulder x-ray * Unremarkable right shoulder radiograph (3) Diabetes mellitus: Code(s): E11.9 - Type 2 diabetes mellitus without complications Status: Acute Assessment and Plan: Hypoglycemia protocol - POC blood glucose ACHS - home medication - Metformin, holding - continue SSI - A1C pending (4) Anemia: Qualifiers: Anemia type: unspecified type Qualified Code(s): D64.9 - Anemia, unspecified Code(s): D64.9 - Anemia, unspecified Status: Acute Assessment and Plan: - Hgb 9.2/32.1 - transfuse if <7 - trend H&H (5) Hypertension: Code(s): I10 - Essential (primary) hypertension Status: Acute Assessment and Plan: Blood pressure remains well controlled, 110/59 Will continue current medications, carvedilol 6.25 BID, isosorbide 30 daily, Time Spent With Patient Time: 58 minutes Subjective Date/time seen: 09/25/24 10:04 Interval history: Denies pain at rest. Mild discomfort to right hip otherwise but hasn't been up yet. Pleasantly confused. s/p OR yesterday with orthopedic surgery. VS, on RA WBC 12.3. Blood sugar above goal 157-198. VSS Review of Systems Review of Systems: All systems reviewed & are unremarkable except as noted in HPI and below Exam Narrative: Gen - well appearing female in no acute respiratory distress who is nontoxic- appearing lying semi recumbent in bed HEENT - normocephalic. Atraumatic. Pupils equal round and reactive. Extraocular motions intact. Sclera clear and anicteric. Nares patent. Moist mucous membranes. No facial asymmetry. Neck - neck was supple. No dominant adenopathy, thyromegaly or masses. 2+ carotid upstrokes without bruits. Chest - lungs are clear to auscultation bilaterally. No wheezes or crackles. CV - heart was regular rate and rhythm. S1-S2. No murmurs gallops or rubs. Abd - abdomen soft. Nontender. Nondistended. Positive bowel sounds. Ext - Right hip dressing dry and intact. Neurovascularly intact. Right Shoulder nontender upon palpation. No pain with movement, range of motion appropriate. No clubbing, cyanosis or edema. 2+ DP pulses bilaterally. Neuro - patient is alert and oriented x1, pleasantly confused. Strength is 5/5 in both upper and lower extremities. Cranial nerves 2-12 are intact. Speech is clear. Psych - normal mood and affect. Patient is pleasant and cooperative. Skin - warm and dry. No rashes noted. Objective Data Vital Signs Vital Signs: Vital Signs - 24 hr 09/24/24 13:10 09/24/24 13:20 09/24/24 16:15 Temperature 98.9 F 98.8 F Pulse Rate 84 105 H Respiratory Rate 20 20 Blood Pressure 110/59 L 148/61 H Pulse Oximetry 89 L 97 100 Oxygen Delivery Room Air Nasal Cannula Simple Face Mask Oxygen Flow Rate 2 8 09/24/24 16:30 09/24/24 16:45 09/24/24 17:00 Temperature Pulse Rate 102 H 99 92 Respiratory Rate 10 L 12 14 Blood Pressure 128/76 126/73 125/65 Pulse Oximetry 100 93 95 Oxygen Delivery Simple Face Mask Nasal Cannula Nasal Cannula Oxygen Flow Rate 8 3 3 09/24/24 17:15 09/24/24 17:25 09/24/24 17:30 Temperature 97.4 F L 98.4 F Pulse Rate 92 91 Respiratory Rate 14 18 18 Blood Pressure 112/61 112/56 L Pulse Oximetry 97 97 95 Oxygen Delivery Nasal Cannula Nasal Cannula Oxygen Flow Rate 3 3 09/24/24 17:40 09/24/24 18:10 09/24/24 20:00 Temperature 97.9 F 98.2 F Pulse Rate 94 97 Respiratory Rate 18 18 Blood Pressure 119/54 L 113/55 L Pulse Oximetry 97 95 98 Oxygen Delivery Nasal Cannula Oxygen Flow Rate 3 09/24/24 21:28 09/24/24 22:09 09/25/24 00:00 Temperature 97.9 F 96.8 F L Pulse Rate 84 84 78 Respiratory Rate 18 16 Blood Pressure 128/54 L 127/58 L Pulse Oximetry 98 97 Oxygen Delivery Oxygen Flow Rate 09/25/24 05:46 09/25/24 07:42 09/25/24 08:05 Temperature 97.6 F 98.7 F Pulse Rate 72 86 Respiratory Rate 18 18 20 Blood Pressure 128/51 L 144/53 H Pulse Oximetry 100 95 89 L Oxygen Delivery Room Air Oxygen Flow Rate 09/25/24 08:06 Temperature Pulse Rate 84 Respiratory Rate Blood Pressure Pulse Oximetry Oxygen Delivery Oxygen Flow Rate Intake/Output Intake/Output: Intake & Output 09/22/24 09/23/24 09/24/24 09/25/24 23:59 23:59 23:59 23:59 Intake Total 984 603 1014 Output Total 475 1050 300 Balance -225 -580 990 Meds/Results Medications: Active Medications Generic Name Dose Route Start Last Admin Trade Name Freq PRN Reason Stop Dose Admin Acetaminophen 650 mg 09/23/24 16:08 Acetaminophen 325 Mg Tablet PO Q6H PRN fever or mild pain Hydrocodone Bitart/Acetaminophen 1 tab 09/24/24 17:19 09/25/24 08:12 Hydrocodone/Acetaminophen (*Crx) 5-325 Mg Tablet PO 1 tab Q4H PRN Administration Pain Rated 4-6 Hydrocodone Bitart/Acetaminophen 1 tab 09/24/24 17:19 Hydrocodone/Acetaminophen (*Crx) 7.5-325 Mg Tablet PO Q4H PRN Pain Rated 7-10 Atorvastatin Calcium 40 mg 09/23/24 21:00 09/24/24 22:08 Atorvastatin 40 Mg Tablet PO 40 mg QHS MEGAN Administration Carvedilol 6.25 mg 09/23/24 21:00 09/25/24 08:06 Carvedilol 6.25 Mg Tablet PO 6.25 mg Q12HR MEGAN Administration Celecoxib 200 mg 09/25/24 08:00 09/25/24 08:05 Celecoxib 200 Mg Capsule PO 200 mg DAILY@0800 MEGAN Administration Dextrose 12.5 gm 09/23/24 16:15 Dextrose 50% 25 Gm/50 Ml Syringe IV PUSH PRN PRN Hypoglycemia Protocol Ferrous Sulfate 325 mg 09/23/24 17:00 09/25/24 08:06 Ferrous Sulfate [address] BY MOUTH 325 mg BID MEGAN Administration Gabapentin 200 mg 09/24/24 09:00 09/25/24 08:05 Gabapentin 100 Mg Capsule PO 200 mg DAILY MEGAN Administration Glucagon 1 mg 09/23/24 16:15 Glucagon For Inj 1 Mg Vial IM PRN PRN Hypoglycemia Protocol Glucose 15 gm 09/23/24 16:15 Glucose Oral Gel 15 Gm Of Glucse In 37.5 Gm Tube PO PRN PRN Hypoglycemia Protocol Hydromorphone HCl 1 mg 09/24/24 17:25 Hydromorphone Hcl Inj (*Crx) 2 Mg/Ml Vial IV PUSH Q2H PRN Breakthrough Pain Rated 7-10 or NPO Hydromorphone HCl 0.5 mg 09/24/24 17:25 Hydromorphone Hcl Inj (*Crx) 2 Mg/Ml Vial IV PUSH Q2H PRN Breakthrough Pain Rated 4-6 or NPO Hydroxyzine Pamoate 50 mg 09/24/24 17:19 Hydroxyzine Pamoate 25 Mg Capsule PO Q4H PRN Itching Dextrose 1,000 mls @ 100 mls/hr 09/23/24 16:15 Dextrose 5% 1,000 Ml IVPB PRN PRN Hypoglycemia Protocol Sodium Chloride 1,000 mls @ 125 mls/hr 09/24/24 17:19 09/25/24 02:09 Normal Saline Iv IV CONT 125 mls/hr .Q8H MEGAN Administration Ibuprofen 800 mg in 200 mls @ 400 mls/hr 09/24/24 17:19 Caldolor 800 Mg/200 Ml IVPB Q6H PRN Breakthrough Pain Rated 1-3 or NPO Cefazolin Sodium 2 gm in 50 mls @ 100 mls/hr 09/24/24 22:00 09/25/24 05:49 Ancef 2 Gm/D5w 50 Ml IVPB 09/25/24 14:29 Infused Q8H MEGAN Infusion Insulin Aspart 4 - 8 units 09/23/24 17:00 09/25/24 08:03 Insulin Aspart (*Bkc) 100 Units/Ml SUB-Q Not Given TIDWM [facility] Protocol Insulin Aspart 2 - 4 units 09/23/24 21:00 09/24/24 20:16 Insulin Aspart (*Bkc) 100 Units/Ml SUB-Q Not Given HS [facility] Protocol Isosorbide Mononitrate 30 mg 09/24/24 09:00 09/25/24 08:05 Isosorbide Mononitrate 30 Mg Tab.Er.24h PO 30 mg DAILY MEGAN Administration Lidocaine 1 patch 09/23/24 16:26 Lidocaine 5% Patch TRANSDERM DAILY PRN pain Morphine Sulfate 4 mg 09/23/24 07:52 09/24/24 08:38 Morphine Sulfate (*Crx) 4 Mg/Ml Inj IV PUSH 4 mg Q2H PRN Administration Pain Rated 7-10 Naloxone HCl 0.1 mg 09/24/24 17:19 Naloxone Hcl 0.4 Mg/Ml Vial IV PUSH Q2M PRN Opiate Reversal Nitroglycerin 0.4 mg 09/23/24 16:08 Nitroglycerin Sl 0.4 Mg Tablet SUBLINGUAL Q5MIN PRN chest pain Ondansetron HCl 4 mg 09/23/24 16:08 Ondansetron Hcl Odt 4 Mg Tablet PO Q6H PRN nausea and vomiting Ondansetron HCl 4 mg 09/24/24 17:19 Ondansetron Inj 4 Mg/2 Ml Vial IV PUSH Q4H PRN Nausea And Vomiting Pantoprazole Sodium 40 mg 09/23/24 21:00 09/25/24 08:05 Pantoprazole 40 Mg Tablet PO 40 mg Q12HR [facility] Administration Polyethylene Glycol 17 gm 09/25/24 09:00 09/25/24 08:06 Polyethylene Glycol 3350 17 Gm Powd.Pack PO Not Given QAM [facility] Rivaroxaban 10 mg 09/24/24 17:19 09/24/24 17:41 Rivaroxaban 10 Mg Tablet PO 10 mg DAILY@17 [facility] Administration Senna/Docusate Sodium 2 tab 09/24/24 17:19 09/25/24 08:05 Senna/Docusate Sodium Tablet PO 2 tab BID [facility] Administration Sertraline HCl 25 mg 09/24/24 09:00 09/25/24 08:06 Sertraline Hcl 25 Mg Tablet PO 25 mg Q24H MEGAN Administration Tramadol HCl 50 mg 09/24/24 17:19 Tramadol Hcl (*Crx) 50 Mg Tablet PO Q4H PRN Pain Rated 1-3 Radiology Results: ITS Impressions Chest X-Ray 09/23/24 05:59 Impression: Prominent central pulmonary venous congestive changes. Stable cardiomegaly. Hip/Pelvis X-Ray 09/23/24 05:59 Impression: Suspected transverse fracture the right femoral neck. Consider cross-sectional imaging for further evaluation. Head CT 09/23/24 06:00 Impression: No intracranial hemorrhage, mass, or acute infarct. 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 Atrophy and chronic white matter changes, as above. Cervical Spine CT 09/23/24 06:28 Impression: No fracture or subluxation of the cervical spine. Degenerative spondylosis, as above. Shoulder X-Ray 09/23/24 06:49 Impression: Unremarkable right shoulder radiographs. Hip CT 09/23/24 07:06 IMPRESSION: Acute subcapital fracture of the right femoral neck, as detailed above. Intraoperative X-Ray 09/24/24 15:56 IMPRESSION: 1. Expected appearance during placement of a bipolar type right hip hemiarthrop lasty. See procedure note for further detail. Pelvis X-Ray 09/24/24 15:57 IMPRESSION: Right hip arthroplasty. No definite fractures seen.. Labs Labs: Laboratory Results - last 24 hr 09/24/24 09/24/24 09/24/24 11:49 17:00 20:15 WBC RBC Hgb Hct MCV MCH MCHC RDW Plt Count MPV Immature Gran % (Auto) Neut % (Auto) Lymph % (Auto) [place] % (Auto) Eos % (Auto) Baso % (Auto) Lymph # (Auto) [place] # (Auto) Eos # (Auto) Baso # (Auto) Abs Immat Gran (auto) Absolute Neuts (auto) Absolute Nucleated RBC Band Neutrophils % Nucleated RBC % Platelet Estimate Hypochromasia Anisocytosis Acanthocytes (Spur) Schistocytes Sodium Potassium Chloride Carbon Dioxide Anion Gap BUN Creatinine Estim Creat Clear Calc Estimated GFR Glucose POC Capillary Glucose 167 H 189 H 198 H Calcium Total Bilirubin AST ALT Alkaline Phosphatase Total Protein Albumin 09/25/24 09/25/24 05:44 07:44 WBC 12.3 H RBC 3.07 L Hgb 8.0 L Hct 29.2 L MCV 95.1 D MCH 26.1 MCHC 27.4 L RDW 15.4 H Plt Count 240 MPV 9.9 Immature Gran % (Auto) 0.6 H Neut % (Auto) 78.1 H Lymph % (Auto) 11.5 L [place] % (Auto) 7.6 Eos % (Auto) 1.6 Baso % (Auto) 0.6 Lymph # (Auto) 1.41 [place] # (Auto) 0.9 H Eos # (Auto) 0.2 Baso # (Auto) 0.1 Abs Immat Gran (auto) 0.07 H Absolute Neuts (auto) 9.6 H Absolute Nucleated RBC 0.000 Band Neutrophils % Not Reportable Nucleated RBC % 0.0 Platelet Estimate Adequate Hypochromasia 1+ Anisocytosis 1+ Acanthocytes (Spur) 1+ Schistocytes None seen Sodium 136 L Potassium 4.0 Chloride 109 H Carbon Dioxide 20 L Anion Gap 7 BUN 15 Creatinine 0.82 Estim Creat Clear Calc 53 Estimated GFR > 60 Glucose 196 H POC Capillary Glucose 181 H Calcium 7.1 L Total Bilirubin 0.4 AST 39 H ALT 19 Alkaline Phosphatase 58 Total Protein 6.0 L Albumin 3.0 L Quality VTE Prophylaxis VTE prophylaxis: mechanical ordered Hospitalist MIPS Advance Care Plan I have confirmed that the patient's Advanced Care Plan is present, code status is documented, or surrogate decision maker is listed in patient medical record.: Yes Medication Reconciliation I have utilized all available resources to obtain, update and review the patients current medications (includes all prescriptions, OTC, herbals, cannabis, and nutritional supplements).: Yes
[2024-09-25 11:33] LABS: Glucose Point of Care 203 mg/dl (65-105)
[2024-09-25] MEDS: INSULIN ASPART (*BKC) 100 UNITS/ML SUB-Q ×2 (11:41→20:58)
--- NOTE | 2024-09-25 14:33 | WPDANESPN ---
Anes - Prog Note Post-Op Date/Time: 09/25/24 14:33 Cardiovascular status: normal Respiratory status: normal Airway patency: baseline Mental status: baseline Vital Signs: Last Vital Signs Temp 37.1 C 09/25/24 08:05 Pulse 84 09/25/24 08:06 Resp 20 09/25/24 08:05 BP 144/53 H 09/25/24 08:05 Pulse Ox 89 L 09/25/24 08:05 O2 Del Method Room Air 09/25/24 11:32 O2 Flow Rate 3 09/24/24 20:00 Pain Score (VAS): 3 I/O: Intake & Output 09/24/24 09/25/24 09/25/24 23:59 07:59 15:59 Intake Total 270 1170 1290 Output Total 200 300 Balance 70 870 1290 Laboratory Tests 09/25/24 05:44 09/25/24 05:44 09/24/24 09/24/24 09/25/24 17:00 20:15 05:44 WBC 12.3 H RBC 3.07 L Hgb 8.0 L Hct 29.2 L MCV 95.1 D MCH 26.1 MCHC 27.4 L RDW 15.4 H Plt Count 240 MPV 9.9 Immature Gran % (Auto) 0.6 H Neut % (Auto) 78.1 H Lymph % (Auto) 11.5 L [place] % (Auto) 7.6 Eos % (Auto) 1.6 Baso % (Auto) 0.6 Lymph # (Auto) 1.41 [place] # (Auto) 0.9 H Eos # (Auto) 0.2 Baso # (Auto) 0.1 Abs Immat Gran (auto) 0.07 H Absolute Neuts (auto) 9.6 H Absolute Nucleated RBC 0.000 Band Neutrophils % Not Reportable Nucleated RBC % 0.0 Platelet Estimate Adequate Hypochromasia 1+ Anisocytosis 1+ Acanthocytes (Spur) 1+ Schistocytes None seen Sodium 136 L Potassium 4.0 Chloride 109 H Carbon Dioxide 20 L Anion Gap 7 BUN 15 Creatinine 0.82 Estim Creat Clear Calc 53 Estimated GFR > 60 Glucose 196 H POC Capillary Glucose 189 H 198 H Calcium 7.1 L Total Bilirubin 0.4 AST 39 H ALT 19 Alkaline Phosphatase 58 Total Protein 6.0 L Albumin 3.0 L 09/25/24 09/25/24 07:44 11:31 WBC RBC Hgb Hct MCV MCH MCHC RDW Plt Count MPV Immature Gran % (Auto) Neut % (Auto) Lymph % (Auto) [place] % (Auto) Eos % (Auto) Baso % (Auto) Lymph # (Auto) [place] # (Auto) Eos # (Auto) Baso # (Auto) Abs Immat Gran (auto) Absolute Neuts (auto) Absolute Nucleated RBC Band Neutrophils % Nucleated RBC % Platelet Estimate Hypochromasia Anisocytosis Acanthocytes (Spur) Schistocytes Sodium Potassium Chloride Carbon Dioxide Anion Gap BUN Creatinine Estim Creat Clear Calc Estimated GFR Glucose POC Capillary Glucose 181 H 203 H Calcium Total Bilirubin AST ALT Alkaline Phosphatase Total Protein Albumin Patient Feedback: Patient satisfied with anesthetic care.
[2024-09-25] MEDS: RIVAROXABAN 10 MG TABLET PO (16:33)
[2024-09-25 17:25] LABS: Glucose Point of Care 181 mg/dl (65-105)
[2024-09-25] MEDS: ATORVASTATIN 40 MG TABLET PO (20:58)
[2024-09-25 21:01] LABS: Glucose Point of Care 216 mg/dl (65-105)
[2024-09-26 05:04] VITALS: BP 133/47; PULSE 90; RESP 20; TEMP 36.6; O2SAT 93
[2024-09-26 05:18] LABS: Basophils Absolute Auto 0.1 K/mm3 (0.0-0.1); Basophils Percent Auto 0.7 % (0.2-1.2); Eosinophils Absolute Auto 0.2 K/mm3 (0-0.3); Eosinophils Percent Auto 1.8 % (0-4.4); Hematocrit 28.7 % (37.0-47.0); Immature Granulocyte Absolute 0.07 K/mm3 (0.00-0.031); Immature Granulocyte Percent A 0.5 % (0-0.5); Lymphocytes Absolute Auto 1.44 K/mm3 (0.9-3.2); Mean Corpuscular HGB Conc 27.9 g/dl (32-36); Mean Corpuscular Hemoglobin 25.8 pg (26-34); Mean Corpuscular Volume 92.6 fl (80-100); Mean Platelet Volume 9.6 fl (7.4-10.4); Monocytes Absolute Auto 1.2 K/mm3 (0.1-0.6); Monocytes Percent Auto 9.4 % (2.6-8.5); Neutrophils Percent Auto 76.6 % (45.5-73.1); Platelet Count Result 281 k/mm3 (150-375); Red Cell Distribution Width 15.3 % (11.5-14.5); White Blood Count 13.1 K/mm3 (4.5-10.0)
[2024-09-26 05:33] LABS: Alanine Aminotransferase 16 U/L (6-35); Albumin Level 2.7 g/dL (3.5-5.1); Alkaline Phosphatase 74 U/L (38-126); Anion Gap 8 mmol/L (4-12); Aspartate Amino Transferase 55 U/L (14-36); Bilirubin,Total 0.3 mg/dL (0.2-1.3); Blood Urea Nitrogen 15 mg/dL (7-17); Calcium 7.5 mg/dL (8.4-10.2); Carbon Dioxide 20 mmol/L (22-30); Chloride 111 mmol/L (98-107); Estimated CRCL calculation 57 ml/min; Estimated Glomerular Filt Rate > 60; Glucose 177 mg/dL (65-110); Potassium 3.5 mmol/L (3.4-5.0); Sodium 139 mmol/L (137-145)
[2024-09-26 05:43] LABS: Band Neutrophils Percent 0 % (0-6); Platelet Estimate Adequate (Adequate)
[2024-09-26 05:44] LABS: Anisocytosis 1+; Hypochromasia 1+; Ovalocytes 1+; Poikilocytosis 2+; Schistocytes None Seen
[2024-09-26 08:19] LABS: Glucose Point of Care 173 mg/dl (65-105)
[2024-09-26 08:39] VITALS: PULSE 84
[2024-09-26] MEDS: carvediloL 6.25 MG TABLET PO ×2 (08:39→21:12)
[2024-09-26] MEDS: GABAPENTIN 100 MG CAPSULE 200 MG PO (08:39)
[2024-09-26] MEDS: SERTRALINE HCL 25 MG TABLET PO (08:39)
[2024-09-26] MEDS: SENNA/DOCUSATE SODIUM TABLET 2 TAB PO ×2 (08:39→17:38)
[2024-09-26] MEDS: CELECOXIB 200 MG CAPSULE PO (08:40)
[2024-09-26] MEDS: PANTOPRAZOLE 40 MG TABLET PO ×2 (08:40→21:12)
[2024-09-26] MEDS: FERROUS SULFATE 325 MG TABLET DR BY MOUTH ×2 (08:40→17:38)
[2024-09-26] MEDS: ISOSORBIDE MONONITRATE 30 MG TAB.ER.24H PO (08:40)
[2024-09-26] MEDS: HYDROcodone/acetaminophen (*CRX) 5-325 MG TABLET 1 TAB PO (08:40)
[2024-09-26] MEDS: polyethylene glycoL 3350 17 GM POWD.PACK PO (08:42)
[2024-09-26 12:21] LABS: Glucose Point of Care 221 mg/dl (65-105)
[2024-09-26] MEDS: INSULIN ASPART (*BKC) 100 UNITS/ML SUB-Q ×2 (12:50→17:39)
[2024-09-26 14:00] VITALS: BP 103/40; PULSE 79; RESP 18; TEMP 36.6; O2SAT 93
[2024-09-26] MEDS: SODIUM CHLORIDE 0.9% IV 1,000 ML 200 ML IV CONT (15:24)
--- NOTE | 2024-09-26 16:51 | P.PNIM_ITS ---
Progress Note: A&P Assessment and Plan (1) Fracture of femoral neck, right: Code(s): S72.001A - Fracture of unspecified part of neck of right femur, initial encounter for closed fracture Status: Acute Assessment and Plan: Patient is an 79-year-old female coming from [facility] after a ground level fall. * Hip/pelvis x-ray: Suspected transverse fracture of the femoral neck * Cervical spine CT: No fracture or subluxation of cervical spine, degenerative spondylosis * Hip CT: Acute subcapital fracture of the right femoral neck * Orthopedics consulted s/p right bipolar hip replacement on 09/24 at 1:30 p.m. 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, No intracranial hemorrhage, mass or acute infarct, Atrophy and chronic white matter changes * Shoulder x-ray * Unremarkable right shoulder radiograph (3) Diabetes mellitus: Code(s): E11.9 - Type 2 diabetes mellitus without complications Status: Acute Assessment and Plan: HgbA1c 7.4 Home meds: Metformin 500mg daily & SSI Hypoglycemia protocol - POC blood glucose ACHS - home medication - Metformin, holding - A1C pending (4) Anemia: Qualifiers: Anemia type: unspecified type Qualified Code(s): D64.9 - Anemia, unspecified Code(s): D64.9 - Anemia, unspecified Status: Acute Assessment and Plan: - Hgb 9.2/32.1 - transfuse if <7 - trend H&H (5) Hypertension: Code(s): I10 - Essential (primary) hypertension Status: Acute Assessment and Plan: Blood pressure remains well controlled, 110/59 Will continue current medications, carvedilol 6.25 BID, isosorbide 30 daily, (6) Decreased urination: Code(s): R34 - Anuria and oliguria Status: Acute Assessment and Plan: Poor p.o. intake and decreased urination. Creatinine normal --repeat BMP in a.m. --1 L of fluids today --bladder scan. --decrease opiates Time Spent With Patient Time: 48 minutes Subjective Date/time seen: 09/26/24 14:50 Interval history: Denies pain at rest. Mild discomfort to right hip otherwise but hasn't been up yet. Pleasantly confused. s/p OR yesterday with orthopedic surgery. VS, on RA WBC 12.3. Blood sugar above goal 157-198. VSS Minimal urine output, straight cathed once. Pain has been controlled White count 13 Review of Systems Review of Systems: All systems reviewed & are unremarkable except as noted in HPI and below Exam Narrative: Gen - well appearing female in no acute respiratory distress who is nontoxic- appearing lying semi recumbent in bed HEENT - normocephalic. Atraumatic. Pupils equal round and reactive. Extraocular motions intact. Sclera clear and anicteric. Nares patent. Moist mucous membranes. No facial asymmetry. Neck - neck was supple. No dominant adenopathy, thyromegaly or masses. 2+ carotid upstrokes without bruits. Chest - lungs are clear to auscultation bilaterally. No wheezes or crackles. CV - heart was regular rate and rhythm. S1-S2. No murmurs gallops or rubs. Abd - abdomen soft. Nontender. Nondistended. Positive bowel sounds. Ext - Right hip dressing dry and intact. Neurovascularly intact. Right Shoulder nontender upon palpation. No pain with movement, range of motion appropriate. No clubbing, cyanosis or edema. 2+ DP pulses bilaterally. Neuro - patient is alert and oriented x1, pleasantly confused. Strength is 5/5 in both upper and lower extremities. Cranial nerves 2-12 are intact. Speech is clear. Psych - normal mood and affect. Patient is pleasant and cooperative. Skin - warm and dry. No rashes noted. Objective Data Vital Signs Vital Signs: Vital Signs - 24 hr 09/25/24 20:48 09/25/24 20:57 09/25/24 20:58 Temperature 97.9 F Pulse Rate 114 H 117 H Respiratory Rate 20 Blood Pressure 129/61 Pulse Oximetry 90 90 Oxygen Delivery Room Air 09/26/24 05:04 09/26/24 08:39 09/26/24 14:00 Temperature 97.9 F 97.9 F Pulse Rate 90 84 79 Respiratory Rate 20 18 Blood Pressure 133/47 L 103/40 L Pulse Oximetry 93 93 Oxygen Delivery Intake/Output Intake/Output: Intake & Output 09/23/24 09/24/24 09/25/24 09/26/24 23:59 23:59 23:59 23:59 Intake Total 562 129 2157 240 Output Total 475 1121 434 6361 Balance -225 -183 2009 Meds/Results Medications: Active Medications Generic Name Dose Route Start Last Admin Trade Name Freq PRN Reason Stop Dose Admin Acetaminophen 650 mg 09/23/24 16:08 Acetaminophen 325 Mg Tablet PO Q6H PRN fever or mild pain Atorvastatin Calcium 40 mg 09/23/24 21:00 09/25/24 20:58 Atorvastatin 40 Mg Tablet PO 40 mg QHS MEGAN Administration Carvedilol 6.25 mg 09/23/24 21:00 09/26/24 08:39 Carvedilol 6.25 Mg Tablet PO 6.25 mg Q12HR MEGAN Administration Celecoxib 200 mg 09/25/24 08:00 09/26/24 08:40 Celecoxib 200 Mg Capsule PO 200 mg DAILY@0800 MEGAN Administration Dextrose 12.5 gm 09/23/24 16:15 Dextrose 50% 25 Gm/50 Ml Syringe IV PUSH PRN PRN Hypoglycemia Protocol Ferrous Sulfate 325 mg 09/23/24 17:00 09/26/24 08:40 Ferrous Sulfate [address] BY MOUTH 325 mg BID MEGAN Administration Gabapentin 200 mg 09/24/24 09:00 09/26/24 08:39 Gabapentin 100 Mg Capsule PO 200 mg DAILY MEGAN Administration Glucagon 1 mg 09/23/24 16:15 Glucagon For Inj 1 Mg Vial IM PRN PRN Hypoglycemia Protocol Glucose 15 gm 09/23/24 16:15 Glucose Oral Gel 15 Gm Of Glucse In 37.5 Gm Tube PO PRN PRN Hypoglycemia Protocol Hydroxyzine Pamoate 50 mg 09/24/24 17:19 Hydroxyzine Pamoate 25 Mg Capsule PO Q4H PRN Itching Dextrose 1,000 mls @ 100 mls/hr 09/23/24 16:15 Dextrose 5% 1,000 Ml IVPB PRN PRN Hypoglycemia Protocol Ibuprofen 800 mg in 200 mls @ 400 mls/hr 09/24/24 17:19 Caldolor 800 Mg/200 Ml IVPB Q6H PRN Breakthrough Pain Rated 1-3 or NPO Sodium Chloride 1,000 mls @ 200 mls/hr 09/26/24 14:00 09/26/24 15:24 Normal Saline Iv IV CONT 09/26/24 18:59 200 mls/hr .Q5H MEGAN Administration Insulin Aspart 4 - 8 units 09/23/24 17:00 09/26/24 12:50 Insulin Aspart (*Bkc) 100 Units/Ml SUB-Q 4 units TIDWM MEGAN Administration Protocol Insulin Aspart 2 - 4 units 09/23/24 21:00 09/25/24 20:58 Insulin Aspart (*Bkc) 100 Units/Ml SUB-Q 2 units HS MEGAN Administration Protocol Isosorbide Mononitrate 30 mg 09/24/24 09:00 09/26/24 08:40 Isosorbide Mononitrate 30 Mg Tab.Er.24h PO 30 mg DAILY MEGAN Administration Lidocaine 1 patch 09/23/24 16:26 Lidocaine 5% Patch TRANSDERM DAILY PRN pain Naloxone HCl 0.1 mg 09/24/24 17:19 Naloxone Hcl 0.4 Mg/Ml Vial IV PUSH Q2M PRN Opiate Reversal Nitroglycerin 0.4 mg 09/23/24 16:08 Nitroglycerin Sl 0.4 Mg Tablet SUBLINGUAL Q5MIN PRN chest pain Ondansetron HCl 4 mg 09/23/24 16:08 Ondansetron Hcl Odt 4 Mg Tablet PO Q6H PRN nausea and vomiting Ondansetron HCl 4 mg 09/24/24 17:19 Ondansetron Inj 4 Mg/2 Ml Vial IV PUSH Q4H PRN Nausea And Vomiting Pantoprazole Sodium 40 mg 09/23/24 21:00 09/26/24 08:40 Pantoprazole 40 Mg Tablet PO 40 mg Q12HR MEGAN Administration Polyethylene Glycol 17 gm 09/25/24 09:00 09/26/24 08:42 Polyethylene Glycol 3350 17 Gm Powd.Pack PO 17 gm QAM MEGAN Administration Rivaroxaban 10 mg 09/24/24 17:19 09/25/24 16:33 Rivaroxaban 10 Mg Tablet PO 10 mg DAILY@17 MEGAN Administration Senna/Docusate Sodium 2 tab 09/24/24 17:19 09/26/24 08:39 Senna/Docusate Sodium Tablet PO 2 tab BID MEGAN Administration Sertraline HCl 25 mg 09/24/24 09:00 09/26/24 08:39 Sertraline Hcl 25 Mg Tablet PO 25 mg Q24H MEGAN Administration Tramadol HCl 50 mg 09/24/24 17:19 Tramadol Hcl (*Crx) 50 Mg Tablet PO Q4H PRN Pain Rated 1-3 Radiology Results: ITS Impressions Chest X-Ray 09/23/24 05:59 Impression: Prominent central pulmonary venous congestive changes. Stable cardiomegaly. Hip/Pelvis X-Ray 09/23/24 05:59 Impression: Suspected transverse fracture the right femoral neck. Consider cross-sectional imaging for further evaluation. Head CT 09/23/24 06:00 Impression: No intracranial hemorrhage, mass, or acute infarct. 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 Atrophy and chronic white matter changes, as above. Cervical Spine CT 09/23/24 06:28 Impression: No fracture or subluxation of the cervical spine. Degenerative spondylosis, as above. Shoulder X-Ray 09/23/24 06:49 Impression: Unremarkable right shoulder radiographs. Hip CT 09/23/24 07:06 IMPRESSION: Acute subcapital fracture of the right femoral neck, as detailed above. Intraoperative X-Ray 09/24/24 15:56 IMPRESSION: 1. Expected appearance during placement of a bipolar type right hip hemiarthroplasty. See procedure note for further detail. Pelvis X-Ray 09/24/24 15:57 IMPRESSION: Right hip arthroplasty. No definite fractures seen.. Labs Labs: Laboratory Results - last 24 hr 09/25/24 09/25/24 09/26/24 17:22 20:52 05:13 WBC 13.1 H RBC 3.10 L Hgb 8.0 L Hct 28.7 L MCV 92.6 MCH 25.8 L MCHC 27.9 L RDW 15.3 H Plt Count 281 MPV 9.6 Immature Gran % (Auto) 0.5 Neut % (Auto) 76.6 H Lymph % (Auto) 11.0 L [place] % (Auto) 9.4 H Eos % (Auto) 1.8 Baso % (Auto) 0.7 Lymph # (Auto) 1.44 [place] # (Auto) 1.2 H Eos # (Auto) 0.2 Baso # (Auto) 0.1 Abs Immat Gran (auto) 0.07 H Absolute Neuts (auto) 10.0 H Absolute Nucleated RBC 0.000 Band Neutrophils % 0 Nucleated RBC % 0.0 Platelet Estimate Adequate Hypochromasia 1+ Poikilocytosis 2+ Anisocytosis 1+ Ovalocytes 1+ Schistocytes None seen Sodium 139 Potassium 3.5 Chloride 111 H Carbon Dioxide 20 L Anion Gap 8 BUN 15 Creatinine 0.75 Estim Creat Clear Calc 57 Estimated GFR > 60 Glucose 177 H POC Capillary Glucose 181 H 216 H Calcium 7.5 L Total Bilirubin 0.3 AST 55 H ALT 16 Alkaline Phosphatase 74 Total Protein 5.0 L Albumin 2.7 L 09/26/24 09/26/24 08:10 12:19 WBC RBC Hgb Hct MCV MCH MCHC RDW Plt Count MPV Immature Gran % (Auto) Neut % (Auto) Lymph % (Auto) [place] % (Auto) Eos % (Auto) Baso % (Auto) Lymph # (Auto) [place] # (Auto) Eos # (Auto) Baso # (Auto) Abs Immat Gran (auto) Absolute Neuts (auto) Absolute Nucleated RBC Band Neutrophils % Nucleated RBC % Platelet Estimate Hypochromasia Poikilocytosis Anisocytosis Ovalocytes Schistocytes Sodium Potassium Chloride Carbon Dioxide Anion Gap BUN Creatinine Estim Creat Clear Calc Estimated GFR Glucose POC Capillary Glucose 173 H 221 H Calcium Total Bilirubin AST ALT Alkaline Phosphatase Total Protein Albumin Quality VTE Prophylaxis VTE prophylaxis: mechanical ordered Hospitalist MIPS Advance Care Plan I have confirmed that the patient's Advanced Care Plan is present, code status is documented, or surrogate decision maker is listed in patient medical record.: Yes Medication Reconciliation I have utilized all available resources to obtain, update and review the patients current medications (includes all prescriptions, OTC, herbals, cannabis, and nutritional supplements).: Yes
[2024-09-26 17:09] LABS: Glucose Point of Care 239 mg/dl (65-105)
[2024-09-26] MEDS: RIVAROXABAN 10 MG TABLET PO (17:38)
[2024-09-26 20:00] VITALS: PULSE 94; RESP 20; O2SAT 93
[2024-09-26 20:58] VITALS: BP 116/45; PULSE 94; RESP 20; TEMP 37.2; O2SAT 93
[2024-09-26 21:12] VITALS: PULSE 94
[2024-09-26] MEDS: ATORVASTATIN 40 MG TABLET PO (21:12)
[2024-09-26 21:25] LABS: Glucose Point of Care 197 mg/dl (65-105)
[2024-09-27] VITALS (11 sets, daily range): BP systolic 117–156; BP diastolic 42–68; PULSE 74–86; RESP 16–20; TEMP 36.5–37.2; O2SAT 93–99
[2024-09-27 04:55] LABS: Basophils Absolute Auto 0.1 K/mm3 (0.0-0.1); Basophils Percent Auto 0.5 % (0.2-1.2); Eosinophils Absolute Auto 0.2 K/mm3 (0-0.3); Eosinophils Percent Auto 1.8 % (0-4.4); Hematocrit 24.9 % (37.0-47.0); Hemoglobin 7.3 g/dL (12.0-15.0); Immature Granulocyte Absolute 0.08 K/mm3 (0.00-0.031); Immature Granulocyte Percent A 0.6 % (0-0.5); Lymphocytes Absolute Auto 1.54 K/mm3 (0.9-3.2); Lymphocytes Percent Auto 11.4 % (18.3-44.2); Mean Corpuscular HGB Conc 29.3 g/dl (32-36); Mean Corpuscular Hemoglobin 26.1 pg (26-34); Mean Corpuscular Volume 88.9 fl (80-100); Mean Platelet Volume 9.8 fl (7.4-10.4); Monocytes Absolute Auto 1.3 K/mm3 (0.1-0.6); Monocytes Percent Auto 9.3 % (2.6-8.5); Neutrophils Absolute Auto 10.4 K/mm3 (1.3-6.7); Neutrophils Percent Auto 76.4 % (45.5-73.1); Platelet Count Result 318 k/mm3 (150-375); Red Cell Distribution Width 15.2 % (11.5-14.5); White Blood Count 13.5 K/mm3 (4.5-10.0)
[2024-09-27 05:11] LABS: Alanine Aminotransferase 18 U/L (6-35); Albumin Level 2.9 g/dL (3.5-5.1); Alkaline Phosphatase 81 U/L (38-126); Anion Gap 4 mmol/L (4-12); Aspartate Amino Transferase 53 U/L (14-36); Bilirubin,Total 0.4 mg/dL (0.2-1.3); Blood Urea Nitrogen 19 mg/dL (7-17); Calcium 8.1 mg/dL (8.4-10.2); Carbon Dioxide 25 mmol/L (22-30); Chloride 112 mmol/L (98-107); Estimated CRCL calculation 53 ml/min; Estimated Glomerular Filt Rate > 60; Glucose 198 mg/dL (65-110); Potassium 3.5 mmol/L (3.4-5.0); Sodium 141 mmol/L (137-145)
[2024-09-27 05:29] LABS: Anisocytosis 1+; Platelet Estimate Adequate (Adequate)
[2024-09-27 05:30] LABS: Hypochromasia 1+; Ovalocytes 1+; Schistocytes Rare
[2024-09-27 07:57] LABS: Glucose Point of Care 199 mg/dl (65-105)
[2024-09-27] MEDS: GABAPENTIN 100 MG CAPSULE 200 MG PO (08:42)
[2024-09-27] MEDS: carvediloL 6.25 MG TABLET PO ×2 (08:42→20:43)
[2024-09-27] MEDS: SERTRALINE HCL 25 MG TABLET PO (08:42)
[2024-09-27] MEDS: CELECOXIB 200 MG CAPSULE PO (08:42)
[2024-09-27] MEDS: FERROUS SULFATE 325 MG TABLET DR BY MOUTH ×2 (08:43→16:22)
[2024-09-27] MEDS: SENNA/DOCUSATE SODIUM TABLET 2 TAB PO ×2 (08:43→16:22)
[2024-09-27] MEDS: polyethylene glycoL 3350 17 GM POWD.PACK PO (08:43)
[2024-09-27] MEDS: PANTOPRAZOLE 40 MG TABLET PO (08:43)
[2024-09-27] MEDS: ISOSORBIDE MONONITRATE 30 MG TAB.ER.24H PO (08:43)
[2024-09-27 12:17] LABS: Glucose Point of Care 230 mg/dl (65-105)
[2024-09-27] MEDS: INSULIN ASPART (*BKC) 100 UNITS/ML SUB-Q (12:20)
[2024-09-27 13:08] LABS: Hematocrit 22.8 % (37.0-47.0); Mean Corpuscular HGB Conc 29.4 g/dl (32-36); Mean Corpuscular Hemoglobin 25.8 pg (26-34); Mean Corpuscular Volume 87.7 fl (80-100); Mean Platelet Volume 9.7 fl (7.4-10.4); Platelet Count Result 313 k/mm3 (150-375); Red Cell Distribution Width 15.4 % (11.5-14.5); White Blood Count 12.4 K/mm3 (4.5-10.0)
[2024-09-27 13:26] LABS: Hemoglobin 6.7 g/dL (12.0-15.0)
--- NOTE | 2024-09-27 13:33 | PM.IMPN ---
Progress Note: A&P Assessment and Plan (1) Fracture of femoral neck, right: Code(s): S72.001A - Fracture of unspecified part of neck of right femur, initial encounter for closed fracture Status: Acute Assessment and Plan: Patient is an 79-year-old female coming from [facility] after a ground level fall. Hip/pelvis x-ray: Suspected transverse fracture of the femoral neck Cervical spine CT: No fracture or subluxation of cervical spine, degenerative spondylosis Hip CT: Acute subcapital fracture of the right femoral neck Orthopedics consulted s/p right bipolar hip replacement on 09/24 at 1:30 p.m. 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, No intracranial hemorrhage, mass or acute infarct, Atrophy and chronic white matter changes Shoulder x-ray Unremarkable right shoulder radiograph (3) Diabetes mellitus: Code(s): E11.9 - Type 2 diabetes mellitus without complications Status: Acute Assessment and Plan: 09/23 HgbA1c 7.5 Home meds: Metformin 500mg daily & SSI Hypoglycemia protocol - POC blood glucose ACHS - home medication - Metformin, holding - SSI (4) Anemia: Qualifiers: Anemia type: unspecified type Qualified Code(s): D64.9 - Anemia, unspecified Code(s): D64.9 - Anemia, unspecified Status: Acute Assessment and Plan: Acute drop overnight. Hgb 9.2/32.1 on admission. Has been trending down, 8/29.2>7.3/24.9>6.7 Concern for GI bleeding - transfuse if <7 - trend H&H --Hold Xarelto (post op hip prophylaxis), NSAIDs --Change PPI from PO to IV --Consider subq heparin for prophylaxis when blood count stable --Iron panel, ferritin (5) Hypertension: Code(s): I10 - Essential (primary) hypertension Status: Acute Assessment and Plan: Blood pressure intermittently elevated, 116/45-150/58 Will continue current medications, carvedilol 6.25 BID, isosorbide 30 daily (6) Decreased urination: Code(s): R34 - Anuria and oliguria Status: Acute Assessment and Plan: Poor p.o. intake and decreased urination. Creatinine normal --repeat BMP in a.m. --1 L of fluids today --Urinary retention overnight, Martínez placed --decrease opiates Time Spent With Patient Time: 58 minutes Subjective Date/time seen: 09/27/24 13:33 Interval history: Sleepy, confused. WBC 12.4 today Urinary retention overnight so Martínez was placed Blood count dropped overnight, 9.2 on admission >8>7.3>6.7. Jb Tai Had a BM overnight and no report of black or bloody stools Called , Timothy Aguero, Review of Systems Review of Systems: All systems reviewed & are unremarkable except as noted in HPI and below Exam Narrative: Gen - well appearing female in no acute respiratory distress who is nontoxic-appearing lying semi recumbent in bed HEENT - normocephalic. Atraumatic. Pupils equal round and reactive. Extraocular motions intact. Sclera clear and anicteric. Nares patent. Moist mucous membranes. No facial asymmetry. Neck - neck was supple. No dominant adenopathy, thyromegaly or masses. 2+ carotid upstrokes without bruits. Chest - lungs are clear to auscultation bilaterally. No wheezes or crackles. CV - heart was regular rate and rhythm. S1-S2. No murmurs gallops or rubs. Abd - abdomen soft. Nontender. Nondistended. Positive bowel sounds. Ext - Right hip dressing dry and intact. Neurovascularly intact. Right Shoulder nontender upon palpation. No pain with movement, range of motion appropriate. No clubbing, cyanosis or edema. 2+ DP pulses bilaterally. Neuro - patient is alert and oriented x1, pleasantly confused. Strength is 5/5 in both upper and lower extremities. Cranial nerves 2-12 are intact. Speech is clear. Psych - normal mood and affect. Patient is pleasant and cooperative. Skin - warm and dry. No rashes noted. Objective Data Vital Signs Vital Signs: Vital Signs - 24 hr 09/26/24 14:00 09/26/24 20:00 09/26/24 20:58 Temperature 97.9 F 98.9 F Pulse Rate 79 94 94 Respiratory Rate 18 20 20 Blood Pressure 103/40 L 116/45 L Pulse Oximetry 93 93 93 Oxygen Delivery Room Air 09/26/24 21:12 09/27/24 06:00 09/27/24 08:00 Temperature 98.9 F Pulse Rate 94 86 Respiratory Rate 16 Blood Pressure 150/58 H Pulse Oximetry 96 Oxygen Delivery Room Air Intake/Output Intake/Output: Intake & Output 09/24/24 09/25/24 09/26/24 09/27/24 23:59 23:59 23:59 23:59 Intake Total 470 2760 1240 420 Output Total 0973 558 1868 600 Balance -580 2009 240 -180 Meds/Results Medications: Active Medications Generic Name Dose Route Start Last Admin Trade Name Freq PRN Reason Stop Dose Admin Acetaminophen 650 mg 09/23/24 16:08 Acetaminophen 325 Mg Tablet PO Q6H PRN fever or mild pain Atorvastatin Calcium 40 mg 09/23/24 21:00 09/26/24 21:12 Atorvastatin 40 Mg Tablet PO 40 mg QHS MEGAN Administration Carvedilol 6.25 mg 09/23/24 21:00 09/27/24 08:42 Carvedilol 6.25 Mg Tablet PO 6.25 mg Q12HR MEGAN Administration Celecoxib 200 mg 09/25/24 08:00 09/27/24 08:42 Celecoxib 200 Mg Capsule PO 200 mg DAILY@0800 MEGAN Administration Dextrose 12.5 gm 09/23/24 16:15 Dextrose 50% 25 Gm/50 Ml Syringe IV PUSH PRN PRN Hypoglycemia Protocol Ferrous Sulfate 325 mg 09/23/24 17:00 09/27/24 08:43 Ferrous Sulfate [address] BY MOUTH 325 mg BID MEGAN Administration Gabapentin 200 mg 09/24/24 09:00 09/27/24 08:42 Gabapentin 100 Mg Capsule PO 200 mg DAILY MEGAN Administration Glucagon 1 mg 09/23/24 16:15 Glucagon For Inj 1 Mg Vial IM PRN PRN Hypoglycemia Protocol Glucose 15 gm 09/23/24 16:15 Glucose Oral Gel 15 Gm Of Glucse In 37.5 Gm Tube PO PRN PRN Hypoglycemia Protocol Hydroxyzine Pamoate 50 mg 09/24/24 17:19 Hydroxyzine Pamoate 25 Mg Capsule PO Q4H PRN Itching Dextrose 1,000 mls @ 100 mls/hr 09/23/24 16:15 Dextrose 5% 1,000 Ml IVPB PRN PRN Hypoglycemia Protocol Sodium Chloride 250 mls @ 30 mls/hr 09/27/24 13:29 Normal Saline Iv IV CONT 09/27/24 21:48 .Q8H20M STA Insulin Aspart 4 - 8 units 09/23/24 17:00 09/27/24 12:20 Insulin Aspart (*Bkc) 100 Units/Ml SUB-Q 4 units TIDWM MEGAN Administration Protocol Insulin Aspart 2 - 4 units 09/23/24 21:00 09/26/24 21:13 Insulin Aspart (*Bkc) 100 Units/Ml SUB-Q Not Given HS MEGAN Protocol Isosorbide Mononitrate 30 mg 09/24/24 09:00 09/27/24 08:43 Isosorbide Mononitrate 30 Mg Tab.Er.24h PO 30 mg DAILY MEGAN Administration Lidocaine 1 patch 09/23/24 16:26 Lidocaine 5% Patch TRANSDERM DAILY PRN pain Naloxone HCl 0.1 mg 09/24/24 17:19 Naloxone Hcl 0.4 Mg/Ml Vial IV PUSH Q2M PRN Opiate Reversal Nitroglycerin 0.4 mg 09/23/24 16:08 Nitroglycerin Sl 0.4 Mg Tablet SUBLINGUAL Q5MIN PRN chest pain Ondansetron HCl 4 mg 09/23/24 16:08 Ondansetron Hcl Odt 4 Mg Tablet PO Q6H PRN nausea and vomiting Ondansetron HCl 4 mg 09/24/24 17:19 Ondansetron Inj 4 Mg/2 Ml Vial IV PUSH Q4H PRN Nausea And Vomiting Pantoprazole Sodium 40 mg 09/23/24 21:00 09/27/24 08:43 Pantoprazole 40 Mg Tablet PO 40 mg Q12HR MEGAN Administration Polyethylene Glycol 17 gm 09/25/24 09:00 09/27/24 08:43 Polyethylene Glycol 3350 17 Gm Powd.Pack PO 17 gm QAM MEGAN Administration Rivaroxaban 10 mg 09/24/24 17:19 09/26/24 17:38 Rivaroxaban 10 Mg Tablet PO 10 mg DAILY@17 MEGAN Administration Senna/Docusate Sodium 2 tab 09/24/24 17:19 09/27/24 08:43 Senna/Docusate Sodium Tablet PO 2 tab BID MEGAN Administration Sertraline HCl 25 mg 09/24/24 09:00 09/27/24 08:42 Sertraline Hcl 25 Mg Tablet PO 25 mg Q24H MEGAN Administration Tramadol HCl 50 mg 09/24/24 17:19 Tramadol Hcl (*Crx) 50 Mg Tablet PO Q4H PRN Pain Rated 1-3 Radiology Results: ITS Impressions Chest X-Ray 09/23/24 05:59 Impression: Prominent central pulmonary venous congestive changes. Stable cardiomegaly. Hip/Pelvis X-Ray 09/23/24 05:59 Impression: Suspected transverse fracture the right femoral neck. Consider cross-sectional imaging for further evaluation. Head CT 09/23/24 06:00 Impression: No intracranial hemorrhage, mass, or acute infarct. 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 Atrophy and chronic white matter changes, as above. Cervical Spine CT 09/23/24 06:28 Impression: No fracture or subluxation of the cervical spine. Degenerative spondylosis, as above. Shoulder X-Ray 09/23/24 06:49 Impression: Unremarkable right shoulder radiographs. Hip CT 09/23/24 07:06 IMPRESSION: Acute subcapital fracture of the right femoral neck, as detailed above. Intraoperative X-Ray 09/24/24 15:56 IMPRESSION: 1. Expected appearance during placement of a bipolar type right hip hemiarthroplasty. See procedure note for further detail. Pelvis X-Ray 09/24/24 15:57 IMPRESSION: Right hip arthroplasty. No definite fractures seen.. Labs Labs: Laboratory Results - last 24 hr 09/26/24 09/26/24 09/27/24 17:05 20:53 04:36 WBC 13.5 H RBC 2.80 L Hgb 7.3 L Hct 24.9 L MCV 88.9 MCH 26.1 MCHC 29.3 L RDW 15.2 H Plt Count 318 MPV 9.8 Immature Gran % (Auto) 0.6 H Neut % (Auto) 76.4 H Lymph % (Auto) 11.4 L [place] % (Auto) 9.3 H Eos % (Auto) 1.8 Baso % (Auto) 0.5 Lymph # (Auto) 1.54 [place] # (Auto) 1.3 H Eos # (Auto) 0.2 Baso # (Auto) 0.1 Abs Immat Gran (auto) 0.08 H Absolute Neuts (auto) 10.4 H Absolute Nucleated RBC 0.000 Band Neutrophils % Not Reportable Nucleated RBC % 0.0 Platelet Estimate Adequate Hypochromasia 1+ Anisocytosis 1+ Ovalocytes 1+ Schistocytes Rare Sodium 141 Potassium 3.5 Chloride 112 H Carbon Dioxide 25 Anion Gap 4 BUN 19 H Creatinine 0.81 Estim Creat Clear Calc 53 Estimated GFR > 60 Glucose 198 H POC Capillary Glucose 239 H 197 H Calcium 8.1 L Total Bilirubin 0.4 AST 53 H ALT 18 Alkaline Phosphatase 81 Total Protein 6.0 L Albumin 2.9 L Crossmatch 09/27/24 09/27/24 09/27/24 07:55 12:15 13:00 WBC 12.4 H RBC 2.60 L Hgb 6.7 L* Hct 22.8 L MCV 87.7 MCH 25.8 L MCHC 29.4 L RDW 15.4 H Plt Count 313 MPV 9.7 Immature Gran % (Auto) Neut % (Auto) Lymph % (Auto) [place] % (Auto) Eos % (Auto) Baso % (Auto) Lymph # (Auto) [place] # (Auto) Eos # (Auto) Baso # (Auto) Abs Immat Gran (auto) Absolute Neuts (auto) Absolute Nucleated RBC Band Neutrophils % Nucleated RBC % Platelet Estimate Hypochromasia Anisocytosis Ovalocytes Schistocytes Sodium Potassium Chloride Carbon Dioxide Anion Gap BUN Creatinine Estim Creat Clear Calc Estimated GFR Glucose POC Capillary Glucose 199 H 230 H Calcium Total Bilirubin AST ALT Alkaline Phosphatase Total Protein Albumin Crossmatch See Detail Quality VTE Prophylaxis VTE prophylaxis: mechanical ordered (Holding Xarelto for acute anemia) Hospitalist MIPS Advance Care Plan I have confirmed that the patient's Advanced Care Plan is present, code status is documented, or surrogate decision maker is listed in patient medical record.: Yes Medication Reconciliation I have utilized all available resources to obtain, update and review the patients current medications (includes all prescriptions, OTC, herbals, cannabis, and nutritional supplements).: Yes
--- NOTE | 2024-09-27 13:40 | PC.NURSE ---
Telephone call made to Emery Aguero Jr., son, regarding a blood consent. No answer received. Listed phone number for spouse has been changed per [employer].
[2024-09-27] MEDS: SODIUM CHLORIDE 0.9% IV 250 ML 30 ML IV CONT (14:53)
[2024-09-27 16:37] LABS: Glucose Point of Care 165 mg/dl (65-105)
[2024-09-27] MEDS: ATORVASTATIN 40 MG TABLET PO (20:43)
[2024-09-27] MEDS: PANTOPRAZOLE SODIUM IV 40 MG VIAL IV PUSH (20:43)
[2024-09-27 21:08] LABS: Glucose Point of Care 168 mg/dl (65-105)
[2024-09-27 21:16] LABS: Basophils Absolute Auto 0.1 K/mm3 (0.0-0.1); Basophils Percent Auto 0.7 % (0.2-1.2); Eosinophils Absolute Auto 0.2 K/mm3 (0-0.3); Eosinophils Percent Auto 1.9 % (0-4.4); Hematocrit 26.4 % (37.0-47.0); Hemoglobin 8.1 g/dL (12.0-15.0); Immature Granulocyte Percent A 0.8 % (0-0.5); Lymphocytes Absolute Auto 1.62 K/mm3 (0.9-3.2); Lymphocytes Percent Auto 12.6 % (18.3-44.2); Mean Corpuscular HGB Conc 30.7 g/dl (32-36); Mean Corpuscular Hemoglobin 26.8 pg (26-34); Mean Corpuscular Volume 87.4 fl (80-100); Mean Platelet Volume 9.4 fl (7.4-10.4); Monocytes Absolute Auto 1.1 K/mm3 (0.1-0.6); Monocytes Percent Auto 8.4 % (2.6-8.5); Neutrophils Absolute Auto 9.7 K/mm3 (1.3-6.7); Neutrophils Percent Auto 75.6 % (45.5-73.1); Platelet Count Result 295 k/mm3 (150-375); Red Blood Count 3.02 M/mm3 (4.2-5.4); Red Cell Distribution Width 14.9 % (11.5-14.5); White Blood Count 12.9 K/mm3 (4.5-10.0)
[2024-09-27 21:26] LABS: Alanine Aminotransferase 23 U/L (6-35); Albumin Level 2.8 g/dL (3.5-5.1); Alkaline Phosphatase 82 U/L (38-126); Anion Gap 5 mmol/L (4-12); Aspartate Amino Transferase 49 U/L (14-36); Bilirubin,Total 0.8 mg/dL (0.2-1.3); Blood Urea Nitrogen 19 mg/dL (7-17); Carbon Dioxide 22 mmol/L (22-30); Chloride 112 mmol/L (98-107); Estimated CRCL calculation 57 ml/min; Estimated Glomerular Filt Rate > 60; Glucose 196 mg/dL (65-110); Potassium 3.6 mmol/L (3.4-5.0); Sodium 139 mmol/L (137-145)
[2024-09-28 04:26] VITALS: BP 150/60; PULSE 77; RESP 20; TEMP 36.3; O2SAT 96
[2024-09-28 05:28] LABS: Basophils Absolute Auto 0.1 K/mm3 (0.0-0.1); Basophils Percent Auto 0.6 % (0.2-1.2); Eosinophils Absolute Auto 0.3 K/mm3 (0-0.3); Eosinophils Percent Auto 2.5 % (0-4.4); Hematocrit 27.4 % (37.0-47.0); Hemoglobin 8.2 g/dL (12.0-15.0); Immature Granulocyte Absolute 0.15 K/mm3 (0.00-0.031); Immature Granulocyte Percent A 1.3 % (0-0.5); Lymphocytes Absolute Auto 1.36 K/mm3 (0.9-3.2); Lymphocytes Percent Auto 11.5 % (18.3-44.2); Mean Corpuscular HGB Conc 29.9 g/dl (32-36); Mean Corpuscular Hemoglobin 26.3 pg (26-34); Mean Corpuscular Volume 87.8 fl (80-100); Mean Platelet Volume 9.9 fl (7.4-10.4); Monocytes Percent Auto 8.7 % (2.6-8.5); Neutrophils Absolute Auto 8.9 K/mm3 (1.3-6.7); Neutrophils Percent Auto 75.4 % (45.5-73.1); Platelet Count Result 313 k/mm3 (150-375); Red Blood Count 3.12 M/mm3 (4.2-5.4); Red Cell Distribution Width 15.1 % (11.5-14.5); White Blood Count 11.8 K/mm3 (4.5-10.0)
[2024-09-28 05:36] LABS: Alanine Aminotransferase 24 U/L (6-35); Albumin Level 2.8 g/dL (3.5-5.1); Alkaline Phosphatase 84 U/L (38-126); Anion Gap 8 mmol/L (4-12); Aspartate Amino Transferase 48 U/L (14-36); Bilirubin,Total 0.6 mg/dL (0.2-1.3); Blood Urea Nitrogen 17 mg/dL (7-17); Calcium 8.1 mg/dL (8.4-10.2); Carbon Dioxide 21 mmol/L (22-30); Chloride 112 mmol/L (98-107); Estimated CRCL calculation 60 ml/min; Estimated Glomerular Filt Rate > 60; Glucose 189 mg/dL (65-110); Potassium 3.6 mmol/L (3.4-5.0); Sodium 141 mmol/L (137-145)
[2024-09-28 05:40] LABS: Iron 28 ug/dL (37-170)
[2024-09-28 05:50] LABS: Percent Iron Saturation 12 % (20-50)
[2024-09-28 06:04] LABS: Anisocytosis 1+; Hypochromasia 1+; Platelet Estimate Adequate (Adequate); Poikilocytosis 1+
[2024-09-28 06:05] LABS: Burr Cells 1+; Ovalocytes 1+; Schistocytes Rare
[2024-09-28 08:15] LABS: Glucose Point of Care 165 mg/dl (65-105)
[2024-09-28] MEDS: SERTRALINE HCL 25 MG TABLET PO (08:48)
[2024-09-28] MEDS: ISOSORBIDE MONONITRATE 30 MG TAB.ER.24H PO (08:48)
[2024-09-28] MEDS: carvediloL 6.25 MG TABLET PO ×2 (08:48→22:00)
[2024-09-28] MEDS: GABAPENTIN 100 MG CAPSULE 200 MG PO (08:48)
[2024-09-28] MEDS: SENNA/DOCUSATE SODIUM TABLET 2 TAB PO ×2 (08:48→16:38)
[2024-09-28] MEDS: PANTOPRAZOLE SODIUM IV 40 MG VIAL IV PUSH ×2 (08:48→22:01)
[2024-09-28] MEDS: polyethylene glycoL 3350 17 GM POWD.PACK PO (08:48)
[2024-09-28] MEDS: FERROUS SULFATE 325 MG TABLET DR BY MOUTH ×2 (08:48→16:38)
--- NOTE | 2024-09-28 08:48 | PM.IMPN ---
Progress Note: A&P Assessment and Plan (1) Fracture of femoral neck, right: Code(s): S72.001A - Fracture of unspecified part of neck of right femur, initial encounter for closed fracture Status: Acute Assessment and Plan: Patient is an 79-year-old female coming from [facility] after a ground level fall. Hip/pelvis x-ray: Suspected transverse fracture of the femoral neck Cervical spine CT: No fracture or subluxation of cervical spine, degenerative spondylosis Hip CT: Acute subcapital fracture of the right femoral neck Orthopedics consulted s/p right bipolar hip replacement on 09/24 at 1:30 p.m. 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, No intracranial hemorrhage, mass or acute infarct, Atrophy and chronic white matter changes Shoulder x-ray Unremarkable right shoulder radiograph (3) Diabetes mellitus: Code(s): E11.9 - Type 2 diabetes mellitus without complications Status: Acute Assessment and Plan: 09/23 HgbA1c 7.5 Home meds: Metformin 500mg daily & SSI Hypoglycemia protocol - POC blood glucose ACHS - home medication - Metformin, holding - SSI (4) Anemia: Qualifiers: Anemia type: unspecified type Qualified Code(s): D64.9 - Anemia, unspecified Code(s): D64.9 - Anemia, unspecified Status: Acute Assessment and Plan: Acute drop overnight. Hgb 9.2/32.1 on admission. Has been trending down, 8/29.2>7.3/24.9>6.7 Concern for GI bleeding - transfuse if <7 - trend H&H --Hold Xarelto (post op hip prophylaxis), NSAIDs --Change PPI from PO to IV --Consider subq heparin for prophylaxis when blood count stable --Iron panel, ferritin (5) Hypertension: Code(s): I10 - Essential (primary) hypertension Status: Acute Assessment and Plan: Blood pressure intermittently elevated, 116/45-150/58 Will continue current medications, carvedilol 6.25 BID, isosorbide 30 daily (6) Decreased urination: Code(s): R34 - Anuria and oliguria Status: Acute Assessment and Plan: Poor p.o. intake and decreased urination. Creatinine normal --repeat BMP in a.m. --1 L of fluids today --Urinary retention overnight, Martínez placed --decrease opiates Subjective Date/time seen: 09/28/24 08:48 Interval history: Patient hemoglobin stable. Will continue monitor. Review of Systems Review of Systems: All systems reviewed & are unremarkable except as noted in HPI and below Exam Narrative: Gen - well appearing female in no acute respiratory distress who is nontoxic-appearing lying semi recumbent in bed HEENT - normocephalic. Atraumatic. Pupils equal round and reactive. Extraocular motions intact. Sclera clear and anicteric. Nares patent. Moist mucous membranes. No facial asymmetry. Neck - neck was supple. No dominant adenopathy, thyromegaly or masses. 2+ carotid upstrokes without bruits. Chest - lungs are clear to auscultation bilaterally. No wheezes or crackles. CV - heart was regular rate and rhythm. S1-S2. No murmurs gallops or rubs. Abd - abdomen soft. Nontender. Nondistended. Positive bowel sounds. Ext - Right hip dressing dry and intact. Neurovascularly intact. Right Shoulder nontender upon palpation. No pain with movement, range of motion appropriate. No clubbing, cyanosis or edema. 2+ DP pulses bilaterally. Neuro - patient is alert and oriented x1, pleasantly confused. Strength is 5/5 in both upper and lower extremities. Cranial nerves 2-12 are intact. Speech is clear. Psych - normal mood and affect. Patient is pleasant and cooperative. Skin - warm and dry. No rashes noted. Objective Data Vital Signs Vital Signs: Vital Signs - 24 hr 09/27/24 14:00 09/27/24 14:59 09/27/24 15:15 Temperature 97.7 F 98.6 F 98.1 F Pulse Rate 74 76 76 Respiratory Rate 18 18 18 Blood Pressure 117/42 L 129/56 L 140/52 L Pulse Oximetry 97 97 97 Oxygen Delivery Fraction of Inspired Oxygen 09/27/24 16:15 09/27/24 17:15 09/27/24 17:54 Temperature 98.9 F 97.8 F 97.8 F Pulse Rate 76 83 77 Respiratory Rate 18 18 20 Blood Pressure 149/61 H 147/65 H 156/68 H Pulse Oximetry 96 93 99 Oxygen Delivery Fraction of Inspired Oxygen 09/27/24 20:00 09/27/24 20:37 09/27/24 20:43 Temperature 98.1 F Pulse Rate 82 82 82 Respiratory Rate 16 16 Blood Pressure 149/58 H Pulse Oximetry 96 96 Oxygen Delivery Room Air Fraction of Inspired Oxygen 09/27/24 21:32 09/28/24 04:26 09/28/24 08:00 Temperature 97.3 F L Pulse Rate 75 77 Respiratory Rate 20 20 Blood Pressure 150/60 H Pulse Oximetry 93 96 Oxygen Delivery Room Air Room Air Fraction of Inspired Oxygen 21 Intake/Output Intake/Output: Intake & Output 09/25/24 09/26/24 09/27/24 09/28/24 23:59 23:59 23:59 23:59 Intake Total 2760 1240 770 150 Output Total 750 1000 1100 600 Balance 2009 546 -765 -435 Meds/Results Medications: Active Medications Generic Name Dose Route Start Last Admin Trade Name Freq PRN Reason Stop Dose Admin Acetaminophen 650 mg 09/23/24 16:08 Acetaminophen 325 Mg Tablet PO Q6H PRN fever or mild pain Atorvastatin Calcium 40 mg 09/23/24 21:00 09/27/24 20:43 Atorvastatin 40 Mg Tablet PO 40 mg QHS MEGAN Administration Carvedilol 6.25 mg 09/23/24 21:00 09/28/24 08:48 Carvedilol 6.25 Mg Tablet PO 6.25 mg Q12HR MEGAN Administration Celecoxib 200 mg 09/25/24 08:00 09/27/24 08:42 Celecoxib 200 Mg Capsule PO 200 mg DAILY@0800 MEGAN Administration Dextrose 12.5 gm 09/23/24 16:15 Dextrose 50% 25 Gm/50 Ml Syringe IV PUSH PRN PRN Hypoglycemia Protocol Ferrous Sulfate 325 mg 09/23/24 17:00 09/28/24 08:48 Ferrous Sulfate [address] BY MOUTH 325 mg BID MEGAN Administration Gabapentin 200 mg 09/24/24 09:00 09/28/24 08:48 Gabapentin 100 Mg Capsule PO 200 mg DAILY MEGAN Administration Glucagon 1 mg 09/23/24 16:15 Glucagon For Inj 1 Mg Vial IM PRN PRN Hypoglycemia Protocol Glucose 15 gm 09/23/24 16:15 Glucose Oral Gel 15 Gm Of Glucse In 37.5 Gm Tube PO PRN PRN Hypoglycemia Protocol Hydroxyzine Pamoate 50 mg 09/24/24 17:19 Hydroxyzine Pamoate 25 Mg Capsule PO Q4H PRN Itching Dextrose 1,000 mls @ 100 mls/hr 09/23/24 16:15 Dextrose 5% 1,000 Ml IVPB PRN PRN Hypoglycemia Protocol Insulin Aspart 4 - 8 units 09/23/24 17:00 09/28/24 08:46 Insulin Aspart (*Bkc) 100 Units/Ml SUB-Q Not Given TIDWM [facility] Protocol Insulin Aspart 2 - 4 units 09/23/24 21:00 09/27/24 20:43 Insulin Aspart (*Bkc) 100 Units/Ml SUB-Q Not Given HS [facility] Protocol Isosorbide Mononitrate 30 mg 09/24/24 09:00 09/28/24 08:48 Isosorbide Mononitrate 30 Mg Tab.Er.24h PO 30 mg DAILY MEGAN Administration Lidocaine 1 patch 09/23/24 16:26 Lidocaine 5% Patch TRANSDERM DAILY PRN pain Naloxone HCl 0.1 mg 09/24/24 17:19 Naloxone Hcl 0.4 Mg/Ml Vial IV PUSH Q2M PRN Opiate Reversal Nitroglycerin 0.4 mg 09/23/24 16:08 Nitroglycerin Sl 0.4 Mg Tablet SUBLINGUAL Q5MIN PRN chest pain Ondansetron HCl 4 mg 09/23/24 16:08 Ondansetron Hcl Odt 4 Mg Tablet PO Q6H PRN nausea and vomiting Ondansetron HCl 4 mg 09/24/24 17:19 Ondansetron Inj 4 Mg/2 Ml Vial IV PUSH Q4H PRN Nausea And Vomiting Oxycodone HCl 5 mg 09/27/24 13:44 Oxycodone Hcl (*Crx) 5 Mg Tab Ir PO Q4H PRN Pain Rated 7-10 Pantoprazole Sodium 40 mg 09/27/24 21:00 09/28/24 08:48 Pantoprazole Sodium Iv 40 Mg Vial IV PUSH 40 mg Q12HR MEGAN Administration Polyethylene Glycol 17 gm 09/25/24 09:00 09/28/24 08:48 Polyethylene Glycol 3350 17 Gm Powd.Pack PO 17 gm QAM MEGAN Administration Rivaroxaban 10 mg 09/24/24 17:19 09/26/24 17:38 Rivaroxaban 10 Mg Tablet PO 10 mg DAILY@17 MEGAN Administration Senna/Docusate Sodium 2 tab 09/24/24 17:19 09/28/24 08:48 Senna/Docusate Sodium Tablet PO 2 tab BID MEGAN Administration Sertraline HCl 25 mg 09/24/24 09:00 09/28/24 08:48 Sertraline Hcl 25 Mg Tablet PO 25 mg Q24H MEGAN Administration Tramadol HCl 50 mg 09/27/24 13:44 Tramadol Hcl (*Crx) 50 Mg Tablet PO Q6H PRN Moderate Pain (4-6) Radiology Results: ITS Impressions Chest X-Ray 09/23/24 05:59 Impression: Prominent central pulmonary venous congestive changes. Stable cardiomegaly. Hip/Pelvis X-Ray 09/23/24 05:59 Impression: Suspected transverse fracture the right femoral neck. Consider cross-sectional imaging for further evaluation. Head CT 09/23/24 06:00 Impression: No intracranial hemorrhage, mass, or acute infarct. 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 Atrophy and chronic white matter changes, as above. Cervical Spine CT 09/23/24 06:28 Impression: No fracture or subluxation of the cervical spine. Degenerative spondylosis, as above. Shoulder X-Ray 09/23/24 06:49 Impression: Unremarkable right shoulder radiographs. Hip CT 09/23/24 07:06 IMPRESSION: Acute subcapital fracture of the right femoral neck, as detailed above. Intraoperative X-Ray 09/24/24 15:56 IMPRESSION: 1. Expected appearance during placement of a bipolar type right hip hemiarthroplasty. See procedure note for further detail. Pelvis X-Ray 09/24/24 15:57 IMPRESSION: Right hip arthroplasty. No definite fractures seen.. Labs Labs: Laboratory Results - last 24 hr 09/27/24 09/27/24 09/27/24 12:15 13:00 16:33 WBC 12.4 H RBC 2.60 L Hgb 6.7 L* Hct 22.8 L MCV 87.7 MCH 25.8 L MCHC 29.4 L RDW 15.4 H Plt Count 313 MPV 9.7 Immature Gran % (Auto) Neut % (Auto) Lymph % (Auto) [place] % (Auto) Eos % (Auto) Baso % (Auto) Lymph # (Auto) [place] # (Auto) Eos # (Auto) Baso # (Auto) Abs Immat Gran (auto) Absolute Neuts (auto) Absolute Nucleated RBC Band Neutrophils % Nucleated RBC % Platelet Estimate Hypochromasia Poikilocytosis Anisocytosis Ovalocytes Todd Cells Schistocytes Sodium Potassium Chloride Carbon Dioxide Anion Gap BUN Creatinine Estim Creat Clear Calc Estimated GFR Glucose POC Capillary Glucose 230 H 165 H Calcium Iron TIBC % Saturation Ferritin Total Bilirubin Direct Bilirubin AST ALT Alkaline Phosphatase Total Protein Albumin Blood Type A Positive Antibody Screen Negative Crossmatch See Detail 09/27/24 09/27/24 09/28/24 20:41 21:10 04:36 WBC 12.9 H 11.8 H RBC 3.02 L 3.12 L Hgb 8.1 L 8.2 L Hct 26.4 L 27.4 L MCV 87.4 87.8 MCH 26.8 26.3 MCHC 30.7 L 29.9 L RDW 14.9 H 15.1 H Plt Count 295 313 MPV 9.4 9.9 Immature Gran % (Auto) 0.8 H 1.3 H Neut % (Auto) 75.6 H 75.4 H Lymph % (Auto) 12.6 L 11.5 L [place] % (Auto) 8.4 8.7 H Eos % (Auto) 1.9 2.5 Baso % (Auto) 0.7 0.6 Lymph # (Auto) 1.62 1.36 [place] # (Auto) 1.1 H 1.0 H Eos # (Auto) 0.2 0.3 Baso # (Auto) 0.1 0.1 Abs Immat Gran (auto) 0.10 H 0.15 H Absolute Neuts (auto) 9.7 H 8.9 H Absolute Nucleated RBC 0.000 0.000 Band Neutrophils % Not Reportable Nucleated RBC % 0.0 0.0 Platelet Estimate Adequate Hypochromasia 1+ Poikilocytosis 1+ Anisocytosis 1+ Ovalocytes 1+ Todd Cells 1+ Schistocytes Rare Sodium 139 141 Potassium 3.6 3.6 Chloride 112 H 112 H Carbon Dioxide 22 21 L Anion Gap 5 8 BUN 19 H 17 Creatinine 0.76 0.72 Estim Creat Clear Calc 57 60 Estimated GFR > 60 > 60 Glucose 196 H 189 H POC Capillary Glucose 168 H Calcium 8.0 L 8.1 L Iron 28 L TIBC 243 L % Saturation 12 L Ferritin 35.30 Total Bilirubin 0.8 0.6 Direct Bilirubin 0.0 AST 49 H 48 H ALT 23 24 Alkaline Phosphatase 82 84 Total Protein 6.0 L 6.0 L Albumin 2.8 L 2.8 L Blood Type Antibody Screen Crossmatch 09/28/24 08:12 WBC RBC Hgb Hct MCV MCH MCHC RDW Plt Count MPV Immature Gran % (Auto) Neut % (Auto) Lymph % (Auto) [place] % (Auto) Eos % (Auto) Baso % (Auto) Lymph # (Auto) [place] # (Auto) Eos # (Auto) Baso # (Auto) Abs Immat Gran (auto) Absolute Neuts (auto) Absolute Nucleated RBC Band Neutrophils % Nucleated RBC % Platelet Estimate Hypochromasia Poikilocytosis Anisocytosis Ovalocytes [place] Cells Schistocytes Sodium Potassium Chloride Carbon Dioxide Anion Gap BUN Creatinine Estim Creat Clear Calc Estimated GFR Glucose POC Capillary Glucose 165 H Calcium Iron TIBC % Saturation Ferritin Total Bilirubin Direct Bilirubin AST ALT Alkaline Phosphatase Total Protein Albumin Blood Type Antibody Screen Crossmatch Quality VTE Prophylaxis VTE prophylaxis: mechanical ordered (Holding Xarelto for acute anemia) Hospitalist MIPS Advance Care Plan I have confirmed that the patient's Advanced Care Plan is present, code status is documented, or surrogate decision maker is listed in patient medical record.: Yes Medication Reconciliation I have utilized all available resources to obtain, update and review the patients current medications (includes all prescriptions, OTC, herbals, cannabis, and nutritional supplements).: Yes
[2024-09-28 08:52] LABS: Basophils Absolute Auto 0.1 K/mm3 (0.0-0.1); Basophils Percent Auto 0.5 % (0.2-1.2); Eosinophils Absolute Auto 0.3 K/mm3 (0-0.3); Eosinophils Percent Auto 2.2 % (0-4.4); Hematocrit 28.8 % (37.0-47.0); Hemoglobin 8.8 g/dL (12.0-15.0); Immature Granulocyte Absolute 0.11 K/mm3 (0.00-0.031); Immature Granulocyte Percent A 0.9 % (0-0.5); Lymphocytes Absolute Auto 1.48 K/mm3 (0.9-3.2); Lymphocytes Percent Auto 12.1 % (18.3-44.2); Mean Corpuscular HGB Conc 30.6 g/dl (32-36); Mean Corpuscular Hemoglobin 26.5 pg (26-34); Mean Corpuscular Volume 86.7 fl (80-100); Mean Platelet Volume 9.6 fl (7.4-10.4); Monocytes Percent Auto 7.8 % (2.6-8.5); Neutrophils Absolute Auto 9.4 K/mm3 (1.3-6.7); Neutrophils Percent Auto 76.5 % (45.5-73.1); Platelet Count Result 339 k/mm3 (150-375); Red Blood Count 3.32 M/mm3 (4.2-5.4); Red Cell Distribution Width 15.1 % (11.5-14.5); White Blood Count 12.3 K/mm3 (4.5-10.0)
[2024-09-28 12:08] LABS: Glucose Point of Care 309 mg/dl (65-105)
[2024-09-28] MEDS: INSULIN ASPART (*BKC) 100 UNITS/ML SUB-Q ×3 (12:08→22:01)
--- NOTE | 2024-09-28 13:07 | PCOTNOTE ---
Patient refused to participate. Patient states to much pain, not today
[2024-09-28] MEDS: oxyCODONE HCL (*CRX) 5 MG TAB IR PO (13:24)
[2024-09-28] MEDS: ACETAMINOPHEN 325 MG TABLET 650 MG PO (13:25)
[2024-09-28 14:00] VITALS: BP 123/43; PULSE 73; RESP 18; TEMP 36.7; O2SAT 98
--- NOTE | 2024-09-28 16:35 | P.CONGI_ITS ---
Assessment and Plan Assessment and plan (1) Anemia: Code(s): D64.9 - Anemia, unspecified Status: Acute Assessment and Plan: she has chronic anemia and this has been studied 2021 with colonoscopy, only mild colitis this time anemia probably is aggravated after recent hip surgery no need to proceed with endoscopic evaluation, of course if obvious bleeding then we can reassess keep hgb>7 will follow only as needed (2) Fracture of femoral neck, right: Code(s): S72.001A - Fracture of unspecified part of neck of right femur, initial encounter for closed fracture Status: Acute (3) Fall: Code(s): W19.XXXA - Unspecified fall, initial encounter Status: Acute (4) CVA (cerebral vascular accident): Code(s): I63.9 - Cerebral infarction, unspecified Status: Acute (5) Diabetes mellitus: Code(s): E11.9 - Type 2 diabetes mellitus without complications Status: Acute (6) Cognitive deficits: Code(s): R41.89 - Other symptoms and signs involving cognitive functions and awareness Status: Acute GI Consult Note Consult date/time: 09/28/24 16:35 Reason for consult: acute on chronic anemia HPI: Mary Lou Aguero is a 79 year old female with past medical history of renal cell carcinoma, hyperthyroidism essential hypertension, CVA and chronic anemia admitted to hospital few days ago after had a fall at the intermediate and noted to have fracture right hip, she underwent surgery. She is poor historian and recent of consult is worsening anemia but she has similar evaluation in 2021 when hgb also 6-7 range for which underwent colonoscopy, had mild colitis in descending colon, no other major findings. This time no report of overt gib Review of Systems 2 Constitutional: Constitutional: Reports weakness Eyes: Eyes: Reports no additional eye complaints ENT: Denies nasal congestion Cardiovascular: Cardiovascular: Denies chest pain Respiratory: Respiratory: Denies cough Gastrointestinal: Gastrointestinal: Denies abdominal pain Genitourinary: Genitourinary: Denies flank pain Musculoskeletal: Comments: hip fracture Integumentary/Breasts: Skin/Breast: Denies rash Neurologic: Denies Abnormal speech present Psychiatric: Psychiatric: Denies homicidal ideation [facility] Past Medical History Medical History Other specified abnormal findings of blood chemistry Other malaise Cognitive communication deficit Pain in right arm Essential (primary) hypertension Nicotine dependence, unspecified, uncomplicated Renal cell carcinoma Hyperthyroidism Cognitive deficits Right hemiplegia CVA (cerebral vascular accident) H/O renal cell cancer Peripheral vascular disease Diabetes mellitus Anemia GERD (gastroesophageal reflux disease) Obesity Hyperlipidemia Hypertension Coronary artery disease Surgical History Surgical History History of right nephrectomy History of cataract removal with insertion of prosthetic lens Right eye History of cholecystectomy History of appendectomy History of coronary artery stent placement H/O aortic valve replacement Family History Family History Sibling Hypertension Other Family history of heart attack Social History Social History Social History: Prior to her CVA the patient was independent in activities of daily living it was the primary caregiver for her . Her son will be hiring caregivers for them when she returns home. Code Status: POLST signed 03/15/23 : No CPR (DNAR) Smoking packs per day: 1 Smoking cigarettes per day: 20.0 Years smoked: 50 Smoking pack-years: 50.00 Smoking status: Former smoker Second hand tobacco smoke exposure: Yes Alcohol intake: never Substance use: never Substance use type: does not use Do You Feel Safe in your Home?: Yes Lack of Transportation: No Lack of Food: Never True Current Housing: I Have Housing Concerned About Future Housing: No Difficulty Paying Gas/Electric Bills: No Difficulty Paying for Meds: No Currently Unemployed: No Education: Don't Know Difficulty w/ Childcare or Family Care: No Additional living arrangements comments: [facility] Spiritual care concerns: No Meds Home Medications and Allergies Home Medications ?Medication ?Instructions ?Recorded ?Confirmed ?Type pantoprazole 40 mg tablet,delayed 40 mg PO Q12HR #60 tabs 07/22/21 09/23/24 Rx release acetaminophen 325 mg capsule 650 mg PO Q6H PRN fever or pain 09/23/24 09/23/24 History atorvastatin 40 mg tablet 40 mg PO QHS 09/23/24 09/23/24 History carvedilol 6.25 mg tablet 6.25 mg PO BID 09/23/24 09/23/24 History ferrous sulfate 325 mg (65 mg 325 mg PO BID 09/23/24 09/23/24 History iron) tablet (Feosol) gabapentin 100 mg capsule 200 mg PO DAILY 09/23/24 09/23/24 History insulin lispro 100 unit/mL 1 sliding scale dose subcut AC 09/23/24 09/23/24 History subcutaneous solution isosorbide mononitrate 30 mg 30 mg PO DAILY 09/23/24 09/23/24 History tablet,extended release 24 hr lidocaine 4 % topical patch 1 patch topical Q12H PRN pain 09/23/24 09/23/24 History metformin 1,000 mg tablet 1,000 mg PO DAILY 09/23/24 09/23/24 History metformin 500 mg tablet 500 mg PO DAILY 09/23/24 09/23/24 History nitroglycerin 0.4 mg sublingual 0.4 mg sublingual Q5M PRN chest 09/23/24 09/23/24 History tablet pain ondansetron 4 mg disintegrating 4 mg PO Q6H PRN nausea and vomiting 09/23/24 09/23/24 History tablet polyethylene glycol 3350 17 gram 17 g PO Q12H PRN constipation 09/23/24 09/23/24 History oral powder packet (Miralax) sertraline 25 mg tablet 25 mg PO Q24H 09/23/24 09/23/24 History tramadol 50 mg tablet 50 mg PO Q8H PRN pain 09/23/24 09/23/24 History Allergies Allergy/AdvReac Type Severity Reaction Status Date / Time nicergoline Allergy Mild Unknown Verified 09/23/24 02:58 Bleach (Sodium Hypochlorite) Allergy Other Verified 09/23/24 02:58 cephalexin (From Keflex) Allergy Rash Verified 09/23/24 02:58 Vital Signs Vital Signs - 24 hr 09/27/24 17:15 09/27/24 17:54 09/27/24 20:00 Temperature 97.8 F 97.8 F Pulse Rate 83 77 82 Respiratory Rate 18 20 16 Blood Pressure 147/65 H 156/68 H Pulse Oximetry 93 99 96 Oxygen Delivery Room Air Fraction of Inspired Oxygen 09/27/24 20:37 09/27/24 20:43 09/27/24 21:32 Temperature 98.1 F Pulse Rate 82 82 75 Respiratory Rate 16 20 Blood Pressure 149/58 H Pulse Oximetry 96 93 Oxygen Delivery Room Air Fraction of Inspired Oxygen 21 09/28/24 04:26 09/28/24 08:00 09/28/24 14:00 Temperature 97.3 F L 98.1 F Pulse Rate 77 73 Respiratory Rate 20 18 Blood Pressure 150/60 H 123/43 L Pulse Oximetry 96 98 Oxygen Delivery Room Air Fraction of Inspired Oxygen Exam 2 Const: General: comfortable and no acute distress HENMT: Face/Nose/Sinus: Normal nares present Eyes: General: appearance normal, both eyes and all related structures Neck: Neck: supple Resp: Effort & Inspection: normal respiratory effort Cardio: Rate: regular rate GI: GI Palp: Yes Soft to palpation and No Tenderness to palpation present (GI) Auscultation: normal bowel sounds Skin: General skin exam: normal color Neuro: Speech: normal speech Other: awake and alert, pleasantly confused Extrem: Other: recent hip surgery Psych: Affect: normal affect Results Labs 09/28/24 08:47 09/28/24 04:36 Labs: Short CBC 09/27/24 09/28/24 09/28/24 Range/Units 21:10 04:36 08:47 WBC 12.9 H 11.8 H 12.3 H (4.5-10.0) K/mm3 Hgb 8.1 L 8.2 L 8.8 L (12.0-15.0) g/dL Hct 26.4 L 27.4 L 28.8 L (37.0-47.0) % Plt Count 295 313 339 (150-375) k/mm3 BMP 09/27/24 09/28/24 21:10 04:36 Sodium 139 141 Potassium 3.6 3.6 Chloride 112 H 112 H Carbon Dioxide 22 21 L BUN 19 H 17 Creatinine 0.76 0.72 Glucose 196 H 189 H Calcium 8.0 L 8.1 L Liver Function 09/27/24 09/28/24 Range/Units 21:10 04:36 Total Bilirubin 0.8 0.6 (0.2-1.3) mg/dL Direct Bilirubin 0.0 (0-0.3) mg/dL AST 49 H 48 H (14-36) U/L ALT 23 24 (6-35) U/L Alkaline Phosphatase 82 84 (38-126) U/L Albumin 2.8 L 2.8 L (3.5-5.1) g/dL
[2024-09-28 17:10] LABS: Glucose Point of Care 231 mg/dl (65-105)
[2024-09-28 20:00] VITALS: PULSE 62; RESP 20; O2SAT 96
[2024-09-28 20:40] VITALS: BP 124/50; PULSE 69; RESP 17; TEMP 36.5; O2SAT 96
[2024-09-28 21:00] LABS: Glucose Point of Care 238 mg/dl (65-105)
[2024-09-28 21:19] VITALS: PULSE 62; RESP 20; O2SAT 96
[2024-09-28 21:21] LABS: Basophils Absolute Auto 0.1 K/mm3 (0.0-0.1); Basophils Percent Auto 0.6 % (0.2-1.2); Eosinophils Absolute Auto 0.3 K/mm3 (0-0.3); Eosinophils Percent Auto 2.7 % (0-4.4); Hemoglobin 8.1 g/dL (12.0-15.0); Immature Granulocyte Absolute 0.09 K/mm3 (0.00-0.031); Immature Granulocyte Percent A 0.8 % (0-0.5); Lymphocytes Absolute Auto 1.64 K/mm3 (0.9-3.2); Lymphocytes Percent Auto 14.1 % (18.3-44.2); Mean Corpuscular Hemoglobin 26.3 pg (26-34); Mean Corpuscular Volume 87.7 fl (80-100); Mean Platelet Volume 9.5 fl (7.4-10.4); Monocytes Absolute Auto 1.1 K/mm3 (0.1-0.6); Neutrophils Absolute Auto 8.5 K/mm3 (1.3-6.7); Neutrophils Percent Auto 72.8 % (45.5-73.1); Nucleated Red Blood Cells Perc 0.2 % (0.0-0.2); Platelet Count Result 319 k/mm3 (150-375); Red Blood Count 3.08 M/mm3 (4.2-5.4); Red Cell Distribution Width 15.2 % (11.5-14.5); White Blood Count 11.7 K/mm3 (4.5-10.0)
[2024-09-28 22:00] VITALS: PULSE 62
[2024-09-28] MEDS: ATORVASTATIN 40 MG TABLET PO (22:01)
[2024-09-29 05:19] VITALS: BP 153/68; PULSE 71; RESP 16; TEMP 37.2; O2SAT 95
[2024-09-29 05:37] LABS: Basophils Absolute Auto 0.1 K/mm3 (0.0-0.1); Basophils Percent Auto 0.7 % (0.2-1.2); Eosinophils Absolute Auto 0.4 K/mm3 (0-0.3); Eosinophils Percent Auto 3.1 % (0-4.4); Hematocrit 27.6 % (37.0-47.0); Hemoglobin 8.3 g/dL (12.0-15.0); Immature Granulocyte Absolute 0.09 K/mm3 (0.00-0.031); Immature Granulocyte Percent A 0.8 % (0-0.5); Lymphocytes Percent Auto 13.1 % (18.3-44.2); Mean Corpuscular HGB Conc 30.1 g/dl (32-36); Mean Corpuscular Hemoglobin 26.4 pg (26-34); Mean Corpuscular Volume 87.9 fl (80-100); Mean Platelet Volume 9.8 fl (7.4-10.4); Monocytes Percent Auto 8.5 % (2.6-8.5); Neutrophils Absolute Auto 8.5 K/mm3 (1.3-6.7); Neutrophils Percent Auto 73.8 % (45.5-73.1); Nucleated Red Blood Cells Perc 0.2 % (0.0-0.2); Platelet Count Result 314 k/mm3 (150-375); Red Blood Count 3.14 M/mm3 (4.2-5.4); Red Cell Distribution Width 15.3 % (11.5-14.5); White Blood Count 11.5 K/mm3 (4.5-10.0)
[2024-09-29 05:54] LABS: Alanine Aminotransferase 38 U/L (6-35); Albumin Level 2.8 g/dL (3.5-5.1); Alkaline Phosphatase 89 U/L (38-126); Anion Gap 7 mmol/L (4-12); Aspartate Amino Transferase 47 U/L (14-36); Bilirubin,Total 0.4 mg/dL (0.2-1.3); Blood Urea Nitrogen 17 mg/dL (7-17); Calcium 8.2 mg/dL (8.4-10.2); Carbon Dioxide 22 mmol/L (22-30); Chloride 112 mmol/L (98-107); Estimated CRCL calculation 57 ml/min; Estimated Glomerular Filt Rate > 60; Glucose 191 mg/dL (65-110); Potassium 3.6 mmol/L (3.4-5.0); Sodium 141 mmol/L (137-145)
[2024-09-29 08:50] VITALS: O2SAT 96
[2024-09-29 08:52] VITALS: PULSE 72
[2024-09-29] MEDS: SERTRALINE HCL 25 MG TABLET PO (08:52)
[2024-09-29] MEDS: GABAPENTIN 100 MG CAPSULE 200 MG PO (08:52)
[2024-09-29] MEDS: carvediloL 6.25 MG TABLET PO (08:52)
[2024-09-29] MEDS: ISOSORBIDE MONONITRATE 30 MG TAB.ER.24H PO (08:52)
[2024-09-29] MEDS: SENNA/DOCUSATE SODIUM TABLET 2 TAB PO ×2 (08:52→16:31)
[2024-09-29] MEDS: FERROUS SULFATE 325 MG TABLET DR BY MOUTH ×2 (08:52→16:32)
[2024-09-29] MEDS: ACETAMINOPHEN 325 MG TABLET 650 MG PO (08:52)
[2024-09-29] MEDS: polyethylene glycoL 3350 17 GM POWD.PACK PO (08:53)
[2024-09-29] MEDS: INSULIN ASPART (*BKC) 100 UNITS/ML SUB-Q ×3 (08:55→16:32)
[2024-09-29] MEDS: PANTOPRAZOLE SODIUM IV 40 MG VIAL IV PUSH (08:55)
[2024-09-29 09:16] LABS: Glucose Point of Care 237 mg/dl (65-105)
[2024-09-29 12:39] LABS: Glucose Point of Care 229 mg/dl (65-105)
--- NOTE | 2024-09-29 13:51 | PM.DS ---
DS: Admitting Diagnosis Discharge Date 09/29/2024 Admitting Diagnosis Fracture of femoral neck right side DS: Discharge Diagnosis Discharge Diagnosis (1) Fracture of femoral neck, right: Code(s): S72.001A - Fracture of unspecified part of neck of right femur, initial encounter for closed fracture Status: Acute Assessment and Plan: Patient is an 79-year-old female coming from [facility] after a ground level fall. Hip/pelvis x-ray: Suspected transverse fracture of the femoral neck Cervical spine CT: No fracture or subluxation of cervical spine, degenerative spondylosis Hip CT: Acute subcapital fracture of the right femoral neck Orthopedics consulted s/p right bipolar hip replacement on 09/24 at 1:30 p.m. 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, No intracranial hemorrhage, mass or acute infarct, Atrophy and chronic white matter changes Shoulder x-ray Unremarkable right shoulder radiograph (3) Diabetes mellitus: Code(s): E11.9 - Type 2 diabetes mellitus without complications Status: Acute Assessment and Plan: 09/23 HgbA1c 7.5 Home meds: Metformin 500mg daily & SSI Hypoglycemia protocol - POC blood glucose ACHS - home medication - Metformin, holding - SSI (4) Anemia: Qualifiers: Anemia type: unspecified type Qualified Code(s): D64.9 - Anemia, unspecified Code(s): D64.9 - Anemia, unspecified Status: Acute Assessment and Plan: Acute drop overnight. Hgb 9.2/32.1 on admission. Has been trending down, 8/29.2>7.3/24.9>6.7 Concern for GI bleeding - transfuse if <7 - trend H&H --Hold Xarelto (post op hip prophylaxis), NSAIDs --Change PPI from PO to IV --Consider subq heparin for prophylaxis when blood count stable --Iron panel, ferritin (5) Hypertension: Code(s): I10 - Essential (primary) hypertension Status: Acute Assessment and Plan: Blood pressure intermittently elevated, 116/45-150/58 Will continue current medications, carvedilol 6.25 BID, isosorbide 30 daily (6) Decreased urination: Code(s): R34 - Anuria and oliguria Status: Acute Assessment and Plan: Poor p.o. intake and decreased urination. Creatinine normal --repeat BMP in a.m. --1 L of fluids today --Urinary retention overnight, Martínez placed --decrease opiates DS: Summary Hospital Course Hospital Course: 79-year-old female with a past medical history of renal cell carcinoma, hyperthyroidism essential hypertension, CVA and anemia, presenting to the ER due to a fall. Patient is A&O times 1-2 at baseline. HPI difficult to ascertain given patient's underlying mentation status. Report from snf states ground level fall onto right side. Upon exam patient has what appears to be external rotation of the right hip with pain on palpation to lateral aspect of the right hip. Distal pulses intact. No pain at baseline or at rest, only pain with movement of the right hip. Patient underwent bipolar prosthesis for hip fracture on the right on 09/24/2024. Patient was started on Xarelto and NSAIDs for prophylactic anticoagulation but unfortunately patient hemoglobin dropped and received 1 unit of PRBC. As per Orthopedics patient can be discharged with baby aspirin. GI evaluated the patient for possible GI bleed but reported anemia probably chronic and aggravated by recent hip surgery. Also reported no need to proceed with endoscopic evaluation. Patient will be discharged with a follow-up CBC in a week. On the day of discharge, the patient was seen and examined. Vital signs were stable. Physical exam were stable and labs were reviewed at length. Discharge instructions, medications, and follow-up appointments were discussed with the patient at length and all day questions were answered. ER warnings were given. Status at Discharge Cognitive/behavioral status at discharge: Stable Time Spent with Patient Time attestation: Total time spent providing and/or coordinating discharge services: 45 minutes Exam Narrative: Gen - well appearing female in no acute respiratory distress who is nontoxic-appearing lying semi recumbent in bed HEENT - normocephalic. Atraumatic. Pupils equal round and reactive. Extraocular motions intact. Sclera clear and anicteric. Nares patent. Moist mucous membranes. No facial asymmetry. Neck - neck was supple. No dominant adenopathy, thyromegaly or masses. 2+ carotid upstrokes without bruits. Chest - lungs are clear to auscultation bilaterally. No wheezes or crackles. CV - heart was regular rate and rhythm. S1-S2. No murmurs gallops or rubs. Abd - abdomen soft. Nontender. Nondistended. Positive bowel sounds. Ext - Right hip dressing dry and intact. Neurovascularly intact. Right Shoulder nontender upon palpation. No pain with movement, range of motion appropriate. No clubbing, cyanosis or edema. 2+ DP pulses bilaterally. Neuro - patient is alert and oriented x1, pleasantly confused. Strength is 5/5 in both upper and lower extremities. Cranial nerves 2-12 are intact. Speech is clear. Psych - normal mood and affect. Patient is pleasant and cooperative. Skin - warm and dry. No rashes noted. DS: Data Data Completed and Pending Labs on day of discharge: Labs from last 24 hours 09/29/24 09/29/24 09/29/24 11:49 08:54 05:18 WBC 11.5 H RBC 3.14 L Hgb 8.3 L Hct 27.6 L MCV 87.9 MCH 26.4 MCHC 30.1 L RDW 15.3 H Plt Count 314 MPV 9.8 Immature Gran % (Auto) 0.8 H Neut % (Auto) 73.8 H Lymph % (Auto) 13.1 L [place] % (Auto) 8.5 Eos % (Auto) 3.1 Baso % (Auto) 0.7 Lymph # (Auto) 1.50 [place] # (Auto) 1.0 H Eos # (Auto) 0.4 H Baso # (Auto) 0.1 Abs Immat Gran (auto) 0.09 H Absolute Neuts (auto) 8.5 H Absolute Nucleated RBC 0.020 H Nucleated RBC % 0.2 Sodium 141 Potassium 3.6 Chloride 112 H Carbon Dioxide 22 Anion Gap 7 BUN 17 Creatinine 0.76 Estim Creat Clear Calc 57 Estimated GFR > 60 Glucose 191 H POC Capillary Glucose 229 H 237 H Calcium 8.2 L Total Bilirubin 0.4 AST 47 H ALT 38 H Alkaline Phosphatase 89 Total Protein 6.0 L Albumin 2.8 L 09/28/24 09/28/24 09/28/24 21:07 20:43 17:06 WBC 11.7 H RBC 3.08 L Hgb 8.1 L Hct 27.0 L MCV 87.7 MCH 26.3 MCHC 30.0 L RDW 15.2 H Plt Count 319 MPV 9.5 Immature Gran % (Auto) 0.8 H Neut % (Auto) 72.8 Lymph % (Auto) 14.1 L [place] % (Auto) 9.0 H Eos % (Auto) 2.7 Baso % (Auto) 0.6 Lymph # (Auto) 1.64 [place] # (Auto) 1.1 H Eos # (Auto) 0.3 Baso # (Auto) 0.1 Abs Immat Gran (auto) 0.09 H Absolute Neuts (auto) 8.5 H Absolute Nucleated RBC 0.020 H Nucleated RBC % 0.2 Sodium Potassium Chloride Carbon Dioxide Anion Gap BUN Creatinine Estim Creat Clear Calc Estimated GFR Glucose POC Capillary Glucose 238 H 231 H Calcium Total Bilirubin AST ALT Alkaline Phosphatase Total Protein Albumin Discharge Plan Discharge Attending physician on discharge: Shai Herrera Consulting providers: Jay Calles; Gabriel Stevens; Osvaldo Fabian Discharging Clinician: Shai Herrera Anticipated Discharge Date/Time: 09/27/24 12:43 Patient Disposition: NH Retirement/Asst Living Activity: as tolerated Diet: regular Discharge Instructions: Ordered CBC to check for anemia and please review the results with PCP Check blood pressure 1 to 2 times a day. Record and bring into your doctor for review. Call your doctor if your blood pressure is greater than 180/110 or less than 90/45. Walk with cane or other assist device. Take precautions to avoid falls. Rise slowly from a lying or sitting position. Pause before standing or walking. Contact your doctor or call 911 and come to the Emergency Room if you have any type of trauma, lightheadedness with standing or other worrisome symptoms. Avoid NSAIDs (ibuprofen, naproxen, Aleve). Tylenol is safe to take. Follow-up with your primary care provider in 1-2 weeks. Please call for appointment. Follow-up with orthopedics in a week Thank you for using [facility] for your health care needs. Patient Instructions: Antibiotic Form, Rivaroxaban (By mouth), Heart Failure (DC), Pain Management (DC) Patient Language: Angolan Stand Alone Forms: General Discharge Information Discharge Medications: New oxycodone 5 mg Tablet 5 mg PO Q4H PRN (Reason: Pain Rated 7-10) Qty: 15 0RF acetaminophen 500 mg capsule 1,000 mg PO Q6H PRN (Reason: pain) Qty: 30 0RF aspirin 81 mg tablet 81 mg PO DAILY Qty: 30 0RF Continued carvedilol 6.25 mg tablet 6.25 mg PO BID insulin lispro 100 unit/mL solution 1 sliding scale dose subcut AC isosorbide mononitrate 30 mg tablet extended release 24 hr 30 mg PO DAILY lidocaine 4 % adhesive patch,medicated 1 patch topical Q12H PRN (Reason: pain) Patient Comments: Right knee Rx Instructions: may leave on for up to 12 hrs metformin 1,000 mg tablet 1,000 mg PO DAILY metformin 500 mg tablet 500 mg PO DAILY polyethylene glycol 3350 [Miralax] 17 gram powder in packet 17 g PO Q12H PRN (Reason: constipation) nitroglycerin 0.4 mg tablet, sublingual 0.4 mg sublingual Q5M PRN (Reason: chest pain) Rx Instructions: do not exceed 3 doses per episode ondansetron 4 mg tablet,disintegrating 4 mg PO Q6H PRN (Reason: nausea and vomiting) sertraline 25 mg tablet 25 mg PO Q24H tramadol 50 mg tablet 50 mg PO Q8H PRN (Reason: pain) atorvastatin 40 mg Tablet 40 mg PO QHS Rx Instructions: All refills are to go back to the primary care physician pantoprazole 40 mg Tablet,Delayed Release (Dr/Ec) 40 mg PO Q12HR Qty: 60 0RF Rx Instructions: All refills are to go back to the primary care physician Changed ferrous sulfate [Feosol] 325 mg (65 mg iron) tablet 325 mg PO DAILY Qty: 30 0RF gabapentin 100 mg capsule 200 mg PO HS Qty: 30 0RF Discontinued acetaminophen 325 mg capsule 650 mg PO Q6H PRN (Reason: fever or pain) Other Ambulatory Orders: Complete Blood Count no Diff (Routine) Timeframe: 1 Week Location: Determined by Patient Ordered By: Shai Herrera Date of admission: 09/23/24 11:21 Primary Care Provider: TodProsper Admitting Provider: Power Mcginnis Attending physician on admission: Samreen Srinivasan Condition: Stable
[2024-09-29 14:00] VITALS: BP 155/82; PULSE 75; RESP 18; TEMP 36.6; O2SAT 96
--- NOTE | 2024-09-29 15:40 | PM.PNORT ---
Progress Note: A&P Assessment and Plan (1) History of partial replacement of right hip joint using bipolar prosthesis: Code(s): Z96.641 - Presence of right artificial hip joint Status: Acute Assessment and Plan: S/P bipolar Progressing slowly F/U 2 weeks Subjective Subjective Date/Time Seen: 09/29/24 15:40 Post Op day: 4 Principal diagnosis: Bipola Review of Systems Constitutional: Constitutional: Reports weakness Eyes: Eyes: Reports no additional eye complaints ENT: Denies nasal congestion Cardiovascular: Cardiovascular: Denies chest pain Respiratory: Respiratory: Denies cough Gastrointestinal: Gastrointestinal: Denies abdominal pain Genitourinary: Genitourinary: Denies flank pain Musculoskeletal: Comments: hip fracture Integumentary/Breasts: Skin/Breast: Denies rash Neurologic: Denies Abnormal speech present Psychiatric: Psychiatric: Denies homicidal ideation Exam Narrative: Wound Clean NVI Wiggles toes Objective Data Vital Signs Vital Signs: Vital Signs - 24 hr 09/28/24 20:00 09/28/24 20:40 09/28/24 21:19 Temperature 97.7 F Pulse Rate 62 69 62 Respiratory Rate 20 17 20 Blood Pressure 124/50 L Pulse Oximetry 96 96 96 Oxygen Delivery Room Air Room Air Fraction of Inspired Oxygen 21 21 09/28/24 22:00 09/29/24 05:19 09/29/24 08:50 Temperature 98.9 F Pulse Rate 62 71 Respiratory Rate 16 Blood Pressure 153/68 H Pulse Oximetry 95 96 Oxygen Delivery Room Air Fraction of Inspired Oxygen 09/29/24 08:52 Temperature Pulse Rate 72 Respiratory Rate Blood Pressure Pulse Oximetry Oxygen Delivery Fraction of Inspired Oxygen Intake/Output Intake/Output: Intake & Output 09/26/24 09/27/24 09/28/24 09/29/24 23:59 23:59 23:59 23:59 Intake Total 1240 770 510 790 Output Total 1000 1100 1250 Balance 240 330 740 790 Meds/Results Medications: Active Medications Generic Name Dose Route Start Last Admin Trade Name Freq PRN Reason Stop Dose Admin Acetaminophen 650 mg 09/23/24 16:08 09/29/24 08:52 Acetaminophen 325 Mg Tablet PO 650 mg Q6H PRN Administration fever or mild pain Atorvastatin Calcium 40 mg 09/23/24 21:00 09/28/24 22:01 Atorvastatin 40 Mg Tablet PO 40 mg QHS MEGAN Administration Carvedilol 6.25 mg 09/23/24 21:00 09/29/24 08:52 Carvedilol 6.25 Mg Tablet PO 6.25 mg Q12HR MEGAN Administration Celecoxib 200 mg 09/25/24 08:00 09/27/24 08:42 Celecoxib 200 Mg Capsule PO 200 mg DAILY@0800 MEGAN Administration Dextrose 12.5 gm 09/23/24 16:15 Dextrose 50% 25 Gm/50 Ml Syringe IV PUSH PRN PRN Hypoglycemia Protocol Ferrous Sulfate 325 mg 09/23/24 17:00 09/29/24 08:52 Ferrous Sulfate [address] BY MOUTH 325 mg BID MEGAN Administration Gabapentin 200 mg 09/24/24 09:00 09/29/24 08:52 Gabapentin 100 Mg Capsule PO 200 mg DAILY MEGAN Administration Glucagon 1 mg 09/23/24 16:15 Glucagon For Inj 1 Mg Vial IM PRN PRN Hypoglycemia Protocol Glucose 15 gm 09/23/24 16:15 Glucose Oral Gel 15 Gm Of Glucse In 37.5 Gm Tube PO PRN PRN Hypoglycemia Protocol Hydroxyzine Pamoate 50 mg 09/24/24 17:19 Hydroxyzine Pamoate 25 Mg Capsule PO Q4H PRN Itching Dextrose 1,000 mls @ 100 mls/hr 09/23/24 16:15 Dextrose 5% 1,000 Ml IVPB PRN PRN Hypoglycemia Protocol Insulin Aspart 4 - 8 units 09/23/24 17:00 09/29/24 12:04 Insulin Aspart (*Bkc) 100 Units/Ml SUB-Q 4 units TIDWM [facility] Administration Protocol Insulin Aspart 2 - 4 units 09/23/24 21:00 09/28/24 22:01 Insulin Aspart (*Bkc) 100 Units/Ml SUB-Q 2 units HS [facility] Administration Protocol Isosorbide Mononitrate 30 mg 09/24/24 09:00 09/29/24 08:52 Isosorbide Mononitrate 30 Mg Tab.Er.24h PO 30 mg DAILY MEGAN Administration Lidocaine 1 patch 09/23/24 16:26 Lidocaine 5% Patch TRANSDERM DAILY PRN pain Naloxone HCl 0.1 mg 09/24/24 17:19 Naloxone Hcl 0.4 Mg/Ml Vial IV PUSH Q2M PRN Opiate Reversal Nitroglycerin 0.4 mg 09/23/24 16:08 Nitroglycerin Sl 0.4 Mg Tablet SUBLINGUAL Q5MIN PRN chest pain Ondansetron HCl 4 mg 09/23/24 16:08 Ondansetron Hcl Odt 4 Mg Tablet PO Q6H PRN nausea and vomiting Ondansetron HCl 4 mg 09/24/24 17:19 Ondansetron Inj 4 Mg/2 Ml Vial IV PUSH Q4H PRN Nausea And Vomiting Oxycodone HCl 5 mg 09/27/24 13:44 09/28/24 13:24 Oxycodone Hcl (*Crx) 5 Mg Tab Ir PO 5 mg Q4H PRN Administration Pain Rated 7-10 Pantoprazole Sodium 40 mg 09/27/24 21:00 09/29/24 08:55 Pantoprazole Sodium Iv 40 Mg Vial IV PUSH 40 mg Q12HR MEGAN Administration Polyethylene Glycol 17 gm 09/25/24 09:00 09/29/24 08:53 Polyethylene Glycol 3350 17 Gm Powd.Pack PO 17 gm QAM MEGAN Administration Rivaroxaban 10 mg 09/24/24 17:19 09/26/24 17:38 Rivaroxaban 10 Mg Tablet PO 10 mg DAILY@17 MEGAN Administration Senna/Docusate Sodium 2 tab 09/24/24 17:19 09/29/24 08:52 Senna/Docusate Sodium Tablet PO 2 tab BID MEGAN Administration Sertraline HCl 25 mg 09/24/24 09:00 09/29/24 08:52 Sertraline Hcl 25 Mg Tablet PO 25 mg Q24H MEGAN Administration Tramadol HCl 50 mg 09/27/24 13:44 Tramadol Hcl (*Crx) 50 Mg Tablet PO Q6H PRN Moderate Pain (4-6) Radiology Results: ITS Impressions Chest X-Ray 09/23/24 05:59 Impression: Prominent central pulmonary venous congestive changes. Stable cardiomegaly. Hip/Pelvis X-Ray 09/23/24 05:59 Impression: Suspected transverse fracture the right femoral neck. Consider cross-sectional imaging for further evaluation. Head CT 09/23/24 06:00 Impression: No intracranial hemorrhage, mass, or acute infarct. 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 Atrophy and chronic white matter changes, as above. Cervical Spine CT 09/23/24 06:28 Impression: No fracture or subluxation of the cervical spine. Degenerative spondylosis, as above. Shoulder X-Ray 09/23/24 06:49 Impression: Unremarkable right shoulder radiographs. Hip CT 09/23/24 07:06 IMPRESSION: Acute subcapital fracture of the right femoral neck, as detailed above. Intraoperative X-Ray 09/24/24 15:56 IMPRESSION: 1. Expected appearance during placement of a bipolar type right hip hemiarthroplasty. See procedure note for further detail. Pelvis X-Ray 09/24/24 15:57 IMPRESSION: Right hip arthroplasty. No definite fractures seen.. Labs Labs: Laboratory Results - last 24 hr 09/28/24 09/28/24 09/28/24 17:06 20:43 21:07 WBC 11.7 H RBC 3.08 L Hgb 8.1 L Hct 27.0 L MCV 87.7 MCH 26.3 MCHC 30.0 L RDW 15.2 H Plt Count 319 MPV 9.5 Immature Gran % (Auto) 0.8 H Neut % (Auto) 72.8 Lymph % (Auto) 14.1 L [place] % (Auto) 9.0 H Eos % (Auto) 2.7 Baso % (Auto) 0.6 Lymph # (Auto) 1.64 [place] # (Auto) 1.1 H Eos # (Auto) 0.3 Baso # (Auto) 0.1 Abs Immat Gran (auto) 0.09 H Absolute Neuts (auto) 8.5 H Absolute Nucleated RBC 0.020 H Nucleated RBC % 0.2 Sodium Potassium Chloride Carbon Dioxide Anion Gap BUN Creatinine Estim Creat Clear Calc Estimated GFR Glucose POC Capillary Glucose 231 H 238 H Calcium Total Bilirubin AST ALT Alkaline Phosphatase Total Protein Albumin 09/29/24 09/29/24 09/29/24 05:18 08:54 11:49 WBC 11.5 H RBC 3.14 L Hgb 8.3 L Hct 27.6 L MCV 87.9 MCH 26.4 MCHC 30.1 L RDW 15.3 H Plt Count 314 MPV 9.8 Immature Gran % (Auto) 0.8 H Neut % (Auto) 73.8 H Lymph % (Auto) 13.1 L [place] % (Auto) 8.5 Eos % (Auto) 3.1 Baso % (Auto) 0.7 Lymph # (Auto) 1.50 [place] # (Auto) 1.0 H Eos # (Auto) 0.4 H Baso # (Auto) 0.1 Abs Immat Gran (auto) 0.09 H Absolute Neuts (auto) 8.5 H Absolute Nucleated RBC 0.020 H Nucleated RBC % 0.2 Sodium 141 Potassium 3.6 Chloride 112 H Carbon Dioxide 22 Anion Gap 7 BUN 17 Creatinine 0.76 Estim Creat Clear Calc 57 Estimated GFR > 60 Glucose 191 H POC Capillary Glucose 237 H 229 H Calcium 8.2 L Total Bilirubin 0.4 AST 47 H ALT 38 H Alkaline Phosphatase 89 Total Protein 6.0 L Albumin 2.8 L
[2024-09-29 15:45] LABS: SARS-CoV-2 RNA PCR Negative (Negative)
[2024-09-29 16:31] LABS: Glucose Point of Care 259 mg/dl (65-105)
[2024-09-29 19:35] VITALS: BP 153/61; PULSE 68; RESP 20; TEMP 37; O2SAT 97
[2024-09-29 20:48] LABS: Glucose Point of Care 336 mg/dl (65-105)
== END 2024-09-29 20:10 | DRG 522 ==
LOC: ANHED 07:57 → ANH2MED 09:03
PROVIDERS: Nurse Practitioner Acute Care; Orthopaedic Surgery; Physician Assistant; Admitting Provider Family Medicine; Emergency Provider Student in an Organized Health Care Education/Training Program; PCP Physician Assistant; Visit Provider General Practice
PROC: 0SRR01A Replacement of Right Hip Joint, Femoral Surface with Metal Synthetic Substitute, Uncemented, Open Approach (ICD-10-PCS; CPT 27125; principal; 2024-09-24 13:30)
DX: S72.011A Unspecified intracapsular fracture of right femur, initial encounter for closed fracture (principal); R33.8 Other retention of urine; W18.30XA Fall on same level, unspecified, initial encounter; E05.90 Thyrotoxicosis, unspecified without thyrotoxic crisis or storm; D64.9 Anemia, unspecified; I69.318 Other symptoms and signs involving cognitive functions following cerebral infarction; I10 Essential (primary) hypertension; E11.9 Type 2 diabetes mellitus without complications; Z79.84 Long term (current) use of oral hypoglycemic drugs; Z91.81 History of falling; Z85.528 Personal history of other malignant neoplasm of kidney; Z95.2 Presence of prosthetic heart valve; Z95.5 Presence of coronary angioplasty implant and graft; Z79.4 Long term (current) use of insulin
CPT/HCPCS: 36415; 36430; 70450; 71045; 72125; 72170; 73030; 73502; 73700; 80048; 80053; 80076; 80307; 81001; 82728; 82948; 83036; 83540; 83550; 83880; 85025; 85027; 85610; 85730; 86850; 86900; 86901; 86923; 87086; 87635; 87637; 93005; 96374; 96375; 97110; 97162; 97166; 97530; 97535; 99199; 99285; A9270; C1776; G0378; J0690; J1171; J1815; J2003; J2270; J2371; J2405; J2470; J2704; J3010; J3370; J7030; J7050; J7120; P9016